=== PATIENT | female | born 1955 | race Caucasian/White ===

== ENCOUNTER 2017-07-04 03:48 | Inpatient (IN) | payer MEDICARE, BC ==
[~2017-07-04 03:48] MED LIST: ACETAMINOPHEN TAB 650MG DOSE (2X325MG) PO; MORPHINE 4 MG/ML 1ML VIAL (J2270) IV
[2017-07-04] MEDS: HEPARIN SOD (PORCINE) 5000 UNITS/ML VIAL SC ×3 (05:10→20:49)
[2017-07-04] MEDS: VANCOMYCIN 1000 MG/20 ML VIAL (J3370) IP (05:10)
[2017-07-04] MEDS: GENTAMICIN SULF INJ 80MG/2ML VIAL (J1580) IP (05:10)
[2017-07-04 06:12] LABS: HEMATOCRIT 29.8 % (36.0-47.0); HEMOGLOBIN 10.1 g/dl (12.0-16.0); MEAN CORPUSCULAR HEMOGLOBIN 30.4 pg (27.0-33.0); MEAN CORPUSCULAR HGB CONC 33.9 g/dl (32.0-36.5); MEAN CORPUSCULAR VOLUME 89.8 fl (80.0-96.0); PLATELET COUNT, AUTOMATED 317 10^3/uL (150-450); RED BLOOD COUNT 3.32 10^6/uL (4.00-5.40); RED CELL DISTRIBUTION WIDTH 13.9 % (11.5-14.5); WHITE BLOOD COUNT 8.6 10^3/uL (4.0-10.0)
[2017-07-04] MEDS: LEVOTHYROXINE 150MCG TABLET (0.15MG) PO (06:15)
[2017-07-04 06:19] LABS: ANION GAP 10 MEQ/L (8-16); BLOOD UREA NITROGEN 31 MG/DL (7-18); CALCIUM LEVEL 7.6 MG/DL (8.8-10.2); CARBON DIOXIDE LEVEL 29 MEQ/L (21-32); CHLORIDE LEVEL 96 MEQ/L (98-107); GLOMERULAR FILTRATION RATE 5.2 (>45); GLUCOSE, FASTING 131 MG/DL (70-100); PHOSPHORUS LEVEL 3.3 MG/DL (2.5-4.9); SODIUM LEVEL 135 MEQ/L (136-145)
[2017-07-04 06:34] LABS: RBC BODY FLUID < 2 10^3/uL (<2); WBC BODY FLUID 3351 /uL (0-10)
[2017-07-04 06:35] LABS: APPEARANCE, BODY FLUID CLOUDY (CLEAR); SOURCE, BODY FLUID PERITONEAL DIALYSATE
[2017-07-04 06:36] LABS: BF DIFF IF INDICATED? YES (NO)
[2017-07-04 06:40] LABS: CREATININE FOR GFR 8.37 MG/DL (0.55-1.30)
[2017-07-04 06:41] LABS: POTASSIUM SERUM 2.8 MEQ/L (3.5-5.1)
[2017-07-04] MEDS: POTASSIUM CHLORIDE 10 MEQ SR TABLET PO (06:52)
[2017-07-04] MEDS: ONDANSETRON 4MG/2ML VIAL (J2405) IV (06:55)
[2017-07-04] MEDS: DOCUSATE SODIUM 100 MG CAP PO ×2 (09:00→21:00)
[2017-07-04] MEDS: CALCITRIOL 0.25 MCG CAP (S0169) PO (20:47)
[2017-07-04] MEDS: CARVedilol 3.125 MG TAB PO (20:48)
[2017-07-04 20:55] LABS: ANION GAP 8 MEQ/L (8-16); BLOOD UREA NITROGEN 32 MG/DL (7-18); CALCIUM LEVEL 7.9 MG/DL (8.8-10.2); CARBON DIOXIDE LEVEL 33 MEQ/L (21-32); CHLORIDE LEVEL 94 MEQ/L (98-107); GLOMERULAR FILTRATION RATE 5.2 (>45); GLUCOSE, FASTING 249 MG/DL (70-100); POTASSIUM SERUM 3.4 MEQ/L (3.5-5.1); SODIUM LEVEL 135 MEQ/L (136-145)
[2017-07-04 21:05] LABS: CREATININE FOR GFR 8.34 MG/DL (0.55-1.30)
[2017-07-05] MEDS: LEVOTHYROXINE 150MCG TABLET (0.15MG) PO (06:26)
[2017-07-05] MEDS: HEPARIN SOD (PORCINE) 5000 UNITS/ML VIAL SC ×3 (06:27→21:15)
[2017-07-05] MEDS: DOCUSATE SODIUM 100 MG CAP PO ×2 (08:09→20:38)
[2017-07-05] MEDS: POTASSIUM CHLORIDE 10 MEQ SR TABLET PO ×3 (09:00→14:22)
[2017-07-05 09:01] LABS: HEMATOCRIT 30.2 % (36.0-47.0); HEMOGLOBIN 9.9 g/dl (12.0-16.0); MEAN CORPUSCULAR HEMOGLOBIN 29.9 pg (27.0-33.0); MEAN CORPUSCULAR HGB CONC 32.8 g/dl (32.0-36.5); MEAN CORPUSCULAR VOLUME 91.2 fl (80.0-96.0); PLATELET COUNT, AUTOMATED 307 10^3/uL (150-450); RED BLOOD COUNT 3.31 10^6/uL (4.00-5.40)
[2017-07-05 09:25] LABS: ALBUMIN 1.8 GM/DL (3.2-5.2); ANION GAP 8 MEQ/L (8-16); BLOOD UREA NITROGEN 34 MG/DL (7-18); CALCIUM LEVEL 7.5 MG/DL (8.8-10.2); CARBON DIOXIDE LEVEL 32 MEQ/L (21-32); CHLORIDE LEVEL 96 MEQ/L (98-107); GLOMERULAR FILTRATION RATE 5.2 (>45); GLUCOSE, FASTING 165 MG/DL (70-100); PHOSPHORUS LEVEL 3.5 MG/DL (2.5-4.9); SODIUM LEVEL 136 MEQ/L (136-145); VANCOMYCIN RANDOM 12.1 UG/ML
[2017-07-05 09:27] LABS: CREATININE FOR GFR 8.39 MG/DL (0.55-1.30)
[2017-07-05 11:39] LABS: BF MONONUCLEAR CELL % 50.5 % (0-0); BF POLYMORPHONUCLEAR CELL % 49.5 % (0-0); RBC BODY FLUID < 2 10^3/uL (<2); SOURCE, BODY FLUID PERITONEAL; WBC BODY FLUID 186 /uL (0-10)
[2017-07-05 11:40] LABS: APPEARANCE, BODY FLUID CLEAR (CLEAR); BF DIFF IF INDICATED? YES (NO); PERITONEAL FL COLOR COLORLESS (COLORLESS)
[2017-07-05] MEDS: HEPARIN 1,000 UNITS/ML 10ML VIAL (FOR RADIOLOGY& DIALYSIS ONLY) XX (18:30)
[2017-07-05] MEDS: LACTOBACILLUS ACIDOPHILUS CAP (BACID) PO (20:38)
[2017-07-05] MEDS: CALCITRIOL 0.25 MCG CAP (S0169) PO (20:39)
[2017-07-05] MEDS: CARVedilol 3.125 MG TAB PO (20:40)
[2017-07-05] MEDS: MUPIROCIN 2% OINT 22 GM TUBE TOP (20:41)
[2017-07-05] MEDS: VANCOMYCIN 1000 MG/20 ML VIAL (J3370) IP (22:42)
[2017-07-06] MEDS: LEVOTHYROXINE 150MCG TABLET (0.15MG) PO (05:44)
[2017-07-06] MEDS: HEPARIN SOD (PORCINE) 5000 UNITS/ML VIAL SC ×3 (05:44→20:13)
[2017-07-06 06:37] LABS: HEMATOCRIT 30.5 % (36.0-47.0); HEMOGLOBIN 9.8 g/dl (12.0-16.0); MEAN CORPUSCULAR HEMOGLOBIN 29.6 pg (27.0-33.0); MEAN CORPUSCULAR HGB CONC 32.1 g/dl (32.0-36.5); MEAN CORPUSCULAR VOLUME 92.1 fl (80.0-96.0); PLATELET COUNT, AUTOMATED 334 10^3/uL (150-450); RED BLOOD COUNT 3.31 10^6/uL (4.00-5.40); WHITE BLOOD COUNT 5.6 10^3/uL (4.0-10.0)
[2017-07-06 06:56] LABS: ALBUMIN 1.7 GM/DL (3.2-5.2); ANION GAP 6 MEQ/L (8-16); BLOOD UREA NITROGEN 30 MG/DL (7-18); CALCIUM LEVEL 8.3 MG/DL (8.8-10.2); CARBON DIOXIDE LEVEL 33 MEQ/L (21-32); CHLORIDE LEVEL 100 MEQ/L (98-107); GLOMERULAR FILTRATION RATE 5.3 (>45); GLUCOSE, FASTING 116 MG/DL (70-100); PHOSPHORUS LEVEL 3.1 MG/DL (2.5-4.9); POTASSIUM SERUM 3.8 MEQ/L (3.5-5.1); SODIUM LEVEL 139 MEQ/L (136-145)
[2017-07-06 07:09] LABS: CREATININE FOR GFR 8.23 MG/DL (0.55-1.30)
[2017-07-06] MEDS: DOCUSATE SODIUM 100 MG CAP PO ×2 (09:00→20:12)
[2017-07-06] MEDS: POTASSIUM CHLORIDE 10 MEQ SR TABLET PO (09:17)
[2017-07-06] MEDS: LACTOBACILLUS ACIDOPHILUS CAP (BACID) PO ×2 (09:17→20:10)
[2017-07-06] MEDS: amLODIPine 5 MG TAB PO (09:20)
[2017-07-06] MEDS: MUPIROCIN 2% OINT 22 GM TUBE TOP ×2 (09:20→20:13)
[2017-07-06 12:32] LABS: BF MONONUCLEAR CELL % 72.8 % (0-0); BF POLYMORPHONUCLEAR CELL % 27.2 % (0-0); RBC BODY FLUID < 2 10^3/uL (<2); WBC BODY FLUID 99 /uL (0-10)
[2017-07-06 12:34] LABS: APPEARANCE, BODY FLUID CLEAR (CLEAR); BF DIFF IF INDICATED? YES (NO); PERITONEAL DIALYSATE FL COLOR COLORLESS (COLORLESS); SOURCE, BODY FLUID PERITONEAL DIALYSATE
[2017-07-06] MEDS: HEPARIN SOD (PORCINE) 5000 UNITS/ML VIAL PD (14:42)
[2017-07-06] MEDS: CALCITRIOL 0.25 MCG CAP (S0169) PO (20:10)
[2017-07-06] MEDS: CARVedilol 3.125 MG TAB PO (20:12)
[2017-07-07] MEDS: LEVOTHYROXINE 150MCG TABLET (0.15MG) PO (06:41)
[2017-07-07] MEDS: HEPARIN SOD (PORCINE) 5000 UNITS/ML VIAL SC (06:42)
[2017-07-07 08:33] LABS: HEMATOCRIT 31.2 % (36.0-47.0); HEMOGLOBIN 9.9 g/dl (12.0-16.0); MEAN CORPUSCULAR HGB CONC 31.7 g/dl (32.0-36.5); MEAN CORPUSCULAR VOLUME 94.5 fl (80.0-96.0); PLATELET COUNT, AUTOMATED 321 10^3/uL (150-450); RED CELL DISTRIBUTION WIDTH 14.1 % (11.5-14.5); WHITE BLOOD COUNT 6.7 10^3/uL (4.0-10.0)
[2017-07-07 08:42] LABS: ALBUMIN 1.9 GM/DL (3.2-5.2); ANION GAP 9 MEQ/L (8-16); BLOOD UREA NITROGEN 33 MG/DL (7-18); CALCIUM LEVEL 8.2 MG/DL (8.8-10.2); CARBON DIOXIDE LEVEL 30 MEQ/L (21-32); CHLORIDE LEVEL 100 MEQ/L (98-107); CREATININE FOR GFR 7.88 MG/DL (0.55-1.30); GLOMERULAR FILTRATION RATE 5.5 (>45); GLUCOSE, FASTING 201 MG/DL (70-100); PHOSPHORUS LEVEL 2.9 MG/DL (2.5-4.9); POTASSIUM SERUM 3.9 MEQ/L (3.5-5.1); SODIUM LEVEL 139 MEQ/L (136-145)
[2017-07-07] MEDS: LACTOBACILLUS ACIDOPHILUS CAP (BACID) PO (08:52)
[2017-07-07] MEDS: POTASSIUM CHLORIDE 10 MEQ SR TABLET PO (08:52)
[2017-07-07] MEDS: DOCUSATE SODIUM 100 MG CAP PO (08:52)
[2017-07-07] MEDS: amLODIPine 5 MG TAB PO (08:53)
[2017-07-07] MEDS: MUPIROCIN 2% OINT 22 GM TUBE TOP (08:54)
== END 2017-07-07 12:25 | disposition home or self-care (01) | DRG 919 ==
LOC: M ICU 03:48 → M MSPAV 07-05 15:46
DX: T85.71XA Infection and inflammatory reaction due to peritoneal dialysis catheter, initial encounter (principal); N18.6 End stage renal disease; K65.9 Peritonitis, unspecified; N25.81 Secondary hyperparathyroidism of renal origin; I12.0 Hypertensive chronic kidney disease with stage 5 chronic kidney disease or end stage renal disease; E11.319 Type 2 diabetes mellitus with unspecified diabetic retinopathy without macular edema; D63.1 Anemia in chronic kidney disease; E89.0 Postprocedural hypothyroidism; I25.10 Atherosclerotic heart disease of native coronary artery without angina pectoris; Z99.2 Dependence on renal dialysis; Z95.828 Presence of other vascular implants and grafts; I25.2 Old myocardial infarction; Z98.41 Cataract extraction status, right eye; Z98.42 Cataract extraction status, left eye; Z88.0 Allergy status to penicillin; Z88.8 Allergy status to other drugs, medicaments and biological substances; Z95.5 Presence of coronary angioplasty implant and graft; Z79.899 Other long term (current) drug therapy; E87.6 Hypokalemia

== ENCOUNTER 2018-08-21 01:24 | Inpatient (IN) | payer MEDICARE, BC ==
[2018-08-20] MEDS: amLODIPine 5 MG TAB PO SCH (21:00)
[2018-08-20] MEDS: POTASSIUM CHLORIDE 10 MEQ SR TABLET PO SCH (21:00)
[2018-08-20] MEDS: CALCITRIOL 0.25 MCG CAP (S0169) PO SCH (21:00)
[2018-08-20] MEDS: ATORVASTATIN 20 MG TAB PO SCH (21:00)
[2018-08-20] MEDS: LISINOPRIL 5 MG TAB PO SCH (21:00)
[~2018-08-21] VITALS: Ht 152.4 cm; Wt 68.4 kg
[2018-08-21] VITALS (8 sets, daily range): BP systolic 95–170; BP diastolic 48–63
[~2018-08-21 01:24] MED LIST changes: -ACETAMINOPHEN TAB 650MG DOSE (2X325MG) PO; +AMLO5TAB6 PO; +CALC1CAP31 PO; +CARV3.12 PO; +GENTAMICIN SULFATE 0.1% OINT 15 GM TOP SCH; +KLOR10TA76 PO; +LEVO150T7 PO; -MORPHINE 4 MG/ML 1ML VIAL (J2270) IV; +MUPI2OI TOP; +VITA50005 PO
[2018-08-21] MEDS ORDERED: GLUCOSE 4 GM CHEW TABLET PO PRN (04:15)
[2018-08-21] MEDS ORDERED: DEXTROSE 50% 50 ML SYRINGE IV PRN (04:15)
[2018-08-21] MEDS ORDERED: GLUCAGON FOR INJ 1 MG VIAL (J1610) SC PRN (04:15)
[2018-08-21] MEDS ORDERED: AMLO5TAB6 PO (05:02)
[2018-08-21] MEDS ORDERED: ATOR1TAB21 PO (05:02)
[2018-08-21] MEDS ORDERED: CARV3.12 PO (05:02)
[2018-08-21] MEDS ORDERED: AURY1TAB PO ×2 (05:02→05:03)
[2018-08-21] MEDS ORDERED: LISI-542 PO (05:02)
[2018-08-21] MEDS ORDERED: FLUC100T PO (05:02)
[2018-08-21] MEDS ORDERED: ROCA0.5C PO (05:02)
[2018-08-21] MEDS ORDERED: POTA1TAB23 PO (05:02)
[2018-08-21] MEDS ORDERED: RENATAB5 PO (05:02)
[2018-08-21] MEDS ORDERED: ACET-683 PO (05:02)
[2018-08-21] MEDS ORDERED: NITR0.4S14 SL (05:02)
[2018-08-21] MEDS ORDERED: GENT0.1C2 TOP (05:02)
[2018-08-21] MEDS ORDERED: LEVO150T7 PO (05:02)
[2018-08-21] MEDS ORDERED: VENTAER INH (05:02)
[2018-08-21] MEDS ORDERED: TORS20TA2 PO (05:02)
[2018-08-21] MEDS ORDERED: VANCOMYCIN 1000 MG/20 ML VIAL (J3370) IP ONE ×2 (06:00→13:00)
--- NOTE | 2018-08-21 06:25 | HPEPDOC ---
General Date of Admission Aug 21, 2018 at 03:30 Chief Complaint The patient is a 62-year-old female admitted with a reason for visit of Peritonitis. Source: Patient History of Present Illness 62 y/o F with h/o ESRD on home peritoneal dialysis went to [facility] ER for c/o abdominal pain, nausea, vomiting and tactile fever for past 2 days; labs showed WBC 15.7, on physical examination there was tenderness in lower abdomen, CT abdomen/pelvis did not show any acute pathology. Pt was given iv morphine 2 mg and iv ceftriaxone due to concern of peritonitis. We were informed by nursing terrazzo supervisor that [facility] ER doctor wants to transfer this pt to our facility for higher level of care and pt's accounts payable technician is also over here. Pt was immediately seen when she arrived to medical floor. Pt was resting comfortably in bed. Pt c/o mild diffuse lower abdominal pain Home Medications Scheduled Amlodipine Besylate (Amlodipine Besylate) 5 Mg Tablet, 5 MG PO DAILY, (Reported) Atorvastatin Calcium (Atorvastatin Calcium) 20 Mg Tablet, 20 MG PO DAILY, (Reported) Calcitriol (Rocaltrol) 0.5 Mcg Capsule, 0.5 MCG PO DAILY, (Reported) Carvedilol (Carvedilol) 3.125 Mg Tablet, 3.125 MG PO BID, (Reported) Ferric Citrate (Auryxia) 210 Mg Tablet, 210 MG PO TID, (Reported) Fluconazole (Fluconazole) 100 Mg Tablet, 100 MG PO DAILY, (Reported) Folic Acid/Vit B Complex and C (Zo-Kamran Tablet) 0.8 Mg Tablet, 1 TAB PO DAILY, (Reported) Gentamicin Sulfate (Gentamicin Sulfate) 30 Gm Cream..g., 1 APLCT TOP DAILY, (Reported) Levothyroxine Sodium (Levothyroxine Sodium) 150 Mcg Tablet, 150 MCG PO QAM, (Reported) Lisinopril (Lisinopril) 5 Mg Tablet, 5 MG PO DAILY, (Reported) Potassium Chloride (Potassium Chloride) 10 Meq Tablet.er, 10 MEQ PO DAILY, (Reported) Torsemide (Torsemide) 20 Mg Tablet, 20 MG PO BID, (Reported) Scheduled PRN Acetaminophen (Acetaminophen) 500 Mg Tablet, 1,000 MG PO Q6H PRN for PAIN, (Reported) Albuterol Sulfate (Ventolin Hfa) 18 Gm Hfa.aer.ad, 2 PUFF INH Q4H PRN for wheezing, (Reported) Nitroglycerin (Nitroglycerin) 0.4 Mg Tab.subl, 0.4 MG SL Q5MP PRN for CHEST PAIN, (Reported) Allergies Coded Allergies: Penicillins (Unverified Allergy, Unknown, 08/21/18) HIVES hydrocodone (Unverified Adverse Reaction, Mild, VOMITING, 08/21/18) egg (Unverified Adverse Reaction, Unknown, VOMITING, 08/21/18) Past Medical History Medical History DM 2, HTN, ESRD on peritoneal dialysis, h/o NV, thyroid cancer s/p surgery, small vessel disease, h/o peritonitis and cellulitis Surgical History Thyroidectomy, cardiac catheterization, triple bypass, b/l cataract Family History reviewed non contributory Social History * Smoker: Denies Alcohol: Denies Drugs: denies A-FIB/CHADSVASC A-FIB History Current/History of A-Fib/PAF?: No Current Oral Anticoagulant The: No Review of Systems Other systems 10 points review of system was performed and it was negative except as per HPI Physical Examination General Exam: Positive: Alert, Cooperative, No Acute Distress Eye Exam: Positive: Conjunctiva & lids normal ENT Exam: Positive: Atraumatic, Mucous membr. moist/pink Neck Exam: Positive: Supple Chest Exam: Positive: Clear to auscultation, Normal air movement Heart Exam: Positive: Rate Normal, Normal S1, Normal S2 Abdomen Exam: Positive: Normal bowel sounds Extremity Exam: Positive: Normal pulses Skin Exam: Positive: Nl turgor and temperature Neuro Exam: Positive: Normal Speech, Strength at 5/5 X4 ext, Cranial Nerves 3- 12 NL Psych Exam: Positive: Mental status NL, Oriented x 3 Other physical findings mild diffuse tenderness lower abdomen around peritoneal dialysis catheter, whitish discharge around peritoneal dialysis catheter b/l lower extremities pitting pedal edema Vital Signs Temp 97, HR 82, RR 16, BP 128/60, SpO2-98% Assessment/Plan 62 y/o F c/o nausea, vomiting, diffuse lower abdominal pain and tactile fever for past few days, At home her Temp was 98.6 Labs and imaging studies reviewed. CT abdomen/pelvis done at outside facility report in chart- showed mild thickening of large and small bowel loops- ? enteritis. WBC 15.7 Peritoneal catheter was changed at [place] 2 weeks ago. Pt was admitted in [place] for peritonitis in 06/2018 Impression- suspected acute peritonitis Problems (1) Peritonitis Status: Acute Problem Text: pt already got iv cetriaxone at outside facility, will give one 2 gm iv cefepime and one dose of intraperitoneal 1 gm vancomycin will f/u peritoneal fluid culture will f/u with nephrology (2) DM2 (diabetes mellitus, type 2) Status: Chronic Problem Text: ISS will f/u HbA1c (3) ESRD (end stage renal disease) Status: Chronic Problem Text: will f/u with nephrology service (4) HTN (hypertension) Status: Chronic Problem Text: home meds (5) CAD (coronary artery disease) Status: Chronic Problem Text: home meds (6) Hypothyroidism Status: Chronic Problem Text: home meds (7) Anemia of chronic disease Status: Chronic Problem Text: stable will f/u repeat labs Plan / VTE VTE Prophylaxis Ordered?: Yes MACARENA BHARDWAJ MD Aug 21, 2018 04:31
[2018-08-21] MEDS ORDERED: NITROGLYCERIN 0.4 MG SUBL TABLET SL PRN (06:30)
[2018-08-21] MEDS ORDERED: ALBUTEROL 90 MCG/ACT 8GM HFA INHALER INH PRN (06:30)
[2018-08-21 06:32] LABS: HEMATOCRIT 27.2 % (36.0-47.0); HEMOGLOBIN 8.7 g/dl (12.0-15.5); MEAN CORPUSCULAR VOLUME 93.8 fl (80.0-96.0); PLATELET COUNT, AUTOMATED 370 10^3/uL (150-450)
[2018-08-21 06:48] LABS: INR 1.1; PROTHROMBIN TIME 14.3 SECONDS (12.1-14.4)
[2018-08-21 07:07] LABS: ALBUMIN 1.2 GM/DL (3.2-5.2); BILIRUBIN,TOTAL 0.2 MG/DL (0.2-1.0); CALCIUM LEVEL 7.7 MG/DL (8.8-10.2); CREATININE FOR GFR 8.13 MG/DL (0.55-1.30); GLOMERULAR FILTRATION RATE 5.3 (>45); POTASSIUM SERUM 3.5 MEQ/L (3.5-5.1)
[2018-08-21 07:21] LABS: HEMOGLOBIN A1c 6.8 %
[2018-08-21] MEDS: HumaLOG INSULIN (NovoLOG) PER UNIT SC SCH ×4 (07:30→22:13)
[2018-08-21] MEDS ORDERED: CEFEPIME HCL 2 GM in D5W MINI-BAG PLUS 50 ML IV ONE (08:00)
[2018-08-21] MEDS: MORPHINE 4 MG/ML 1ML VIAL/SYRINGE (J2270) IV PRN ×2 (08:21→14:38)
[2018-08-21] MEDS: LEVOTHYROXINE 150MCG TABLET (0.15MG) PO SCH (09:18)
[2018-08-21] MEDS: HEPARIN SOD (PORCINE) 5000 UNITS/ML VIAL SC SCH ×3 (10:37→23:36)
[2018-08-21 10:38] LABS: APPEARANCE, BODY FLUID CLEAR (CLEAR); PERITONEAL DIALYSATE FL COLOR COLORLESS (COLORLESS); SOURCE, BODY FLUID PERITONEAL DIALYSATE
[2018-08-21] MEDS: TORSEMIDE 20 MG TAB PO SCH ×2 (10:38→22:28)
[2018-08-21] MEDS: CARVedilol 3.125 MG TAB PO SCH ×2 (10:39→22:30)
--- NOTE | 2018-08-21 11:18 | IPNPDOC ---
Text Note Date of Service The patient was seen on 08/21/18. NOTE SUBJECTIVE: Patient was interviewed and examined in her hospital room. She is awake and alert in no acute distress as long as she remains still. She continues to complain of generalized abdominal pain with motion and palpation. Patient had received morphine with good effect. She reports some nausea and has PRN Zofran. No emesis. She denies any difficulty breathing, SOB or chest pain. OBJECTIVE: VITALS: Please see below. EXAM: GENERAL: Awake, alert and oriented 3, in no acute distress, upright in hospital bed in hospital clothing. HEAD: Normocephalic, atraumatic EENT: PERRLA, EOMI, sclera nonicteric, mucous membranes moist NECK: No lymphadenopathy, no tracheal deviation CARDIAC: Regular rate and rhythm, normal S1 and S2, without murmur PULM: Clear to auscultation bilaterally, good air movement without evidence of wheezes rales or rhonchi ABDOMEN: Tender to palpation in suprapubic, umbilical and epigastric regions. PD catheter noted. Site free of any purulent drainage. Soft and nontender without guarding or distention, no masses, no hepatosplenomegaly EXTREMITIES: 2+ pitting edema noted bilaterally, Able to move equally and freely bilaterally. No weakness. No calf tenderness NEURO: No focal neurologic deficits SKIN: No rashes, No new or evolving skin lesions PSYCH: Mood and affect are appropriate LABORATORY: Please see below. IMAGING: Abdomen CT (08/21/18): Performed at outside facility and located in chart: Mild thickening of large and small bowel loops, question of enteritis. Abdomen CXR (08/21/18): Pending read MICRO: Please see below. ASSESSMENT: 62 y/o F with h/o ESRD on home peritoneal dialysis went to [facility] ER for c/o abdominal pain, nausea, vomiting and tactile fever for past 2 days; labs showed WBC 15.7, on physical examination there was tenderness in lower abdomen, CT abdomen/pelvis did not show any acute pathology. Pt was given iv morphine 2 mg and iv ceftriaxone due to concern of peritonitis. PLAN: Acute Peritonitis: Patient is hemodynamically stable and afebrile. Peritoneal dialysate sent to lab. Intraperitoneal fluid culture pending. Nephrology aware and following patient and we appreciate their recommendations. Patient has received 2 g IV of cefepime and a single intraperitoneal dose of vancomycin 1 g. Diabetes Mellitus, Type II: Hold home medications, ISS, follow HbA1c ESRD: Possible dysfunction of peritoneal dialysis catheter Possible replacement of catheter / Temporary access for HD Chronic, follows with nephrology CAD: Continue home medications Hypothyroidism: Continue home medications Anemia of Chronic Disease: Stable, follow repeat labs DVT PROPHYLAXIS: SubQ heparin VS,Fishbone, I+O VS, Fishbone, I+O Laboratory Tests 08/21/18 05:54 Calcium Level 7.7 L, Aspartate Amino Transf (AST/SGOT) 16, Alanine Aminotransferase (ALT/SGPT) 14, Alkaline Phosphatase 81, Total Bilirubin 0.2, Total Protein 4.0 L, Albumin 1.2 L 08/21/18 05:56 Red Blood Count 2.90 L, Mean Corpuscular Volume 93.8, Mean Corpuscular Hemogl obin 30.0, Mean Corpuscular Hemoglobin Concent 32.0, Red Cell Distribution Width 14.6 H Vital Signs Date Time Temp Pulse Resp B/P (MAP) Pulse Ox O2 Delivery O2 Flow Rate FiO2 08/21/18 10:39 84 150/70 08/21/18 08:31 18 08/21/18 06:00 98.1 99 I&O- Last 24 Hours up to 6 AM 08/21/18 06:00 Intake Total 0 ml Output Total 0 ml Balance 0 ml GME ATTESTATION GME ATTESTATION My faculty preceptor for this patient encounter was physically present during the encounter and was fully available. All aspects of the patient interview, examination, medical decision making process, and medical care plan development were reviewed and approved by the faculty preceptor. The faculty preceptor is aware and concurs with the plan as stated in the body of this note and will attest to such by his/her cosignature. ATTENDING NOTE I, Niurka Amaya, have both independently examined this patient as well as reviewed the documentation. I have discussed in detail with the resident the findings and plan of treatment as documented in the residents documentation. I will continue to follow the patient and offer further guidance to the patients care as necessary during this hospital stay. ANDRIA BEDOLLA DO Aug 21, 2018 11:18 NIURKA AMAYA MD Aug 21, 2018 21:17
[2018-08-21] MEDS ORDERED: FLUCONAZOLE 100 MG TAB PO ONE (12:15)
[2018-08-21] MEDS ORDERED: DARBEPOETIN 100 MCG/0.5 ML *NON-DIALYSIS* SYRINGE (J0881) SC SCH (12:15)
[2018-08-21] MEDS ORDERED: GENTAMICIN SULF INJ 80MG/2ML VIAL (J1580) IP ONE (13:00)
[2018-08-21 13:18] LABS: PERCENT SATURATION 16.2 % (13.2-45.0)
[2018-08-21] MEDS: ONDANSETRON 4MG/2ML VIAL (J2405) IV PRN (14:01)
--- NOTE | 2018-08-21 14:37 | REP ---
KUB, ONE VIEW: HISTORY: Malfunction PD catheter. A small amount of air is present in the intestine. There are no air fluid levels or dilated loops of intestine. There is no pneumoperitoneum. A catheter is present in the mid pelvis. IMPRESSION: Nonspecific bowel gas pattern. Electronically Signed by Jarrod Gore MD 08/21/2018 02:37 P
[2018-08-21] MEDS: MUPIROCIN 2% OINT 22 GM TUBE TOP SCH ×2 (15:20→23:33)
[2018-08-21] MEDS ORDERED: METOCLOPRAMIDE INJ 10MG/2ML VIAL (J2765) IV ONE (15:45)
[2018-08-21] MEDS ORDERED: PERCOCET 5MG/325MG TAB PO PRN ×2 (15:45)
--- NOTE | 2018-08-21 15:48 | CR ---
DATE OF CONSULTATION: 08/21/2018 CONSULTATION REPORT FOR: Dr. Niurka Prince REASON FOR CONSULTATION: Management of end-stage renal disease on peritoneal dialysis and possible peritonitis. CHIEF COMPLAINT: The patient was transferred from [facility] in [place] for abdominal pain and possible peritonitis. HISTORY OF PRESENT ILLNESS: Maddie Olsen is a 62-year-old female with past medical history of end-stage renal disease on peritoneal dialysis, well-known to nephrology service from outpatient peritoneal dialysis center. She reports that she was recently admitted in [place] about two months ago with possible peritonitis. She has no idea what sort of infection she has or what antibiotics were given to her. She came back from [place] about one and a half months ago and she was seen recently in the peritoneal dialysis center. All of her records were reviewed. There is one record available of any positive actonomyces cultures from [place]. She was also recently admitted at [facility] where her peritoneal dialysis catheter extension was placed but catheter was not changed. Her catheter is almost six years old. Yesterday, she presented to [facility] at [place] with abdominal pain for about two days and diarrhea for about three days. She was having low-grade temperatures. She also had nausea and vomiting yesterday, about 3-4 episodes. Over at [facility], she got the CT scan of the abdomen and pelvis done which did not show any acute pathology. She was given IV Rocephin and IV morphine, and because of possible peritonitis and no availability of nephrology service at [facility], the patient was transferred to [facility] for further care. She was admitted overnight under the care of the hospitalist service. Nephrology service was called for further help in the management of this patient. I saw and evaluated the patient today morning at the bedside. The patient reports severe abdominal pain. She is unable to walk from the bedside sofa up to the bed without getting severe pain in the lower abdominal region. She also feels nauseated. She denies any cough. She denies any dysuria or hematuria. The patient was given a dose of IV cefepime overnight by the hospitalist service and no gram-positive coverage has been given so far. PAST MEDICAL HISTORY: 1. End-stage renal disease, on peritoneal dialysis. 2. Hypertension. 3. Diabetes mellitus, type 2 which is diet controlled. 4. History of coronary artery disease and congestive heart failure. 5. History of thyroid cancer, status post thyroidectomy. 6. Recent peritonitis during admission in [place] about two months ago. PAST SURGICAL HISTORY: 1. Status post thyroidectomy. 2. Status post cardiac catheterization. 3. Status post coronary artery bypass grafting. 4. Bilateral cataract surgeries. 5. Left lower quadrant peritoneal dialysis catheter placement. ALLERGIES: The patient is allergic to PENICILLIN, HYDROCODONE, and EGGS. FAMILY HISTORY: No significant family history of end-stage renal disease requiring hemodialysis. SOCIAL HISTORY: The patient denies any illicit drug abuse or alcohol abuse and she lives at home. REVIEW OF SYSTEMS: CONSTITUTIONAL: The patient reports feeling very weak and tired. EYES: She denies any blurry vision or double vision. EARS, NOSE AND THROAT (ENT): She denies any dysphagia, odynophagia, or ear discharge. CARDIOVASCULAR: She denies any chest pain or palpitations. RESPIRATORY: She denies any shortness of breath. GASTROINTESTINAL (GI): She reports nausea, vomiting and diarrhea and pain abdomen. GENITOURINARY: She denies any dysuria or hematuria. HEMATOLOGICAL/ONCOLOGICAL: She denies any easy bleeding or bruising. ENDOCRINE: She reports diabetes mellitus type 2 which is diet controlled and history of thyroidectomy. PSYCHIATRIC: She denies any depression or anxiety. All other review of systems is negative. PHYSICAL EXAMINATION: GENERAL: The patient is awake, alert and oriented times, three, in moderate painful distress, laying in the bed. VITAL SIGNS: Temperature is 98.1 degrees Fahrenheit, blood pressure 150/70, pulse is 84, respiratory rate of 18, saturating 99% on room air. HEAD AND NECK: Extraocular muscles intact. Pupils equally round and reactive to light. Mucous membranes are moist. Neck is supple. There is no jugular venous distention (JVD). CARDIOVASCULAR: S1, S2, 2+ edema of the bilateral lower extremities. RESPIRATORY: Chest is clear to auscultation bilaterally. Bilateral equal air entry. No rales or rhonchi. ABDOMEN: Soft. There is voluntary regarding. There is catheter in the left lower quadrant with discharge of pus from the exit site on milking and she has moderate to severe amount of tenderness on deep palpation in the right lower quadrant and left lower quadrant and there is mild amount of rebound tenderness as well. MUSCULOSKELETAL: No clubbing or cyanosis, 2+ edema of the bilateral lower extremities as mentioned above. CENTRAL NEUROLOGIC SYSTEM (BICYCLE MESSENGER): No focal deficit. Power is 5/5 in all extremities. SKIN: No rashes or ulcers. LABORATORY REVIEW: CBC showed a WBC of 13, hemoglobin 8.7, platelets are 370. INR is 1.1. Peritoneal fluid total WBCs 114 and 72% of them are polymorphonuclear. BMP showed sodium 135, potassium 3.5, chloride 97, bicarbonate 30, BUN 43, creatinine is 8.1, A1c is 6.8, calcium is 7.7, albumin 1.2, iron levels are pending. MICROBIOLOGY: Blood cultures and peritoneal fluid cultures are pending. Gram-stain of the peritoneal dialysis access site shows no organism and few WBCs. IMAGING STUDIES: An abdominal x-ray, KUB was done today morning. Official report is pending but as read by me, the peritoneal dialysis catheter is quelling in the pelvic region. No air-fluid levels were seen CURRENT INPATIENT MEDICATIONS: The patient's medications were all reviewed by me. She was given a dose of cefepime 2 grams IV times one dose yesterday. She is on: - Tylenol as needed - Proventil as needed - amlodipine 5 mg daily - Lipitor 20 mg by mouth daily - calcitriol 0.5 mcg by mouth daily - Coreg 3.125 mg by mouth twice a day - I have given her a dose of Aranesp 100 mcg subcutaneous today. - I have started on fluconazole 200 mg by mouth one time followed by 50 mg by mouth daily. - I have ordered a dose of gentamicin 80 mg intraperitoneally. - She is on topical gentamicin which I have stopped. - She is on heparin subcutaneous. - insulin sliding scale - levothyroxine 150 mcg by mouth daily - lisinopril 5 mg by mouth daily - morphine as needed - I have started the patient on Bactroban at the catheter exit site. - She is on Zofran as needed. - potassium chloride 10 mEq by mouth daily - torsemide 20 mg by mouth twice a day - I have ordered a dose of vancomycin 1 gram intraperitoneal times one dose. ASSESSMENT: A 62-year-old female with end-stage renal disease on peritoneal dialysis, admitted with acute peritonitis. PLAN: 1. Acute peritonitis. The patient has more than 100 white blood cells (WBCs) and 72% of them are polymorphonuclear which is diagnostic for peritonitis secondary to peritoneal dialysis catheter. Peritoneal fluid cultures are pending. I have empirically started the patient on 1 gram of intraperitoneal vancomycin time one dose, gentamicin 80 mg intraperitoneal times one dose. She was already given cefepime IV yesterday. No need of intravenous antibiotics at this point. Further change in the antibiotics will be done once we have the results of the cultures. Since she was recently treated in [place] about two months ago as well, I am going to empirically treat her for a fungal infection as well. If there are any signs of fungal infection then the patient's catheter would need to be removed. 2. End-stage renal disease, on peritoneal dialysis. The patient gets the cycler at home. However, over here, she will get all 2.5% two liter fluid volumes manual exchanges a day. However, with the exchange that I am going to do, the patient will need to dwell that fluid for six hours because we are giving antibiotic in that fluid. 3. Lower extremity edema. The patient has 2+ edema. She reports that she has used a combination of 2.5% and 4.25% for edema yesterday. I am using all 2.5% over here because of peritonitis. Continue home dose of torsemide and potassium chloride. 4. Hypertension with end-stage renal disease. Continue home dose of amlodipine 5 mg by mouth daily, Coreg 3.125 mg by mouth twice a day, lisinopril 5 mg by mouth daily. 5. Iatrogenic hypothyroidism. Continue home dose of levothyroxine 150 mcg by mouth daily. 6. Anemia and end-stage renal disease. Hemoglobin is 8.7 which is suboptimal. I have ordered a dose of Aranesp to be given today. I am going to check the iron levels as well. If the iron levels are low, the patient will be given IV iron as well. 7. Protein-calorie malnutrition. The patient's albumin level is 1.2. It is most likely secondary to a combination of renal failure and acute sickness and inability to take oral diet. Once the patient's diarrhea improves, I will start the patient on Nepro with meals daily. 8. Peritoneal dialysis catheter exit site infection. I have stopped the topical gentamicin and started the patient on topical Bactroban. If we have issues with the catheter flow then I would have a low threshold to have the catheter removed and switch the pt to HD. Thank you for involving me in the care of this patient. I shall be happy to follow the patient along with you tomorrow morning. Plan of care was discussed with the patient's registered nurse (RN) and with the primary medical team, Dr. Niurka Prince. Total critical care time spent in the management of this Pt today was 45 minutes. IR[place]
[2018-08-21 15:51] LABS: AMORPHOUS SEDIMENT SMALL (NEGATIVE); APPEARANCE, URINE TURBID (CLEAR); BACTERIA, URINE AUTO 3+ (NEGATIVE); BILIRUBIN, URINE AUTO NEGATIVE (NEGATIVE); BLOOD, URINE BLOOD 1+ (NEGATIVE); COLOR, URINE AMBER (YELLOW); GLUCOSE, URINE (UA) AUTO 1+ mg/dL (NEGATIVE); KETONE, URINE AUTO NEGATIVE (NEGATIVE); LEUKOCYTE ESTERASE, URINE AUTO 3+ (NEGATIVE); MUCUS, URINE SMALL (NEGATIVE); NITRITE, URINE AUTO NEGATIVE (NEGATIVE); PROTEIN, URINE AUTO 2+ mg/dL (NEGATIVE); RBC, URINE AUTO 47 /HPF (0-3); SPECIFIC GRAVITY URINE AUTO 1.015 (1.002-1.035); SQUAMOUS EPITHELIAL CELL UR AU 26 /HPF (0-6); TRANSITIONAL EPITHELIAL AUTO 19 /HPF; UROBILINOGEN, URINE AUTO 0.2 mg/dL (0.0-2.0); WBC, URINE AUTO TNTC /HPF (0-3)
--- NOTE | 2018-08-21 16:00 | CR.PDOC ---
General Date of Consultation: Aug 21, [address] Rome HPI: 62 y/o F with h/o ESRD on home peritoneal dialysis went to [facility] ER for c/o abdominal pain, nausea, vomiting and tactile fever for past 2 days transferred to [facility] for further mgmt; labs showed WBC 15.7, on physical examination there was tenderness in lower abdomen, CT abdomen/pelvis did not show any acute pathology. Pt was treated for possible peritonitis. Pt reports she has had yellowish drainage around the PD cath site. Vascular surgery consulted re PD catheter. No acute medical complaints today. Denies any Headache, Chest Pain, Shortness of breath, cough, palpitations, N/V/D or changes in bowel or bladder habits. Medical History DM 2, HTN, ESRD on peritoneal dialysis, h/o DC, thyroid cancer s/p surgery, small vessel disease, h/o peritonitis and cellulitis Surgical History Thyroidectomy, cardiac catheterization, triple bypass, b/l cataract SOCHX: Tobacco use: denies ETOH: denies Illicit Drugs: Denies FAMHX: non contributory ROS: As noted in HPI, otherwise 11pt ROS of systems reviewed and unremarkable. PE: GEN: 62yoF, appears stated age. Well-nourished, well developed. No acute distress. Alert and oriented x 3. Pleasant, interactive. HEENT: Normocephalic, atraumatic. Pupils are equal, round, and reactive to light. Sclera are nonicteric. Conjunctiva without injection. Moist mucous membranes. CHEST: Regular rate and rhythm, +S1, +S2 LUNGS: Clear to auscultation bilaterally. No wheezes, rales, or rhonchi. Breathing appears symmetric and easy. ABD: Round, distended, diffuse tenderness with palpation, PD cath site with some surrounding erythema, no drainage noted at this time. +Bowel sounds throughout. SKIN: Rivers, dry, warm. No rashes. NEURO: Alert and oriented x 3. Cranial nerves III-XII are intact. No focal deficits appreciated. UC pending BC pending Abd fluid culture pending. A&P: 62 y/o F with h/o ESRD on home peritoneal dialysis went to [facility] ER for c/o abdominal pain, nausea, vomiting and tactile fever for past 2 days transferred to [facility] for further mgmt; labs showed WBC 15.7, on physical examination there was tenderness in lower abdomen, CT abdomen/pelvis did not show any acute pathology. Pt was treated for possible peritonitis. Vascular surgery consulted re PD catheter. Peritonitis. Mgmt as per primary team. Continue IV antibiotics. Plan per Dr Rome is for PD cath removal and permacath in AM. ESRD. Dialysis Mgmt as per Nephrology. Dm. SSI. HTN. Coreg. DVT prophylaxis. SQ Heparin. Vital Signs/I&O Vital Signs Date Time Temp Pulse Resp B/P (MAP) Pulse Ox O2 Delivery O2 Flow Rate FiO2 08/21/18 14:40 82 16 128/60 (82) 98 2.0 08/21/18 11:45 98.0 I&O- Last 24 Hours up to 6 AM 08/21/18 06:00 Intake Total 0 ml Output Total 0 ml Balance 0 ml Laboratory Data Labs 24H Laboratory Tests 2 08/21/18 05:54: Anion Gap 8, Glomerular Filtration Rate 5.3L, Estimated Mean Plasma Glucose 148H, Hemoglobin A1c 6.8, Blood Urea Nitrogen 43H, Creatinine 8.13*H, Sodium Level 135L, Potassium Level 3.5, Chloride Level 97L, Carbon Dioxide Level 30, Calcium Level 7.7L, Aspartate Amino Transf (AST/SGOT) 16, Alanine Aminotransferase (ALT/SGPT) 14, Alkaline Phosphatase 81, Total Bilirubin 0.2, Total Protein 4.0L, Albumin 1.2L, Albumin/Globulin Ratio 0.43L 08/21/18 05:56: Nucleated Red Blood Cells % (auto) 0.0, Prothrombin Time 14.3, Prothromb Time International Ratio 1.10 08/21/18 09:05: Body Fluid Source PERITONEAL DIALYSATE, Body Fluid WBC (Auto) 114H, Body Fluid RBC (Auto) < 2, Body Fluid Mononuclear Cells % Auto 27.2H, Fluid Polymorphonuclear Cell % Auto 72.8H, Peritoneal Fluid Color COLORLESS, Peritoneal Fluid Appearance CLEAR 08/21/18 11:38: Bedside Glucose (Misc Panel) 106 08/21/18 12:28: Lactic Acid Level 1.1, Iron Level 19L, Total Iron Binding Capacity 117L, Transferrin % Saturation 16.2, Ferritin 760H 08/21/18 15:31: Urine Appearance TURBIDH, Urine Color JEANNETTE, Urine pH 5.0, Urine Specific [place] 1.015, Urine Protein 2+H, Urine Glucose (UA) 1+H, Urine Ketones NEGATIVE, Urine Urobilinogen 0.2, Urine Bilirubin NEGATIVE, Urine Leukocyte Esterase 3+H, Urine Blood 1+H, Urine Nitrite NEGATIVE, Urine WBC (Auto) TNTCH, Urine RBC (Auto) 47H, Urine Hyaline Casts (Auto) 0, Urine Bacteria (Auto) 3+H, Urine Squamous Epithelial Cells 26, Urine Transitional Epithelial Cells 19, Urine Amorphous Sediment SMALLH, Urine Mucus (Auto) SMALL, Urine Sperm (Auto) CBC/BMP Laboratory Tests 08/21/18 05:54 Calcium Level 7.7 L, Aspartate Amino Transf (AST/SGOT) 16, Alanine Aminotra nsferase (ALT/SGPT) 14, Alkaline Phosphatase 81, Total Bilirubin 0.2, Total Protein 4.0 L, Albumin 1.2 L 08/21/18 05:56 Red Blood Count 2.90 L, Mean Corpuscular Volume 93.8, Mean Corpuscular Hemoglobin 30.0, Mean Corpuscular Hemoglobin Concent 32.0, Red Cell Distribution Width 14.6 H Microbiology Microbiology 08/21/18 Blood Culture, Received Pending 08/21/18 Gram Stain - Final, Resulted 08/21/18 Body Fluid Culture, Resulted Pending 08/21/18 Urine Culture, Received Pending 08/21/18 Gram Stain - Final, Resulted 08/21/18 Abscess Culture, Resulted Pending Allergies Coded Allergies: Penicillins (Unverified Allergy, Unknown, 08/21/18) HIVES hydrocodone (Unverified Adverse Reaction, Mild, VOMITING, 08/21/18) egg (Unverified Adverse Reaction, Unknown, VOMITING, 08/21/18) Home Medications Scheduled Amlodipine Besylate (Amlodipine Besylate) 5 Mg Tablet, 5 MG PO DAILY, (Reported) Atorvastatin Calcium (Atorvastatin Calcium) 20 Mg Tablet, 20 MG PO DAILY, (Reported) Calcitriol (Rocaltrol) 0.5 Mcg Capsule, 0.5 MCG PO DAILY, (Reported) Carvedilol (Carvedilol) 3.125 Mg Tablet, 3.125 MG PO BID, (Reported) Ferric Citrate (Auryxia) 210 Mg Tablet, 210 MG PO TID, (Reported) Fluconazole (Fluconazole) 100 Mg Tablet, 100 MG PO DAILY, (Reported) Folic Acid/Vit B Complex and C (Zo-Kamran Tablet) 0.8 Mg Tablet, 1 TAB PO DAILY, (Reported) Gentamicin Sulfate (Gentamicin Sulfate) 30 Gm Cream..g., 1 APLCT TOP DAILY, (Reported) Levothyroxine Sodium (Levothyroxine Sodium) 150 Mcg Tablet, 150 MCG PO QAM, (Reported) Lisinopril (Lisinopril) 5 Mg Tablet, 5 MG PO DAILY, (Reported) Potassium Chloride (Potassium Chloride) 10 Meq Tablet.er, 10 MEQ PO DAILY, (Reported) Torsemide (Torsemide) 20 Mg Tablet, 20 MG PO BID, (Reported) Scheduled PRN Acetaminophen (Acetaminophen) 500 Mg Tablet, 1,000 MG PO Q6H PRN for PAIN, (Reported) Albuterol Sulfate (Ventolin Hfa) 18 Gm Hfa.aer.ad, 2 PUFF INH Q4H PRN for wheezing, (Reported) Nitroglycerin (Nitroglycerin) 0.4 Mg Tab.subl, 0.4 MG SL Q5MP PRN for CHEST PAIN, (Reported) Bita Ortega Aug 21, 2018 16:00
[2018-08-21] MEDS: metroNIDAZOLE 500 MG in APPROPRIATE DILUENT 1 EA IV SCH ×2 (16:16→17:00)
[2018-08-21] MEDS ORDERED: LIDOCAINE 2% MDV 20 ML VIAL As Ordered ONE (16:55)
[2018-08-21] MEDS ORDERED: BUPIVACAINE HCL 0.5% 10 ML VIAL As Ordered ONE ×2 (16:55→19:50)
[2018-08-21] MEDS ORDERED: HEPARIN 1,000 UNITS/ML 10ML VIAL (FOR RADIOLOGY& DIALYSIS ONLY) As Ordered ONE (16:55)
[2018-08-21] MEDS ORDERED: MORPHINE 4 MG/ML 1ML VIAL/SYRINGE (J2270) IV ONE (17:00)
[2018-08-21] MEDS ORDERED: LIDOCAINE 1% MDV 20ML VIAL As Ordered ONE (19:49)
[2018-08-21] MEDS ORDERED: VANCOMYCIN HCL 1,000 MG, VIAL MATE ADAPTER 1 EACH in D5W 250 ML IV ONE (20:00)
[2018-08-21] MEDS ORDERED: MIDAZOLAM INJ 2 MG/2 ML VIAL (J2250) As Ordered ONE (20:21)
[2018-08-21] MEDS ORDERED: fentaNYL 100 MCG/2 ML INJECTION (J3010) As Ordered ONE (20:21)
[2018-08-21] MEDS ORDERED: ONDANSETRON 4MG/2ML VIAL (J2405) As Ordered ONE ×2 (20:21→20:44)
--- NOTE | 2018-08-21 20:33 | PHACANCOPD ---
PHARMACY VANCOMYCIN DOSING Pt Demographics Demographics Patient Age:62 , Weight:66.000 , Gender: female Adjusted Body Weight Date: 08/21/18, Adjusted Body Weight: [66] Kg Events Past 24 Hours Events Past 24 Hours: NO: Dialysis, Diuretic Therapy, Change in CrCl, Fever, Elevation in WBC, Pending Diagnostics, Pending Procedures, Other Vancomycin Vancomycin indication: PERITONITIS Vancomycin Target Ranges: 15-20 mcg/ml Vancomycin Load Y/N: No Load Dose Date Time Vancomycin Load Dose: Date: Time: Vancomycin Dose Date: 08/21/18. Current Vancomycin Dose: [1G IV INTERMITTENT] Intermittent Dosing?: Yes Labs Labs Item Value Date Time White Blood Count 13.0 10^3/uL H 08/21/18 0556 Creatinine 8.13 MG/DL *H 08/21/18 0554 Micro Microbiology 08/21/18 Blood Culture, Received Pending 08/21/18 Gram Stain - Final, Resulted 08/21/18 Body Fluid Culture, Resulted Pending 08/21/18 Urine Culture, Received Pending 08/21/18 Gram Stain - Final, Resulted 08/21/18 Abscess Culture, Resulted Pending Creatinine Clearance Date:08/21/18. Creatinine Clearance: [5.6ML/MIN]. Pending Labs VANCOMYCIN RANDOM 08/22 AM Assessment and Plan Maintaining Current Dose?: No Reason for dose change: No Dose Change Pharmacist Note Pharmacist Note Date: 08/21/18. Pharmacist note: Pt is a 62 year old female being treated for peritonitis goal trough 15-20mcg/ml. Patient was on PD but failed and is being switched to HD. PD failure prevented complete administration of IP 1g vancomycin dose per MD Haji. The patient will receive 1g iv 08/21 @20:00. The patient will be dosed intermittently pending HD. A level is scheduled for 08/22 with am lab draws. We will continue to monitor and adjust the dose as needed. DANIEL VAUGHN PHARMACY Aug 21, 2018 20:33
[2018-08-21] MEDS ORDERED: VANCOMYCIN INTERMITTENT/PULSE DOSING BY CLINICAL PHARMACIST PER DOSING PROTOCOL XX SCH (20:45)
[2018-08-21] MEDS ORDERED: LR 1,000 ML IV SCH (21:00)
[2018-08-21] MEDS ORDERED: ONDANSETRON 4MG/2ML VIAL (J2405) IV PRN (21:00)
[2018-08-21] MEDS ORDERED: NORCO, ANEXSIA 5/325MG TABLET (HYDROcodone/ACETAMINOPHEN) PO PRN (21:00)
[2018-08-21] MEDS ORDERED: fentaNYL 100 MCG/2 ML INJECTION (J3010) IV PRN (21:00)
[2018-08-21] MEDS ORDERED: FLUMAZENIL 0.5 MG/5 ML VIAL As Ordered ONE (21:42)
[2018-08-21] MEDS: amLODIPine 5 MG TAB PO SCH (22:29)
[2018-08-21] MEDS: CALCITRIOL 0.25 MCG CAP (S0169) PO SCH (22:29)
[2018-08-21] MEDS: LISINOPRIL 5 MG TAB PO SCH (22:29)
[2018-08-21] MEDS: ATORVASTATIN 20 MG TAB PO SCH (22:29)
[2018-08-21] MEDS: POTASSIUM CHLORIDE 10 MEQ SR TABLET PO SCH (22:30)
[2018-08-22] VITALS (7 sets, daily range): BP systolic 95–132; BP diastolic 56–65; O2SAT 99
[2018-08-22] MEDS: metroNIDAZOLE 500 MG in APPROPRIATE DILUENT 1 EA IV SCH ×3 (00:22→17:29)
[2018-08-22 06:23] LABS: HEMATOCRIT 28.2 % (36.0-47.0); MEAN CORPUSCULAR HEMOGLOBIN 30.9 pg (27.0-33.0); MEAN CORPUSCULAR HGB CONC 31.9 g/dl (32.0-36.5); MEAN CORPUSCULAR VOLUME 96.9 fl (80.0-96.0); PLATELET COUNT, AUTOMATED 366 10^3/uL (150-450); RED BLOOD COUNT 2.91 10^6/uL (4.00-5.40); WHITE BLOOD COUNT 16.6 10^3/uL (4.0-10.0)
[2018-08-22] MEDS: LEVOTHYROXINE 150MCG TABLET (0.15MG) PO SCH (06:26)
[2018-08-22] MEDS: HumaLOG INSULIN (NovoLOG) PER UNIT SC SCH ×4 (06:26→20:43)
[2018-08-22] MEDS: MUPIROCIN 2% OINT 22 GM TUBE TOP SCH ×2 (06:41→20:43)
[2018-08-22] MEDS: HEPARIN SOD (PORCINE) 5000 UNITS/ML VIAL SC SCH ×2 (06:57→17:29)
[2018-08-22] MEDS: FLUCONAZOLE 50MG TABLET PO SCH (06:58)
[2018-08-22] MEDS: LACTOBACILLUS ACIDOPHILUS CAP (BACID) PO SCH (06:58)
[2018-08-22] MEDS: TORSEMIDE 20 MG TAB PO SCH (06:58)
[2018-08-22] MEDS: CARVedilol 3.125 MG TAB PO SCH ×2 (06:58→20:48)
[2018-08-22 07:00] LABS: ALBUMIN 1.1 GM/DL (3.2-5.2); BILIRUBIN,TOTAL 0.3 MG/DL (0.2-1.0); CALCIUM LEVEL 8.1 MG/DL (8.8-10.2); CREATININE FOR GFR 9.21 MG/DL (0.55-1.30); GLOMERULAR FILTRATION RATE 4.6 (>45); POTASSIUM SERUM 3.7 MEQ/L (3.5-5.1); TOTAL PROTEIN 5.4 GM/DL (6.4-8.2); VANCOMYCIN RANDOM 29.1 UG/ML
[2018-08-22] MEDS ORDERED: VANCOMYCIN HCL 1,000 MG, VIAL MATE ADAPTER 1 EACH in D5W 250 ML IV SCH (08:00)
[2018-08-22] MEDS ORDERED: CEFEPIME HCL 1 GM in D5W MINI-BAG PLUS 50 ML IV SCH (10:00)
--- NOTE | 2018-08-22 10:13 | IPNPDOC ---
Date Seen The patient was seen on 08/22/18. Progress Note Vascular Surgery Dr Rome HPI: 62 y/o F with h/o ESRD on home peritoneal dialysis went to [facility] ER for c/o abdominal pain, nausea, vomiting and tactile fever for past 2 days transferred to [facility] for further mgmt; labs showed WBC 15.7, on physical examination there was tenderness in lower abdomen, CT abdomen/pelvis did not show any acute pathology. Pt was treated for possible peritonitis. Pt reports she has had yellowish drainage around the PD cath site. Vascular surgery consulted re PD catheter. PD cath removed 08/21/18. Permcath placed as per Dr Rome. Pt receiving HD this AM. Denies any fevers, chills, Headache, Chest Pain, Shortness of breath, cough, palpitations. Medical History DM 2, HTN, ESRD on peritoneal dialysis, h/o NH, thyroid cancer s/p surgery, small vessel disease, h/o peritonitis and cellulitis Surgical History Thyroidectomy, cardiac catheterization, triple bypass, b/l cataract PE: GEN: 62yoF, appears stated age. No acute distress. Alert and oriented x 3. currently receiving HD. HEENT: Normocephalic, atraumatic. Conjunctiva without injection. Moist mucous membranes. CHEST: Regular rate and rhythm, +S1, +S2 LUNGS: Breathing appears symmetric and easy. ABD: Round, distended, diffuse tenderness with palpation, PD cath removed. SKIN: No rashes. NEURO: Alert and oriented x 3. No focal deficits appreciated. UC pending BC pending Abd fluid culture pending. A&P: 62 y/o F with h/o ESRD on home peritoneal dialysis went to [facility] ER for c/o abdominal pain, nausea, vomiting and tactile fever for past 2 days transferred to [facility] for further mgmt; labs showed WBC 15.7, on physical examination there was tenderness in lower abdomen, CT abdomen/pelvis did not show any acute pathology. Pt was treated for possible peritonitis. Vascular surgery consulted re PD catheter. Peritonitis. Mgmt as per primary team. Continue IV antibiotics. S/P PD cath removal 08/21/18. Permacath placed as per Dr Rome. Pt currently receiving HD. ESRD. Dialysis Mgmt as per Nephrology. Dm. SSI. HTN. Coreg. DVT prophylaxis. SQ Heparin. A-FIB/CHADSVASC A-FIB History Current/History of A-Fib/PAF?: No VS, I&O, 24H, Fishbone Vital Signs/I&O Vital Signs Date Time Temp Pulse Resp B/P (MAP) Pulse Ox O2 Delivery O2 Flow Rate FiO2 08/22/18 08:00 2.0 08/22/18 06:58 64 132/62 08/22/18 06:00 97.7 18 97 08/22/18 05:08 Nasal Cannula I&O- Last 24 Hours up to 6 AM 08/22/18 06:00 Intake Total 1012 ml Output Total 10 ml Balance 1002 ml Laboratory Data 24H LABS Laboratory Tests 2 08/21/18 11:38: Bedside Glucose (Misc Panel) 106 08/21/18 12:28: Lactic Acid Level 1.1, Iron Level 19L, Total Iron Binding Capacity 117L, Transferrin % Saturation 16.2, Ferritin 760H 08/21/18 15:31: Urine Appearance TURBIDH, Urine Color JEANNETTE, Urine pH 5.0, Urine Specific [place] 1.015, Urine Protein 2+H, Urine Glucose (UA) 1+H, Urine Ketones NEGATIVE, Urine Urobilinogen 0.2, Urine Bilirubin NEGATIVE, Urine Leukocyte Esterase 3+H, Urine Blood 1+H, Urine Nitrite NEGATIVE, Urine WBC (Auto) TNTCH, Urine RBC (Auto) 47H, Urine Hyaline Casts (Auto) 0, Urine Bacteria (Auto) 3+H, Urine Squamous Epithelial Cells 26, Urine Transitional Epithelial Cells 19, Urine Amorphous Sediment SMALLH, Urine Mucus (Auto) SMALL, Urine Sperm (Auto) 08/21/18 15:57: Lactic Acid Level 1.1 08/21/18 22:08: Bedside Glucose (Misc Panel) 93 08/22/18 05:56: Nucleated Red Blood Cells % (auto) 0.0, Anion Gap 10, Glomerular Filtration Rate 4.6L, Blood Urea Nitrogen 50H, Creatinine 9.21*H, Sodium Level 133L, Potassium Level 3.7, Chloride Level 95L, Carbon Dioxide Level 28, Calcium Level 8.1L, Aspartate Amino Transf (AST/SGOT) 20, Alanine Aminotransferase (ALT/SGPT) 13, Alkaline Phosphatase 87, Total Bilirubin 0.3, Total Protein 5.4#L, Albumin 1.1L, Albumin/Globulin Ratio 0.26L, Random Vancomycin Level 29.1 CBC/BMP Laboratory Tests 08/22/18 05:56 Red Blood Count 2.91 L, Mean Corpuscular Volume 96.9 H, Mean Corpuscular Hemoglo bin 30.9, Mean Corpuscular Hemoglobin Concent 31.9 L, Red Cell Distribution Width 14.9 H, Calcium Level 8.1 L, Aspartate Amino Transf (AST/SGOT) 20, Alanine Aminotransferase (ALT/SGPT) 13, Alkaline Phosphatase 87, Total Bilirubin 0.3, Total Protein 5.4 #L, Albumin 1.1 L Microbiology Microbiology 08/21/18 Blood Culture, Received Pending 08/21/18 Gram Stain - Final, Resulted 08/21/18 Body Fluid Culture, Resulted Pending 08/21/18 Urine Culture, Received Pending 08/21/18 Gram Stain - Final, Resulted 08/21/18 Abscess Culture, Resulted Pending Bita Ortega Aug 22, 2018 10:13
[2018-08-22] MEDS ORDERED: HEPARIN 1,000 UNITS/ML 10ML VIAL (FOR RADIOLOGY& DIALYSIS ONLY) XX ONE (11:15)
[2018-08-22] MEDS ORDERED: HEPARIN 1,000 UNITS/ML 10ML VIAL (FOR RADIOLOGY& DIALYSIS ONLY) IV ONE (11:15)
[2018-08-22] MEDS ORDERED: IRON SUCROSE 100MG 5ML VIAL (J1756 PER 1MG) IV SCH (11:15)
[2018-08-22] MEDS: CEFEPIME HCL 1 GM in D5W MINI-BAG PLUS 50 ML IV SCH (13:27)
--- NOTE | 2018-08-22 13:53 | PHACANCOPD ---
PHARMACY VANCOMYCIN DOSING Pt Demographics Demographics Patient Age:62 , Weight:66.000 , Gender: female Adjusted Body Weight Date: 08/21/18, Adjusted Body Weight: [66] Kg Events Past 24 Hours Events Past 24 Hours: YES: Dialysis; NO: Diuretic Therapy, Change in CrCl, Fever, Elevation in WBC, Pending Diagnostics, Pending Procedures, Other Vancomycin Vancomycin indication: PERITONITIS Vancomycin Target Ranges: 15-20 mcg/ml Vancomycin Load Y/N: No Load Dose Date Time Vancomycin Load Dose: Date: Time: Vancomycin Dose Date: 08/21/18. Current Vancomycin Dose: [1G IV INTERMITTENT] Intermittent Dosing?: Yes Labs Labs Item Value Date Time White Blood Count 13.0 10^3/uL H 08/21/18 0556 White Blood Count 16.6 10^3/uL H 08/22/18 0556 Creatinine 9.21 MG/DL *H 08/22/18 0556 Random Vancomycin Level 29.1 UG/ML 08/22/18 0556 Vital Signs Label Value Date Time Patient Temperature 97.2 degrees F 08/22/18 0215 Temperature Source Temporal 08/22/18 0215 Patient Temperature 97.7 degrees F 08/22/18 0600 Temperature Source Temporal 08/22/18 0600 Micro Microbiology 08/21/18 Blood Culture - Preliminary, Resulted No growth after 24 hours . All specim... 08/21/18 Gram Stain - Final, Resulted 08/21/18 Body Fluid Culture, Resulted Pending 08/21/18 Urine Culture, Received Pending 08/21/18 Gram Stain - Final, Resulted 08/21/18 Abscess Culture, Resulted Pending Creatinine Clearance Date:08/21/18. Creatinine Clearance: [5.6ML/MIN]. Pending Labs VANCOMYCIN RANDOM 430 AM Assessment and Plan Maintaining Current Dose?: No Reason for dose change: Trough too high Pharmacist Note Pharmacist Note 08/22: Patient's random this morning was 29.1 so her dose of Vancomycin will be held today. She has had her HD catheter placed and received hemodialysis today with 1500ml removed. We are unsure of her dialysis schedule at this time so we will monitor daily. She is currently afebrile, and her WBC has increased slightly from yesterday. She has peritoneal fluid cultures pending at this time as well. We will continue to monitor and make adjustments as necessary. Date: 08/21/18. Pharmacist note: Pt is a 62 year old female being treated for peritonitis goal trough 15-20mcg/ml. Patient was on PD but failed and is being switched to HD. PD failure prevented complete administration of IP 1g vancomycin dose per MD Haji. The patient will receive 1g iv 08/21 @20:00. The patient will be dosed intermittently pending HD. A level is scheduled for 08/22 with am lab draws. We will continue to monitor and adjust the dose as needed. GREOGRIA LIN PHARMACY Aug 22, 2018 13:53
--- NOTE | 2018-08-22 14:57 | IPNPDOC ---
Text Note Date of Service The patient was seen on 08/22/18. NOTE Subjective: Patient is a 16-year-old female with a PMHx of CAD (Hx of MO), HTN, DLP, DM2, ESRD on PD, Hx of Thyroid CA (s/p surgery), Hx of Peritonitis / Cellulitis who [facility] transfer from [facility] for abdominal pain associated with nausea and vomiting. She was found to be febrile. Patient was transferred here for nephrology consultation. Hospitalist service provided further evaluation and treatment and consulted nephrology. Patient was seen and examined at the bedside. Currently, patient reports that her abdominal pain is significantly better. Denies nausea, vomiting. Denies ulceration or diarrhea. Patient does not express any chest pain, SOB or palpitations. Yesterday patient had her peritoneal dialysis catheter removed and a temporary dialysis access point placed by Dr. Rome. Objective: Vitals (See below) General: Lying in bed, no acute distress, comfortable, AAOx3 HEENT: NC, AT, New dialysis access point CVS: RRR, +S1S2 Lungs: Fair air entry b/l, no evidence of wheezing, rhonchi or rales Abdomen: Soft, nondistended, mild tenderness is still noted at lower quadrants bilaterally; s/p peritoneal dialysis catheter Extremities: 2+ pitting edema, - Calf tenderness Assessment and plan: Abdominal pain / Nausea / Vomiting / Fever - likely 2/2 peritonitis - possibly 2/2 infected dialysis catheter - Patient was transferred from [facility] because of above symptoms - Currently, patient remains hemodynamically stable and afebrile - Leukocytosis remains persistent - Continue fluid analysis is consistent with peritonitis - Blood cultures 08/21: No growth at 24 hours; Peritoneal fluid cultures 08/21: Pending - s/p Peritoneal dialysis catheter removal - c/w Cefepime / Vancomycin / Metronidazole / Fluconazole (Day #2) ESRD - Patient is dialysis dependent - Has had her peritoneal dialysis catheter removed on 08/21/[address] De León - New hemodialysis access point is in placed on 08/21/[address] Rome - Nephrology and vascular surgery on consultation - Patient has received hemodialysis today; will likely require hemodialysis as an outpatient on a regular basis - at least in the interim CAD - Hx of [place] HTN - BP appears well controlled - c/w Amlodipine, Carvedilol and Lisinopril DLP - c/w Atorvastatin DM2 - A1c 6.8 - c/w ISS Hypothyroidism - c/w Levothyroxine Anemia - Hg appears stable - No baseline to compare against - No episodes of bleeding DVT prophylaxis - c/w Heparin Disposition: - Will require outpatient hemodialysis, at least in the interim VS,Fishbone, I+O VS, Fishbone, I+O Laboratory Tests 08/22/18 05:56 Red Blood Count 2.91 L, Mean Corpuscular Volume 96.9 H, Mean Corpuscular Hemoglobin 30.9, Mean Corpuscular Hemoglobin Concent 31.9 L, Red Cell Distribution Width 14.9 H, Calcium Level 8.1 L, Aspartate Amino Transf (AST/SGOT) 20, Alanine Aminotransferase (ALT/SGPT) 13, Alkaline Phosphatase 87, Total Bilirubin 0.3, Total Protein 5.4 #L, Albumin 1.1 L Vital Signs Date Time Temp Pulse Resp B/P (MAP) Pulse Ox O2 Delivery O2 Flow Rate FiO2 08/22/18 14:00 98.5 67 18 109/65 (80) 95 2.0 08/22/18 05:08 Nasal Cannula I&O- Last 24 Hours up to 6 AM 08/22/18 06:00 Intake Total 1012 ml Output Total 10 ml Balance 1002 ml REVA AMAYA MD Aug 22, 2018 14:57
[2018-08-22] MEDS ORDERED: **VANCO AFTER HD** MISC XX SCH (16:00)
--- NOTE | 2018-08-22 17:23 | IPN ---
DATE: 08/22/2018 SUBJECTIVE: The patient was seen and examined the bedside today morning during hemodialysis procedure. She was tolerating the hemodialysis procedure well. Last 24-hour <<0:20>> were noted. The patient was having a lot of pain in the lower abdomen. Her peritoneal dialysis catheter was not working. It was not draining well and there was difficulty in straining the peritoneal fluid as well. The case was discussed with vascular surgery and decision was made to have the infected peritoneal dialysis catheter removed and place the tunneled dialysis catheter and switch the patient to hemodialysis for a few weeks until her peritonitis improves. So patient got the peritoneal dialysis (PD) catheter removed and a tunneled dialysis catheter placed yesterday and she is tolerating the hemodialysis procedure well today. Intraperitoneal antibiotics were stopped. She was started on intravenous (IV) vancomycin, IV cefepime and IV Flagyl. Patient reports that her abdominal pain is significantly better today as compared with yesterday. OBJECTIVE: VITAL SIGNS: Temperature is 97.7 degrees Fahrenheit, blood pressure 132/62, pulse is 64, respiratory rate 18, saturating 97% on nasal cannula at 2 liters. INTAKE AND OUTPUT: Urine output is minimal. Weight in the bed scale is 66 kg. PHYSICAL EXAMINATION: GENERAL: The patient is awake, alert, oriented times three, laying in bed getting hemodialysis done. HEAD AND NECK EXAM: Extraocular muscles intact. Pupils equally round and reactive to light. Mucous membranes are moist. Neck is supple. She has a right internal jugular (IJ) tunneled hemodialysis catheter. CARDIOVASCULAR: S1, S2. Regular rate. No edema of the bilateral lower extremities. RESPIRATORY: Chest is clear to auscultation bilaterally. Bilateral equal air entry. No rales or rhonchi. ABDOMEN: Soft. Left lower quadrant peritoneal dialysis (PD) catheter has been removed. There is a dressing at the exit site. There is very mild amount of tenderness in the right lower quadrant and left lower quadrant, which is significantly better today as compared with yesterday. MUSCULOSKELETAL: No clubbing or cyanosis. Pulses are 2+. CENTRAL NERVOUS SYSTEM (LEGAL RESEARCHER): No focal deficit. Power is 5/5 in all extremities. PSYCHIATRIC: Normal mood and affect. LABORATORY REVIEW: Complete blood count (CBC) showed a WBC of 16.6, hemoglobin is 9, platelets are 366. Basic metabolic panel (BMP) showed sodium 133, potassium 3.7, chloride 95, bicarbonate 28, BUN 50, creatinine is 9.2, albumin 1.1. MICROBIOLOGY: Blood cultures are pending. CURRENT ADMISSION MEDICATIONS: Patient's medications were all reviewed by me. She continues to be on IV cefepime 1 gram daily. She is on Flagyl 500 mg IV every 8 hours. She is on vancomycin 1 gram with hemodialysis. Because of soft blood pressures I have stopped her amlodipine. She continues to be on fluconazole 50 mg by mouth daily. She was on diuretics, torsemide and potassium chloride, which have been stopped now because she has minimal urine output. ASSESSMENT/PLAN 1. Acute peritonitis. The patient had malfunctioning of the PD catheter and she had peritonitis with intractable abdominal pain. Previous records were reviewed. The peritoneal dialysis access site culture was positive for propionibacterium and in the peritoneal fluid dialysate culture there were very few growth of actinomyces. Patient is currently getting IV vancomycin and cefepime along with Flagyl and oral fluconazole. I am going to wait for the final result of the cultures and then antibiotics will be tapered down. Continue the current antibiotics for now. Patient is significantly better after removal of the PD catheter. 2. End-stage renal disease. The patient was on peritoneal dialysis. Because of the recurrent infection and malfunctioning the of the PD catheter, PD catheter has been removed. She is currently on hemodialysis. She will be on hemodialysis for about 3-4 weeks and then she will get a fresh PD catheter and switched back to PD by the end of next month. 3. Lower extremity edema. The patient was on diuretics, which were not working. She has minimal urine output. Now, fluid status is optimized with hemodialysis. Oral diuretics and potassium has been stopped. 4. Hypertension with end-stage renal disease. The patient had soft blood pressures because of peritonitis. I have stopped the amlodipine. Continue the Coreg and lisinopril for now. Further change in the regimen will be done after response to hemodialysis. 5. Anemia in end-stage renal disease. Patient is currently on Aranesp. Her iron levels were low. She has been started on IV Venofer with hemodialysis as well. 6. Protein calorie malnutrition. It is secondary to peritonitis and decreased oral intake. I have started the patient on renal diet and she would also get Nepro cans with lunch every day. 7. Iatrogenic hypothyroidism. Continue current dose of levothyroxine 100 mcg by mouth daily. MTDD
[2018-08-22] MEDS: ATORVASTATIN 20 MG TAB PO SCH (20:48)
[2018-08-22] MEDS: LISINOPRIL 5 MG TAB PO SCH (20:48)
[2018-08-22] MEDS: CALCITRIOL 0.25 MCG CAP (S0169) PO SCH (20:48)
[2018-08-23] MEDS: HEPARIN SOD (PORCINE) 5000 UNITS/ML VIAL SC SCH ×3 (00:05→16:36)
[2018-08-23] MEDS: metroNIDAZOLE 500 MG in APPROPRIATE DILUENT 1 EA IV SCH ×3 (00:06→16:36)
[2018-08-23 06:00] VITALS: BP 115/65
[2018-08-23 07:29] LABS: HEMATOCRIT 29.4 % (36.0-47.0); HEMOGLOBIN 9.2 g/dl (12.0-15.5); MEAN CORPUSCULAR HEMOGLOBIN 30.5 pg (27.0-33.0); MEAN CORPUSCULAR HGB CONC 31.3 g/dl (32.0-36.5); MEAN CORPUSCULAR VOLUME 97.4 fl (80.0-96.0); PLATELET COUNT, AUTOMATED 400 10^3/uL (150-450); RED BLOOD COUNT 3.02 10^6/uL (4.00-5.40); WHITE BLOOD COUNT 15.5 10^3/uL (4.0-10.0)
[2018-08-23] MEDS: HumaLOG INSULIN (NovoLOG) PER UNIT SC SCH ×4 (07:30→21:00)
[2018-08-23 08:00] LABS: ALBUMIN 1.3 GM/DL (3.2-5.2); BILIRUBIN,TOTAL 0.3 MG/DL (0.2-1.0); CALCIUM LEVEL 8.9 MG/DL (8.8-10.2); CREATININE FOR GFR 5.78 MG/DL (0.55-1.30); GLOMERULAR FILTRATION RATE 7.9 (>45); POTASSIUM SERUM 3.4 MEQ/L (3.5-5.1); TOTAL PROTEIN 5.8 GM/DL (6.4-8.2)
[2018-08-23] MEDS: LEVOTHYROXINE 150MCG TABLET (0.15MG) PO SCH (08:18)
[2018-08-23] MEDS: MUPIROCIN 2% OINT 22 GM TUBE TOP SCH ×2 (09:00→20:52)
[2018-08-23] MEDS: LACTOBACILLUS ACIDOPHILUS CAP (BACID) PO SCH (10:00)
[2018-08-23] MEDS ORDERED: POTASSIUM CHLORIDE 10 MEQ SR TABLET PO ONE ×2 (10:00→13:00)
[2018-08-23] MEDS: FLUCONAZOLE 50MG TABLET PO SCH (10:01)
[2018-08-23] MEDS: CARVedilol 3.125 MG TAB PO SCH ×2 (10:04→21:02)
[2018-08-23 10:13] LABS: VANCOMYCIN RANDOM 20.3 UG/ML
--- NOTE | 2018-08-23 12:55 | IPNPDOC ---
Text Note Date of Service The patient was seen on 08/23/18. NOTE Subjective: Patient is a 16-year-old female with a PMHx of CAD (Hx of UT), HTN, DLP, DM2, ESRD on PD, Hx of Thyroid CA (s/p surgery), Hx of Peritonitis / Cellulitis who presented to the [facility] as a transfer from [facility] for abdominal pain associated with nausea and vomiting. She was found to be febrile. Patient was transferred here for nephrology consultation. Hospitalist service provided further evaluation and treatment and consulted nephrology. Patient was seen and examined at the bedside. Currently, she reports that her abdominal pain is doing significantly better. She denies any nausea or vomiting. Has had regular bowel movements. Currently, she reports that she does not make any significant amounts of urine. Denies chest pain, shortness of breath or palpitations Objective: Vitals (See below) General: Lying in bed, no acute distress, comfortable, AAOx3 HEENT: NC, AT, New dialysis access point CVS: RRR, +S1S2 Lungs: Fair air entry b/l, no evidence of wheezing, rhonchi or rales Abdomen: Soft, nondistended, no significant tenderness is appreciated; s/p peritoneal dialysis catheter Extremities: Trace to 1+ pitting edema bilaterally, - Calf tenderness Assessment and plan: Abdominal pain / Nausea / Vomiting / Fever - likely 2/2 peritonitis - possibly 2/2 infected dialysis catheter - Patient was transferred from [facility] because of above sy mptoms - Currently, patient remains hemodynamically stable and afebrile - Leukocytosis remains persistent - Continue fluid analysis is consistent with peritonitis - Blood cultures 08/21: No growth at 48 hours; Peritoneal fluid cultures 08/21: Negative; Urine Cultures 08/21: Pending - s/p Peritoneal dialysis catheter removal - c/w Cefepime / Vancomycin / Metronidazole / Fluconazole (Day #3) ESRD - Patient is dialysis dependent - Has had her peritoneal dialysis catheter removed on 08/21/[address] De León - New hemodialysis access point is in placed on 08/21/[address] Rome - Nephrology and vascular surgery on consultation - Patient has received hemodialysis today; will likely require hemodialysis as an outpatient on a regular basis - at least in the interim - Discussed with nephrology and patient will be scheduled for hemodialysis for at least one month before her peritoneal dialysis Catheter can be replaced CAD - Hx of UT HTN - BP appears well controlled - c/w Amlodipine, Carvedilol and Lisinopril DLP - c/w Atorvastatin DM2 - A1c 6.8 - c/w ISS Hypothyroidism - c/w Levothyroxine Anemia - Hg appears stable - No baseline to compare against - No episodes of bleeding DVT prophylaxis - c/w Heparin Disposition: - Will require outpatient hemodialysis, at least in the interim VS,Fishbone, I+O VS, Fishbone, I+O Laboratory Tests 08/23/18 07:03 Red Blood Count 3.02 L, Mean Corpuscular Volume 97.4 H, Mean Corpuscular Hemoglobin 30.5, Mean Corpuscular Hemoglobin Concent 31.3 L, Red Cell Distribution Width 15.1 H, Calcium Level 8.9, Aspartate Amino Transf (AST/SGOT) 31, Alanine Aminotransferase (ALT/SGPT) 14, Alkaline Phosphatase 96, Total Bilirubin 0.3, Total Protein 5.8 L, Albumin 1.3 L Vital Signs Date Time Temp Pulse Resp B/P (MAP) Pulse Ox O2 Delivery O2 Flow Rate FiO2 08/23/18 10:04 65 126/53 08/23/18 06:00 97.9 18 99 2.0 08/22/18 05:08 Nasal Cannula I&O- Last 24 Hours up to 6 AM 08/23/18 06:00 Intake Total 1210 ml Output Total 1500 ml Balance -290 ml REVA AMAYA MD August 23, 2018 12:55
[2018-08-23] MEDS: CEFEPIME HCL 1 GM in D5W MINI-BAG PLUS 50 ML IV SCH (13:57)
[2018-08-23 14:00] VITALS: BP 125/58
--- NOTE | 2018-08-23 15:37 | IPN ---
DATE: 08/23/2018 SUBJECTIVE: The patient was seen and examined at the bedside today morning. She got the hemodialysis done yesterday. She tolerated the hemodialysis procedure well and 1.5 liters of fluid was removed. She reports that lower extremity edema is improving. Her leukocytosis is also slowly getting better. She reports lower abdominal pain is significantly better. She only has right lower quadrant pain now and she has not requiring pain medications at this point. She denies any nausea or vomiting and she is tolerating the diet. OBJECTIVE: VITAL SIGNS: Temperature is 97.9 degrees Fahrenheit, blood pressure is 115/65, pulse is 61, respiratory of 18, saturating 99% on nasal cannula at two liters. INTAKE AND OUTPUT: There is no urine output recorded. Ultrafiltration with hemodialysis was 1.5 liters. Weight in the bed scale is 65.4 kg. PHYSICAL EXAMINATION: GENERAL: The patient is awake, alert, oriented times three, laying in bed, in no apparent distress. HEAD AND NECK: Extraocular muscles intact. Pupils equally round and reactive to light. Mucous membranes are moist. Neck is supple and she has a right internal jugular (IJ) tunneled hemodialysis catheter. CARDIOVASCULAR: S1, S2, regular rate, 1+ edema of the bilateral lower extremities. RESPIRATORY: Chest is clear to auscultation bilaterally. Bilateral equal air entry. No rales or rhonchi. ABDOMEN: Soft. She has a dressing on the left lower quadrant previous peritoneal dialysis (PD) catheter site and she has a very mild amount of tenderness in the right lower quadrant on deep palpation. MUSCULOSKELETAL: No clubbing or cyanosis. Pulses are 2+. CENTRAL NERVOUS SYSTEM (PRODUCT DEVELOPMENT SCIENTIST): Power is 5/5 in all extremities. She has decreased vision from both eyes and she reports that she is legally blind. LABORATORY REVIEW: CBC showed a WBC 15.5, hemoglobin 9.2, platelets of 400. BMP showed sodium 136, potassium 3.4, chloride 98, bicarbonate 30, BUN 27, creatinine is 5.7, albumin 1.3. A random vancomycin level today is 20.3. CURRENT INPATIENT MEDICATIONS: The patient's medications were all reviewed by me. She continues to be on cefepime 1 gram IV daily, Flagyl 500 mg IV every eight hours, and vancomycin level is still therapeutic. She is also on fluconazole 50 mg by mouth daily. The patient was given a dose of potassium chloride 20 mEq by mouth times one dose. ASSESSMENT AND PLAN: 1. Acute peritonitis. It was secondary to infected peritoneal dialysis (PD) catheter. PD catheter was removed during this hospitalization. She is getting empiric vancomycin, cefepime and Flagyl. I will wait for the culture results for next 24 hours and antibiotics will be tapered down. She is significantly getting better and leukocytosis is still slowly improving. 2. End-stage renal disease. The patient is currently on hemodialysis. She will get hemodialysis for at least one month. She lives about an hour away and she reports that she is legally blind. She will not be able to drive and she would have difficulty driving to [place] and she is considering moving close to her sister in [place] and get hemodialysis there until she can be switched back to peritoneal dialysis. 3. Lower extremity edema. It is secondary to end-stage renal disease. She is not on diuretics. Fluid status will be improved with hemodialysis and fluid removal. 4. Hypertension with end-stage renal disease. Amlodipine was already stopped. Continue current dose of Coreg and lisinopril. 5. Anemia and end-stage renal disease. The patient is getting Aranesp and Venofer. Hemoglobin is slowly improving. No need of Aranesp administration at this time. 6. Hypokalemia. Potassium is low. She was given a dose of potassium chloride 20 mEq by mouth times one dose today morning. 7. Protein calorie malnutrition. She was started on Nepro one can daily with lunch. DISPOSITION: We are waiting for the final culture results of peritoneal fluid and the patient would also need outpatient placement at a dialysis center where she can be easily transported.
[2018-08-23] MEDS: FIBER-CON 625 MG TAB PO SCH (21:01)
[2018-08-23] MEDS: CALCITRIOL 0.25 MCG CAP (S0169) PO SCH (21:01)
[2018-08-23] MEDS: ATORVASTATIN 20 MG TAB PO SCH (21:01)
[2018-08-23] MEDS: LISINOPRIL 5 MG TAB PO SCH (21:02)
[2018-08-23 22:00] VITALS: BP 127/60
[2018-08-24] MEDS: HEPARIN SOD (PORCINE) 5000 UNITS/ML VIAL SC SCH ×4 (00:11→23:41)
[2018-08-24] MEDS: metroNIDAZOLE 500 MG in APPROPRIATE DILUENT 1 EA IV SCH ×2 (00:11→06:01)
[2018-08-24] MEDS: LEVOTHYROXINE 150MCG TABLET (0.15MG) PO SCH (05:11)
[2018-08-24] MEDS: ONDANSETRON 4MG/2ML VIAL (J2405) IV PRN ×3 (05:11→23:16)
[2018-08-24 06:00] VITALS: BP 132/63
[2018-08-24] MEDS: FIBER-CON 625 MG TAB PO SCH ×2 (06:01→22:11)
[2018-08-24] MEDS: MUPIROCIN 2% OINT 22 GM TUBE TOP SCH ×2 (06:01→21:00)
[2018-08-24] MEDS: CARVedilol 3.125 MG TAB PO SCH ×2 (06:01→22:11)
[2018-08-24] MEDS: FLUCONAZOLE 50MG TABLET PO SCH (06:01)
[2018-08-24] MEDS: LACTOBACILLUS ACIDOPHILUS CAP (BACID) PO SCH (06:08)
[2018-08-24 06:09] LABS: HEMATOCRIT 27.5 % (36.0-47.0); HEMOGLOBIN 8.8 g/dl (12.0-15.5); MEAN CORPUSCULAR VOLUME 96.8 fl (80.0-96.0); PLATELET COUNT, AUTOMATED 365 10^3/uL (150-450); RED BLOOD COUNT 2.84 10^6/uL (4.00-5.40); WHITE BLOOD COUNT 13.7 10^3/uL (4.0-10.0)
[2018-08-24 06:38] LABS: ALBUMIN 1.1 GM/DL (3.2-5.2); BILIRUBIN,TOTAL 0.3 MG/DL (0.2-1.0); CALCIUM LEVEL 8.6 MG/DL (8.8-10.2); CREATININE FOR GFR 6.85 MG/DL (0.55-1.30); GLOMERULAR FILTRATION RATE 6.5 (>45); POTASSIUM SERUM 3.6 MEQ/L (3.5-5.1); TOTAL PROTEIN 5.4 GM/DL (6.4-8.2)
[2018-08-24] MEDS: HumaLOG INSULIN (NovoLOG) PER UNIT SC SCH ×4 (07:52→21:00)
[2018-08-24 08:40] LABS: VANCOMYCIN RANDOM 19.4 UG/ML
[2018-08-24] MEDS ORDERED: HEPARIN 1,000 UNITS/ML 10ML VIAL (FOR RADIOLOGY& DIALYSIS ONLY) XX ONE (10:30)
[2018-08-24] MEDS ORDERED: HEPARIN 1,000 UNITS/ML 10ML VIAL (FOR RADIOLOGY& DIALYSIS ONLY) IV ONE (10:30)
--- NOTE | 2018-08-24 10:36 | PHACANCOPD ---
PHARMACY VANCOMYCIN DOSING Pt Demographics Demographics Patient Age:62 , Weight:66.200 , Gender: female Adjusted Body Weight Date: 08/21/18, Adjusted Body Weight: [66] Kg Events Past 24 Hours Events Past 24 Hours: NO: Dialysis, Diuretic Therapy, Change in CrCl, Fever, Elevation in WBC, Pending Diagnostics, Pending Procedures, Other Vancomycin Vancomycin indication: PERITONITIS Vancomycin Target Ranges: 15-20 mcg/ml Vancomycin Load Y/N: No Load Dose Date Time Vancomycin Load Dose: Date: Time: Vancomycin Dose Date: 08/24/18. Current Vancomycin Dose: [750MG AFTER HD] Date: 08/21/18. Current Vancomycin Dose: [1G IV INTERMITTENT] Intermittent Dosing?: Yes Labs Labs Item Value Date Time White Blood Count 16.6 10^3/uL H 08/22/18 0556 White Blood Count 15.5 10^3/uL H 08/23/18 0703 White Blood Count 13.7 10^3/uL H 08/24/18 0534 Creatinine 9.21 MG/DL *H 08/22/18 0556 Creatinine 5.78 MG/DL H 08/23/18 0703 Creatinine 6.85 MG/DL H 08/24/18 0534 Vital Signs Label Value Date Time Patient Temperature 98.8 degrees F 08/24/18 0600 Temperature Source Temporal 08/24/18 0600 Patient Temperature 98.9 degrees F 08/23/18 2200 Temperature Source Temporal 08/23/18 2200 Micro Microbiology 08/21/18 Blood Culture - Preliminary, Resulted No Growth after 48 hours. All Specime... 08/21/18 Gram Stain - Final, Complete 08/21/18 Body Fluid Culture - Final, Complete 08/21/18 Urine Culture, Received Pending 08/21/18 Gram Stain - Final, Complete 08/21/18 Abscess Culture - Final, Complete Creatinine Clearance Date:08/21/18. Creatinine Clearance: [5.6ML/MIN]. Pending Labs VANCOMYCIN RANDOM 4/30 AM Assessment and Plan Maintaining Current Dose?: Yes Reason for dose change: No Dose Change Pharmacist Note Pharmacist Note 08/24: Today is day 4 of empiric treatment of Vancomycin, Cefepime, and metronidazole. Patient's random this morning was 19.4 and she is due for dialysis today. All of her cultures to date are negative, her WBC is slowly trending down, and she is afebrile today. We will start her on Vancomycin 750mg after HD today after dialysis and monitor her random levels. We will continue to monitor and make adjustments as necessary. 08/22: Patient's random this morning was 29.1 so her dose of Vancomycin will be held today. She has had her HD catheter placed and received hemodialysis today with 1500ml removed. We are unsure of her dialysis schedule at this time so we will monitor daily. She is currently afebrile, and her WBC has increased slightly from yesterday. She has peritoneal fluid cultures pending at this time as well. We will continue to monitor and make adjustments as necessary. Date: 08/21/18. Pharmacist note: Pt is a 62 year old female being treated for peritonitis goal trough 15-20mcg/ml. Patient was on PD but failed and is being switched to HD. PD failure prevented complete administration of IP 1g vancomycin dose per MD Haji. The patient will receive 1g iv 08/21 @20:00. The patient will be dosed intermittently pending HD. A level is scheduled for 08/22 with am lab draws. We will continue to monitor and adjust the dose as needed. GREGORIA LIN PHARMACY August 24, 2018 10:35
--- NOTE | 2018-08-24 12:31 | IPN ---
DATE: 08/24/2018 SUBJECTIVE: Patient was seen and examined at the bedside today morning during hemodialysis. She is tolerating the hemodialysis procedure well. Patient reports that she was nauseated last night and she threw up twice. Her leukocytosis is slowly improving. She still reports mild amount of pain in the right lower quadrant of the abdomen. She denies any fevers or chills at this point. OBJECTIVE: VITAL SIGNS: Temperature is 98.8 degrees Fahrenheit, blood pressure 132/63, pulse is 66, respiratory rate of 18, saturating 93% on room air. INTAKE AND OUTPUT: There is no urine output recorded. Weight in the bed scale is 66.2 kg. PHYSICAL EXAMINATION: GENERAL: The patient is awake, alert, oriented times three, laying in bed getting hemodialysis done, no apparent distress. HEAD AND NECK EXAM: Extraocular muscles intact. Pupils equally round and reactive to light. She is legally blind and has poor vision in both eyes. Mucous membranes are moist. Neck is supple. She has a right internal jugular (IJ) tunneled hemodialysis catheter. CARDIOVASCULAR: S1, S2. Regular rate. Trace edema of the bilateral lower extremities. RESPIRATORY: Chest is clear to auscultation bilaterally. Bilateral equal air entry. No rales or rhonchi. ABDOMEN: Soft. She has a dressing at the left quadrant of the abdomen from a previous peritoneal dialysis catheter site and she has a mild amount of tenderness to deep palpation in the right lower quadrant. There is no rebound tenderness. MUSCULOSKELETAL: No clubbing or cyanosis. Pulses are 2+. CENTRAL NERVOUS SYSTEM (ANIMAL RESEARCHER): Power is 5/5 in all extremities. Patient is legally blind. LABORATORY REVIEW: Complete blood count (CBC) showed a WBC 13.7, which is slightly better today as compared with yesterday, hemoglobin is 8.8, platelets are 365. Basic metabolic panel (BMP) showed sodium 134, potassium 3.6, chloride 98, bicarbonate 29, BUN 34, creatinine 6.8, calcium 8.6. Albumin is 1.1. MICROBIOLOGY: Blood cultures and peritoneal fluid cultures are all negative so far. CURRENT INPATIENT MEDICATIONS: Patient's medications were all reviewed by me. She continues to be on intravenous (IV) cefepime, IV Flagyl and vancomycin with hemodialysis and she is also on oral fluconazole. No other change in the medications today as compared with yesterday. ASSESSMENT AND PLAN: 1. Acute peritonitis. The patient is status post removal of peritoneal dialysis (PD) catheter. Pain in abdomen is significantly better, but she still has mild amount of tenderness in the right lower quadrant. She continues to be on empiric vancomycin, cefepime, Flagyl, and oral fluconazole. Cultures are all negative. Outpatient cultures were reviewed from [place] and there was a small growth of actinomyces in the peritoneal cultures and recently peritoneal dialysis access site cultures were positive for propionibacterium. I am going to repeat a CAT scan of the abdomen and pelvis with oral and IV contrast to look for any abscesses in the abdomen and I have also requested infectious disease consult for recommendations to taper down the antibiotics in this patient with culture negative peritonitis. 2. End-stage renal disease. The patient is currently hemodialysis dependent via right internal jugular (IJ) tunneled hemodialysis catheter. She lives far from [place] and she is thinking about going to [place] for a month while she is on hemodialysis. She will be switched back to peritoneal dialysis once acute peritonitis resolved and she would get a new catheter in about 3-4 weeks from now. 3. Lower extremity edema. Edema is improving with hemodialysis. No need of oral diuretics. Fluid will be removed during dialysis today. 4. Anemia in end-stage renal disease. Patient is on Aranesp 100 mcg subcutaneous once a week. She is also getting IV Venofer. If needed, she will be given 1 unit of packed red blood cells transfusion for hemoglobin eight or below. 5. Protein calorie malnutrition. Continue Nepro with lunch. 6. Hypertension with end-stage renal disease. Blood pressures are acceptable. Continue current dose of Coreg 3.125 mg by mouth twice a day and lisinopril 5 mg by mouth daily. Amlodipine was stopped because of soft blood pressures. 7. Secondary hyperparathyroidism. Continue current dose of calcitriol 0.5 mcg by mouth daily. DISPOSITION: Patient is still not stable enough to be discharged from the hospital. She would also need placement at outpatient dialysis center. She is legally blind. She cannot drive herself to the dialysis center. If she gets a spot in [place], she needs transportation arrangement or she will need a spot for the time being in [place], where she can take the bus and go to dialysis center.
--- NOTE | 2018-08-24 12:38 | IPNPDOC ---
Text Note Date of Service The patient was seen on 08/24/18. NOTE Subjective: Patient is a 16-year-old female with a PMHx of CAD (Hx of VT), HTN, DLP, DM2, ESRD on PD, Hx of Thyroid CA (s/p surgery), Hx of Peritonitis / Cellulitis who presented to the [facility] as a transfer from [facility] for abdominal pain associated with nausea and vomiting. She was found to be febrile. Patient was transferred here for nephrology consultation. Hospitalist service provided further evaluation and treatment and consulted nephrology. Patient was seen and examined at the bedside. Currently, she reports that her abdomen is tender on palpation. Reports that her appetite is poor. Again has noted recurrence of her nausea but has not vomited. Has not passed gas, has not had a bowel movement. Denies any chest pain, shortness of breath or palpitations Objective: Vitals (See below) General: Lying in bed, no acute distress, comfortable, AAOx3 HEENT: NC, AT, New dialysis access point CVS: RRR, +S1S2 Lungs: Air entry is fair bilaterally without evidence of rales, rhonchi or wheezing Abdomen: Soft, no significant distention, mild diffuse tenderness, hypoactive bowel sounds; s/p peritoneal dialysis catheter Extremities: Trace to 1+ pitting edema noted. Feet no significant edema at her calfs, - Calf tenderness Assessment and plan: Abdominal pain / Nausea / Vomiting / Fever - likely 2/2 peritonitis - possibly 2/2 infected dialysis catheter - Patient was transferred from [facility] because of above symptoms - Currently, patient remains hemodynamically stable and afebrile - Leukocytosis remains persistent - Continue fluid analysis is consistent with peritonitis - Blood cultures 08/21: No growth at 48 hours; Peritoneal fluid cultures 08/21: Negative; Urine Cultures 08/21: Pending - s/p Peritoneal dialysis catheter removal - c/w Cefepime / Vancomycin / Metronidazole / Fluconazole (Day #4) Possible post-op ileus - Patient has reported inability to pass gas and has not yet had a bowel movement - Physical reveals diffuse tenderness, bowel sounds - Will get CT abdomen / pelvis with PO & IV contrast - Will discuss with vascular surgery - Will keep patient NPO for now ESRD - Patient is dialysis dependent - Has had her peritoneal dialysis catheter removed on 08/21/[address] De León - New hemodialysis access point is in placed on 08/21/[address] Rome - Nephrology and vascular surgery on consultation - Patient has received hemodialysis today; will likely require hemodialysis as an outpatient on a regular basis - at least in the interim - Discussed with nephrology and patient will be scheduled for hemodialysis for at least one month before her peritoneal dialysis Catheter can be replaced CAD - Hx of VT HTN - BP appears well controlled - c/w Amlodipine, Carvedilol and Lisinopril DLP - c/w Atorvastatin DM2 - A1c 6.8 - c/w ISS Hypothyroidism - c/w Levothyroxine Anemia - Hg appears stable - No baseline to compare against - No episodes of bleeding DVT prophylaxis - c/w Heparin Disposition: - Evaluate abdomen with CT imaging VS,Alicia, I+O VS, Alicia, I+O Laboratory Tests 08/24/18 05:34 Red Blood Count 2.84 L, Mean Corpuscular Volume 96.8 H, Mean Corpuscular Hemoglobin 31.0, Mean Corpuscular Hemoglobin Concent 32.0, Red Cell Distribution Width 15.2 H, Calcium Level 8.6 L, Aspartate Amino Transf (AST/SGOT) 27, Alanine Aminotransferase (ALT/SGPT) 14, Alkaline Phosphatase 84, Total Bilirubin 0.3, Total Protein 5.4 L, Albumin 1.1 L Vital Signs Date Time Temp Pulse Resp B/P (MAP) Pulse Ox O2 Delivery O2 Flow Rate FiO2 08/24/18 06:01 66 132/63 08/24/18 06:00 98.8 18 93 08/23/18 08:00 2.0 08/22/18 05:08 Nasal Cannula I&O- Last 24 Hours up to 6 AM 08/24/18 06:00 Intake Total 1080 ml Output Total 50 ml Balance 1030 ml REVA AMAYA MD August 24, 2018 12:38
[2018-08-24] MEDS: CEFEPIME HCL 1 GM in D5W MINI-BAG PLUS 50 ML IV SCH (12:52)
[2018-08-24] MEDS: GASTROGRAFIN SOLUTION 30ML PO SCH ×2 (12:52→13:42)
[2018-08-24] MEDS: VANCOMYCIN HCL 750 MG, VIAL MATE ADAPTER 1 EACH in D5W 250 ML IV SCH (13:42)
[2018-08-24] MEDS: **VANCO AFTER HD** MISC XX SCH (13:43)
[2018-08-24 14:00] VITALS: BP 145/65
[2018-08-24] MEDS ORDERED: ISOVUE-370 76% 100ML VIAL (Q9967) As Ordered ONE (14:58)
[2018-08-24 16:31] LABS: C REACTIVE PROTEIN QUANTITATIV 22.9 MG/DL (0.00-0.30)
--- NOTE | 2018-08-24 17:23 | CR.PDOC ---
General Date of Consultation: August 24, 2018 Referring Provider: MERLINE GENTILE MD Attending Physician: Nancy Mathews MD Consultation REASON FOR CONSULTATION/CHIEF COMPLAINT: Management of peritonitis in patient with peritoneal dialysis HISTORY OF PRESENT ILLNESS: Patient is a 62-year-old white female with a past medical history of end-stage renal disease, on peritoneal dialysis, for the past 6 years. Patient's story began in [place] somewhere between April and June, when she presented to a local hospital with low-grade fever, and abdominal pain. She was admitted under the presumptive diagnosis of peritonitis and started on vancomycin, cultures were also drawn. Patient reports that she stayed for a total of 3-4 days and was discharged with peritoneal vancomycin. Patient does not recall being told that she grew any pathogens in her peritoneal fluid. Records available from that admission reveals positive Actinomyces culture from peritoneal fluid. Patient states that following discharge. She returned to [facility], and then travel to [place] where her vascular surgeon, computer peripheral equipment operator, and post doctoral researcher are located. She presented to [facility] approximately 2 weeks ago with abdominal pain. This time she was admitted for 3- 4 days, peritoneal fluid was cultured. Patient does not recall any culture results being made available to her. We do not currently have the records from her stay at [facility] in [place]. Patient was under the impression that her catheter was replaced at [facility]. However, it was only extended. Records from the hospital stay has been requested. She was discharged after 2 dose of vancomycin with peritoneal vancomycin. Following discharge, Patient stated that approximately 2 weeks later she began to experience abdominal pain with low-grade temperatures and 2 days of diarrhea. She did presented to [facility] [place], and where she was diagnosed with possible peritonitis and started on IV morphine and Rocephin before being transferred to [facility]. On presentation to [facility] patient complained of low-grade fever, chills, nausea and vomiting along with abdominal pain. She was admitted under hospital service with nephrology consult. Peritoneal fluid came back posi tive for peritonitis, she was started on antibiotics through her peritoneal dialysis catheter. However, that became clogged and the catheter had to be removed On July and a permacath was placed. This afternoon. Patient was examined during dialysis. She denied any fevers. Admitted to nausea, had one prior episode of vomitus in the a.m. She has been afebrile since admission. She states that her pain has returned to baseline. She is currently on vancomycin, cefepime, fluconazole, and metronidazole. , Her WBCs has been trending down since admission. Peritoneal fluid has been negative for any growth. . She denied any urinary symptoms. Patient urinates once every 2 days. Infectious disease was consulted for management of antibiotics in peritonitis. ALLERGIES: Please see below. HOME MEDICATIONS: Please see below. PAST MEDICAL HISTORY: 1. End-stage renal disease, on peritoneal dialysis. 2. Hypertension. 3. Diabetes mellitus, type 2 which is diet controlled. 4. History of coronary artery disease and congestive heart failure. 5. History of thyroid cancer, status post thyroidectomy. 6. Recent peritonitis during admission in [place] about two months ago. PAST SURGICAL HISTORY: PAST SURGICAL HISTORY: 1. Status post thyroidectomy. 2. Status post cardiac catheterization. 3. Status post coronary artery bypass grafting. 4. Bilateral cataract surgeries. 5. Left lower quadrant peritoneal dialysis catheter placement. FAMILY HISTORY: Noncontributory SOCIAL HISTORY: Denies alcohol, denies tobacco. Lives at home. REVIEW OF SYSTEMS: CONSTITUTIONAL: Denies fever, denies chills HENNT: No tremor today. Head, no nasal congestion, no sore throat, no difficulty swallowing. No changes in vision CARDIOVASCULAR: No chest pain, no palpitation arrhythmias RESPIRATORY: No shortness of breath, no cough GASTROINTESTINAL (GI): Reported diarrhea prior to presentation, admits nausea and vomiting GENITOURINARY: No order, no dysuria, no hematuria, no urinary frequency HEMATOLOGICAL/ONCOLOGICAL: No bleeding MUSCULOSKELETAL: No weakness PHYSICAL EXAMINATION: VITAL SIGNS: Please see below. HEAD AND NECK: Atraumatic, supple neck, no JVD, no abnormal eye movements CARDIOVASCULAR: S1, S2, 2+ edema of the bilateral lower extremities. Permacath placement. Patient's right upper chest RESPIRATORY: Crackles auscultated in bilateral lung bases ABDOMEN: Soft. Moderate tenderness in all 4 quadrants. . There is no open wound in the left lower quadrant with serosanguineous discharge from catheter removal. Moderate tenderness on patient's right lower quadrant MUSCULOSKELETAL: No clubbing or cyanosis, 2+ edema of the bilateral lower extremities as mentioned above. CENTRAL NEUROLOGIC SYSTEM (TRANSFER ENGINEER): No focal deficit. Power is 5/5 in all extremities. SKIN: No rashes or ulcers. LABORATORY DATA: Please see below. MICROBIOLOGY: Blood cultures and peritoneal fluid cultures negative for bacteria, negative for growth. WBCs is positive criteria for peritonitis in a peritoneal dialysis patient IMAGING: Abdomen X-Ray: Nonspecific bowel gas pattern. Abdomen/Pelvis CT: Pending read ASSESSMENT/PLAN: A 62-year-old female with end-stage renal disease on peritoneal dialysis, admitted with acute peritonitis. Infectious disease consulted for management of antibiotics in peritonitis in a patient with peritoneal dialysis. Peritonitis -Patient was empirically started on vancomycin, cefepime, metronidazole, the following day after admission, fluconazole on day 2 of admission. -The patient had been treated in the past with vancomycin at one week interval with each hospitalization, given the suspicion that a gram-positive organism was perhaps cultured with each hospital stay. Records from [place] indicate Actinomyces, pending records from [facility] -Based on patient's recurrent symptoms, I have a suspicion for Actinomyces peritonitis, which is typically treated with penicillin. Patient's has had negative culture since admission. Laboratory services confirmed that there were no growth so far We'll continue current regimen with exception of metronidazole. We'll continue to de-escalate patient's antibiotics as she improves. We'll send fluid for pathology. We'll also await records from [facility]. -Patient is improving clinically, with a downtrending white count. She states she's feeling better. She says her pain has returned to baseline. She does have increased pain on the right lower quadrant, prompting suspicion for loculated abscess. CT contrast has been ordered, currently pending. Urine culture positive for staph epidermidis -Patient denied any urinary symptoms. No need for antibiotics at this time. Due to patient's lack of frequency in urination, her urine is most likely contaminated with a bacteria. We'll continue to monitor. Vital Signs/I&O Vital Signs Date Time Temp Pulse Resp B/P (MAP) Pulse Ox O2 Delivery O2 Flow Rate FiO2 08/24/18 14:00 97.6 65 18 145/65 (91) 97 08/23/18 08:00 2.0 08/22/18 05:08 Nasal Cannula I&O- Last 24 Hours up to 6 AM 08/24/18 06:00 Intake Total 1080 ml Output Total 50 ml Balance 1030 ml Laboratory Data Labs 24H Laboratory Tests 2 08/23/18 17:23: Bedside Glucose (Misc Panel) 152H 08/23/18 18:03: 08/23/18 20:56: Bedside Glucose (Misc Panel) 150H 08/24/18 05:34: Nucleated Red Blood Cells % (auto) 0.1H, Anion Gap 7L, Glomerular Filtration Rate 6.5L, Blood Urea Nitrogen 34H, Creatinine 6.85H, Sodium Level 134L, Potassium Level 3.6, Chloride Level 98, Carbon Dioxide Level 29, Calcium Level 8.6L, Aspartate Amino Transf (AST/SGOT) 27, Alanine Aminotransferase (ALT/SGPT) 14, Alkaline Phosphatase 84, Total Bilirubin 0.3, Total Protein 5.4L, Albumin 1.1L, C-Reactive Protein, Quantitative 22.90H, Albumin/Globulin Ratio 0.26L, Random Vancomycin Level 19.4 08/24/18 06:26: Bedside Glucose (Misc Panel) 112 08/24/18 12:55: Bedside Glucose (Misc Panel) 96 CBC/BMP Laboratory Tests 08/24/18 05:34 Red Blood Count 2.84 L, Mean Corpuscular Volume 96.8 H, Mean Corpuscular Hemoglobin 31.0, Mean Corpuscular Hemoglobin Concent 32.0, Red Cell Distribution Width 15.2 H, Calcium Level 8.6 L, Aspartate Amino Transf (AST/SGOT) 27, Alanine Aminotransferase (ALT/SGPT) 14, Alkaline Phosphatase 84, Total Bilirubin 0.3, Total Protein 5.4 L, Albumin 1.1 L Microbiology Microbiology 08/21/18 Blood Culture - Preliminary, Resulted No Growth after 72 hours. All specime... 08/21/18 Gram Stain - Final, Complete 08/21/18 Body Fluid Culture - Final, Complete 08/21/18 Urine Culture - Preliminary, Resulted Staphylococcus Epidermidis 08/21/18 Gram Stain - Final, Complete 08/21/18 Abscess Culture - Final, Complete Allergies Coded Allergies: Penicillins (Unverified Allergy, Intermediate, HIVES, 08/22/18) hydrocodone (Unverified Adverse Reaction, Mild, VOMITING, 08/21/18) egg (Unverified Adverse Reaction, Unknown, VOMITING, 08/21/18) Home Medications Scheduled Amlodipine Besylate (Amlodipine Besylate) 5 Mg Tablet, 5 MG PO DAILY, (Reported) Atorvastatin Calcium (Atorvastatin Calcium) 20 Mg Tablet, 20 MG PO DAILY, (Reported) Calcitriol (Rocaltrol) 0.5 Mcg Capsule, 0.5 MCG PO DAILY, (Reported) Carvedilol (Carvedilol) 3.125 Mg Tablet, 3.125 MG PO BID, (Reported) Ferric Citrate (Auryxia) 210 Mg Tablet, 210 MG PO TID, (Reported) Fluconazole (Fluconazole) 100 Mg Tablet, 100 MG PO DAILY, (Reported) Folic Acid/Vit B Complex and C (Zo-Kamran Tablet) 0.8 Mg Tablet, 1 TAB PO DAILY, (Reported) Gentamicin Sulfate (Gentamicin Sulfate) 30 Gm Cream..g., 1 APLCT TOP DAILY, (Reported) Levothyroxine Sodium (Levothyroxine Sodium) 150 Mcg Tablet, 150 MCG PO QAM, (Reported) Lisinopril (Lisinopril) 5 Mg Tablet, 5 MG PO DAILY, (Reported) Potassium Chloride (Potassium Chloride) 10 Meq Tablet.er, 10 MEQ PO DAILY, (Reported) Torsemide (Torsemide) 20 Mg Tablet, 20 MG PO BID, (Reported) Scheduled PRN Acetaminophen (Acetaminophen) 500 Mg Tablet, 1,000 MG PO Q6H PRN for PAIN, ( Reported) Albuterol Sulfate (Ventolin Hfa) 18 Gm Hfa.aer.ad, 2 PUFF INH Q4H PRN for wheezing, (Reported) Nitroglycerin (Nitroglycerin) 0.4 Mg Tab.subl, 0.4 MG SL Q5MP PRN for CHEST PAIN, (Reported) GME ATTESTATION GME ATTESTATION My faculty preceptor for this patient encounter was physically present during the encounter and was fully available. All aspects of the patient interview, examination, medical decision making process, and medical care plan development were reviewed and approved by the faculty preceptor. The faculty preceptor is aware and concurs with the plan as stated in the body of this note and will attest to such by his/her cosignature. AMOS CARDONA DO August 24, 2018 17:23 Nancy Mathews MD August 28, 2018 21:54
--- NOTE | 2018-08-24 18:22 | REP ---
CT ABDOMEN AND PELVIS WITH IV AND ORAL CONTRAST: TECHNIQUE: Axial contrast enhanced images from the lung bases to the pubic symphysis using 100 mL Isovue 370 intravenous contrast material with multiplanar reformations. Visualized lung bases demonstrate mild patchy bibasilar infiltrates. The liver demonstrates no mass. The spleen, adrenals, pancreas are unremarkable. The kidneys are mildly atrophic without hydroureteronephrosis. Atherosclerotic calcifications are seen of the abdominal aorta without aneurysm. I see no adenopathy. Moderate free fluid is seen in the abdomen and pelvis. Patient has been undergoing peritoneal dialysis and had recent removal of peritoneal dialysis catheter. I see no free air. No definite bowel abnormality is seen. No pelvic mass is seen, although there does appear to be an enhancing fibroid in the right side of the uterus 1.8 cm in diameter. Urinary bladder is not distended and not well evaluated. IMPRESSION: Patchy bibasilar infiltrates. Moderate free fluid in the abdomen and pelvis. No abscess collection seen. Mild renal atrophy without hydronephrosis. Electronically Signed by Teja Laboy MD 08/25/2018 12:54 P
[2018-08-24 22:00] VITALS: BP 136/64
[2018-08-24] MEDS: ATORVASTATIN 20 MG TAB PO SCH (22:10)
[2018-08-24] MEDS: CALCITRIOL 0.25 MCG CAP (S0169) PO SCH (22:10)
[2018-08-24] MEDS: LISINOPRIL 5 MG TAB PO SCH (22:11)
[2018-08-24] MEDS: ACETAMINOPHEN TAB 650MG DOSE (2X325MG) PO PRN (23:23)
[2018-08-25 06:00] VITALS: BP 127/54
[2018-08-25] MEDS: HEPARIN SOD (PORCINE) 5000 UNITS/ML VIAL SC SCH ×3 (06:38→23:38)
[2018-08-25] MEDS: LEVOTHYROXINE 150MCG TABLET (0.15MG) PO SCH (06:39)
[2018-08-25] MEDS: FLUCONAZOLE 50MG TABLET PO SCH (06:39)
[2018-08-25] MEDS: FIBER-CON 625 MG TAB PO SCH (06:39)
[2018-08-25] MEDS: LACTOBACILLUS ACIDOPHILUS CAP (BACID) PO SCH (06:39)
[2018-08-25] MEDS: ONDANSETRON 4MG/2ML VIAL (J2405) IV PRN (06:46)
[2018-08-25 07:03] LABS: BILIRUBIN,TOTAL 0.2 MG/DL (0.2-1.0); CALCIUM LEVEL 8.5 MG/DL (8.8-10.2); CREATININE FOR GFR 4.35 MG/DL (0.55-1.30); POTASSIUM SERUM 3.8 MEQ/L (3.5-5.1); TOTAL PROTEIN 5.3 GM/DL (6.4-8.2)
[2018-08-25] MEDS: HumaLOG INSULIN (NovoLOG) PER UNIT SC SCH ×4 (07:10→20:39)
[2018-08-25] MEDS: CARVedilol 3.125 MG TAB PO SCH ×2 (07:14→20:43)
[2018-08-25] MEDS: MUPIROCIN 2% OINT 22 GM TUBE TOP SCH (07:28)
[2018-08-25 09:31] LABS: C REACTIVE PROTEIN QUANTITATIV 15.8 MG/DL (0.00-0.30)
[2018-08-25 09:39] LABS: BASO # 0.1 10^3/uL (0.0-0.2); BASO % 0.9 % (0.0-1.0); EOS # 0.2 10^3/uL (0.0-0.50); EOS % 1.9 % (0.0-3.0); HEMATOCRIT 26.9 % (36.0-47.0); HEMOGLOBIN 8.2 g/dl (12.0-15.5); LYMPH # 0.8 10^3/uL (1.5-4.5); LYMPH % 6.7 % (24.0-44.0); MEAN CORPUSCULAR HEMOGLOBIN 30.6 pg (27.0-33.0); MEAN CORPUSCULAR HGB CONC 30.5 g/dl (32.0-36.5); MEAN CORPUSCULAR VOLUME 100.4 fl (80.0-96.0); MONO # 1.1 10^3/uL (0.0-0.8); NEUTROPHILS % 77.2 % (36.0-66.0); PLATELET COUNT, AUTOMATED 336 10^3/uL (150-450); RED BLOOD COUNT 2.68 10^6/uL (4.00-5.40); WHITE BLOOD COUNT 11.7 10^3/uL (4.0-10.0)
[2018-08-25 10:36] LABS: HEPATITIS B CORE ANTIBODY IGM NEGATIVE (NEGATIVE); HEPATITIS B SURFACE ANTIBODY POSITIVE (POSITIVE); HEPATITIS B SURFACE ANTIGEN NEGATIVE (NEGATIVE)
[2018-08-25] MEDS ORDERED: MIRALAX *UNIT DOSE* 17GM PACKET PO SCH (11:30)
[2018-08-25] MEDS: CEFEPIME HCL 1 GM in D5W MINI-BAG PLUS 50 ML IV SCH (13:29)
[2018-08-25 14:00] VITALS: BP 99/57
--- NOTE | 2018-08-25 15:25 | IPN ---
DATE: 08/25/2018 SUBJECTIVE: Patient was seen and examined at the bedside today morning. She is afebrile, hemodynamically stable. She had got the CAT scan of the abdomen and pelvis done yesterday, which did not show any acute pathology report from fluid in the peritoneal cavity. Patient reports that she is still having abdominal pain and she is nauseated and she reports that she has not had a bowel movement since Tuesday, which is five days now. She is requesting a medication to relieve her constipation. She was also seen by infectious disease. Flagyl was stopped. She continues to be on intravenous (IV) vancomycin, cefepime and oral fluconazole. OBJECTIVE: VITAL SIGNS: Temperature is 97.5 degrees Fahrenheit, blood pressure 127/54, pulse is 60, respiratory rate of 18, saturating 97% on room air. INTAKE AND OUTPUT: There is no urine output recorded. Ultrafiltration with hemodialysis was 1.5 liters yesterday. Weight in the bed scale is 66.3 kg. PHYSICAL EXAMINATION: GENERAL: The patient is awake, alert, oriented times three, laying in bed in no apparent distress. HEAD AND NECK EXAM: Extraocular muscles intact. Pupils equally round and reactive to light. Mucous membranes are moist. Neck is supple. She has a right internal jugular (IJ) tunneled hemodialysis catheter. She has poor vision and she reports that she is legally blind. CARDIOVASCULAR: S1, S2. Regular rate. 1+ edema of the bilateral lower extremities. RESPIRATORY: Chest is clear to auscultation bilaterally. Bilateral equal air entry. No rales or rhonchi. ABDOMEN: Soft. She has a dressing in the left lower quadrant. Abdomen is mildly tender to deep palpation in the right lower quadrant and left lower quadrant. MUSCULOSKELETAL: No clubbing or cyanosis. Pulses are 2+. CENTRAL NERVOUS SYSTEM (LEAD INJECTION MOLD TECHNICIAN): No focal deficit. Power is 5/5 in all extremities. LABORATORY REVIEW: Complete blood count (CBC) showed a WBC of 11.7, hemoglobin is 8.2, platelets are 336. Basic metabolic panel (BMP) showed sodium 136, potassium 3.8, chloride 101, bicarbonate 30, BUN 16, creatinine is 4.3. C-reactive protein is 15.8, which is better today as compared with yesterday. MICROBIOLOGY: Urine culture is growing Staphylococcus epidermidis and Lactococcus garvieae. IMAGING STUDIES: A CAT scan of the abdomen and pelvis was done yesterday which showed patchy bibasilar infiltrates and moderate amount of free fluid in the abdomen. CURRENT INPATIENT MEDICATIONS: Patient's medications were all reviewed by me. Flagyl was stopped yesterday. I have also stopped her FiberCon, because she is already constipated and it is going to make her constipation worse. I have changed her Aranesp to 200 mcg IV with dialysis and she will get a dose tomorrow. I have also given her MiraLAX, to be given at twice a day as needed. Oxycodone has been stopped and I also ordered a soapsuds enema for her ASSESSMENT AND PLAN: 1. Acute peritonitis. Patient continues to be on empiric vancomycin, cefepime and fluconazole. She was seen by infectious disease. The rest of the tapering down of antibiotics is as per infectious disease (ID) recommendations. Patient still has mildly tender abdomen, which I think is most likely secondary to constipation. C-reactive protein (CRP) and white cell count is improving. 2. Constipation. Patient was given opioids for pain. She has not moved her bowels for five days. I have ordered a soapsuds enema and MiraLAX orally. FiberCon has been stopped. 3. End-stage renal disease. Patient is currently dialysis dependent. She was dialyzed yesterday. She got IV contrast late in the evening daily. Be dialyzed core paster tomorrow. 4. Anemia in end-stage renal disease. Patient's hemoglobin is 8.2, which is still suboptimal. I have increased the Aranesp dose to 200 mcg, which will be given tomorrow morning. She is getting IV Venofer with dialysis. If hemoglobin drops to eight or below, then she will be given a packed red blood cells transfusion. 5. Hypertension with end-stage renal disease. Blood pressures are acceptable. Continue current dose of Coreg and lisinopril.
--- NOTE | 2018-08-25 15:51 | IPNPDOC ---
Text Note Date of Service The patient was seen on 08/25/18. NOTE Subjective: Patient was seen and examined at the bedside. Currently, she reports that her abdomen is tender on palpation. She also feels distended. Has not had a bowel movement for 3 to 4 days. Reports that her appetite is poor. Again has noted recurrence of her nausea but has not vomited. Did pass gas, has not had a bowel movement. Denies any chest pain, shortness of breath or palpitations. Objective: Vitals (See below) General: Lying in bed, no acute distress, comfortable, AAOx3 HEENT: NC, AT, New dialysis access point CVS: RRR, +S1S2, no rub, murmur or gallop Lungs: Air entry is fair bilaterally without evidence of rales, rhonchi or wheezing Abdomen: Soft, mild distention, mild diffuse tenderness, hypoactive bowel sounds; s/p peritoneal dialysis catheter Extremities: Trace to 1+ pitting edema noted. Feet no significant edema at her calfs, - Calf tenderness Labs and radiology: reviewed. Assessment and plan: Patient is a 16-year-old female with a PMHx of CAD (Hx of [place]), HTN, DLP, DM2, ESRD on PD, Hx of Thyroid CA (s/p surgery), Hx of Peritonitis / Cellulitis who presented to the [facility] as a transfer from [facility] for abdominal pain associated with nausea and vomiting. She was found to be febrile. Patient was transferred here for nephrology consultation. Pateint was found to have PD peritonitis. Her PD cath was removed and she was switched to HD this admission. PD peritonitis - Patient was transferred from [facility] because of above symptoms - Leukocytosis remains persistent - Continue fluid analysis is consistent with peritonitis - Blood cultures 08/21: No growth till date; Peritoneal fluid cultures 08/21: Negative; Urine Cultures 08/21:staph epidermides and Lactococcus garvieae - s/p Peritoneal dialysis catheter removal - c/w Vancomycin / Fluconazole - ID consulted. Possible post-op ileus - Patient has reported inability to pass gas and has not yet had a bowel movement - Physical reveals diffuse tenderness, bowel sounds - CT abdomen reviewed - Will discuss with vascular surgery - Will keep patient NPO for now ESRD - switched from PD to HD this admission - Has had her peritoneal dialysis catheter removed on 08/21/[address] De León - New hemodialysis access point is in placed on 08/21/[address] Rome - Nephrology and vascular surgery on consultation - Discussed with nephrology and patient will be scheduled for hemodialysis for at least one month before her peritoneal dialysis Catheter can be replaced Bone mineral disease - Due to ESRD - continue calcitriol CAD - Hx of [place] HTN - BP appears to be low normal - c/w Carvedilol only. amlodipine and lisinopril stopped. DLP - c/w Atorvastatin DM2 - A1c 6.8 - c/w ISS Hypothyroidism - c/w Levothyroxine Chronic Anemia and iron deficiency anemia - Hg appears stable - No baseline to compare against - No episodes of bleeding - IV venofer and aranesp DVT prophylaxis - c/w Heparin A-FIB/CHADSVASC A-FIB History Current/History of A-Fib/PAF?: No VS,Fishbone, I+O VS, Fishbone, I+O Laboratory Tests 08/25/18 06:08 Red Blood Count 2.68 L, Mean Corpuscular Volume 100.4 H, Mean Corpuscular Hemoglobin 30.6, Mean Corpuscular Hemoglobin Concent 30.5 L, Red Cell Distribution Width 15.8 H, Neutrophils (%) (Auto) 77.2 H, Lymphocytes (%) (Auto) 6.7 L, Monocytes (%) (Auto) 9.0 H, Eosinophils (%) (Auto) 1.9, Basophils (%) (Auto) 0.9, Neutrophils # (Auto) 9.0 H, Lymphocytes # (Auto) 0.8 L, Monocytes # (Auto) 1.1 H, Eosinophils # (Auto) 0.2, Basophils # (Auto) 0.1, Calcium Level 8.5 L, Aspartate Amino Transf (AST/SGOT) 29, Alanine Aminotransferase (ALT/SGPT) 14, Alkaline Phosphatase 78, Total Bilirubin 0.2, Total Protein 5.3 L, Albumin 1.0 L Vital Signs Date Time Temp Pulse Resp B/P (MAP) Pulse Ox O2 Delivery O2 Flow Rate FiO2 08/25/18 14:00 97.5 56 17 99/57 (71) 100 08/23/18 08:00 2.0 08/22/18 05:08 Nasal Cannula I&O- Last 24 Hours up to 6 AM 5/3/19 06:00 Intake Total 590 ml Output Total 1500 ml Balance -910 ml KEON VASQUEZ MD August 25, 2018 15:51
[2018-08-25] MEDS: **VANCO AFTER HD** MISC XX SCH (16:00)
[2018-08-25] MEDS ORDERED: MIRALAX *UNIT DOSE* 17GM PACKET PO PRN (18:00)
[2018-08-25] MEDS: CALCITRIOL 0.25 MCG CAP (S0169) PO SCH (20:43)
[2018-08-25] MEDS: ATORVASTATIN 20 MG TAB PO SCH (20:43)
[2018-08-25 22:00] VITALS: BP 157/70
[2018-08-26] MEDS: ONDANSETRON 4MG/2ML VIAL (J2405) IV PRN (05:38)
[2018-08-26 06:00] VITALS: BP 164/72
[2018-08-26] MEDS: HumaLOG INSULIN (NovoLOG) PER UNIT SC SCH ×4 (06:00→20:33)
[2018-08-26] MEDS ORDERED: DARBEPOETIN 100 MCG/0.5 ML *DIALYSIS* SYRINGE (J0882) IV SCH (06:00)
[2018-08-26] MEDS: ACETAMINOPHEN TAB 650MG DOSE (2X325MG) PO PRN (06:59)
[2018-08-26 10:00] VITALS: BP 123/59
[2018-08-26] MEDS ORDERED: HEPARIN 1,000 UNITS/ML 10ML VIAL (FOR RADIOLOGY& DIALYSIS ONLY) XX ONE (10:30)
[2018-08-26] MEDS ORDERED: HEPARIN 1,000 UNITS/ML 10ML VIAL (FOR RADIOLOGY& DIALYSIS ONLY) IV ONE (10:30)
[2018-08-26] MEDS: HEPARIN SOD (PORCINE) 5000 UNITS/ML VIAL SC SCH ×3 (10:31→23:27)
[2018-08-26] MEDS: CARVedilol 3.125 MG TAB PO SCH ×2 (11:02→20:38)
[2018-08-26] MEDS: LEVOTHYROXINE 150MCG TABLET (0.15MG) PO SCH (11:02)
[2018-08-26] MEDS: LACTOBACILLUS ACIDOPHILUS CAP (BACID) PO SCH (11:02)
[2018-08-26] MEDS ORDERED: rOPINIRole 0.25 MG TAB(REQUIP) PO ONE (11:30)
--- NOTE | 2018-08-26 13:40 | IPNPDOC ---
Text Note Date of Service The patient was seen on 08/26/18. NOTE Subjective: Patient was seen and examined at the bedside. Currently, she reports that her abdomen is better and pain is less. Reports that her appetite is poor. No nausea or vomiting Did pass gas, has not had a bowel movement. Denies any chest pain, shortness of breath or palpitations. Complaining of restless legs this am. Objective: Vitals (See below) General: Lying in bed, no acute distress, comfortable, AAOx3 HEENT: NC, AT, New dialysis access point CVS: RRR, +S1S2, no rub, murmur or gallop Lungs: Air entry is fair bilaterally without evidence of rales, rhonchi or wheezing Abdomen: Soft, mild distention, mild diffuse tenderness, hypoactive bowel sounds; s/p peritoneal dialysis catheter Extremities: Trace to 1+ pitting edema noted. Feet no significant edema at her calfs, - Calf tenderness Labs and radiology: reviewed. Assessment and plan: Patient is a 16-year-old female with a PMHx of CAD (Hx of [place]), HTN, DLP, DM2, ESRD on PD, Hx of Thyroid CA (s/p surgery), Hx of Peritonitis / Cellulitis who presented to the [facility] as a transfer from [facility] for abdominal pain associated with nausea and vomiting. She was found to be febrile. Patient was transferred here for nephrology consultation. Pateint was found to have PD peritonitis. Her PD cath was removed and she was switched to HD this admission. PD peritonitis Patient was transferred from [facility] because of above symptoms Leukocytosis remains persistent Continue fluid analysis is consistent with peritonitis Blood cultures 08/21: No growth till date; Peritoneal fluid cultures 08/21: Negative; Urine Cultures 08/21:staph epidermides and Lactococcus garvieae s/p Peritoneal dialysis catheter removal c/w Vancomycin / Fluconazole ID consult appreciated. Possible post-op ileus seems to be resolving, passing gas pain and distension less. tolerating diet ESRD switched from PD to HD this admission Has had her peritoneal dialysis catheter removed on 08/21/[address] De León New hemodialysis access point is in placed on 08/21/[address] Rome Nephrology and vascular surgery on consultation Discussed with nephrology and patient will be scheduled for hemodialysis for at least one month before her peritoneal dialysis Catheter can be replaced Patient says she is going to stay with her sisterrupa Odom for the duration that she needs HD as the dialysis centre is very far from her home in [place]. Bone mineral disease Due to ESRD continue calcitriol Restless legs Not on any meds at home will try requip. CAD Hx of [place] HTN BP appears to be low normal c/w Carvedilol only. amlodipine and lisinopril stopped. DLP c/w Atorvastatin DM2 A1c 6.8 c/w ISS Hypothyroidism c/w Levothyroxine Chronic Anemia and iron deficiency anemia Hg appears stable No baseline to compare against No episodes of bleeding IV venofer and aranesp DVT prophylaxis c/w Heparin VS,Fishbone, I+O VS, Fishbone, I+O Vital Signs Date Time Temp Pulse Resp B/P (MAP) Pulse Ox O2 Delivery O2 Flow Rate FiO2 08/26/18 06:00 97.4 57 16 164/72 (102) 99 08/23/18 08:00 2.0 08/22/18 05:08 Nasal Cannula I&O- Last 24 Hours up to 6 AM 08/26/18 06:00 Intake Total 460 ml Output Total 1300 ml Balance -840 ml KEON VASQUEZ MD August 26, 2018 07:50
[2018-08-26 14:00] VITALS: BP 112/53
[2018-08-26] MEDS ORDERED: GOLYTELY SOLN 4000 ML BTL PO ONE (14:00)
[2018-08-26] MEDS: **VANCO AFTER HD** MISC XX SCH (17:14)
[2018-08-26] MEDS: VANCOMYCIN HCL 750 MG, VIAL MATE ADAPTER 1 EACH in D5W 250 ML IV SCH (17:14)
[2018-08-26] MEDS: ATORVASTATIN 20 MG TAB PO SCH (20:39)
[2018-08-26] MEDS: CALCITRIOL 0.25 MCG CAP (S0169) PO SCH (20:39)
[2018-08-26 22:00] VITALS: BP 126/56
[2018-08-27 05:46] LABS: HEMOGLOBIN 8.4 g/dl (12.0-15.5); MEAN CORPUSCULAR HEMOGLOBIN 30.7 pg (27.0-33.0); MEAN CORPUSCULAR HGB CONC 31.1 g/dl (32.0-36.5); MEAN CORPUSCULAR VOLUME 98.5 fl (80.0-96.0); PLATELET COUNT, AUTOMATED 308 10^3/uL (150-450); RED BLOOD COUNT 2.74 10^6/uL (4.00-5.40); WHITE BLOOD COUNT 15.4 10^3/uL (4.0-10.0)
[2018-08-27 06:00] VITALS: BP 112/56
[2018-08-27 06:16] LABS: ALBUMIN 1.1 GM/DL (3.2-5.2); C REACTIVE PROTEIN QUANTITATIV 9.58 MG/DL (0.00-0.30); CALCIUM LEVEL 8.8 MG/DL (8.8-10.2); CREATININE FOR GFR 3.64 MG/DL (0.55-1.30); GLOMERULAR FILTRATION RATE 13.5 (>45); PHOSPHORUS LEVEL 2.1 MG/DL (2.5-4.9); POTASSIUM SERUM 4.2 MEQ/L (3.5-5.1)
[2018-08-27 06:42] LABS: BASOPHILS 1 % (0-4); EOSINOPHILS 2 % (0-5); LYMPHOCYTES 11 % (16-52); METAMYELOCYTES 4 % (0-0); MONOCYTES 5 % (0-8); MYELOCYTES 2 % (0-0); NEUTROPHILS 72 % (35-75); PLATELET ESTIMATE NORMAL (NORMAL)
[2018-08-27 06:43] LABS: ANISOCYTOSIS 1+; POLYCHROMASIA 1+
[2018-08-27] MEDS: LEVOTHYROXINE 150MCG TABLET (0.15MG) PO SCH (08:09)
[2018-08-27] MEDS: HumaLOG INSULIN (NovoLOG) PER UNIT SC SCH ×4 (08:09→20:44)
[2018-08-27] MEDS: LACTOBACILLUS ACIDOPHILUS CAP (BACID) PO SCH (08:09)
[2018-08-27] MEDS: HEPARIN SOD (PORCINE) 5000 UNITS/ML VIAL SC SCH ×3 (08:09→23:54)
[2018-08-27] MEDS: CARVedilol 3.125 MG TAB PO SCH ×2 (08:09→08:42)
[2018-08-27 08:13] VITALS: BP 92/54
[2018-08-27] MEDS: **VANCO AFTER HD** MISC XX SCH (09:08)
--- NOTE | 2018-08-27 10:32 | IPNPDOC ---
Text Note Date of Service The patient was seen on 08/27/18. NOTE Subjective: Patient was seen and examined at the bedside. Currently, she reports that her abdomen is better and pain is less. Reports that her appetite is poor. No nausea or vomiting. Denies any chest pain, shortness of breath or palpitations. Had 2 bowel movements after golytely yesterday Objective: Vitals (See below) General: Lying in bed, no acute distress, comfortable, AAOx3 HEENT: NC, AT, New dialysis access point CVS: RRR, +S1S2, no rub, murmur or gallop Lungs: Air entry is fair bilaterally without evidence of rales, rhonchi or wheezing Abdomen: Soft, mild distention, mild diffuse tenderness, hypoactive bowel sounds; s/p peritoneal dialysis catheter Extremities: Trace to 1+ pitting edema noted. Feet no significant edema at her calfs, - Calf tenderness Labs and radiology: reviewed. Assessment and plan: Patient is a 16-year-old female with a PMHx of CAD (Hx of [place]), HTN, DLP, DM2, ESRD on PD, Hx of Thyroid CA (s/p surgery), Hx of Peritonitis / Cellulitis who presented to the [facility] as a transfer from [facility] for abdominal pain associated with nausea and vomiting. She was found to be febrile. Patient was transferred here for nephrology consultation. Patient was found to have PD peritonitis. Her PD cath was removed and she was switched to HD this admission. PD peritonitis Patient was transferred from [facility] because of above symptoms Leukocytosis remains persistent Continue fluid analysis is consistent with peritonitis Blood cultures 08/21: No growth till date; Peritoneal fluid cultures 08/21: N egative; Urine Cultures 08/21:staph epidermides and Lactococcus garvieae s/p Peritoneal dialysis catheter removal c/w Vancomycin / Fluconazole ID consult appreciated. Possible post-op ileus seems to be resolving, passing gas pain and distension less. tolerating diet ESRD switched from PD to HD this admission Has had her peritoneal dialysis catheter removed on 08/21/[address] De León New hemodialysis access point is in placed on 08/21/[address] Rome Nephrology and vascular surgery on consultation Discussed with nephrology and patient will be scheduled for hemodialysis for at least one month before her peritoneal dialysis Catheter can be replaced Patient says she is going to stay with her sisterrupa Odom for the duration that she needs HD as the dialysis centre is very far from her home in [place]. Bone mineral disease Due to ESRD continue calcitriol Restless legs Not on any meds at home requip helped CAD Hx of [place] HTN BP appears to be lowish today will stop coreg, amlodipine and lisinopril DLP c/w Atorvastatin DM2 A1c 6.8 c/w ISS Hypothyroidism c/w Levothyroxine Chronic Anemia and iron deficiency anemia Hg appears stable No baseline to compare against No episodes of bleeding IV venofer and aranesp DVT prophylaxis c/w Heparin VS,Fishbone, I+O VS, Fishbone, I+O Laboratory Tests 08/27/18 05:28 Red Blood Count 2.74 L, Mean Corpuscular Volume 98.5 H, Mean Corpuscular Hemoglobin 30.7, Mean Corpuscular Hemoglobin Concent 31.1 L, Red Cell Distribution Width 16.2 H, Anion Gap 4 L Vital Signs Date Time Temp Pulse Resp B/P (MAP) Pulse Ox O2 Delivery O2 Flow Rate FiO2 08/27/18 08:42 92/54 08/27/18 06:00 98.3 63 17 95 08/23/18 08:00 2.0 08/22/18 05:08 Nasal Cannula I&O- Last 24 Hours up to 6 AM 08/27/18 06:00 Intake Total 1095 ml Output Total 1200 ml Balance -105 ml KEON VASQUEZ MD August 27, 2018 10:31
[2018-08-27 14:00] VITALS: BP 128/58
--- NOTE | 2018-08-27 14:42 | IPN ---
DATE: 08/26/2018 SUBJECTIVE: The patient was seen and examined at the bedside today morning. She is afebrile, hemodynamically stable. 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 She reported that she started having cramps with more ultrafiltration, only 1 liter of fluid was removed. The patient reports persistent constipation. She got the soapsuds enema yesterday and she is also taking MiraLAX. She only had one bowel movement yesterday and she feels that she still needs more laxative and she reports mild persistent lower abdominal pain. OBJECTIVE: VITAL SIGNS: Temperature is 99 degrees Fahrenheit, blood pressure 112/53, pulse is 62, respiratory rate of 20, saturating 95% on room air. Intake and output: Ultrafiltration with hemodialysis is 1 liter, weight in the bed scale is 66.5 kg and patient reports that she had one bowel movement yesterday. PHYSICAL EXAMINATION: GENERAL: The patient is awake, alert, oriented times three, laying in bed. No apparent distress. HEAD AND NECK EXAM: The patient has very poor vision. Otherwise mucous membranes are moist. Neck is supple. There is no JVD. She has a right IJ tunneled hemodialysis catheter. CARDIOVASCULAR: S1, S2, regular rate. Trace edema bilateral ankles. RESPIRATORY: Chest is clear to auscultation bilaterally. Bilateral equal air entry. No rales or rhonchi. ABDOMEN: Soft. She has a dressing in the left lower quadrant, very mild amount of tenderness to deep palpation in the right lower and left lower quadrant. MUSCULOSKELETAL: No clubbing or cyanosis. Pulses are 2+. SUSTAINABLE DESIGN CONSULTANT: No focal deficit apart from the legal blindness. LABORATORY DATA: CBC is from yesterday and WBC count was 11.7 and BMP was also from yesterday. CURRENT INPATIENT MEDICATIONS: The patient's medications were all reviewed by me. She continues to be on IV vancomycin. IV cefepime has been stopped by infectious disease. I have stopped her MiraLAX and ordered 2 liters of Golytely for constipation. She was also given one dose of Requip 0.25 mg by mouth today morning. ASSESSMENT/PLAN: 1. Acute peritonitis. Cultures are negative so far. The patient was seen by infectious disease. Cefepime and fluconazole was stopped. She continues to be on vancomycin. Patient is symptomatically slowly improving. 2. End-stage renal disease. The patient was switched from peritoneal dialysis to hemodialysis. She is hemodialysis dependent. Latest dialysis was done today morning. She is pending placement at outpatient dialysis center. She lives more than an hour away and she is legally blind so she reports inability to come to [place] for dialysis. She is requesting to be transferred to [place] for about a month while she is on hemodialysis and she plans to come back to [place] when she is switched back to peritoneal dialysis. 3. Constipation. The patient still reports persistent constipation despite getting soapsuds enema and dose of MiraLAX. I have ordered 2 liters of Golytely to be given today. 4. Anemia in end-stage renal disease and iron deficiency. Patient's hemoglobin is still persistently low. She continues to be on IV Venofer. Aranesp dose has been increased. No need of blood transfusion at this point. 5. Hypertension with end-stage renal disease. Continue current dose of Coreg and lisinopril. 6. Restless leg syndrome. The patient was given a dose of Requip by primary team. I believe her restless legs are secondary to anemia and iron deficiency. Continue the IV Venofer. If her symptoms persist despite IV iron and improvement of anemia, then she will be started on regular doses of Requip. DISPOSITION: The patient is pending placement at outpatient dialysis center. She would need to be on hemodialysis for at least a month before she is switched back to peritoneal dialysis.
[2018-08-27] MEDS: CALCITRIOL 0.25 MCG CAP (S0169) PO SCH (20:44)
[2018-08-27] MEDS: ATORVASTATIN 20 MG TAB PO SCH (20:44)
[2018-08-27 22:00] VITALS: BP 111/57
--- NOTE | 2018-08-28 05:12 | IPN ---
DATE OF SERVICE: 08/27/2018 SUBJECTIVE: The patient is seen and examined at the bedside. She reports that she had bowel movements after Golytely yesterday. She did not drink the full 2 liters. Reports her appetite is still poor. Had some oatmeal this morning. No nausea and no vomiting. Has not been out of bed yet today. Blood pressures are soft this morning. VITAL SIGNS: Temperature 98.3, pulse 63, respiratory rate 17, blood pressure systolic 92 to 112 over diastolic 50s, saturating 95% on room air. Intake yesterday was 1 liter. Dialysis yesterday removed 1 liter. Urine output yesterday was 200 mL. Weight on the bed scale today is 67.4 kg. PHYSICAL EXAMINATION: GENERAL: The patient is seen lying in bed in no acute distress, comfortable, awake, alert, and oriented. Jugular veins are not elevated. Neck is supple. There is a tunneled hemodialysis catheter in the right chest wall. CARDIAC: S1, S2. Regular rate and rhythm. RESPIRATORY: Lungs show clear air entry bilaterally. No crackle, rale or wheeze. ABDOMEN: The abdomen is soft. There is some scattered ecchymoses. There are hypoactive bowel sounds. There is a dressing at the site of previous peritoneal dialysis catheter. EXTREMITIES: There is trace edema present in the legs. LABORATORY DATA: White count 15.4, hemoglobin 8.4, platelets 308. Sodium 136, potassium 4.2, bicarbonate 31, phosphorus 2.1, C-reactive protein (CRP) 9.5. INPATIENT MEDICATIONS: Reviewed by myself. I discontinued her lisinopril and I added generous holding parameters to the carvedilol. The remainder of medications are unchanged from prior. PROBLEMS: 1. End-stage renal disease previously on peritoneal dialysis now switched over to hemodialysis due to peritonitis with infected peritoneal dialysis (PD) catheter. She will need arrangement for hemodialysis chair in [place] which case management is working on. Until she is able to transition back to peritoneal dialysis. Her electrolytes are acceptable. Her PermaCath is in good use. 2. Hypertension. Blood pressures are actually borderline soft. I am discontinuing the lisinopril and I have added very generous holding parameters with her low dose carvedilol. 3. Peritonitis with infected peritoneal dialysis catheter. ERP is down trending. Her white count however did bump up today. She is afebrile but her blood pressures are also borderline soft. Her antihypertensives have mostly been discontinued. Infectious diseases is following her. She continues on renally dosed vancomycin. 4. Anemia on end-stage renal disease. Hemoglobin 8.4 today. She continues on Aranesp and Venofer.
[2018-08-28 06:00] VITALS: BP 120/60
[2018-08-28] MEDS: HumaLOG INSULIN (NovoLOG) PER UNIT SC SCH ×4 (07:30→21:00)
[2018-08-28] MEDS: LEVOTHYROXINE 150MCG TABLET (0.15MG) PO SCH (08:01)
[2018-08-28] MEDS: LACTOBACILLUS ACIDOPHILUS CAP (BACID) PO SCH (08:01)
[2018-08-28] MEDS: HEPARIN SOD (PORCINE) 5000 UNITS/ML VIAL SC SCH ×2 (08:02→16:41)
[2018-08-28 10:06] LABS: HEMATOCRIT 31.4 % (36.0-47.0); HEMOGLOBIN 9.7 g/dl (12.0-15.5); MEAN CORPUSCULAR HEMOGLOBIN 31.2 pg (27.0-33.0); MEAN CORPUSCULAR HGB CONC 30.9 g/dl (32.0-36.5); PLATELET COUNT, AUTOMATED 342 10^3/uL (150-450); RED BLOOD COUNT 3.11 10^6/uL (4.00-5.40); WHITE BLOOD COUNT 16.3 10^3/uL (4.0-10.0)
[2018-08-28 10:30] LABS: C REACTIVE PROTEIN QUANTITATIV 8.71 MG/DL (0.00-0.30); CALCIUM LEVEL 9.6 MG/DL (8.8-10.2); CREATININE FOR GFR 5.16 MG/DL (0.55-1.30); POTASSIUM SERUM 4.7 MEQ/L (3.5-5.1)
--- NOTE | 2018-08-28 12:35 | IPN ---
DATE OF SERVICE: 08/28/2018 SUBJECTIVE: Patient is seen and examined this morning at the bedside. She is in poor spirits. Reports she just found out that her father overnight. She is tearful. She otherwise denies any new complaints. Constipation is improving, and she is anxious to be discharged from the hospital. She denies any shortness of breath, has been up and ambulating. She does report leg edema. VITAL SIGNS: Temperature 97.2, pulse 62, respiratory rate 17, blood pressure 120/60, saturating 98% on room air. Intake yesterday was not fully recorded. Weight on the bed scale today is 68.4 kg. GENERAL: Patient is seen sitting at the edge of the bed, legs dangling, in mild emotional distress, but otherwise comfortable, awake, alert, oriented. Jugular veins are not elevated while she is sitting upright. Neck is supple. There is a tunneled hemodialysis catheter in the right chest wall. CARDIAC: S1, S2. Regular rate and rhythm. LUNGS: Show clear air entry bilaterally. No crackle, rale or wheeze. ABDOMEN: The abdomen is soft. There is some scattered ecchymoses. There are bowel sounds. EXTREMITIES: There is 1+ pitting edema present in both legs that extends up to the knees. LABS: White count 16.3, hemoglobin 9.7, platelets 342. Sodium 132, potassium 4.7, CRP 8.7. INPATIENT MEDICATIONS: Reviewed by myself and unchanged from prior. PROBLEMS: 1. End-stage renal disease. Previously on peritoneal dialysis now switched over to hemodialysis due to recurrent peritonitis with an infected peritoneal dialysis catheter. She is being set up for an outpatient hemodialysis [place]. Until this accomplished, we will continue with inpatient hemodialysis. Next treatment will be on Tuesday. She is mildly volume overloaded with peripheral edema, and I would try to take off 2 liters as tolerated by her blood pressure. There is also mild hyponatremia that will improve with dialysis on fluid removal. 2. Peritonitis with infected peritoneal dialysis catheter. Patient's peritoneal dialysis (PD) catheter was removed on this admission. Her C-reactive protein (CRP) is downtrending. She remains afebrile. She continues on renally dosed vancomycin. Her blood pressures have improved. Yesterday were soft. Today she is normotensive, but I am concerned that her white count continues to increase. Defer further management of antimicrobials to infectious disease. 3. Hypertension. Blood pressures are improved as compared to yesterday, and she remains off of all antihypertensives at this time. 4. Anemia of end-stage renal disease. Hemoglobin 9.7 today, and she continues on Aranesp and iron with hemodialysis. DISPOSITION: Pending arrangement of outpatient hemodialysis chair, will also need further recommendations for duration of antibiotics from infectious disease. I think she would benefit from at least a 2 week course, and would also explore further the rise in her white count.
[2018-08-28 14:00] VITALS: BP 156/68
[2018-08-28] MEDS: **VANCO AFTER HD** MISC XX SCH (14:32)
--- NOTE | 2018-08-28 17:26 | IPNPDOC ---
Text Note Date of Service The patient was seen on 08/28/18. NOTE Subjective: Patient was seen and examined at the bedside. Currently, she reports that her abdomen is better and Pain is resolved. No fever or chills, had bowel movements and is passing gas. No nausea or vomiting or diarrhea. Objective: Vitals (See below) General: Lying in bed, no acute distress, comfortable, AAOx3 HEENT: [place], AT, New dialysis access point CVS: RRR, +S1S2, no rub, murmur or gallop Lungs: Air entry is fair bilaterally without evidence of rales, rhonchi or wh eezing Abdomen: Soft, mild distention, mild diffuse tenderness, hypoactive bowel sounds; s/p peritoneal dialysis catheter Extremities: Trace to 1+ pitting edema noted. Feet no significant edema at her calfs, - Calf tenderness Labs and radiology: reviewed. Assessment and plan: Patient is a 16-year-old female with a PMHx of CAD (Hx of [place]), HTN, DLP, DM2, ESRD on PD, Hx of Thyroid CA (s/p surgery), Hx of Peritonitis / Cellulitis who presented to the [facility] as a transfer from [facility] for abdominal pain associated with nausea and vomiting. She was found to be febrile. Patient was transferred here for nephrology consultation. Patient was found to have PD peritonitis. Her PD cath was removed and she was switched to HD this admission. PD peritonitis Patient was transferred from [facility] because of above symptoms Leukocytosis remains persistent Continue fluid analysis is consistent with peritonitis Blood cultures 08/21: No growth till date; Peritoneal fluid cultures 08/21: Negative; Urine Cultures 08/21:staph epidermides and Lactococcus garvieae s/p Peritoneal dialysis catheter removal c/w Vancomycin ID consult appreciated. Possible post-op ileus seems to be resolving, passing gas pain and distension less. tolerating diet ESRD switched from PD to HD this admission Has had her peritoneal dialysis catheter removed on 08/21/[address] De León New hemodialysis access point is in placed on 08/21/[address] Rome Nephrology and vascular surgery on consultation Discussed with nephrology and patient will be scheduled for hemodialysis for at least one month before her peritoneal dialysis Catheter can be replaced Patient says she is going to stay with her sisterrupa Elmo for the duration that she needs HD as the dialysis centre is very far from her home in [place]. Bone mineral disease Due to ESRD continue calcitriol Restless legs Not on any meds at home requip helped CAD Hx of [place] HTN blood pressure now on the rise will restart amlodipine and coreg. DLP c/w Atorvastatin DM2 A1c 6.8 c/w ISS Hypothyroidism c/w Levothyroxine Chronic Anemia and iron deficiency anemia Hg appears stable No baseline to compare against No episodes of bleeding IV venofer and aranesp DVT prophylaxis c/w Heparin A-FIB/CHADSVASC A-FIB History Current/History of A-Fib/PAF?: No VS,Fishbone, I+O VS, Fishbone, I+O Laboratory Tests 08/28/18 09:47 Red Blood Count 3.11 L, Mean Corpuscular Volume 101.0 H, Mean Corpuscular Hemoglobin 31.2, Mean Corpuscular Hemoglobin Concent 30.9 L, Red Cell Distribution Width 17.0 H, Calcium Level 9.6 Vital Signs Date Time Temp Pulse Resp B/P (MAP) Pulse Ox O2 Delivery O2 Flow Rate FiO2 08/28/18 14:00 98.9 69 17 156/68 (97) 98 08/23/18 08:00 2.0 08/22/18 05:08 Nasal Cannula I&O- Last 24 Hours up to 6 AM 08/28/18 06:00 Intake Total 760 ml Balance 760 ml KEON VASQUEZ MD August 28, 2018 17:26
--- NOTE | 2018-08-28 18:04 | IPNPDOC ---
Text Note Date of Service The patient was seen on 08/28/18. NOTE SUBJECTIVE: Patient was examined at bedside this morning. She stated that her abdominal pain was back to baseline. She continues to move her bowels without difficulty. She stated she was ready go home. OBJECTIVE: PHYSICAL EXAMINATION: GENERAL APPEARANCE: Alert no acute distress. SKIN: Warm, well perfused. LUNGS: Clear to auscultation bilaterally. HEART: Normal S1, S2. No murmurs, no rubs, no gallops. Permacath placed on patient's right upper chest ABDOMEN: Soft. No masses. Bowel sounds are present. Healing scar from prior peritoneal dialysis catheter. EXTREMITIES: Moves all extremities equally. No gross deformities. PULSES: 2+ upper and lower extremity . LABORATORY DATA: Please see below. ASSESSMENT AND PLAN: 62-year-old female with end-stage renal disease on peritoneal dialysis, admitted with acute peritonitis possibly caused by Actinomyces from prior cultur es in [place]. Cultures during this hospital stay has been negative. Currently on vancomycin. Patient can be discharged tomorrow with follow-up with nephrology, and PCP. She will need to continue vancomycin for 1 week during dialysis, and will start TX with minocycline, which started today for a total of one month. VS,Fishbone, I+O VS, Fishbone, I+O Laboratory Tests 08/28/18 09:47 Red Blood Count 3.11 L, Mean Corpuscular Volume 101.0 H, Mean Corpuscular Hemoglobin 31.2, Mean Corpuscular Hemoglobin Concent 30.9 L, Red Cell Distribution Width 17.0 H, Calcium Level 9.6 Vital Signs Date Time Temp Pulse Resp B/P (MAP) Pulse Ox O2 Delivery O2 Flow Rate FiO2 08/28/18 14:00 98.9 69 17 156/68 (97) 98 08/23/18 08:00 2.0 08/22/18 05:08 Nasal Cannula I&O- Last 24 Hours up to 6 AM 08/28/18 06:00 Intake Total 760 ml Balance 760 ml GME ATTESTATION GME ATTESTATION My faculty preceptor for this patient encounter was physically present during the encounter and was fully available. All aspects of the patient interview, examination, medical decision making process, and medical care plan development were reviewed and approved by the faculty preceptor. The faculty preceptor is aware and concurs with the plan as stated in the body of this note and will attest to such by his/her cosignature. AMOS CARDONA DO August 28, 2018 18:04 Nancy Mathews MD August 28, 2018 22:03
[2018-08-28] MEDS: CALCITRIOL 0.25 MCG CAP (S0169) PO SCH (21:08)
[2018-08-28] MEDS: ATORVASTATIN 20 MG TAB PO SCH (21:08)
[2018-08-28] MEDS: MINOCYCLINE 50 MG CAP PO SCH (21:08)
[2018-08-28] MEDS: CARVedilol 3.125 MG TAB PO SCH (21:09)
[2018-08-28 22:00] VITALS: BP 160/70
[2018-08-29] MEDS: HEPARIN SOD (PORCINE) 5000 UNITS/ML VIAL SC SCH ×2 (01:10→08:39)
[2018-08-29 06:00] VITALS: BP 154/68
[2018-08-29 06:16] LABS: HEMOGLOBIN 8.7 g/dl (12.0-15.5); MEAN CORPUSCULAR HEMOGLOBIN 29.7 pg (27.0-33.0); PLATELET COUNT, AUTOMATED 310 10^3/uL (150-450); RED BLOOD COUNT 2.93 10^6/uL (4.00-5.40); WHITE BLOOD COUNT 14.7 10^3/uL (4.0-10.0)
[2018-08-29 06:48] LABS: C REACTIVE PROTEIN QUANTITATIV 7.26 MG/DL (0.00-0.30); CALCIUM LEVEL 9.1 MG/DL (8.8-10.2); CREATININE FOR GFR 5.8 MG/DL (0.55-1.30); GLOMERULAR FILTRATION RATE 7.9 (>45); POTASSIUM SERUM 5.1 MEQ/L (3.5-5.1); VANCOMYCIN RANDOM 25.4 UG/ML
[2018-08-29] MEDS: HumaLOG INSULIN (NovoLOG) PER UNIT SC SCH (07:30)
[2018-08-29] MEDS: LEVOTHYROXINE 150MCG TABLET (0.15MG) PO SCH (07:39)
[2018-08-29] MEDS: MINOCYCLINE 50 MG CAP PO SCH (08:38)
[2018-08-29] MEDS: ACETAMINOPHEN TAB 650MG DOSE (2X325MG) PO PRN (08:38)
[2018-08-29] MEDS: LACTOBACILLUS ACIDOPHILUS CAP (BACID) PO SCH (08:38)
[2018-08-29 08:39] VITALS: BP 154/68
[2018-08-29] MEDS: CARVedilol 3.125 MG TAB PO SCH (08:39)
[2018-08-29] MEDS ORDERED: amLODIPine 5 MG TAB PO SCH (09:00)
[2018-08-29] MEDS ORDERED: MINO0.1C PO (09:12)
--- NOTE | 2018-08-29 11:18 | DS.PDOC ---
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 COMPLICATIONS/CHIEF COMPLAINT: Peritonitis. HISTORY OF PRESENT ILLNESS: See History and physical HOSPITAL COURSE: Patient is a 62-year-old female with a PMHx of CAD (Hx of NM), HTN, DLP, DM2, ESRD on PD, Hx of Thyroid CA (s/p surgery), Hx of Peritonitis / Cellulitis who presented to the [facility] as a transfer from [facility] for abdominal pain associated with nausea and vomiting. She was found to be febrile. Patient was transferred here for nephrology consultation. Patient was found to have PD peritonitis. Her PD cath was removed and she was switched to HD this admission. PD peritonitis Due to Actinomyces. PD fluid culture form [place] was positive for this done in May 2018. Culture form here has been negative. Patient was transferred from [facility] because of above symptoms Continue fluid analysis is consistent with peritonitis but cultures negative. Blood cultures 08/21: No growth. Peritoneal fluid cultures 08/21: Negative s/p Peritoneal dialysis catheter removal c/w Vancomycin for 1 week continue with minocycline for 1 months started on 08/28/18 ID consult appreciated. Possible post-op ileus seems to be resolving, passing gas pain and distension almost resolved ESRD switched from PD to HD this admission Has had her peritoneal dialysis catheter removed on 08/21/[address] De León New hemodialysis access point is in placed on 08/21/[address] Rome Nephrology and vascular surgery on consultation Discussed with nephrology and patient will be scheduled for hemodialysis for at least one month before her peritoneal dialysis Catheter can be replaced Bone mineral disease Due to ESRD continue calcitriol Restless legs Not on any meds at home requip helped CAD Hx of NM HTN blood pressure now on the rise will restart amlodipine and coreg and lisinopril, torsemide DLP c/w Atorvastatin DM2 A1c 6.8 c/w home meds. Hypothyroidism c/w Levothyroxine Chronic Anemia and iron deficiency anemia Hg appears stable received venofer and aranesp in hospital DISCHARGE MEDICATIONS: Please see below. ALLERGIES: Please see below. PHYSICAL EXAMINATION ON DISCHARGE: VITAL SIGNS: Please see below. General: Lying in bed, no acute distress, comfortable, AAOx3 HEENT: NC, AT, New dialysis access point CVS: RRR, +S1S2, no rub, murmur or gallop Lungs: Air entry is fair bilaterally without evidence of rales, rhonchi or wheezing Abdomen: Soft, mild distention, no tenderness, normal bowel sounds; s/p peritoneal dialysis catheter Extremities: Trace to 1+ pitting edema noted. Feet no significant edema at her calfs LABORATORY DATA: Please see below. ACTIVITY: [As tolerated]. DIET: renal DISCHARGE PLAN: Home DISPOSITION: . DISCHARGE INSTRUCTIONS: Follow up with PMD in 2 weeks Follow up with digital media buyer in 1 week ITEMS TO FOLLOWUP ON ON OUTPATIENT: 1. CBC in 1 week DISCHARGE CONDITION: [Stable]. TIME SPENT ON DISCHARGE: Greater than 30 minutes. Vital Signs/I&Os Vital Signs Date Time Temp Pulse Resp B/P (MAP) Pulse Ox O2 Delivery O2 Flow Rate FiO2 08/29/18 08:39 64 154/68 08/29/18 06:00 98.4 18 97 08/23/18 08:00 2.0 I&O- Last 24 Hours up to 6 AM 08/29/18 06:00 Intake Total 1140 ml Output Total 0 ml Balance 1140 ml Laboratory Data Labs 24H Laboratory Tests 2 08/28/18 11:19: Bedside Glucose (Misc Panel) 179H 08/28/18 16:25: Bedside Glucose (Misc Panel) 228H 08/28/18 20:46: Bedside Glucose (Misc Panel) 198H 08/29/18 05:41: Nucleated Red Blood Cells % (auto) 1.6H, Anion Gap 7L, Glomerular Filtration Rate 7.9L, Blood Urea Nitrogen 27H, Creatinine 5.80H, Sodium Level 132L, Potassium Level 5.1, Chloride Level 95L, Carbon Dioxide Level 30, Calcium Level 9.1, C-Reactive Protein, Quantitative 7.26H, Random Vancomycin Level 25.4 CBC/BMP Laboratory Tests 08/29/18 05:41 Red Blood Count 2.93 L, Mean Corpuscular Volume 99.0 H, Mean Corpuscular Hemoglobin 29.7, Mean Corpuscular Hemoglobin Concent 30.0 L, Red Cell Distr ibution Width 16.8 H, Calcium Level 9.1 FSBS Laboratory Tests Test 08/28/18 11:19 08/28/18 16:25 08/28/18 20:46 Range/Units Bedside Glucose (Misc Panel) 179 228 198 80-115 MG/DL Microbiology Microbiology 08/21/18 Blood Culture - Final, Complete NO GROWTH AFTER 5 DAYS 08/21/18 Gram Stain - Final, Complete 08/21/18 Body Fluid Culture - Final, Complete 08/21/18 Urine Culture - Final, Complete Staphylococcus Epidermidis Lactococcus Garvieae 08/21/18 Gram Stain - Final, Complete 08/21/18 Abscess Culture - Final, Complete Discharge Medications Scheduled Amlodipine Besylate (Amlodipine Besylate) 5 Mg Tablet, 5 MG PO DAILY, (Reported) Atorvastatin Calcium (Atorvastatin Calcium) 20 Mg Tablet, 20 MG PO DAILY, (Reported) Calcitriol (Rocaltrol) 0.5 Mcg Capsule, 0.5 MCG PO DAILY, (Reported) Carvedilol (Carvedilol) 3.125 Mg Tablet, 3.125 MG PO BID, (Reported) Ferric Citrate (Auryxia) 210 Mg Tablet, 210 MG PO TID, (Reported) Fluconazole (Fluconazole) 100 Mg Tablet, 100 MG PO DAILY, (Reported) Folic Acid/Vit B Complex and C (Zo-Kamran Tablet) 0.8 Mg Tablet, 1 TAB PO DAILY, (Reported) Gentamicin Sulfate (Gentamicin Sulfate) 30 Gm Cream..g., 1 APLCT TOP DAILY, (Reported) Levothyroxine Sodium (Levothyroxine Sodium) 150 Mcg Tablet, 150 MCG PO QAM, (Reported) Lisinopril (Lisinopril) 5 Mg Tablet, 5 MG PO DAILY, (Reported) Minocycline Hcl (Minocin) 50 Mg Capsule, 100 MG PO BID Potassium Chloride (Potassium Chloride) 10 Meq Tablet.er, 10 MEQ PO DAILY, (Reported) Torsemide (Torsemide) 20 Mg Tablet, 20 MG PO BID, (Reported) Scheduled PRN Acetaminophen (Acetaminophen) 500 Mg Tablet, 1,000 MG PO Q6H PRN for PAIN, (Reported) Albuterol Sulfate (Ventolin Hfa) 18 Gm Hfa.aer.ad, 2 PUFF INH Q4H PRN for wheezing, (Reported) Nitroglycerin (Nitroglycerin) 0.4 Mg Tab.subl, 0.4 MG SL Q5MP PRN for CHEST PAIN, (Reported) Allergies Coded Allergies: Penicillins (Unverified Allergy, Intermediate, HIVES, 08/22/18) hydrocodone (Unverified Adverse Reaction, Mild, VOMITING, 08/21/18) egg (Unverified Adverse Reaction, Unknown, VOMITING, 08/21/18) KEON VASQUEZ MD August 29, 2018 11:17
--- NOTE | 2018-08-29 15:57 | IPN ---
DATE OF SERVICE: 08/29/2018 SUBJECTIVE: Patient is seen and examined this morning at the bedside. She has discharge pending. She is set up for an outpatient hemodialysis chair later this afternoon at 2:30. She has had transport arranged. She denies any new complaints or issues. We discussed her discharge antibiotic regimen. There is some ongoing leg edema and she will benefit from dialysis and fluid removal. She denies any abdominal pain or tenderness. Constipation is resolved. Denies any shortness of breath or dyspnea or exertion. Vital signs: Temperature 98.4, pulse 64, respiratory rate 18, blood pressure 154/68, saturating 97% on room air. Intake yesterday was 1220. Weight on the bed scale yesterday was 68.4 kg. Today's weight was not recorded. General: Patient is seen sitting at the edge of the bed, awake, alert, oriented, comfortable, smiling. Extraocular muscles are intact. Tongue is moist. Neck is supple. Jugular veins are not elevated while she is sitting upright. Cardiac: S1, S2. There is tunneled hemodialysis catheter present in the right chest wall with dressing. The lungs are clear to auscultation bilaterally. No crackle, rale or wheeze. Her abdomen is soft and nontender. There are bowel sounds. The extremities show 1+ pitting edema in both legs that extends up to the knees. Neurologic: She is oriented times three. No focal deficits. Psychiatric: Appropriate mood and affect. LABS: White count 14.7, hemoglobin 8.7, platelets 310. Sodium 132, potassium 5.1, BUN 27, CRP 7.2. INPATIENT MEDICATIONS: Reviewed by myself and no change from prior. PROBLEMS: 1. End-stage renal disease, now on hemodialysis due to recurrent peritonitis. Her peritoneal dialysis (PD) catheter was removed. She is arranged for outpatient hemodialysis on a Tuesday, , Tuesday schedule. Transportation has been set up. She is mildly volume overloaded with peripheral edema and she is due for hemodialysis as an outpatient this afternoon. There is also mild hyponatremia that will improve with dialysis and fluid removal. 2. Peritonitis status post PD catheter removal. C-reactive protein (CRP) is downtrending. White count has also now improved as well. She continues on renally dosed vancomycin 750 mg three times a week post dialysis. She will continue this until 09/04/2018. The hemodialysis unit is aware. Noted infectious disease's recommendations for minocycline for 1 month post vancomycin. 3. Anemia of end-stage renal disease. Hemoglobin 8.7. I suspect an element of hemodilution. She will continue with anemia protocol of end-stage renal disease in the outpatient setting with erythropoietin stimulating agent. 4. Hypertension. Blood pressures have improved as compared to prior. Earlier on during the admission, she was hypotensive and her home antihypertensives were held. Now her blood pressure is elevated. She can resume her home antihypertensives upon discharge. DISPOSITION: Patient is stable for discharge from a nephrology point of view with followup in the outpatient hemodialysis unit.
--- NOTE | 2018-08-29 18:56 | IPN ---
DATE: 08/21/2018 Maddie seems to be better today. She states her abdominal pain has improved. No nausea, vomiting but she had diarrhea after she was given MiraLax twice a day for the past 48 hours. She still complains of some bloating and they think she still has not completely emptied even though she is having diarrhea. She would like to use her MiraLax as needed. No cough or shortness of breath. PHYSICAL EXAMINATION: VITAL SIGNS: On physical exam temperature is 97.5, pulse 56, respirations 17, blood pressure 99/57, O2 sat 100% on room air. HEART: Normal S1, S2. No murmurs. LUNGS: Clear. Diminished breath sounds at the bases. ABDOMEN: Mildly tender in the right lower quadrant but no rebound. No hepatosplenomegaly. The left lower quadrant where peritoneal drain was removed is healing well. LABORATORY DATA: White count is 11.7, hemoglobin 8.2, hematocrit 26.9, platelets 336, 77% neutrophils, 7% lymphocytes, 9% monocytes. Sodium 136, potassium 3.8, chloride 101, bicarbonate 30, BUN 16, creatinine 4.35, glucose 77, calcium 8.5, AST 29, ALT 14, alk phos 78, C-reactive protein (CRP) 15.8 down from 22.9. Albumin 1. Vancomycin random level 19.4. SEROLOGY: Hepatitis B surface antigen negative, surface antibody positive, hepatitis B core negative, hepatitis C negative. Urine culture had staph epidermidis and Lactococcus. Blood cultures were negative one set and peritoneal fluid culture was also negative. There is no anaerobic culture that was sent. IMPRESSION: 1. Acute peritonitis from peritoneal dialysis catheter that was removed. We have obtained records from [place] and [facility] in [place]. The culture was only positive for Actinomyces and in [place] the culture was negative. At both times the patient was treated with vancomycin with improvement of her symptoms but not resolution. Our cultures have been negative although there was no anaerobic cultures sent. There is no evidence of gram negative infection or fungal and therefore broad-spectrum antibiotics will be discontinued. 2. Constipation from opioids improving with MiraLAX. Doing better. 3. End-stage renal disease. The patient is currently on hemodialysis and would like to be discharged to [place] and so she could stay with her sister where she could get dialysis as she lives at least an [address] [place] [address] from [place] and that will not be convenient for her while on hemodialysis. PLAN: Discontinue cefepime and Flagyl. Continue with intravenous (IV) vancomycin. We will continue to monitor and then Tuesday hopefully if she continues to improve she could be switched to oral antibiotic which would cover for Actinomyces. The patient has PENICILLIN allergy which would usually be the drug of choice. Further recommendation will depend on her clinical improvement early next week. ADDENDUM 08/27/2018 CT abdomen and pelvis with intravenous (IV) and oral contrast was reviewed by Dr. Josh Laboy and we reviewed the films with him. There are patchy bibasilar infiltrates, more like pleural effusions, a moderate free fluid in the abdomen and pelvis. No abscess collection is seen. Mild renal atrophy without hydronephrosis. If the patient does not show a continued improvement a repeat paracentesis could be done next week for aerobic and anaerobic culture as well as fungal cultures and cytology looking for Actinomyces. If the patient continues to improve then the choices of treatment for actinomycosis in PENICILLIN allergic patient could be minocycline 1 gram per day.
--- NOTE | 2018-08-30 11:07 | REPIR ---
DATE OF PROCEDURE: 08/21/2018 ATTENDING SURGEON: Dr. Diamond Rome ASSISTANTS: Lisa Adames and Fauzia Corrales PREOPERATIVE DIAGNOSES: 1. End-stage renal disease. 2. Infected peritoneal dialysis catheter. POSTOPERATIVE DIAGNOSES: 1. End-stage renal disease. 2. Infected peritoneal dialysis catheter. PROCEDURE: Ultrasound-guided right internal jugular vein cannulation. Fluoroscopic guided right internal jugular vein. Tunneled central venous catheter placement. INDICATION: The patient is a 62-year-old female with end-stage renal disease who requires access for hemodialysis and removal of her peritoneal dialysis catheter which is infected. The patient will undergo placement of a PermCath followed by removal of her peritoneal dialysis catheter. Risks, benefits, and alternative treatment options were discussed with the patient. ANESTHESIA: Local. FLUORO TIME: 0.2 minutes. CONTRAST: None. COMPLICATIONS: None. DRAINS: None. SPECIMENS: None. IMPLANTS: 19 cm tip to cuff BioFlo DuraMax catheter in the right internal jugular vein. PROCEDURE: Patient was taken to the angiography suite, placed supine on the angiography room table, and then prepped and draped in a standard surgical fashion. The right internal jugular vein was cannulated using ultrasound guidance. The catheter was tunneled through a puncture wound in the right chest and then advanced through the introducer sheath in the right internal jugular vein and the tip was positioned in the superior vena cava/right atrial junction. Both ports were aspirated, noted to aspirate easily, and then flushed with heparinized saline. The catheter was secured using #2-0 Prolene. The puncture site in the right neck was closed using #3-0 Monocryl. Steri-Strips and dressings were applied. The patient tolerated the procedure well. All instrument, sponge and needle counts were correct at the end of the case. There were no complications. Dr. Rome was present for and directed the entire case. The patient was transferred to the holding area and subsequently to the OR for removal of her peritoneal dialysis catheter.
--- NOTE | 2018-08-30 12:36 | RO ---
DATE OF PROCEDURE: stated 01/21/2019 ATTENDING SURGEON: Dr. Diamond Rome DIRECTOR PAYER: None. PREOPERATIVE DIAGNOSIS: End-stage renal disease, infected peritoneal dialysis catheter. POSTOPERATIVE DIAGNOSIS: End-stage renal disease, infected peritoneal dialysis catheter. PROCEDURE: Peritoneal dialysis catheter removal. INDICATION: The patient is a 62-year-old female with peritonitis, which has been recurrent, and an infected peritoneal dialysis catheter. The patient will undergo removal of the peroneal dialysis catheter. She has already had a PermCath placed for hemodialysis access. Risks, benefits and alternative treatment options were discussed with the patient. ANESTHESIA: Local monitored anesthesia care (MAC). ESTIMATED BLOOD LOSS: 5 mL. IV FLUIDS: 50 mL. COMPLICATIONS: None. DRAINS: None. SPECIMENS: None. IMPLANTS: None. DESCRIPTION OF PROCEDURE: The patient was taken to the operating room, placed supine on the operating room table and then prepped and draped in a standard surgical fashion. The skin and subcutaneous tissue overlying the catheter and the subcutaneous cuff and peritoneal cuff were anesthetized with 1% lidocaine mixed with 0.5% Marcaine. The subcutaneous cuff and peritoneal cuff were then sharply dissected free through the entry site in the abdomen as there was a very short distance of tunneled peritoneal dialysis catheter, which most likely resulted in the recurrent infections. Once both cuffs were dissected free, the catheter was removed. A dressing was then applied. The patient tolerated the procedure well. All instrument, sponge and needle counts were correct at the end the case. There were no complications. Dr. Rome was present for and directed the entire case. The patient was transferred to the recovery room in awake, alert, extubated and in stable condition.
== END 2018-08-29 12:45 | disposition home or self-care (01) | DRG 981 ==
LOC: M MSPAV 03:30
PROVIDERS: ADMIT Internal Medicine; ATTEND Internal Medicine Nephrology
PROC: 0JH63XZ Insertion of Tunneled Vascular Access Device into Chest Subcutaneous Tissue and Fascia, Percutaneous Approach (ICD-10-PCS; 2018-08-21)
PROC: 02HV33Z Insertion of Infusion Device into Superior Vena Cava, Percutaneous Approach (ICD-10-PCS; 2018-08-21)
PROC: 0WPG03Z Removal of Infusion Device from Peritoneal Cavity, Open Approach (ICD-10-PCS; principal; 2018-08-21 19:00)
DX: T82.7XXA Infection and inflammatory reaction due to other cardiac and vascular devices, implants and grafts, initial encounter (principal); K65.0 Generalized (acute) peritonitis; N18.6 End stage renal disease; E46 Unspecified protein-calorie malnutrition; I13.2 Hypertensive heart and chronic kidney disease with heart failure and with stage 5 chronic kidney disease, or end stage renal disease; N25.81 Secondary hyperparathyroidism of renal origin; K91.89 Other postprocedural complications and disorders of digestive system; I25.10 Atherosclerotic heart disease of native coronary artery without angina pectoris; I25.2 Old myocardial infarction; E11.9 Type 2 diabetes mellitus without complications; D50.9 Iron deficiency anemia, unspecified; E78.5 Hyperlipidemia, unspecified; G25.81 Restless legs syndrome; Z85.850 Personal history of malignant neoplasm of thyroid; E03.2 Hypothyroidism due to medicaments and other exogenous substances; Z79.899 Other long term (current) drug therapy; Z88.0 Allergy status to penicillin; Z88.5 Allergy status to narcotic agent; Z91.012 Allergy to eggs; I50.9 Heart failure, unspecified; D63.1 Anemia in chronic kidney disease; Z95.2 Presence of prosthetic heart valve; E87.6 Hypokalemia; K59.00 Constipation, unspecified; Z99.2 Dependence on renal dialysis; Y83.1 Surgical operation with implant of artificial internal device as the cause of abnormal reaction of the patient, or of later complication, without mention of misadventure at the time of the procedure

== ENCOUNTER 2018-10-24 08:48 | Day surgery (SDC) | payer MEDICARE, BC ==
[~2018-10-24] VITALS: Ht 154.9 cm; Wt 62.6 kg
[~2018-10-24 08:48] MED LIST changes: +ACET-683 PO; +ATOR1TAB21 PO; +AURY1TAB PO; +D5W/0.2% SODIUM CHLORIDE 1,000 ML IV ONE; +FLUC100T PO; +GENT0.1C2 TOP; -GENTAMICIN SULFATE 0.1% OINT 15 GM TOP SCH; +LEVO175T2 PO; +LISI-542 PO; +MINO0.1C PO; +NITR0.4S14 SL; +POTA1TAB23 PO; +RENATAB5 PO; +ROCA0.5C PO; +TORS20TA2 PO; +VENTAER INH
[2018-10-24] MEDS ORDERED: ASPI81TA85 PO (09:59)
[2018-10-24] MEDS ORDERED: BUPIVACAINE HCL 0.5% 30 ML VIAL As Ordered ONE (10:34)
[2018-10-24] MEDS ORDERED: LIDOCAINE 1% SDV INJ 30 ML VIAL As Ordered ONE (10:34)
[2018-10-24] MEDS ORDERED: ROCURONIUM BROMIDE 50 MG/5 ML VIAL As Ordered ONE (12:12)
[2018-10-24] MEDS ORDERED: LIDOCAINE 2% INJ 100 MG/5 ML SDV (FOR ANES.) As Ordered ONE (12:12)
[2018-10-24] MEDS ORDERED: dexameTHASONE 4 MG/ML 1ML VIAL (J1100) As Ordered ONE (12:12)
[2018-10-24] MEDS ORDERED: MIDAZOLAM INJ 2 MG/2 ML VIAL (J2250) As Ordered ONE (12:12)
[2018-10-24] MEDS ORDERED: fentaNYL 100 MCG/2 ML INJECTION (J3010) As Ordered ONE (12:12)
[2018-10-24] MEDS ORDERED: PROPOFOL 200 MG/20 ML VIAL As Ordered ONE (12:12)
[2018-10-24] MEDS ORDERED: ePHEDrine SULFATE 25 MG/5 ML(5MG/ML) SYRINGE As Ordered ONE (12:20)
[2018-10-24] MEDS ORDERED: ONDANSETRON 4MG/2ML VIAL (J2405) As Ordered ONE (12:22)
[2018-10-24] MEDS ORDERED: SUGAMMADEX SODIUM 500 MG/5 ML VIAL (BRIDION) As Ordered ONE (12:24)
[2018-10-24] MEDS ORDERED: METOCLOPRAMIDE INJ 10MG/2ML VIAL (J2765) IV PRN (13:00)
[2018-10-24] MEDS ORDERED: fentaNYL 100 MCG/2 ML INJECTION (J3010) IV PRN (13:00)
[2018-10-24] MEDS ORDERED: oxyCODONE 5MG TAB PO PRN (13:00)
[2018-10-24] MEDS ORDERED: LR 1,000 ML IV SCH (13:00)
[2018-10-24] MEDS ORDERED: PROMETHAZINE INJ 25 MG/ML VIAL (J2550) IV PRN (13:00)
--- NOTE | 2018-10-24 13:03 | ROOPDOC ---
[facility] Report Of Operation Report of Operation DATE OF PROCEDURE: 10/24/2018 PREOPERATIVE DIAGNOSES: End-stage renal disease, infected peritoneal dialysis catheter status post removal. POSTOPERATIVE DIAGNOSES: End-stage renal disease, infected peritoneal dialysis catheter status post removal and intra-abdominal adhesions. PROCEDURE: Laparoscopic peritoneal dialysis catheter placement. Laparoscopic lysis of adhesions with lysis of adhesions from omentum to the anterior abdominal wall and from small bowel to omentum and anterior abdominal wall. SURGEON: Dr. Diamond Rome MD MACHINE III COREMAKER: None ANESTHESIA: General endotracheal. ESTIMATED BLOOD LOSS: 25 mL. HEPARIN: None PROTAMINE: None COMPLICATIONS: None DRAINS: None SPECIMENS: None IMPLANTS: 62 cm curl tail peritoneal dialysis catheter inserted into the peritoneal cavity. FINDINGS: Patient had extensive intra-abdominal adhesions which were lysed and a cavity created in the right lower quadrant which appeared to be adequate for peritoneal dialysis. INDICATION: Patient is a 62-year-old female who had placement of a peroneal dialysis catheter with extrusion of the subcutaneous cuff and subsequent peritonitis which required removal of the peroneal dialysis catheter. The patient underwent placement of a right internal jugular vein tunneled central venous catheter for hemodialysis access and has now cleared her peritonitis and will undergo placement of a peritoneal dialysis catheter laparoscopically. Procedure was described in detail to the patient. Risks, benefits and alternative treatment options were discussed with the patient. Benefits included but were not limited to dialysis through a catheter in the abdomen. Alternative treatment options included but were not limited to no intervention. Risks included but were not limited to infection, bleeding, intra-abdominal organ injury necessitating exploratory laparotomy with repair, possible need for further open surgical intervention, inability to place the peritoneal dialysis catheter secondary to adhesions, failure of peritoneal dialysis catheter to function requiring revision and replacement, failure of peritoneal dialysis catheter to provide adequate dialysis requiring removal of catheter, anesthetic complications, allergic reaction and/or complication from prepping and draping material, possible need for transfusion of blood products, cerebrovascular accident, myocardial infarction, pulmonary embolus, deep venous thrombosis, loss of limb, loss of life, and poor outcome. Patient's questions were answered. Patient voices understanding of the risks, benefits and alternative treatment options. Patient voices acceptance of the risks associated with the procedure and consents to proceed with a laparoscopic peritoneal dialysis catheter insertion. No promises or guarantees were made to the patient regarding the procedure, outcome and/or results. DESCRIPTION OF PROCEDURE: Patient was taken to operating room, placed supine on the operating room table and the patient was prepped and draped in a standard surgical fashion. The surgical timeout was performed by myself and all members in the operating room confirming the correct patient, procedure and laterality A stab incision was made in the left upper quadrant after anesthetizing the overlying skin with 1% lidocaine mixed with 0.5% Marcaine. A 5 mm port was then inserted through the stab incision into the peritoneal cavity with the laparoscope within the port using direct laparoscopic visualization to place the port within the perineal cavity. The abdominal cavity was insufflated with CO2. The laparoscope was inserted through the 5 mm port showing the intra-abdominal cavity to have a small area of patency in the right lower quadrant with a large number of adhesions from the small bowel to the omentum and abdominal wall as well as the omentum to the abdominal wall. Adhesions were taken down sharply and bluntly laparoscopically. The adhesions were present from the small bowel to anterior abdominal wall and omentum as well as from the omentum to the anterior abdominal wall. The 62 cm curl tail catheter was then brought through a puncture wound in the infraumbilical region after anesthetizing the overlying skin with 1% lidocaine mixed with 0.5% Marcaine. The catheter was directed into the pelvis under laparoscopic guidance. The abdomenal cavity was desufflated and 1 L of saline was instilled through the peritoneal dialysis catheter which returned easily on egress. The ports were removed and all puncture wounds were closed using 4-0 Monocryl suture in inverted interrupted fashion. Steri-Strips and dressings were applied. Patient tolerated the procedure well All instrument, sponge and needle counts were correct at the end of the case. There were no complications. Dr. Rome was present for and directed the entire case. Patient was transferred to the recovery room awake, alert, extubated and in stable condition. PLAN: The peritoneal dialysis catheter was placed with a large amount of adhesions noted intra-abdominally which were lysed laparoscopically. The patient may begin using the catheter immediately and has been recommended to start with 1 L insulated its and work up to her normal volume of instill its over a short period of time. Christopher Rome MD Oct 24, 2018 13:03
[2018-10-24 13:15] VITALS: BP 134/62
--- NOTE | 2018-11-02 08:00 | RO ---
DATE OF PROCEDURE: 10/24/2018 PREOPERATIVE DIAGNOSES: End-stage renal disease, infected peritoneal dialysis catheter status post removal. POSTOPERATIVE DIAGNOSES: End-stage renal disease, infected peritoneal dialysis catheter status post removal. PROCEDURE: Laparoscopic abdominal exploration. Laparoscopic lysis of adhesions and laparoscopic peroneal dialysis catheter placement. SURGEON: Dr. Felipe Rome. ENTRY LEVEL MARKETING REPRESENTATIVE: None. DESCRIPTION OF PROCEDURE: The patient was taken the operating room, placed supine on the operative table and prepped and draped in a standard surgical fashion. A 5 mm port was placed left upper quadrant followed by lysis of adhesions in the abdominal cavity and then placement of the peritoneal dialysis catheter laparoscopically. The wounds were closed using #3-0 Monocryl in a inverted interrupted fashion. Steri-Strips and dressings were applied. The patient tolerated the procedure well. All instrument, sponge and needle counts were correct at the end of the case were no complications. Dr. Rome was present for and directed the entire case.
== END 2018-10-24 14:50 | disposition home or self-care (01) ==
LOC: M SDC 08:48
PROVIDERS: ATTEND Surgery Vascular Surgery
DX: N18.6 End stage renal disease (principal); T85.71XA Infection and inflammatory reaction due to peritoneal dialysis catheter, initial encounter; I25.10 Atherosclerotic heart disease of native coronary artery without angina pectoris; I25.2 Old myocardial infarction; I50.32 Chronic diastolic (congestive) heart failure; I13.2 Hypertensive heart and chronic kidney disease with heart failure and with stage 5 chronic kidney disease, or end stage renal disease; E11.22 Type 2 diabetes mellitus with diabetic chronic kidney disease; E78.5 Hyperlipidemia, unspecified; K21.9 Gastro-esophageal reflux disease without esophagitis; H54.8 Legal blindness, as defined in USA; E03.9 Hypothyroidism, unspecified; D64.9 Anemia, unspecified; Z88.0 Allergy status to penicillin; Z88.5 Allergy status to narcotic agent; Z91.012 Allergy to eggs; Z91.048 Other nonmedicinal substance allergy status; Z79.899 Other long term (current) drug therapy; Z85.850 Personal history of malignant neoplasm of thyroid; Z99.2 Dependence on renal dialysis; Z96.1 Presence of intraocular lens; Z98.41 Cataract extraction status, right eye; Z98.42 Cataract extraction status, left eye; Z95.818 Presence of other cardiac implants and grafts
CPT/HCPCS: 36415; 49324; 84132; J1100; J2250; J2405; J3010

== ENCOUNTER 2018-11-12 14:55 | Inpatient (IN) | payer MEDICARE, BC ==
[~2018-11-12] VITALS: Ht 149.9 cm; Wt 62.8 kg
[~2018-11-12 14:55] MED LIST changes: +ASPI81TA85 PO; -D5W/0.2% SODIUM CHLORIDE 1,000 ML IV ONE
[2018-11-12 16:50] VITALS: BP 140/82
[2018-11-12] MEDS ORDERED: MOM 30ML SUSPENSION UDC PO PRN (17:15)
[2018-11-12] MEDS ORDERED: MAALOX 30 ML SUSP *UDC PO PRN (17:15)
[2018-11-12] MEDS ORDERED: ACETAMINOPHEN TAB 650MG DOSE (2X325MG) PO PRN (17:15)
[2018-11-12] MEDS ORDERED: GLUCOSE 4 GM CHEW TABLET PO PRN (18:15)
[2018-11-12] MEDS ORDERED: GLUCAGON FOR INJ 1 MG VIAL (J1610) SC PRN (18:15)
[2018-11-12] MEDS ORDERED: DEXTROSE 50% 50 ML SYRINGE IV PRN (18:15)
[2018-11-12] MEDS ORDERED: FUROSEMIDE 100 MG/10 ML VIAL (J1940) IV ONE (18:30)
--- NOTE | 2018-11-12 22:03 | HPEPDOC ---
General Date of Admission 11/12/18 Date of Service: Nov 12, [address] Rome, Dr Hinkle Chief Complaint The patient is a 62-year-old female admitted with a reason for visit of ESRD, dialysis, fluid overload. Source: Patient Exam Limitations: No limitations Timing/Duration: Week(s) (1) Severity: Severe Associated Symptoms: Cough, Malaise, Shortness of breath History of Present Illness 62 yo female direct admit from [facility] because of fluid overload. Patient was on 2 liter NC when left ED and on arrival to current hospital required 6 liters NC for maintaining sat above 91% Patient had episode of peritonitis in 07/2018 at which time PD was removed. She recovered and had been receiving HD until last tuesday (11/06/18). She had a HD placed by Dr Rome on October 24 and patient began home HD on tuesday11/08/18. States has been using HD daily. Yesterday she noticed increasing SOB but thought it was because of the hot humid muggy weather. Today she states SOB is worse and unable to walk 15 feet because of dyspnea. She states over past week has gained 12 pounds (weight at HD dialysis center 135 #, weight today at home 147#). patient states oliguria , no diarrhea, no constipation, no CP, no fever. has dry cough and orthopnea. States her blood sugars have been well controlled over past week. Home Medications Scheduled Amlodipine Besylate (Amlodipine Besylate) 5 Mg Tablet, 5 MG PO DAILY, (Reported) Aspirin (Aspir 81) 81 Mg Tablet.dr, 81 MG PO DAILY, (Reported) Atorvastatin Calcium (Atorvastatin Calcium) 20 Mg Tablet, 20 MG PO DAILY, (Reported) Carvedilol (Carvedilol) 3.125 Mg Tablet, 3.125 MG PO BID, (Reported) Ferric Citrate (Auryxia) 210 Mg Tablet, 210 MG PO TID, (Reported) Folic Acid/Vit B Complex and C (Zo-Kamran Tablet) 0.8 Mg Tablet, 1 TAB PO DAILY, (Reported) Levothyroxine Sodium (Levothyroxine Sodium) 175 Mcg Tablet, 175 MCG PO DAILY, (Reported) Lisinopril (Lisinopril) 5 Mg Tablet, 5 MG PO DAILY, (Reported) Potassium Chloride (Potassium Chloride) 10 Meq Tablet.er, 10 MEQ PO DAILY, (Reported) Torsemide (Torsemide) 20 Mg Tablet, 20 MG PO BID, (Reported) Scheduled PRN Acetaminophen (Acetaminophen) 500 Mg Tablet, 1,000 MG PO Q6H PRN for PAIN, (Reported) Nitroglycerin (Nitroglycerin) 0.4 Mg Tab.subl, 0.4 MG SL Q5MP PRN for CHEST PAIN, (Reported) Allergies Coded Allergies: Penicillins (Unverified Allergy, Intermediate, HIVES, 08/22/18) latex (Verified Allergy, Unknown, ITCHING, ORIGINALLY LISTED BAND-AID, 10/23/18) hydrocodone (Unverified Adverse Reaction, Mild, VOMITING, 08/21/18) egg (Unverified Adverse Reaction, Unknown, VOMITING, 08/21/18) Past Medical History Medical History ESRD on HD/PD Diabetes - not on long-term insulin HTN CAD with prior [place] Thyroid cancer s/p surgery small vessel disease, peritonitis 07/2017 cellulitis in past Past surgery history: 10/24/18 PD placement HD port thyroidectomy cardiac cath CABGx3 bilateral cataract Family history: mother CAD/IL; father recently of lung cancer Social history: denies tobacco or Etoh use; single A-FIB/CHADSVASC A-FIB History Current/History of A-Fib/PAF?: No Review of Systems Other systems 10 systems reviewed and negative except as per HPI Physical Examination General Exam: Positive: Alert, Cooperative, Mild Distress Eye Exam: Positive: PERRLA, Conjunctiva & lids normal, EOMI ENT Exam: Positive: Atraumatic, Mucous membr. moist/pink, Pharynx Normal Neck Exam: Positive: Supple, JVD, +2 carotid pulse wo bruit Chest Exam: Positive: Clear to auscultation, Normal air movement Heart Exam: Positive: Rate Normal, Regular Rhythm Telemetry: Positive: No significant arrhythmia Abdomen Exam: Positive: Normal bowel sounds, Soft (NT ND) Extremity Exam: Positive: Edema (1+), Normal pulses; Negative: Clubbing, Cyanosis Skin Exam: Positive: Nl turgor and temperature; Negative: Rash, Breakdown Neuro Exam: Positive: Normal Speech, Strength at 5/5 X4 ext, Normal Tone, Sensation Intact Psych Exam: Positive: Mental status NL, Mood NL, Oriented x 3 Other physical findings CXR PA/LAT pending Vital Signs Vital Signs Label Value Date Time Patient Temperature 97.0 degrees F 11/12/18 1650 Temperature Source Temporal 11/12/18 1650 Pulse 66 11/12/18 1650 Respiratory Rate 22 bpm 11/12/18 1650 Blood Pressure Assessment 140/82 (101) 11/12/18 1650 Bedside Pulse Oximetry 93 % 11/12/18 1650 Item Value Date Time Oxygen Flow Rate 5.0 L/min 11/12/18 1650 Laboratory Data Labs 24H labs at [facility]: mag 2.2 troponin negative 0.06 WBC 5.6 Hgb 8.5 Platelet 292 NA 133 K 4.3 Creat 8.4 BUN 48 Assessment/Plan ESRD on HD/PD - nephrology consulted and will see [place]. schedule HD as suspe ct PD may be malfunctioning Acute hypoxic respiratory failure due to fluid overload from ESRD Current oxygen requirement at 6 liters to maintain ox sat at 91% during rest. 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 patient with oliguria, consider changing oral torsemide to bumex. CAD by history - negative troponin Hypothryoid - continue home regimen Code status: FULL DVT prophylaxis: heparin SC Plan / VTE VTE Prophylaxis Ordered?: Yes TORIE VILLAVICENCIO DO Nov 12, 2018 17:35
[2018-11-12] MEDS ORDERED: DARBEPOETIN 100 MCG/0.5 ML *DIALYSIS* SYRINGE (J0882) IV SCH (22:15)
[2018-11-12] MEDS ORDERED: HEPARIN 1,000 UNITS/ML 10ML VIAL (FOR RADIOLOGY& DIALYSIS ONLY) IV ONE (23:15)
[2018-11-12 23:40] VITALS: BP 157/70
[2018-11-12] MEDS: HumaLOG INSULIN (NovoLOG) PER UNIT SC SCH (23:45)
[2018-11-12] MEDS: DOCUSATE SODIUM 100 MG CAP PO SCH (23:45)
[2018-11-13] MEDS: CARVedilol 3.125 MG TAB PO SCH ×3 (00:20→21:28)
[2018-11-13] MEDS: FERROUS GLUCONATE 324 MG TAB PO SCH ×3 (00:20→21:27)
[2018-11-13] MEDS: HEPARIN SOD (PORCINE) 5000 UNITS/ML VIAL SC SCH ×3 (00:21→21:28)
[2018-11-13] MEDS: TORSEMIDE 20 MG TAB PO SCH ×3 (01:32→17:20)
[2018-11-13 03:37] LABS: APPEARANCE, BODY FLUID CLEAR (CLEAR); PERITONEAL DIALYSATE FL COLOR COLORLESS (COLORLESS); SOURCE, BODY FLUID PERITONEAL DIALYSATE
[2018-11-13] MEDS: ACETAMINOPHEN 500 MG TAB PO PRN (04:11)
[2018-11-13 06:00] VITALS: BP 138/63
[2018-11-13] MEDS: LEVOTHYROXINE 75MCG TABLET (0.075MG) PO SCH (06:31)
[2018-11-13] MEDS: LEVOTHYROXINE 100MCG TABLET (0.1MG) PO SCH (06:31)
[2018-11-13] MEDS: HumaLOG INSULIN (NovoLOG) PER UNIT SC SCH ×4 (07:30→20:37)
[2018-11-13 07:34] LABS: BASO # 0.1 10^3/uL (0.0-0.2); BASO % 0.9 % (0.0-1.0); EOS # 0.2 10^3/uL (0.0-0.50); EOS % 3.4 % (0.0-3.0); HEMATOCRIT 27.2 % (36.0-47.0); HEMOGLOBIN 8.3 g/dl (12.0-15.5); LYMPH # 0.8 10^3/uL (1.5-4.5); LYMPH % 14.2 % (24.0-44.0); MEAN CORPUSCULAR HEMOGLOBIN 29.1 pg (27.0-33.0); MEAN CORPUSCULAR HGB CONC 30.5 g/dl (32.0-36.5); MEAN CORPUSCULAR VOLUME 95.4 fl (80.0-96.0); MONO # 0.6 10^3/uL (0.0-0.8); MONO % 10.8 % (0.0-5.0); NEUTROPHILS # 3.7 10^3/uL (1.8-7.7); NEUTROPHILS % 70.3 % (36.0-66.0); PLATELET COUNT, AUTOMATED 267 10^3/uL (150-450); RED BLOOD COUNT 2.85 10^6/uL (4.00-5.40); WHITE BLOOD COUNT 5.3 10^3/uL (4.0-10.0)
[2018-11-13 08:00] LABS: CALCIUM LEVEL 8.5 MG/DL (8.8-10.2); CREATININE FOR GFR 4.73 MG/DL (0.55-1.30); POTASSIUM SERUM 3.5 MEQ/L (3.5-5.1)
[2018-11-13 08:07] LABS: ALBUMIN 2.7 GM/DL (3.2-5.2); CALCIUM LEVEL 8.5 MG/DL (8.8-10.2); CREATININE FOR GFR 4.78 MG/DL (0.55-1.30); GLOMERULAR FILTRATION RATE 9.8 (>45); PERCENT SATURATION 9.7 % (13.2-45.0); PHOSPHORUS LEVEL 3.9 MG/DL (2.5-4.9); POTASSIUM SERUM 3.7 MEQ/L (3.5-5.1)
--- NOTE | 2018-11-13 08:16 | CR ---
DATE OF CONSULTATION: 11/12/2018 REQUESTING PHYSICIAN: Dr. Tawana Villatoro CONSULTING PHYSICIAN: Dr. Haji REASON FOR CONSULTATION: Management of end-stage renal disease and fluid overload. CHIEF COMPLAINT: The patient was transferred to [facility] for shortness of breath and fluid overload. HISTORY OF PRESENT ILLNESS: Maddie Olsen is a 62-year-old female with past medical history of end-stage renal disease. She was on peritoneal dialysis. She was admitted at [facility] on 08/21/2018 with peritonitis. At that time, peritonitis did not respond to intraperitoneal antibiotics and catheter had to be removed. The patient was switched to hemodialysis via right internal jugular (IJ) tunneled hemodialysis catheter. After discharge from the hospital, the patient went to [place] where her sister lives and she was getting hemodialysis over there and last hemodialysis was 6 days ago, this last Tuesday. She already had the peritoneal dialysis catheter placed on 10/24/2018. She started using the PD catheter on Tuesday, 4 days ago. However, she started having a lot of blood in the peritoneal dialysate. She went to the hospital and more manual exchanges were done to clear her PD fluid and clean the hemoperitoneum. She was discharged home on Tuesday and she reports that Tuesday evening she did the peritoneal dialysis and instead of having the ultrafiltration she retained almost 600 mL of fluid. Again, on Tuesday night, she did peritoneal dialysis again at home and she had an ultrafiltration of 60 mL only. Today morning, the patient started feeling short of breath. Because of progressive shortness of breath, she presented to an outside hospital and since they did not have any peritoneal dialysis or hemodialysis expertise available, the patient was transferred to [facility] for further care. Nephrology service was called for further help in the management of this patient. The patient needed my emergent attention. I saw and evaluated the patient at the bedside today in the evening when she arrived on the floor. The patient was visibly short of breath despite wearing nasal cannula. She denies otherwise having fevers, chills, cough, or phlegm. PAST MEDICAL HISTORY: Past medical history of end-stage renal disease. She recently switched from hemodialysis to peritoneal dialysis this past week on Tuesday. Hypertension, diabetes mellitus type 2 - diet controlled, history of coronary artery disease and congestive heart failure, iatrogenic hypothyroidism because of thyroidectomy with history of thyroid cancer, and a recent history of peritonitis in July 2018 status post removal of PD catheter. PAST SURGICAL HISTORY: Status post thyroidectomy, status post cardiac catheterization, history of coronary artery bypass grafting, bilateral cataract surgery, peritoneal dialysis catheter removal in July 2018, peritoneal dialysis catheter placement again in October 2018. ALLERGIES: - PENICILLIN - EGG - HYDROCODONE - LATEX FAMILY HISTORY: No significant family history of end-stage renal disease requiring hemodialysis. SOCIAL HISTORY: The patient lives at home. She denies any smoking, illicit drug abuse or alcohol abuse. REVIEW OF SYSTEMS: Constitutional: The patient feels weak and tired. She denies any fevers or chills. Eyes: She denies any blurry vision or double vision. ENT: She denies any dysphagia or odynophagia. Cardiovascular: She reports progressive shortness of breath and history of congestive heart failure. Respiratory: The patient is visibly short of breath, but she denies any cough or phlegm. GI: She denies any nausea or vomiting. Genitourinary: She reports she makes very little urine. Musculoskeletal: She denies any muscle aches and pains. Hematology/Oncology: She denies any easy bleeding or bruising. Endocrine: She reports history of hypothyroidism because of thyroidectomy. Psychiatric: She denies any depression or anxiety. All other review of systems is negative. PHYSICAL EXAMINATION: General: The patient is awake, alert, oriented times three, sitting up in the bed wearing nasal cannula in moderate respiratory distress. Head and Neck Exam: Extraocular muscles intact. Pupils equally round and reactive to light. Mucous membranes are moist. Neck is supple. There is mildly elevated jugular venous distention (JVD). Cardiovascular: S1 and S2. 1+ edema of the bilateral lower extremities. Respiratory: Decreased breath sounds bilaterally at the bases, inspiratory crackles bilaterally at the bases up to the mid lung zones. Abdomen: Soft, obese. Positive bowel sounds. Left lower quadrant PD catheter exit site is clean. Musculoskeletal: No clubbing or cyanosis. 1+ edema of extremities as mentioned above. Central Nervous System (BRILLIANDEER LOOPER): No focal deficit. Power is 5/5 in all extremities. LAB REVIEW: The patient's labs were not done over here. Labs done in the outside hospital today - CBC showed hemoglobin of 8.5, platelets at 292. BMP showed sodium 133, potassium 4.3, chloride 95, bicarb 25, BUN 48, creatinine 8.4, calcium 8.8, magnesium 2.2, troponin 0.068, albumin 2.9. IMAGING STUDIES: A chest x-ray was done, official report is pending, but as read by me, the patient has pulmonary vascular congestion and evidence of pulmonary edema and congestive heart failure. CURRENT INPATIENT MEDICATIONS: The patient is currently on Tylenol p.r.n., Mylanta p.r.n., amlodipine 5 mg daily, aspirin 81 mg daily, Lipitor 20 mg daily, Coreg 3.125 mg by mouth twice a day, Colace 100 mg by mouth twice a day, milk of magnesia p.r.n. She is also being started on levothyroxine 175 mcg by mouth daily. ASSESSMENT: 62-year-old female with end-stage renal disease recently switched from hemodialysis to peritoneal dialysis, failed peritoneal dialysis as outpatient, admitted at this time with decompensated congestive heart failure and fluid overload. PLAN: 1. End-stage renal disease. The patient recently switched to peritoneal dialysis, but she has not had an effective peritoneal dialysis since when stable four days ago. She is fluid overloaded. I am going to do an emergent hemodialysis and try to remove at least 3-3.5 liters of fluid. I am also going to order the peritoneal dialysis tonight, all 2.5% fluids, and will see how effectively we can do her PD. If there is a problem with the PD catheter, then I would call surgery on board. 2. Acute decompensated congestive heart failure. The patient's ejection fraction is not known. Since the patient is on amlodipine, most likely the patient has diastolic dysfunction. Continue current dose of Coreg and amlodipine. Fluid status will be optimized with dialysis. 3. Hypertension with end-stage renal disease and hypertensive heart disease. Blood pressure is optimal. It will further improve with dialysis. Continue the Coreg and amlodipine. If needed, lisinopril will be started tomorrow morning. 4. Anemia in end-stage renal disease. I am going to check the patient's iron levels tomorrow morning and give the patient's IV Venofer with dialysis as well. I am also going to start the patient on Aranesp with dialysis. Continue home dose of iron pills. 5. Iatrogenic hypothyroidism. The patient is status post thyroidectomy for CA of thyroid. Continue home dose of levothyroxine 175 mcg by mouth daily. Thank you for involving me in the care of this patient. I shall be happy to follow the patient along with you tomorrow morning.
[2018-11-13] MEDS: amLODIPine 5 MG TAB PO SCH (09:00)
[2018-11-13] MEDS: DOCUSATE SODIUM 100 MG CAP PO SCH ×2 (09:00→21:28)
[2018-11-13] MEDS: LISINOPRIL 5 MG TAB PO SCH (09:00)
[2018-11-13] MEDS: ATORVASTATIN 20 MG TAB PO SCH (09:40)
[2018-11-13] MEDS: NEPHRO-VIT TAB (NEPHROCAPS) PO SCH (09:41)
[2018-11-13] MEDS: ASPIRIN 81 MG ENTERIC TAB PO SCH (09:41)
[2018-11-13] MEDS: POTASSIUM CHLORIDE 10 MEQ SR TABLET PO SCH (09:41)
[2018-11-13] MEDS ORDERED: IRON SUCROSE 100MG 5ML VIAL (J1756 PER 1MG) IV SCH (10:15)
--- NOTE | 2018-11-13 10:35 | REP ---
CHEST, TWO VIEWS: Two views of the chest are performed. COMPARISON: 07/10/2014. There is mild cardiomegaly. Diffuse interstitial and mild alveolar infiltrates are present bilaterally. There appears to be a small amount of pleural fluid. This is tracking into the fissures on the lateral view. Multiple sternal wires are present. There is a right central venous catheter with the tip at the atrial caval junction. IMPRESSION: Diffuse interstitial and alveolar infiltrates with suspected small amount of pleural fluid. This may represent diffuse pulmonary edema. There is cardiomegaly. Electronically Signed by Teja Laboy MD 11/14/2018 01:29 P
[2018-11-13] MEDS ORDERED: HEPARIN 1,000 UNITS/ML 10ML VIAL (FOR RADIOLOGY& DIALYSIS ONLY) IV ONE (14:00)
--- NOTE | 2018-11-13 20:39 | IPNPDOC ---
Text Note Date of Service The patient was seen on 11/13/18. NOTE S: patient feels better after HD last night (removed 3 liters) and HD this af ternoon (removed 1.5liter) . She had 4 cycles of PD today. Patient states she thinks there is somthing wrong with the PD because at home she was not getting fluid returned. In hospital, nursing staff are putting in 1500cc to PD and removing 1450cc. She states no CP, no SOB, no N, no V and is back to her baseline. She states she will NOT go for outpatient HD and only wants home PD. O: Vitals as below General: pleasant, NAD AAOx3 HRRR soft M LCTA with slight rales right, none on left Abdomen : obese, Soft NT ND, PD cathetar Left side of abdomen Ext: no edema A/P: 1. End-stage renal disease on HD and PD - management by nephrology. Await information from nephrology to see if Dr Rome needs to be consulted regarding PD function. 2. Acute hypoxic respiratory failure due to fluid overload from ESRD - RESOLVED after 3 liter removed with HD. 3. Hypertension with end-stage renal disease and hypertensive heart disease. - continue amlodipine,coreg, lisinopril and torsemide 4. Anemia in end-stage renal disease. IV Venofer with dialysis Aranesp with dialysis. Continue home dose of iron pills. 5. Iatrogenic hypothyroidism (S/P thyroidectomey for Cancer) - levothyroxine 175 mcg daily. 6. Diabetes - not on mcfp insulin, with hyperglycemia, without hypoglycemia 7. Fluid overload suggestive CHF (unknown type or chronicity) RESOLVED with HD 8. CAD by history - negative troponin Code status: FULL DVT prophylaxis: heparin SC VS,Fishbone, I+O VS, Fishbone, I+O Laboratory Tests 11/13/18 07:16 Red Blood Count 2.85 L, Mean Corpuscular Volume 95.4, Mean Corpuscular Hemoglobin 29.1, Mean Corpuscular Hemoglobin Concent 30.5 L, Red Cell Distribution Width 17.2 H, Neutrophils (%) (Auto) 70.3 H, Lymphocytes (%) (Auto) 14.2 L, Monocytes (%) (Auto) 10.8 H, Eosinophils (%) (Auto) 3.4 H, Basophils (%) (Auto) 0.9, Neutrophils # (Auto) 3.7, Lymphocytes # (Auto) 0.8 L, Monocytes # (Auto) 0.6, Eosinophils # (Auto) 0.2, Basophils # (Auto) 0.1, Anion Gap 7 L, Calcium Level 8.5 L Vital Signs Date Time Temp Pulse Resp B/P (MAP) Pulse Ox O2 Delivery O2 Flow Rate FiO2 11/13/18 09:00 3.0 11/13/18 09:00 62 108/57 11/13/18 06:00 97.8 17 99 I&O- Last 24 Hours up to 6 AM 11/13/18 06:00 Intake Total 1800 ml Output Total 4500 ml Balance -2700 ml TORIE VILLAVICENCIO DO Nov 13, 2018 20:39
[2018-11-13 22:00] VITALS: BP 154/72
[2018-11-14] MEDS ORDERED: FLUTICASONE PROP 0.05% NASAL SPRAY 16 GM (FLONASE) NARES ONE (01:50)
[2018-11-14 06:00] VITALS: BP 136/72
[2018-11-14] MEDS: LEVOTHYROXINE 75MCG TABLET (0.075MG) PO SCH (06:03)
[2018-11-14] MEDS: LEVOTHYROXINE 100MCG TABLET (0.1MG) PO SCH (06:03)
[2018-11-14] MEDS: HumaLOG INSULIN (NovoLOG) PER UNIT SC SCH ×4 (07:30→21:00)
[2018-11-14] MEDS: DOCUSATE SODIUM 100 MG CAP PO SCH ×2 (08:33→21:12)
[2018-11-14] MEDS: LISINOPRIL 5 MG TAB PO SCH (08:33)
[2018-11-14] MEDS: TORSEMIDE 20 MG TAB PO SCH ×2 (08:33→16:02)
[2018-11-14] MEDS: ATORVASTATIN 20 MG TAB PO SCH (08:33)
[2018-11-14] MEDS: CARVedilol 3.125 MG TAB PO SCH ×2 (08:33→21:12)
[2018-11-14] MEDS: NEPHRO-VIT TAB (NEPHROCAPS) PO SCH (08:33)
[2018-11-14] MEDS: POTASSIUM CHLORIDE 10 MEQ SR TABLET PO SCH (08:34)
[2018-11-14] MEDS: ASPIRIN 81 MG ENTERIC TAB PO SCH (08:34)
[2018-11-14] MEDS: FERROUS GLUCONATE 324 MG TAB PO SCH ×2 (08:34→21:12)
[2018-11-14] MEDS: amLODIPine 5 MG TAB PO SCH (08:34)
[2018-11-14] MEDS: FLUTICASONE PROP 0.05% NASAL SPRAY 16 GM (FLONASE) NARES SCH ×2 (08:35→21:13)
[2018-11-14 09:40] LABS: HEMATOCRIT 28.9 % (36.0-47.0); HEMOGLOBIN 8.6 g/dl (12.0-15.5); MEAN CORPUSCULAR HEMOGLOBIN 28.4 pg (27.0-33.0); MEAN CORPUSCULAR HGB CONC 29.8 g/dl (32.0-36.5); MEAN CORPUSCULAR VOLUME 95.4 fl (80.0-96.0); PLATELET COUNT, AUTOMATED 280 10^3/uL (150-450); RED BLOOD COUNT 3.03 10^6/uL (4.00-5.40); WHITE BLOOD COUNT 4.6 10^3/uL (4.0-10.0)
[2018-11-14] MEDS: HEPARIN SOD (PORCINE) 5000 UNITS/ML VIAL SC SCH ×2 (09:49→21:12)
[2018-11-14 10:11] LABS: CALCIUM LEVEL 9.3 MG/DL (8.8-10.2); CREATININE FOR GFR 3.28 MG/DL (0.55-1.30); GLOMERULAR FILTRATION RATE 15.2 (>45); POTASSIUM SERUM 3.2 MEQ/L (3.5-5.1)
--- NOTE | 2018-11-14 13:07 | REP ---
Supine abdomen two views: Comparison is 08/21/2018. There is a peritoneal catheter with the tip coiled in the mid abdomen on the right superimposed over the ascending colon. The bowel gas pattern is normal. There is faintly visible opaque material throughout the colon likely from ingested material. Electronically Signed by Teja Monroy MD 11/14/2018 12:59 P
[2018-11-14 14:00] VITALS: BP 123/57
[2018-11-14] MEDS: LACTULOSE 20 GM/30 ML SYRUP UD PO ONE ×2 (16:02→16:04)
--- NOTE | 2018-11-14 16:27 | IPNPDOC ---
Subjective Date Seen The patient was seen on 11/14/18. Subjective Chief Complaint/HPI Patient seen and examined at bedside. States that she still has a significant amount of fluid on board. However, states that this is improved as well as her shortness of breath. Denies any other acute complaints at this time. Objective Physical Examination General Exam: Positive: Alert, Cooperative, No Acute Distress ENT Exam: Positive: Atraumatic, Mucous membr. moist/pink Chest Exam: Positive: Clear to auscultation, Normal air movement Heart Exam: Positive: Rate Normal, Regular Rhythm, Normal S1, Normal S2 Abdomen Exam: Positive: Soft; Negative: Tenderness Extremity Exam: Positive: Edema (1+); Negative: Tenderness Neuro Exam: Positive: Normal Speech Psych Exam: Positive: Mental status NL, Mood NL, Oriented x 3 Assessment /Plan Plan/VTE VTE Prophylaxis Ordered?: Yes Plan End-stage renal disease on HD and PD Dr Rome consulted for peritoneal catheter management Dialysis management as per nephrology Acute hypoxic respiratory failure due to fluid overload from ESRD Volume optimization via dialysis as per Nephro Hypertension continue amlodipine,coreg, lisinopril and torsemide Anemia in end-stage renal disease. IV Venofer with dialysis Aranesp with dialysis. Continue home dose of iron pills. Iatrogenic hypothyroidism (S/P thyroidectomey for Cancer) Cont levothyroxine 175 mcg daily. Diabetes Insulin sliding scale Hx of CAD On ASA, Statin, Coreg Dyslipidemia Continue statin DVT prophylaxis Heparin SC VS, I&O, 24H, Fishbone Vital Signs/I&O Vital Signs Date Time Temp Pulse Resp B/P (MAP) Pulse Ox O2 Delivery O2 Flow Rate FiO2 11/14/18 14:00 97.7 68 123/57 (79) 76 11/14/18 09:40 3.0 11/14/18 06:00 16 I&O- Last 24 Hours up to 6 AM 11/14/18 06:00 Intake Total 8115 ml Output Total 7500 ml Balance 615 ml Laboratory Data 24H LABS Laboratory Tests 2 11/13/18 17:13: Bedside Glucose (Misc Panel) 89 11/13/18 20:30: Bedside Glucose (Misc Panel) 153H 11/14/18 07:20: Bedside Glucose (Misc Panel) 101 11/14/18 09:19: Nucleated Red Blood Cells % (auto) 0.0, Anion Gap 8, Glomerular Filtration Rate 15.2L, Blood Urea Nitrogen 9#, Creatinine 3.28H, Sodium Level 137, Potassium Level 3.2L, Chloride Level 99, Carbon Dioxide Level 30, Calcium Level 9.3 11/14/18 12:23: Bedside Glucose (Misc Panel) 144H CBC/BMP Laboratory Tests 11/14/18 09:19 Red Blood Count 3.03 L, Mean Corpuscular Volume 95.4, Mean Corpuscular Hemoglobin 28.4, Mean Corpuscular Hemoglobin Concent 29.8 L, Red Cell Distribution Width 17.0 H, Calcium Level 9.3 Microbiology Microbiology 11/13/18 Gram Stain - Final, Resulted 11/13/18 Body Fluid Culture, Resulted Pending ALESIA MADERA MD Nov 14, 2018 16:27
--- NOTE | 2018-11-14 16:35 | IPN ---
DATE: 11/13/2018 SUBJECTIVE: The patient was seen and examined the bedside today morning. She was dialyzed emergently yesterday, and after the fluid removal her breathing is significantly better. She is on room air right now. She was also started back on peritoneal dialysis; however, she is not getting much ultrafiltration done with peritoneal dialysis. She reports that at home she gets 2-liter exchanges. Over here she is getting 1-liter exchanges. Otherwise, she denies any problems with the peritoneal dialysis. OBJECTIVE: Vital signs: Temperature is 97.8 degrees Fahrenheit, blood pressure 138/63, pulse is 65, respiratory of 17, saturating 99% on 3 liters by nasal cannula. Intake and output. Ultrafiltration with hemodialysis was 3 liters yesterday. There is no significant ultrafiltration with peritoneal dialysis overnight. PHYSICAL EXAMINATION: GENERAL: The patient is awake, alert, oriented times three, sitting up in the bed in no apparent distress. HEAD AND NECK: Extraocular muscles intact. Pupils equally round and reactive to light. Mucous membranes are moist. Neck is supple. There is no jugular venous distention (JVD) . CARDIOVASCULAR: S1, S2, regular rate. Trace edema of the bilateral lower extremities. RESPIRATORY: Chest is clear to auscultation bilaterally. Bilateral equal air entry. No rales or rhonchi. ABDOMEN: Soft, obese. Positive bowel sounds. Left upper quadrant peritoneal dialysis (PD) catheter exit site is clean. MUSCULOSKELETAL: No clubbing or cyanosis. Pulses are 2+. CENTRAL NERVOUS SYSTEM: No focal deficit. Power is 5/5 in all extremities. LABORATORY REVIEW: CBC showed WBC 5.3, hemoglobin 8.3, platelets are 267. BMP showed sodium 135, potassium 3.7, chloride 98, bicarbonate 30, BUN 19, creatinine is 4.7. Iron level is 18, TIBC is 185, transferrin saturation is 9.7%, ferritin is 562. CURRENT INPATIENT MEDICATIONS: The patient's medications were all reviewed by me. She was started on Aranesp yesterday. She has also been started on Venofer 100 mg intravenous (IV) with hemodialysis. She is also getting of potassium chloride and torsemide. ASSESSMENT AND PLAN: 1. End-stage renal disease. The patient was getting peritoneal dialysis at home for about 5 days, but it was not working well. The patient was admitted for fluid overload. She has been started on hemodialysis via the tunneled hemodialysis catheter; however, I have changed the PD regimen. She will get five manual exchanges a day, all 2 liters. Three of them will be 2.5% and two of them will be 4.25%. Once I get enough ultrafiltration through the PD regimen, then hemodialysis will be stopped. 2. Acute decompensated congestive heart failure. The patient was fluid overloaded yesterday. Three liters of fluid was removed yesterday. I will remove another 1.5 liters of fluid today with dialysis again and put her on Tuesday, Tuesday, Tuesday schedule. Rest of the fluid management will be done with peritoneal dialysis. The patient is supposed to be on 1.2 liters fluid restriction. Continue current dose of torsemide and potassium chloride. 3. Hypertension with end-stage renal disease. Continue current dose of amlodipine, Coreg, and lisinopril. 4. Anemia secondary to end-stage renal disease and iron deficiency. She has been started on Aranesp and Venofer. No need of blood transfusion at this time. 5. Hypothyroidism. Continue current dose levothyroxine 175 mcg by mouth daily.
[2018-11-14] MEDS ORDERED: POTASSIUM CHLORIDE 10 MEQ SR TABLET PO ONE (17:00)
[2018-11-14 22:00] VITALS: BP 142/70
[2018-11-15] MEDS: LEVOTHYROXINE 100MCG TABLET (0.1MG) PO SCH (05:44)
[2018-11-15] MEDS: LEVOTHYROXINE 75MCG TABLET (0.075MG) PO SCH (05:44)
[2018-11-15 06:00] VITALS: BP 139/70
[2018-11-15] MEDS: HumaLOG INSULIN (NovoLOG) PER UNIT SC SCH ×4 (07:30→21:00)
[2018-11-15] MEDS: POTASSIUM CHLORIDE 10 MEQ SR TABLET PO SCH (08:10)
[2018-11-15] MEDS: ATORVASTATIN 20 MG TAB PO SCH (08:11)
[2018-11-15] MEDS: DOCUSATE SODIUM 100 MG CAP PO SCH ×2 (08:11→20:16)
[2018-11-15] MEDS: TORSEMIDE 20 MG TAB PO SCH ×2 (08:11→16:16)
[2018-11-15] MEDS: NEPHRO-VIT TAB (NEPHROCAPS) PO SCH (08:11)
[2018-11-15] MEDS: amLODIPine 5 MG TAB PO SCH (08:11)
[2018-11-15] MEDS: CARVedilol 3.125 MG TAB PO SCH ×2 (08:11→20:16)
[2018-11-15] MEDS: LISINOPRIL 5 MG TAB PO SCH (08:11)
[2018-11-15] MEDS: FERROUS GLUCONATE 324 MG TAB PO SCH ×2 (08:11→20:16)
[2018-11-15] MEDS: ASPIRIN 81 MG ENTERIC TAB PO SCH (08:12)
[2018-11-15] MEDS: FLUTICASONE PROP 0.05% NASAL SPRAY 16 GM (FLONASE) NARES SCH ×2 (08:12→20:16)
[2018-11-15 08:27] LABS: HEMATOCRIT 29.4 % (36.0-47.0); MEAN CORPUSCULAR HEMOGLOBIN 29.7 pg (27.0-33.0); MEAN CORPUSCULAR HGB CONC 30.6 g/dl (32.0-36.5); PLATELET COUNT, AUTOMATED 267 10^3/uL (150-450); RED BLOOD COUNT 3.03 10^6/uL (4.00-5.40); WHITE BLOOD COUNT 4.7 10^3/uL (4.0-10.0)
[2018-11-15 08:41] LABS: CREATININE FOR GFR 4.24 MG/DL (0.55-1.30); GLOMERULAR FILTRATION RATE 11.3 (>45); POTASSIUM SERUM 3.5 MEQ/L (3.5-5.1)
[2018-11-15] MEDS: HEPARIN SOD (PORCINE) 5000 UNITS/ML VIAL SC SCH ×2 (10:00→20:17)
--- NOTE | 2018-11-15 12:01 | IPN ---
DATE: 11/14/2018 SUBJECTIVE: The patient was seen and examined at the bedside this morning. She is afebrile, hemodynamically stable. She was dialyzed yesterday as well and about 1.5 liters of fluid was removed. She is getting peritoneal dialysis fluid exchanges as well. I was told by the nursing staff that her PD fluid is difficult still and it takes a long time and we are not getting much ultrafiltration, actually 2 liters of fluid was given and 1.7 liters came out. The patient otherwise denies any abdominal pain, and the PD fluid is clear. OBJECTIVE: Vital signs: Temperature is 97.7 degrees Fahrenheit, blood pressure 123/57, pulse is 68, respiratory of 16, saturating 98% on 3 liters. Intake and output: Ultrafiltration with hemodialysis was 1.5 liters and so far we are not getting ultrafiltration from peritoneal dialysis. PHYSICAL EXAMINATION: General: The patient is awake, alert, oriented times three, laying in bed in no apparent distress. Head and neck exam: The patient is legally blind. Otherwise, she can do finger counting. Mucous membranes are moist. Neck is supple. There is no jugular venous distention (JVD). She has a tunneled hemodialysis catheter. Cardiovascular: S1, S2. Regular rate. 1+ edema of the bilateral lower extremities. Respiratory: Chest is clear to auscultation bilaterally. Bilateral equal air entry. No rales or rhonchi. Abdomen: Soft. Positive bowel sounds. Left upper quadrant PD catheter was noted. Musculoskeletal: No clubbing or cyanosis. Pulses are 2+. CENTRAL NERVOUS SYSTEM (SOFTWARE PROGRAM MANAGER): No focal deficit. Power is 5/5 in all extremities. Patient is legally blind. LABORATORY REVIEW: CBC showed WBC of 4.6, hemoglobin 8.6, platelets 280. BMP showed sodium 137, potassium 3.2, chloride 99, bicarbonate 30, BUN 9, creatinine is 3.2. IMAGING STUDIES: Abdominal x-ray was done today, which showed catheter tip is pointing upward in the right sided paracolic region along the ascending colon. CURRENT INPATIENT MEDICATIONS: The patient's medications were all reviewed by me. There is no change in the medications today as compared with yesterday. ASSESSMENT/PLAN: 1. End-stage renal disease. The patient was on peritoneal dialysis but peritoneal dialysis is not effectively working, we are not getting much ultrafiltration through the catheter. The patient's PD catheter is malpositioned. I have requested vascular surgery, Dr. Rome, to evaluate the patient for possible catheter repositioning. 2. Congestive heart failure. The patient's volume status is significantly better. The patient got [id number] ultrafiltration during dialysis. Continue fluid restriction. Continue current dose of Coreg and amlodipine. 3. Hypertension with end-stage renal disease. Continue current dose of lisinopril and amlodipine. 4. Anemia secondary to end-stage renal disease and iron deficiency. The patient has been started on IV Venofer and IV Aranesp with dialysis. 5. Peritoneal dialysis catheter malfunctioning. The patient's peritoneal dialysis catheter is malpositioned and malfunctioning. I have requested vascular surgery to evaluate the patient. 6. Hypokalemia. The patient is getting potassium chloride 10 mEq by mouth daily. I am going to give her an additional dose in the afternoon.
--- NOTE | 2018-11-15 12:31 | IPNPDOC ---
Subjective Date Seen The patient was seen on 11/15/18. Subjective Chief Complaint/HPI Patient seen and examined at the bedside. Denies any acute complaints at this time. Objective Physical Examination General Exam: Positive: Alert, Cooperative, No Acute Distress ENT Exam: Positive: Atraumatic, Mucous membr. moist/pink Chest Exam: Positive: Clear to auscultation, Normal air movement Heart Exam: Positive: Rate Normal, Regular Rhythm, Normal S1, Normal S2 Abdomen Exam: Positive: Soft; Negative: Tenderness Extremity Exam: Positive: Edema (1+); Negative: Tenderness Neuro Exam: Positive: Normal Speech Psych Exam: Positive: Mental status NL, Mood NL, Oriented x 3 Assessment /Plan Plan/VTE VTE Prophylaxis Ordered?: Yes Plan End-stage renal disease on HD and PD Dr Rome consulted for peritoneal catheter management Dialysis management as per nephrology Acute hypoxic respiratory failure due to fluid overload from ESRD Volume optimization via dialysis as per Nephro Hypertension continue amlodipine,coreg, lisinopril and torsemide Anemia in end-stage renal disease. IV Venofer with dialysis Aranesp with dialysis. Continue home dose of iron pills. Iatrogenic hypothyroidism (S/P thyroidectomey for Cancer) Cont levothyroxine 175 mcg daily. Diabetes Insulin sliding scale Hx of CAD On ASA, Statin, Coreg Dyslipidemia Continue statin DVT prophylaxis Heparin SC VS, I&O, 24H, Fishbone Vital Signs/I&O Vital Signs Date Time Temp Pulse Resp B/P (MAP) Pulse Ox O2 Delivery O2 Flow Rate FiO2 11/15/18 08:11 68 142/69 11/15/18 06:00 97.9 17 100 11/14/18 09:40 l I&O- Last 24 Hours up to 6 AM 11/15/18 06:00 Intake Total 22676 ml Output Total 9600 ml Balance 1040 ml Laboratory Data 24H LABS Laboratory Tests 2 11/14/18 17:23: Bedside Glucose (Misc Panel) 205H 11/14/18 20:37: Bedside Glucose (Misc Panel) 78L 11/15/18 07:06: Bedside Glucose (Misc Panel) 93 11/15/18 08:06: Nucleated Red Blood Cells % (auto) 0.4H, Anion Gap 6L, Glomerular Filtration Rate 11.3L, Blood Urea Nitrogen 11, Creatinine 4.24H, Sodium Level 136, Potassium Level 3.5, Chloride Level 99, Carbon Dioxide Level 31, Calcium Level 9.0 11/15/18 12:23: Bedside Glucose (Misc Panel) 114 CBC/BMP Laboratory Tests 11/15/18 08:06 Red Blood Count 3.03 L, Mean Corpuscular Volume 97.0 H, Mean Corpuscular H emoglobin 29.7, Mean Corpuscular Hemoglobin Concent 30.6 L, Red Cell Distribution Width 17.1 H, Calcium Level 9.0 Microbiology Microbiology 11/13/18 Gram Stain - Final, Complete 11/13/18 Body Fluid Culture - Final, Complete ALESIA MADERA MD Nov 15, 2018 12:31
[2018-11-15] MEDS: MUPIROCIN 2% OINT 22 GM TUBE TOP SCH ×2 (12:58→20:17)
[2018-11-15 14:00] VITALS: BP 127/59
--- NOTE | 2018-11-15 15:13 | CR.PDOC ---
General Date of Consultation: Nov 15, [address] Rome. HPI: The patient is a 62-year-old female with history of peritonitis in 07/2018 at which time PD catheter was removed. Peritoneal dialysis catheter was repla pawan by Dr. Rome on 10/24/18 and the patient states she has been doing peritoneal dialysis at home. The patient was admitted with fluid overload. Vascular surgery was consulted regarding peritoneal dialysis catheter malfunction. States she has still had some shortness of breath. Reports a sensation of her abdomen feeling full. Denies any fevers, chills, weakness, fatigue, Headache, Chest Pain, cough, palpitations, abdominal pain, N/V/D or changes in bowel or bladder habits. Medical History ESRD on HD/PD Diabetes - not on group home insulin HTN CAD with prior [facility] Thyroid cancer s/p surgery small vessel disease, peritonitis 07/2017 cellulitis in past Past surgery history: 10/24/18 PD placement HD port thyroidectomy cardiac cath CABGx3 bilateral cataract Family history: mother CAD/[facility]; father recently of lung cancer Social history: denies tobacco or Etoh use; single ROS: As noted in HPI, otherwise 11pt ROS of systems reviewed and unremarkable. PE: GEN: 62 yo F, appears stated age. No acute distress. Alert and oriented x 3. HEENT: Normocephalic, atraumatic. Sclera are nonicteric. Conjunctiva without injection. No facial asymmetry. Moist mucous membranes. CHEST: Regular rate and rhythm, +S1, +S2 LUNGS: Clear to auscultation bilaterally. No wheezes, rales, or rhonchi. Breathing appears symmetric and easy. Patient is speaking in full sentences. ABD: Round, soft, non-tender, mildly distended. +Bowel sounds throughout. PD catheter is noted with no drainage, mild erythema surrounding insertion site. EXT: Pulses 2+ bilaterally dorsalis pedis and radial. No lower extremity edema appreciated. SKIN: [place], dry, warm. Capillary refill <2sec. No rashes. NEURO: Alert and oriented x 3. Cranial nerves III-XII are intact. No focal deficits appreciated. A&P: 1. Status post PD catheter insertion 10/24/[address] Rome. AXR Supine abdomen two views: Comparison is 08/21/2018. There is a peritoneal catheter with the tip coiled in the mid abdomen on the right superimposed over the ascending colon. The bowel gas pattern is normal. There is faintly visible opaque material throughout the colon likely from ingested material. Electronically Signed by Teja Monroy MD 11/14/2018 12:59 P The patient is reviewed by Dr. Rome. Tentative plan as relayed by Dr. Rome 11/15/18 is for PD catheter revision 11/16/18. DVT prophylaxis. SQ Heparin. Vital Signs/I&O Vital Signs Date Time Temp Pulse Resp B/P (MAP) Pulse Ox O2 Delivery O2 Flow Rate FiO2 11/15/18 08:11 68 142/69 11/15/18 06:00 97.9 17 100 11/14/18 09:40 I&O- Last 24 Hours up to 6 AM 11/15/18 06:00 Intake Total 44281 ml Output Total 9600 ml Balance 1040 ml Laboratory Data Labs 24H Laboratory Tests 2 11/14/18 17:23: Bedside Glucose (Misc Panel) 205H 11/14/18 20:37: Bedside Glucose (Misc Panel) 78L 11/15/18 07:06: Bedside Glucose (Misc Panel) 93 11/15/18 08:06: Nucleated Red Blood Cells % (auto) 0.4H, Anion Gap 6L, Glomerular Filtration Rate 11.3L, Blood Urea Nitrogen 11, Creatinine 4.24H, Sodium Level 136, Potassium Level 3.5, Chloride Level 99, Carbon Dioxide Level 31, Calcium Level 9.0 11/15/18 12:23: Bedside Glucose (Misc Panel) 114 CBC/BMP Laboratory Tests 11/15/18 08:06 Red Blood Count 3.03 L, Mean Corpuscular Volume 97.0 H, Mean Corpuscular Hemoglobin 29.7, Mean Corpuscular Hemoglobin Concent 30.6 L, Red Cell Distribution Width 17.1 H, Calcium Level 9.0 Microbiology Microbiology 11/13/18 Gram Stain - Final, Complete 11/13/18 Body Fluid Culture - Final, Complete Allergies Coded Allergies: Penicillins (Unverified Allergy, Intermediate, HIVES, 08/22/18) latex (Verified Allergy, Unknown, ITCHING, ORIGINALLY LISTED BAND-AID, 10/23/18) hydrocodone (Unverified Adverse Reaction, Mild, VOMITING, 08/21/18) egg (Unverified Adverse Reaction, Unknown, VOMITING, 08/21/18) Home Medications Scheduled Amlodipine Besylate (Amlodipine Besylate) 5 Mg Tablet, 5 MG PO DAILY, (Reported) Aspirin (Aspir 81) 81 Mg Tablet.dr, 81 MG PO DAILY, (Reported) Atorvastatin Calcium (Atorvastatin Calcium) 20 Mg Tablet, 20 MG PO DAILY, (Reported) Carvedilol (Carvedilol) 3.125 Mg Tablet, 3.125 MG PO BID, (Reported) Ferric Citrate (Auryxia) 210 Mg Tablet, 210 MG PO TID, (Reported) Folic Acid/Vit B Complex and C (Zo-Kamran Tablet) 0.8 Mg Tablet, 1 TAB PO DAILY, (Reported) Levothyroxine Sodium (Levothyroxine Sodium) 175 Mcg Tablet, 175 MCG PO DAILY, (Reported) Lisinopril (Lisinopril) 5 Mg Tablet, 5 MG PO DAILY, (Reported) Potassium Chloride (Potassium Chloride) 10 Meq Tablet.er, 10 MEQ PO DAILY, (Reported) Torsemide (Torsemide) 20 Mg Tablet, 20 MG PO BID, (Reported) Scheduled PRN Acetaminophen (Acetaminophen) 500 Mg Tablet, 1,000 MG PO Q6H PRN for PAIN, (Reported) Nitroglycerin (Nitroglycerin) 0.4 Mg Tab.subl, 0.4 MG SL Q5MP PRN for CHEST PAIN, (Reported) Bita Ortega Nov 15, 2018 15:13
[2018-11-15 22:00] VITALS: BP 133/65
--- NOTE | 2018-11-15 22:27 | IPN ---
DATE: 11/15/2018 SUBJECTIVE: The patient was seen and examined at the bedside today morning during hemodialysis. The patient got short of breath overnight. She was requiring oxygen via nasal cannula. There is not much ultrafiltration being done with peritoneal dialysis. She actually retains fluid with peritoneal dialysis (PD). Patient's PD catheter is malpositioned along the ascending colon on the right side. The patient also reports mild erythema at the PD catheter exit site. She otherwise denies any active complaints. OBJECTIVE: Vital signs: Temperature is 97.9 degrees Fahrenheit, blood pressure 142/69, pulse is 68, respiratory of 70, saturating 100% on room air. Intake and output: The total output with peritoneal dialysis since overnight is actually -300, which means she retained 300 mL of fluid with peritoneal dialysis exchange overnight. Weight in the bed scale is not available. PHYSICAL EXAMINATION: GENERAL: The patient is awake, alert, oriented times three, sitting up in the bed in mild respiratory distress, wearing nasal cannula, getting hemodialysis done. HEAD AND NECK: Extraocular muscles intact. Pupils equally round and reactive to light. Mucous membranes are moist. Neck is supple. There is mildly elevated jugular venous distention (JVD). CARDIOVASCULAR: S1, S2, regular rate. Edema 1+ of the bilateral lower extremities. RESPIRATORY: Mildly decreased breath sounds at the bases with mild inspiratory crackles bilaterally at the bases, and she is wearing oxygen. ABDOMEN: Soft, obese. Positive bowel sounds. Left upper quadrant peritoneal dialysis catheter exit site was noted. It has mild erythema. MUSCULOSKELETAL: No clubbing or cyanosis. Pulses are 2+. CENTRAL NERVOUS SYSTEM: No focal deficit. Power is 5/5 in all extremities. LABORATORY REVIEW: CBC showed WBC 4.7, hemoglobin is 9, platelets are 167. BMP showed sodium 136, potassium 3.5, chloride 99, bicarbonate 31, BUN 11, creatinine 4.2. CURRENT INPATIENT MEDICATIONS. The patient's medications were all reviewed by me. There is no change in the medications today as compared with yesterday; however, I am going to stop the peritoneal dialysis at this time. ASSESSMENT AND PLAN: 1. End-stage renal disease. The patient has failure of the peritoneal dialysis catheter, difficulty with ultrafiltration. I am going to stop the peritoneal dialysis exchanges. She was always seen by surgical service. They are planning to revise the PD catheter. Continue three times a week hemodialysis. The patient is being dialyzed at this time. Ultrafiltration goal is 3 liters as tolerated by her blood pressure. 2. Acute decompensated congestive heart failure. It is secondary to fluid overload by retention during peritoneal dialysis. Hold further PD exchanges. Continue the hemodialysis at this time. 3. Hypertension with end-stage renal disease. Continue Coreg, lisinopril, and amlodipine. Continue current dose of torsemide as well. 4. Anemia secondary to end-stage renal disease and iron deficiency. Continue Aranesp and Venofer during hemodialysis. 5. PD catheter exit site infection. I am going to start the Bactroban. If the patient does not respond to Bactroban, then she will be started on Keflex.
[2018-11-16] MEDS: LEVOTHYROXINE 100MCG TABLET (0.1MG) PO SCH (05:42)
[2018-11-16] MEDS: LEVOTHYROXINE 75MCG TABLET (0.075MG) PO SCH (05:42)
[2018-11-16 06:00] VITALS: BP 135/63
[2018-11-16 06:19] LABS: HEMOGLOBIN 8.6 g/dl (12.0-15.5); MEAN CORPUSCULAR HEMOGLOBIN 28.5 pg (27.0-33.0); MEAN CORPUSCULAR HGB CONC 29.7 g/dl (32.0-36.5); PLATELET COUNT, AUTOMATED 248 10^3/uL (150-450); RED BLOOD COUNT 3.02 10^6/uL (4.00-5.40); WHITE BLOOD COUNT 5.4 10^3/uL (4.0-10.0)
[2018-11-16 06:41] LABS: CALCIUM LEVEL 9.1 MG/DL (8.8-10.2); CREATININE FOR GFR 3.49 MG/DL (0.55-1.30); GLOMERULAR FILTRATION RATE 14.1 (>45)
[2018-11-16] MEDS: HumaLOG INSULIN (NovoLOG) PER UNIT SC SCH ×4 (07:12→21:00)
[2018-11-16] MEDS: ASPIRIN 81 MG ENTERIC TAB PO SCH (08:16)
[2018-11-16] MEDS: LISINOPRIL 5 MG TAB PO SCH (08:16)
[2018-11-16] MEDS: FERROUS GLUCONATE 324 MG TAB PO SCH ×2 (08:16→21:01)
[2018-11-16] MEDS: ATORVASTATIN 20 MG TAB PO SCH (08:16)
[2018-11-16] MEDS: DOCUSATE SODIUM 100 MG CAP PO SCH ×2 (08:16→21:01)
[2018-11-16] MEDS: TORSEMIDE 20 MG TAB PO SCH ×2 (08:17→17:00)
[2018-11-16] MEDS: MUPIROCIN 2% OINT 22 GM TUBE TOP SCH ×2 (08:17→21:02)
[2018-11-16] MEDS: amLODIPine 5 MG TAB PO SCH (08:17)
[2018-11-16] MEDS: FLUTICASONE PROP 0.05% NASAL SPRAY 16 GM (FLONASE) NARES SCH ×2 (08:17→21:01)
[2018-11-16] MEDS: NEPHRO-VIT TAB (NEPHROCAPS) PO SCH (08:17)
[2018-11-16] MEDS: CARVedilol 3.125 MG TAB PO SCH ×2 (08:17→21:01)
[2018-11-16] MEDS: POTASSIUM CHLORIDE 10 MEQ SR TABLET PO SCH (08:17)
[2018-11-16] MEDS: HEPARIN SOD (PORCINE) 5000 UNITS/ML VIAL SC SCH ×2 (08:18→21:00)
--- NOTE | 2018-11-16 10:29 | IPNPDOC ---
Date Seen The patient was seen on 11/16/18. Progress Note Vascular Surgery. Dr Rome. HPI: The patient is a 62-year-old female with history of peritonitis in 07/2018 at which time PD catheter was removed. Peritoneal dialysis catheter was replaced by Dr. Rome on 10/24/18 and the patient states she has been doing peritoneal dialysis at home. The patient was admitted with fluid overload. Vascular surgery was consulted regarding peritoneal dialysis catheter malfunction. Reports a sensation of her upper Rt abdomen feeling full. Denies any fevers, ch ills, weakness, fatigue, Headache, Chest Pain, cough, palpitations, abdominal pain, N/V/D or changes in bowel or bladder habits. Medical History ESRD on HD/PD Diabetes HTN CAD with prior [place] Thyroid cancer s/p surgery small vessel disease, peritonitis 07/2017 cellulitis in past Past surgery history: 10/24/18 PD placement HD port thyroidectomy cardiac cath CABGx3 bilateral cataract PE: GEN: 62 yo F, appears stated age. No acute distress. Alert and oriented x 3. HEENT: Normocephalic, atraumatic. Sclera are nonicteric. Conjunctiva without injection. No facial asymmetry. Moist mucous membranes. CHEST: Regular rate and rhythm, +S1, +S2 LUNGS: Clear to auscultation bilaterally. No wheezes, rales, or rhonchi. ABD: Round, soft, non-tender, mildly distended. +Bowel sounds throughout. PD catheter is noted with no drainage, mild erythema surrounding insertion site. EXT: Pulses 2+ bilaterally dorsalis pedis and radial. No lower extremity edema appreciated. SKIN: [place], dry, warm. Capillary refill <2sec. No rashes. NEURO: Alert and oriented x 3. Cranial nerves III-XII are intact. No focal deficits appreciated. A&P: 1. Status post PD catheter insertion 10/24/[address] Rome. AXR Supine abdomen two views: Comparison is 08/21/2018. There is a peritoneal catheter with the tip coiled in the mid abdomen on the right superimposed over the ascending colon. The bowel gas pattern is normal. There is faintly visible opaque material throughout the colon likely from ingested material. Electronically Signed by Teja Monroy MD 11/14/2018 12:59 P The patient is reviewed by Dr. Rome. Tentative plan as relayed by Dr. Rome 11/16/18 is for PD catheter revision 11/17/18. VS, I&O, 24H, Fishbone Vital Signs/I&O Vital Signs Date Time Temp Pulse Resp B/P (MAP) Pulse Ox O2 Delivery O2 Flow Rate FiO2 11/16/18 08:16 139/68 11/16/18 06:00 96.9 63 16 95 11/14/18 09:40 I&O- Last 24 Hours up to 6 AM 11/16/18 06:00 Intake Total 2210 ml Output Total 4700 ml Balance -2490 ml Laboratory Data 24H LABS Laboratory Tests 2 11/15/18 12:23: Bedside Glucose (Misc Panel) 114 11/15/18 16:50: Bedside Glucose (Misc Panel) 129H 11/15/18 20:49: Bedside Glucose (Misc Panel) 158H 11/16/18 05:47: Nucleated Red Blood Cells % (auto) 0.0, Anion Gap 6L, Glomerular Filtration Rate 14.1L, Blood Urea Nitrogen 12, Creatinine 3.49H, Sodium Level 138, Potassium Level 4.0, Chloride Level 101, Carbon Dioxide Level 31, Calcium Level 9.1 CBC/BMP Laboratory Tests 11/16/18 05:47 Red Blood Count 3.02 L, Mean Corpuscular Volume 96.0, Mean Corpuscular Hemoglobin 28.5, Mean Corpuscular Hemoglobin Concent 29.7 L, Red Cell Distribution Width 17.3 H, Calcium Level 9.1 Microbiology Microbiology 11/13/18 Gram Stain - Final, Complete 11/13/18 Body Fluid Culture - Final, Complete Bita Ortega Nov 16, 2018 10:29
[2018-11-16 14:00] VITALS: BP 113/54
--- NOTE | 2018-11-16 14:32 | IPNPDOC ---
Subjective Date Seen The patient was seen on 11/16/18. Subjective Chief Complaint/HPI Patient seen and examined at bedside. No acute overnight events noted. She is tentatively scheduled to have peritoneal catheter revised by vascular surgery tomorrow. Objective Physical Examination General Exam: Positive: Alert, Cooperative, No Acute Distress ENT Exam: Positive: Atraumatic, Mucous membr. moist/pink Chest Exam: Positive: Clear to auscultation, Normal air movement Heart Exam: Positive: Rate Normal, Regular Rhythm, Normal S1, Normal S2 Abdomen Exam: Positive: Soft; Negative: Tenderness Extremity Exam: Positive: Edema (1+); Negative: Tenderness Neuro Exam: Positive: Normal Speech Psych Exam: Positive: Mental status NL, Mood NL, Oriented x 3 Assessment /Plan Plan/VTE VTE Prophylaxis Ordered?: Yes Plan End-stage renal disease on HD and PD Dr Rome consulted for peritoneal catheter management--tentatively scheduled to have the catheter revised on 11/17 Dialysis management as per nephrology Acute hypoxic respiratory failure due to fluid overload from ESRD Volume optimization via dialysis as per Nephro Hypertension continue amlodipine,coreg, lisinopril and torsemide Anemia in end-stage renal disease. IV Venofer with dialysis Aranesp with dialysis. Continue home dose of iron pills. Iatrogenic hypothyroidism (S/P thyroidectomey for Cancer) Cont levothyroxine 175 mcg daily. Diabetes Insulin sliding scale Hx of CAD On ASA, Statin, Coreg Dyslipidemia Continue statin DVT prophylaxis Heparin SC VS, I&O, 24H, Fishbone Vital Signs/I&O Vital Signs Date Time Temp Pulse Resp B/P (MAP) Pulse Ox O2 Delivery O2 Flow Rate FiO2 11/16/18 08:16 139/68 11/16/18 06:00 96.9 63 16 95 11/14/18 09:40 I&O- Last 24 Hours up to 6 AM 11/16/18 06:00 Intake Total 2210 ml Output Total 4700 ml Balance -2490 ml Laboratory Data 24H LABS Laboratory Tests 2 11/15/18 16:50: Bedside Glucose (Misc Panel) 129H 11/15/18 20:49: Bedside Glucose (Misc Panel) 158H 11/16/18 05:47: Nucleated Red Blood Cells % (auto) 0.0, Anion Gap 6L, Glomerular Filtration Rate 14.1L, Blood Urea Nitrogen 12, Creatinine 3.49H, Sodium Level 138, Potassium Level 4.0, Chloride Level 101, Carbon Dioxide Level 31, Calcium Level 9.1 11/16/18 11:53: Bedside Glucose (Misc Panel) 94 CBC/BMP Laboratory Tests 11/16/18 05:47 Red Blood Count 3.02 L, Mean Corpuscular Volume 96.0, Mean Corpuscular Hemoglobin 28.5, Mean Corpuscular Hemoglobin Concent 29.7 L, Red Cell Distribution Width 17.3 H, Calcium Level 9.1 Microbiology Microbiology 11/13/18 Gram Stain - Final, Complete 11/13/18 Body Fluid Culture - Final, Complete ALESIA MADERA MD Nov 16, 2018 14:32
--- NOTE | 2018-11-16 16:42 | IPN ---
DATE: 11/16/2018 SUBJECTIVE: Patient was seen and examined at the bedside today morning. She is afebrile, hemodynamically stable. Her peritoneal dialysis (PD) was stopped yesterday. She was dialyzed yesterday; 3 units of fluid was removed. Her shortness of breath is significantly better. She reports that her PD catheter repositioning has been postponed until tomorrow. She otherwise denies any active complaints apart from mild discomfort in the right upper quadrant of abdomen. OBJECTIVE: VITAL SIGNS: Temperature is 96.9 degrees Fahrenheit, blood pressure 139/68, pulse is 63, respiratory rate of 16, saturating 95% on room air. INTAKE AND OUTPUT: There is no urine output recorded. Ultrafiltration with hemodialysis was 3 liters. Weight in the bed scale is not available. PHYSICAL EXAMINATION: GENERAL: Patient is awake, alert, oriented times three, laying in the bed in no apparent distress. HEAD AND NECK EXAM: Patient is legally blind. Mucous membranes are moist. Neck is supple. There is no jugular venous distention (JVD). CARDIOVASCULAR: S1, S2. Regular rate. Trace edema of the bilateral lower extremities. RESPIRATORY: Chest is clear to auscultation bilaterally. Bilateral equal air entry. No rales or rhonchi. ABDOMEN: Soft, obese, positive bowel sounds. She has a left upper quadrant PD catheter. MUSCULOSKELETAL: No clubbing or cyanosis. Pulses are 2+. CENTRAL NERVOUS SYSTEM (MISSILE INSPECTOR PREFLIGHT): No focal deficit. Power is 5/5 in all extremities. LABORATORY REVIEW: Complete blood count (CBC) showed a WBC 5.4, hemoglobin 8.6, platelets of 148. Basic metabolic panel (BMP) showed sodium 138, potassium 4, chloride 101, bicarbonate 31, BUN 12, creatinine is 3.4. MICROBIOLOGY: Peritoneal fluid cultures are negative. CURRENT INPATIENT MEDICATIONS: Patient's medications were all reviewed by me. There is no change in the medications today as compared with yesterday. ASSESSMENT AND PLAN: 1. End-stage renal disease. Peritoneal dialysis has been stopped. Patient is currently hemodialysis dependent via the tunneled dialysis catheter. She was dialyzed yesterday. Next hemodialysis session will be tomorrow. PD catheter is malfunctioning. 2. Malfunctioning of the PD catheter. Patient will have the repositioning/revision of the PD catheter by surgery tomorrow morning. 3. Congestive heart failure. Patient's peritoneal dialysis has been stopped because she was retaining fluid. She got 3 liters of fluid removed with dialysis yesterday. Volume status and shortness of breath is significantly better today. 4. Hypertension with end-stage renal disease and hypertensive heart disease. Continue current dose of Coreg, lisinopril and amlodipine. 5. Anemia secondary to iron deficiency and end-stage renal disease. Patient got a dose of Venofer with dialysis yesterday. Continue current dose of Aranesp. 6. PD catheter exit site infection. Continue current dose of Bactroban topically twice a day.
[2018-11-16 22:00] VITALS: BP 145/71
[2018-11-17] VITALS (12 sets, daily range): BP systolic 95–143; BP diastolic 56–70
[2018-11-17] MEDS: ATORVASTATIN 20 MG TAB PO SCH (06:12)
[2018-11-17] MEDS: CARVedilol 3.125 MG TAB PO SCH ×2 (06:12→21:58)
[2018-11-17] MEDS: LEVOTHYROXINE 100MCG TABLET (0.1MG) PO SCH (06:13)
[2018-11-17] MEDS: NEPHRO-VIT TAB (NEPHROCAPS) PO SCH (06:13)
[2018-11-17] MEDS: POTASSIUM CHLORIDE 10 MEQ SR TABLET PO SCH (06:13)
[2018-11-17] MEDS: TORSEMIDE 20 MG TAB PO SCH ×2 (06:13→18:05)
[2018-11-17] MEDS: DOCUSATE SODIUM 100 MG CAP PO SCH ×2 (06:14→21:58)
[2018-11-17] MEDS: ASPIRIN 81 MG ENTERIC TAB PO SCH (06:14)
[2018-11-17] MEDS: LISINOPRIL 5 MG TAB PO SCH (06:14)
[2018-11-17] MEDS: FERROUS GLUCONATE 324 MG TAB PO SCH ×2 (06:14→21:58)
[2018-11-17] MEDS: amLODIPine 5 MG TAB PO SCH (06:15)
[2018-11-17] MEDS: LEVOTHYROXINE 75MCG TABLET (0.075MG) PO SCH (06:15)
[2018-11-17] MEDS: FLUTICASONE PROP 0.05% NASAL SPRAY 16 GM (FLONASE) NARES SCH ×2 (06:15→21:59)
[2018-11-17 06:54] LABS: HEMATOCRIT 28.3 % (36.0-47.0); HEMOGLOBIN 8.4 g/dl (12.0-15.5); MEAN CORPUSCULAR HEMOGLOBIN 28.6 pg (27.0-33.0); MEAN CORPUSCULAR HGB CONC 29.7 g/dl (32.0-36.5); MEAN CORPUSCULAR VOLUME 96.3 fl (80.0-96.0); PLATELET COUNT, AUTOMATED 245 10^3/uL (150-450); RED BLOOD COUNT 2.94 10^6/uL (4.00-5.40)
[2018-11-17] MEDS: HumaLOG INSULIN (NovoLOG) PER UNIT SC SCH ×4 (07:12→21:00)
[2018-11-17 07:18] LABS: CALCIUM LEVEL 9.4 MG/DL (8.8-10.2); CREATININE FOR GFR 5.5 MG/DL (0.55-1.30); GLOMERULAR FILTRATION RATE 8.4 (>45); POTASSIUM SERUM 4.3 MEQ/L (3.5-5.1)
[2018-11-17] MEDS: HEPARIN SOD (PORCINE) 5000 UNITS/ML VIAL SC SCH ×2 (08:36→21:59)
[2018-11-17] MEDS: MUPIROCIN 2% OINT 22 GM TUBE TOP SCH ×2 (08:36→21:59)
[2018-11-17] MEDS ORDERED: HEPARIN 1,000 UNITS/ML 10ML VIAL (FOR RADIOLOGY& DIALYSIS ONLY) XX ONE (10:00)
[2018-11-17] MEDS ORDERED: HEPARIN 1,000 UNITS/ML 10ML VIAL (FOR RADIOLOGY& DIALYSIS ONLY) IV ONE (10:00)
[2018-11-17] MEDS ORDERED: PROPOFOL 200 MG/20 ML VIAL As Ordered ONE (10:21)
[2018-11-17] MEDS ORDERED: LIDOCAINE 2% INJ 100 MG/5 ML SDV (FOR ANES.) As Ordered ONE (10:21)
[2018-11-17] MEDS ORDERED: ROCURONIUM BROMIDE 50 MG/5 ML VIAL As Ordered ONE (10:21)
[2018-11-17] MEDS ORDERED: fentaNYL 250 MCG/5 ML INJECTION (J3010) As Ordered ONE (10:22)
[2018-11-17] MEDS ORDERED: MIDAZOLAM INJ 2 MG/2 ML VIAL (J2250) As Ordered ONE (10:22)
[2018-11-17] MEDS ORDERED: BUPIVACAINE HCL 0.5% 10 ML VIAL As Ordered ONE ×2 (11:30→12:22)
[2018-11-17] MEDS ORDERED: LIDOCAINE 1% MDV 20ML VIAL As Ordered ONE ×2 (11:30→12:22)
[2018-11-17] MEDS ORDERED: ePHEDrine SULFATE 25 MG/5 ML(5MG/ML) SYRINGE As Ordered ONE (12:16)
[2018-11-17] MEDS ORDERED: KETOROLAC 60 MG/2 ML VIAL (J1885) As Ordered ONE (12:24)
[2018-11-17] MEDS ORDERED: METOCLOPRAMIDE INJ 10MG/2ML VIAL (J2765) As Ordered ONE (12:24)
[2018-11-17] MEDS ORDERED: ONDANSETRON 4MG/2ML VIAL (J2405) As Ordered ONE (12:24)
[2018-11-17] MEDS ORDERED: SUGAMMADEX SODIUM 500 MG/5 ML VIAL (BRIDION) As Ordered ONE (12:30)
[2018-11-17] MEDS ORDERED: ONDANSETRON 4MG/2ML VIAL (J2405) IV PRN (13:30)
[2018-11-17] MEDS ORDERED: fentaNYL 100 MCG/2 ML INJECTION (J3010) IV PRN (13:30)
[2018-11-17] MEDS ORDERED: NS 1,000 ML IV SCH (13:30)
[2018-11-17] MEDS ORDERED: oxyCODONE 5MG TAB PO PRN (13:30)
--- NOTE | 2018-11-17 13:56 | IPNPDOC ---
Subjective Date Seen The patient was seen on 11/17/18. Subjective Chief Complaint/HPI Patient seen and examined at the bedside. No acute overnight events noted. Objective Physical Examination General Exam: Positive: Alert, Cooperative, No Acute Distress ENT Exam: Positive: Atraumatic, Mucous membr. moist/pink Chest Exam: Positive: Clear to auscultation, Normal air movement Heart Exam: Positive: Rate Normal, Regular Rhythm, Normal S1, Normal S2 Abdomen Exam: Positive: Soft; Negative: Tenderness Extremity Exam: Positive: Edema (1+); Negative: Tenderness Neuro Exam: Positive: Normal Speech Psych Exam: Positive: Mental status NL, Mood NL, Oriented x 3 Assessment /Plan Plan/VTE VTE Prophylaxis Ordered?: Yes Plan End-stage renal disease on HD and PD Dr Rome consulted for peritoneal catheter management--tentatively scheduled to have the catheter revised today Dialysis management as per nephrology Acute hypoxic respiratory failure due to fluid overload from ESRD Volume optimization via dialysis as per Nephro Hypertension continue amlodipine,coreg, lisinopril and torsemide Anemia in end-stage renal disease. IV Venofer with dialysis Aranesp with dialysis. Continue home dose of iron pills. Iatrogenic hypothyroidism (S/P thyroidectomey for Cancer) Cont levothyroxine 175 mcg daily. Diabetes Insulin sliding scale Hx of CAD On ASA, Statin, Coreg Dyslipidemia Continue statin DVT prophylaxis Heparin SC Disposition-pending continued clinical improvement, peritoneal dialysis catheter revision by vascular surgery. VS, I&O, 24H, Fishbone Vital Signs/I&O Vital Signs Date Time Temp Pulse Resp B/P (MAP) Pulse Ox O2 Delivery O2 Flow Rate FiO2 11/17/18 13:45 97.2 65 18 143/67 (92) 97 11/17/18 06:00 I&O- Last 24 Hours up to 6 AM 11/17/18 06:00 Intake Total 270 ml Balance 270 ml Laboratory Data 24H LABS Laboratory Tests 2 11/16/18 16:37: Bedside Glucose (Misc Panel) 145H 11/16/18 21:20: Bedside Glucose (Misc Panel) 143H 11/17/18 06:19: Nucleated Red Blood Cells % (auto) 0.0, Anion Gap 8, Glomerular Filtration Rate 8.4L, Blood Urea Nitrogen 22#H, Creatinine 5.50#H, Sodium Level 139, Potassium Level 4.3, Chloride Level 102, Carbon Dioxide Level 29, Calcium Level 9.4 CBC/BMP Laboratory Tests 11/17/18 06:19 Red Blood Count 2.94 L, Mean Corpuscular Volume 96.3 H, Mean Corpuscular Hemoglobin 28.6, Mean Corpuscular Hemoglobin Concent 29.7 L, Red Cell Distribution Width 17.6 H, Calcium Level 9.4 Microbiology Microbiology 11/13/18 Gram Stain - Final, Complete 11/13/18 Body Fluid Culture - Final, Complete ALESIA MADERA MD Nov 17, 2018 13:56
--- NOTE | 2018-11-17 17:02 | IPN ---
DATE: 11/17/2018 SUBJECTIVE: The patient was seen and examined the bedside today morning during the hemodialysis. She is tolerating the hemodialysis procedure well. The patient is also nothing by mouth today for repositioning of the peritoneal dialysis catheter. She denies any active complaints. OBJECTIVE: Vital signs: Temperature is 97.8 degrees Fahrenheit, blood pressure 143/70, pulse is 67, respiratory of 16, saturating 99% on room air. Intake and output: There is no urine output recorded. Weight in the bed scale is not available. PHYSICAL EXAMINATION: GENERAL: The patient is awake, alert, oriented times three, lying in no apparent distress. HEAD AND NECK : Patient is legally blind. Otherwise, mucous membranes are moist. Neck is supple. There is no jugular venous distention (JVD) . Internal jugular (IJ) tunneled dialysis catheter is being used for dialysis. CARDIOVASCULAR: S1, S2, regular rate. Trace edema of the bilateral lower extremities. RESPIRATORY: Chest is clear to auscultation bilaterally. Bilateral equal air entry. No rales or rhonchi. ABDOMEN: Soft, obese. Positive bowel sounds. Left upper quadrant peritoneal dialysis (PD) catheter was noted. MUSCULOSKELETAL: No clubbing or cyanosis. Pulses are 2+. CENTRAL NERVOUS SYSTEM: No focal deficit apart from legal blindness. Power is 5/5 in all extremities. LABORATORY REVIEW: CBC showed WBC of 6, hemoglobin 8.4, platelets of 245. BMP showed sodium 139, potassium 4.3, chloride 102, bicarbonate 29, BUN 22, creatinine is 5.5. CURRENT INPATIENT MEDICATIONS: The patient's medications were all reviewed by me. There is no change in the medications today as compared with yesterday. ASSESSMENT AND PLAN: 1. End-stage renal disease. The patient is currently hemodialysis dependent. She is tolerating the dialysis. PD catheter will be repositioned today. 2. Malfunctioning of the PD catheter. The patient is nothing by mouth right now for repositioning of the PD catheter in the operating room (OR). 3. Congestive heart failure. Volume status is optimal. Ultrafiltration goal will be 2 liters during dialysis today. 4. Hypertension with end-stage renal disease. Continue current dose of Coreg, lisinopril, amlodipine, and loop diuretic. 5. Anemia secondary to end-stage renal disease and iron deficiency. Continue current dose of IV Venofer and Aranesp. 6. PD catheter exit site infection. Continue current dose of Bactroban. edited: 11/22/2018 [id number] MTDD
[2018-11-18 02:00] VITALS: BP 133/60
[2018-11-18] MEDS: LEVOTHYROXINE 75MCG TABLET (0.075MG) PO SCH (05:43)
[2018-11-18] MEDS: LEVOTHYROXINE 100MCG TABLET (0.1MG) PO SCH (05:43)
[2018-11-18 06:00] VITALS: BP 141/63
[2018-11-18 06:38] LABS: HEMATOCRIT 30.5 % (36.0-47.0); MEAN CORPUSCULAR HEMOGLOBIN 29.7 pg (27.0-33.0); MEAN CORPUSCULAR HGB CONC 29.5 g/dl (32.0-36.5); MEAN CORPUSCULAR VOLUME 100.7 fl (80.0-96.0); PLATELET COUNT, AUTOMATED 197 10^3/uL (150-450); RED BLOOD COUNT 3.03 10^6/uL (4.00-5.40); WHITE BLOOD COUNT 7.1 10^3/uL (4.0-10.0)
[2018-11-18 07:05] LABS: CALCIUM LEVEL 9.4 MG/DL (8.8-10.2); CREATININE FOR GFR 3.99 MG/DL (0.55-1.30); GLOMERULAR FILTRATION RATE 12.1 (>45); POTASSIUM SERUM 5.2 MEQ/L (3.5-5.1)
[2018-11-18] MEDS: HumaLOG INSULIN (NovoLOG) PER UNIT SC SCH ×4 (07:30→21:00)
[2018-11-18 08:58] VITALS: BP 134/60
[2018-11-18] MEDS: NEPHRO-VIT TAB (NEPHROCAPS) PO SCH (09:43)
[2018-11-18] MEDS: ATORVASTATIN 20 MG TAB PO SCH (09:43)
[2018-11-18] MEDS: amLODIPine 5 MG TAB PO SCH (09:44)
[2018-11-18] MEDS: FERROUS GLUCONATE 324 MG TAB PO SCH ×2 (09:44→21:40)
[2018-11-18] MEDS: CARVedilol 3.125 MG TAB PO SCH ×2 (09:44→21:39)
[2018-11-18] MEDS: ASPIRIN 81 MG ENTERIC TAB PO SCH (09:45)
[2018-11-18] MEDS: FLUTICASONE PROP 0.05% NASAL SPRAY 16 GM (FLONASE) NARES SCH ×2 (09:45→21:40)
[2018-11-18] MEDS: LISINOPRIL 5 MG TAB PO SCH (09:45)
[2018-11-18] MEDS: MUPIROCIN 2% OINT 22 GM TUBE TOP SCH ×2 (09:46→21:40)
[2018-11-18] MEDS: HEPARIN SOD (PORCINE) 5000 UNITS/ML VIAL SC SCH ×2 (09:47→21:41)
[2018-11-18] MEDS: DOCUSATE SODIUM 100 MG CAP PO SCH ×2 (09:52→21:39)
--- NOTE | 2018-11-18 12:01 | IPNPDOC ---
Subjective Date Seen The patient was seen on 11/18/18. Subjective Chief Complaint/HPI Patient seen and examined at the bedside. She had her peritoneal catheter repositioned by vascular surgery yesterday. Denies any acute complaints at this time. She is continuing to be volume optimized by nephrology via Dialysis. No acute overnight events noted. Objective Physical Examination General Exam: Positive: Alert, Cooperative, No Acute Distress ENT Exam: Positive: Atraumatic, Mucous membr. moist/pink Chest Exam: Positive: Clear to auscultation, Normal air movement Heart Exam: Positive: Rate Normal, Regular Rhythm, Normal S1, Normal S2 Abdomen Exam: Positive: Soft; Negative: Tenderness Extremity Exam: Positive: Edema (1+); Negative: Tenderness Neuro Exam: Positive: Normal Speech Psych Exam: Positive: Mental status NL, Mood NL, Oriented x 3 Assessment /Plan Plan/VTE VTE Prophylaxis Ordered?: Yes Plan End-stage renal disease on HD and PD Dr Rome consulted for peritoneal catheter management-s/p repositioning on 11/17/18 Dialysis management as per nephrology Acute hypoxic respiratory failure due to fluid overload from ESRD Volume optimization via dialysis as per Nephro Hypertension continue amlodipine, coreg, lisinopril and torsemide Anemia in end-stage renal disease. IV Venofer with dialysis Aranesp with dialysis. Continue home dose of iron pills. Iatrogenic hypothyroidism (S/P thyroidectomy for Cancer) Cont levothyroxine 175 mcg daily. Diabetes Insulin sliding scale Hx of CAD On ASA, Statin, Coreg Dyslipidemia Continue statin DVT prophylaxis Heparin SC Disposition-pending continued clinical improvement, volume optimization via di alysis as per Nephro VS, I&O, 24H, Fishbone Vital Signs/I&O Vital Signs Date Time Temp Pulse Resp B/P (MAP) Pulse Ox O2 Delivery O2 Flow Rate FiO2 11/18/18 09:44 67 134/60 11/18/18 08:58 97.4 17 99 11/17/18 06:00 l I&O- Last 24 Hours up to 6 AM 11/18/18 06:00 Intake Total 1150 ml Output Total 2017 ml Balance -867 ml Laboratory Data 24H LABS Laboratory Tests 2 11/17/18 16:30: Bedside Glucose (Misc Panel) 180H 11/18/18 05:49: Nucleated Red Blood Cells % (auto) 0.0, Anion Gap 5L, Glomerular Filtration Rate 12.1L, Blood Urea Nitrogen 18, Creatinine 3.99H, Sodium Level 138, Potassium Level 5.2H, Chloride Level 102, Carbon Dioxide Level 31, Calcium Level 9.4 CBC/BMP Laboratory Tests 11/18/18 05:49 Red Blood Count 3.03 L, Mean Corpuscular Volume 100.7 H, Mean Corpuscular Hemogl obin 29.7, Mean Corpuscular Hemoglobin Concent 29.5 L, Red Cell Distribution Width 18.1 H, Calcium Level 9.4 Microbiology Microbiology 11/13/18 Gram Stain - Final, Complete 11/13/18 Body Fluid Culture - Final, Complete ALESIA MADERA MD Nov 18, 2018 12:01
--- NOTE | 2018-11-18 12:31 | IPN ---
DATE OF VISIT: 11/18/2018 Mrs. Olsen is seen this morning on her bedside. She had her catheter repositioned yesterday for peritoneal dialysis as it was not working very well. She had this catheter placed just recently however had some bleeding and catheter did not function very well. She still has a Perma-Cath in and was dialyzed with hemodialysis yesterday. Dr. Rome ordered her peritoneal catheter to be flushed however it could not be flushed last night due to lack of an extension set. I had called a peritoneal dialysis nurse and she came and did connect the extension set to her catheter this morning. The patient is feeling well and denies any complaints at present. PHYSICAL EXAMINATION: Temperature 97.4 degrees Fahrenheit, heart rate 68 per minute and respiratory rate 17 per minute. Blood pressure 134/60 mmHg and oxygen saturation 99% on room air. He is legally blind. Head is atraumatic and neck is supple and without jugular venous distention (JVD) or thyroid enlargement. Heart sounds are regular and lungs sounds are clear. Abdomen is soft and nontender. Peritoneal catheter is in place. Extremities have no cyanosis or clubbing. On right upper chest she has a Perma-Cath without any signs of infection. Today's labs show WBC count 7.1, hemoglobin 9.0 and hematocrit 30.5. Platelets 197. Sodium 138, potassium 4.2, CO2 31, BUN 18 and creatinine 3.99. PROBLEMS: 1. End-stage renal disease. The patient had hemodialysis yesterday and we will plan to do another hemodialysis on Tuesday. Her peritoneal dialysis catheter was not functioning and has been now repositioned by Dr. Rome just last evening. We will see how it works when we flush it. Once her catheter worked very well then we can consider to switch her to peritoneal dialysis. 2. Hyperkalemia. She has mild hyperkalemia, probably related to end-stage renal disease and potassium supplement. I am going to stop her potassium supplement this morning and her electrolytes will be checked again tomorrow morning. 3. Anemia. At present her anemia is stable and does not need any urgent intervention. She will receive Aranesp with dialysis once a week. 4. Hypertension. Blood pressure seems very well controlled and no changes are being made today.
[2018-11-18 13:27] VITALS: BP 116/56
[2018-11-18 18:00] VITALS: BP 138/63
[2018-11-18 22:00] VITALS: BP 160/74
[2018-11-18] MEDS: HYDROCORTISONE 1% CREAM 30 GM TOP SCH (23:59)
[2018-11-19] MEDS: LEVOTHYROXINE 75MCG TABLET (0.075MG) PO SCH (05:53)
[2018-11-19] MEDS: LEVOTHYROXINE 100MCG TABLET (0.1MG) PO SCH (05:53)
[2018-11-19 06:00] VITALS: BP 152/70
[2018-11-19] MEDS: HumaLOG INSULIN (NovoLOG) PER UNIT SC SCH ×4 (07:30→21:00)
[2018-11-19 07:50] LABS: HEMATOCRIT 27.4 % (36.0-47.0); HEMOGLOBIN 8.2 g/dl (12.0-15.5); MEAN CORPUSCULAR HEMOGLOBIN 29.1 pg (27.0-33.0); MEAN CORPUSCULAR HGB CONC 29.9 g/dl (32.0-36.5); MEAN CORPUSCULAR VOLUME 97.2 fl (80.0-96.0); PLATELET COUNT, AUTOMATED 199 10^3/uL (150-450); RED BLOOD COUNT 2.82 10^6/uL (4.00-5.40); WHITE BLOOD COUNT 7.6 10^3/uL (4.0-10.0)
[2018-11-19 08:02] LABS: ALBUMIN 2.7 GM/DL (3.2-5.2); CALCIUM LEVEL 9.1 MG/DL (8.8-10.2); CREATININE FOR GFR 5.25 MG/DL (0.55-1.30); GLOMERULAR FILTRATION RATE 8.8 (>45); PHOSPHORUS LEVEL 4.5 MG/DL (2.5-4.9)
[2018-11-19] MEDS: NEPHRO-VIT TAB (NEPHROCAPS) PO SCH (09:07)
[2018-11-19] MEDS: DOCUSATE SODIUM 100 MG CAP PO SCH ×2 (09:07→17:14)
[2018-11-19] MEDS: amLODIPine 5 MG TAB PO SCH (09:08)
[2018-11-19] MEDS: ASPIRIN 81 MG ENTERIC TAB PO SCH (09:08)
[2018-11-19] MEDS: FERROUS GLUCONATE 324 MG TAB PO SCH ×2 (09:08→21:44)
[2018-11-19] MEDS: LISINOPRIL 5 MG TAB PO SCH (09:09)
[2018-11-19] MEDS: CARVedilol 3.125 MG TAB PO SCH ×2 (09:09→21:45)
[2018-11-19] MEDS: ATORVASTATIN 20 MG TAB PO SCH (09:09)
[2018-11-19] MEDS: MUPIROCIN 2% OINT 22 GM TUBE TOP SCH ×2 (09:10→21:46)
[2018-11-19] MEDS: HYDROCORTISONE 1% CREAM 30 GM TOP SCH ×2 (09:10→21:46)
[2018-11-19] MEDS: FLUTICASONE PROP 0.05% NASAL SPRAY 16 GM (FLONASE) NARES SCH ×2 (09:11→21:46)
[2018-11-19] MEDS: HEPARIN SOD (PORCINE) 5000 UNITS/ML VIAL SC SCH ×2 (11:28→21:49)
--- NOTE | 2018-11-19 12:49 | IPNPDOC ---
Subjective Date Seen The patient was seen on 11/19/18. Subjective Chief Complaint/HPI Patient seen and examined at the bedside. States that she has been having some itching around the peritoneal dialysis site where the tape is. Otherwise denies any acute complaint at this time. Objective Physical Examination General Exam: Positive: Alert, Cooperative, No Acute Distress ENT Exam: Positive: Atraumatic, Mucous membr. moist/pink Chest Exam: Positive: Clear to auscultation, Normal air movement Heart Exam: Positive: Rate Normal, Regular Rhythm, Normal S1, Normal S2 Abdomen Exam: Positive: Soft; Negative: Tenderness Extremity Exam: Negative: Tenderness Neuro Exam: Positive: Normal Speech Psych Exam: Positive: Mental status NL, Mood NL, Oriented x 3 Assessment /Plan Plan/VTE VTE Prophylaxis Ordered?: Yes Plan End-stage renal disease on HD and PD Dr Rome consulted for peritoneal catheter management-s/p repositioning on 11/17/18 Dialysis management as per nephrology Acute hypoxic respiratory failure due to fluid overload from ESRD Volume optimization via dialysis as per Nephro Hypertension continue amlodipine, coreg, lisinopril and torsemide Anemia in end-stage renal disease. IV Venofer with dialysis Aranesp with dialysis. Continue home dose of iron pills. Iatrogenic hypothyroidism (S/P thyroidectomy for Cancer) Cont levothyroxine 175 mcg daily. Diabetes Insulin sliding scale Hx of CAD On ASA, Statin, Coreg Dyslipidemia Continue statin DVT prophylaxis Heparin SC Disposition-pending continued clinical improvement, volume optimization via dialysis as per Nephro VS, I&O, 24H, [place] Vital Signs/I&O Vital Signs Date Time Temp Pulse Resp B/P (MAP) Pulse Ox O2 Delivery O2 Flow Rate FiO2 11/19/18 09:08 76 152/70 11/19/18 06:00 97.9 20 98 11/17/18 06:00 I&O- Last 24 Hours up to 6 AM 11/19/18 06:00 Intake Total 4280 ml Output Total 3300 ml Balance 980 ml Laboratory Data 24H LABS Laboratory Tests 2 11/19/18 07:22: Nucleated Red Blood Cells % (auto) 0.0, Blood Urea Nitrogen 29#H, Creatinine 5.25H, Sodium Level 137, Potassium Level 5.0, Chloride Level 101, Carbon Dioxide Level 29, Anion Gap 7L, Glomerular Filtration Rate 8.8L, Calcium Level 9.1, Phosphorus Level 4.5, Albumin 2.7L CBC/BMP Laboratory Tests 11/19/18 07:22 Red Blood Count 2.82 L, Mean Corpuscular Volume 97.2 H, Mean Corpuscular Hemoglobin 29.1, Mean Corpuscular Hemoglobin Concent 29.9 L, Red Cell Distribution Width 18.1 H, Anion Gap 7 L Microbiology Microbiology 11/13/18 Gram Stain - Final, Complete 11/13/18 Body Fluid Culture - Final, Complete ALESIA MADERA MD Nov 19, 2018 12:49
[2018-11-19 14:00] VITALS: BP 113/58
[2018-11-19] MEDS ORDERED: HEPARIN SOD (PORCINE) 5000 UNITS/ML VIAL PD ONE (17:00)
[2018-11-19 22:00] VITALS: BP 134/60
[2018-11-20] MEDS: LEVOTHYROXINE 75MCG TABLET (0.075MG) PO SCH (05:09)
[2018-11-20] MEDS: LEVOTHYROXINE 100MCG TABLET (0.1MG) PO SCH (05:09)
[2018-11-20 06:00] VITALS: BP 142/66
[2018-11-20] MEDS: FERROUS GLUCONATE 324 MG TAB PO SCH ×2 (06:11→21:53)
[2018-11-20] MEDS: ASPIRIN 81 MG ENTERIC TAB PO SCH (06:11)
[2018-11-20] MEDS: ATORVASTATIN 20 MG TAB PO SCH (06:11)
[2018-11-20] MEDS: NEPHRO-VIT TAB (NEPHROCAPS) PO SCH (06:11)
[2018-11-20] MEDS: DOCUSATE SODIUM 100 MG CAP PO SCH ×2 (06:11→21:53)
[2018-11-20 06:25] LABS: HEMATOCRIT 28.4 % (36.0-47.0); HEMOGLOBIN 8.4 g/dl (12.0-15.5); MEAN CORPUSCULAR HEMOGLOBIN 28.6 pg (27.0-33.0); MEAN CORPUSCULAR HGB CONC 29.6 g/dl (32.0-36.5); MEAN CORPUSCULAR VOLUME 96.6 fl (80.0-96.0); PLATELET COUNT, AUTOMATED 215 10^3/uL (150-450); RED BLOOD COUNT 2.94 10^6/uL (4.00-5.40); WHITE BLOOD COUNT 6.7 10^3/uL (4.0-10.0)
[2018-11-20 06:51] LABS: CALCIUM LEVEL 9.7 MG/DL (8.8-10.2); CREATININE FOR GFR 6.22 MG/DL (0.55-1.30); GLOMERULAR FILTRATION RATE 7.3 (>45); POTASSIUM SERUM 5.2 MEQ/L (3.5-5.1)
[2018-11-20] MEDS: HumaLOG INSULIN (NovoLOG) PER UNIT SC SCH ×4 (07:30→21:00)
--- NOTE | 2018-11-20 07:53 | IPN ---
DATE: 11/19/2018 Mrs. Olsen is seen this morning on her bedside. She is sitting at the edge of bed at the time of my visit. She had a new peritoneal dialysis catheter placed on Tuesday afternoon and we have been flushing it since yesterday. Dr. Rome has explained to me that she has lot of a lesions, which he lysed and she has been oozing. We are flushing her catheter every 6 hours. Yesterday, she had more blood; however, today it has decreased. The catheter is not draining very well during the last couple of exchanges. The patient denies any abdominal pain or bloating. She has no dyspnea or chest pain. She had hemodialysis on Tuesday, which worked well. PHYSICAL EXAMINATION: She is awake and alert and without any distress. Temperature is 97.9 degrees Fahrenheit, heart rate 76 per minute and respiratory rate 20 per minute. Blood pressure 152/70 mmHg and oxygen saturation 98% on room air. Head is atraumatic. Neck is supple and without jugular venous distention (JVD) or thyroid enlargement. Heart sounds are regular and without a gallop or murmur. Lungs sound clear to auscultation. Abdomen is soft and nontender and bowel sounds are normal. Peritoneal dialysis catheter is intact. Extremities have no cyanosis or clubbing. On right upper chest she has a Perma-Cath, which is also without any signs of infection. Today's labs show sodium 137, potassium 5.0, CO2 29, BUN 29 and creatinine 5.25. Albumin is 2.7. Hemoglobin is 8.0, hematocrit 27.4, WBC 7.6 and platelets 199. PROBLEMS: 1. End-stage renal disease. The patient had hemodialysis on Tuesday. We will do another hemodialysis in the next day and two. There is no emergent need for hemodialysis today. 2. Hyperkalemia. Her potassium level has corrected and no intervention is indicated at this point. 3. Nonfunctioning peritoneal dialysis catheter. The patient had her catheter repositioned and some adhesions were taken down. She is oozing from her peritoneal cavity and we will continue to flush her peritoneal catheter every 6 hours. Her catheter is draining slow today. I have explained to the patient and nursing staff that a good bowel movement is very important for catheter to keep working. We will also put heparin 1000 units in next bag of peritoneal fluid. 4. Anemia. Her anemia is slightly worse compared to yesterday; however, even on the her hemoglobin was 8.4. She does have small amount of blood in the peritoneal fluid. We will continue to monitor and see if she needs transfusion. There is no emergent indication for a transfusion at this point. 5. Hypertension. Blood pressure has been very well controlled and no changes in her blood pressure medications are being made today.
[2018-11-20] MEDS: MUPIROCIN 2% OINT 22 GM TUBE TOP SCH ×2 (09:00→21:55)
[2018-11-20] MEDS: amLODIPine 5 MG TAB PO SCH (09:00)
[2018-11-20] MEDS: CARVedilol 3.125 MG TAB PO SCH ×2 (09:00→21:54)
[2018-11-20] MEDS: HYDROCORTISONE 1% CREAM 30 GM TOP SCH ×2 (09:00→21:55)
[2018-11-20] MEDS: FLUTICASONE PROP 0.05% NASAL SPRAY 16 GM (FLONASE) NARES SCH ×2 (09:00→21:54)
[2018-11-20] MEDS: LISINOPRIL 5 MG TAB PO SCH (09:00)
--- NOTE | 2018-11-20 10:55 | IPNPDOC ---
Subjective Date Seen The patient was seen on 11/20/18. Subjective Chief Complaint/HPI Patient seen and examined at the bedside. No acute overnight events noted. Objective Physical Examination General Exam: Positive: Alert, Cooperative, No Acute Distress ENT Exam: Positive: Atraumatic, Mucous membr. moist/pink Chest Exam: Positive: Clear to auscultation, Normal air movement Heart Exam: Positive: Rate Normal, Regular Rhythm, Normal S1, Normal S2 Abdomen Exam: Positive: Soft; Negative: Tenderness Extremity Exam: Negative: Tenderness Neuro Exam: Positive: Normal Speech Psych Exam: Positive: Mental status NL, Mood NL, Oriented x 3 Assessment /Plan Plan/VTE VTE Prophylaxis Ordered?: Yes Plan End-stage renal disease on HD and PD Dr Rome consulted for peritoneal catheter management-s/p repositioning on 11/17/18 Dialysis management as per nephrology Acute hypoxic respiratory failure due to fluid overload from ESRD Volume optimization via dialysis as per Nephro Hypertension continue amlodipine, coreg, lisinopril and torsemide Anemia in end-stage renal disease. IV Venofer with dialysis Aranesp with dialysis. Continue home dose of iron pills. Iatrogenic hypothyroidism (S/P thyroidectomy for Cancer) Cont levothyroxine 175 mcg daily. Diabetes Insulin sliding scale Hx of CAD On ASA, Statin, Coreg Dyslipidemia Continue statin DVT prophylaxis Heparin SC Disposition-pending continued clinical improvement, volume optimization via dialysis as per Nephro VS, I&O, 24H, [place] Vital Signs/I&O Vital Signs Date Time Temp Pulse Resp B/P (MAP) Pulse Ox O2 Delivery O2 Flow Rate FiO2 11/20/18 06:00 97.7 66 20 142/66 (91) 100 11/17/18 06:00 I&O- Last 24 Hours up to 6 AM 11/20/18 06:00 Intake Total 4720 ml Output Total 3600 ml Balance 1120 ml Laboratory Data 24H LABS Laboratory Tests 2 11/20/18 05:38: Anion Gap 7L, Glomerular Filtration Rate 7.3L, Blood Urea Nitrogen 37H, Cr eatinine 6.22H, Sodium Level 134L, Potassium Level 5.2H, Chloride Level 99, Carbon Dioxide Level 28, Calcium Level 9.7 11/20/18 05:39: Nucleated Red Blood Cells % (auto) 0.0 CBC/BMP Laboratory Tests 11/20/18 05:38 Calcium Level 9.7 11/20/18 05:39 Red Blood Count 2.94 L, Mean Corpuscular Volume 96.6 H, Mean Corpuscular Hemoglobin 28.6, Mean Corpuscular Hemoglobin Concent 29.6 L, Red Cell Distribution Width 18.2 H Microbiology Microbiology 11/13/18 Gram Stain - Final, Complete 11/13/18 Body Fluid Culture - Final, Complete ALESIA MADERA MD Nov 20, 2018 10:55
[2018-11-20] MEDS ORDERED: HEPARIN 1,000 UNITS/ML 10ML VIAL (FOR RADIOLOGY& DIALYSIS ONLY) XX ONE (11:15)
[2018-11-20] MEDS: HEPARIN SOD (PORCINE) 5000 UNITS/ML VIAL SC SCH ×2 (11:50→21:56)
[2018-11-20 14:02] LABS: APPEARANCE, BODY FLUID HAZY (CLEAR); PERITONEAL DIALYSATE FL COLOR COLORLESS (COLORLESS); SOURCE, BODY FLUID PERITONEAL DIALYSATE
--- NOTE | 2018-11-20 14:29 | IPNPDOC ---
Date Seen The patient was seen on 11/20/18. Progress Note Vascular Surgery. Dr Rome. HPI: The patient is a 62-year-old female with history of peritonitis in 07/2018 at which time PD catheter was removed. Peritoneal dialysis catheter was replaced by Dr. Rome on 10/24/18 and the patient states she has been doing peritoneal dialysis at home. Vascular surgery was consulted. The patient is s/p PD cath revision 11/17/18. The pt is in HD this PM. Nursing reports last exchange 1000cc in/950cc out. [place] in color. Medical History ESRD on HD/PD Diabetes HTN CAD with prior [place] Thyroid cancer s/p surgery small vessel disease, peritonitis 07/2017 cellulitis in past Past surgery history: 10/24/18 PD placement HD port thyroidectomy cardiac cath CABGx3 bilateral cataract PE: GEN: 62 yo F, appears stated age. No acute distress. Alert and oriented x 3. HEENT: Normocephalic, atraumatic. Moist mucous membranes. CHEST: Regular rate and rhythm, +S1, +S2 LUNGS: Clear to auscultation bilaterally. ABD: Round, soft, non-tender, mildly distended. PD catheter in place. EXT: No lower extremity edema appreciated. SKIN: [place], dry, warm. No rashes. NEURO: Alert and oriented x 3. No focal deficits appreciated. A&P: 1. Status post PD catheter insertion 10/24/18, revision 11/17/[address] Rome. 1000cc in /950cc out during last exchange. [place] in color. PD fluid culture pending as it was noted to be cloudy. Vascular Surgery will continue to monitor. VS, I&O, 24H, [place] Vital Signs/I&O Vital Signs Date Time Temp Pulse Resp B/P (MAP) Pulse Ox O2 Delivery O2 Flow Rate FiO2 11/20/18 06:00 97.7 66 20 142/66 (91) 100 11/17/18 06:00 I&O- Last 24 Hours up to 6 AM 11/20/18 05:59 Intake Total 4720 ml Output Total 3600 ml Balance 1120 ml Laboratory Data 24H LABS Laboratory Tests 2 11/20/18 05:38: Anion Gap 7L, Glomerular Filtration Rate 7.3L, Blood Urea Nitrogen 37H, Creatinine 6.22H, Sodium Level 134L, Potassium Level 5.2H, Chloride Level 99, Carbon Dioxide Level 28, Calcium Level 9.7 11/20/18 05:39: Nucleated Red Blood Cells % (auto) 0.0 11/20/18 11:59: Bedside Glucose (Misc Panel) 201H 11/20/18 12:02: Body Fluid Source PERITONEAL DIALYSATE, Body Fluid WBC (Auto) 12H, Body Fluid RB C (Auto) 3, Body Fluid Mononuclear Cells % Auto 58.3H, Fluid Polymorphonuclear Cell % Auto 41.7H, Peritoneal Fluid Color COLORLESS, Peritoneal Fluid Appearance HAZY CBC/BMP Laboratory Tests 11/20/18 05:38 Calcium Level 9.7 11/20/18 05:39 Red Blood Count 2.94 L, Mean Corpuscular Volume 96.6 H, Mean Corpuscular Hemoglobin 28.6, Mean Corpuscular Hemoglobin Concent 29.6 L, Red Cell Distribution Width 18.2 H Microbiology Microbiology 11/20/18 Gram Stain, Received Pending 11/20/18 Body Fluid Culture, Received Pending 11/13/18 Gram Stain - Final, Complete 11/13/18 Body Fluid Culture - Final, Complete Bita Ortega Nov 20, 2018 14:29
--- NOTE | 2018-11-20 15:17 | IPN ---
DATE: 11/20/2018 Ms. Olsen is seen this morning on her bedside. She has complained of shortness of breath since last night. She denies any chest pain, fever or chills. Her peritoneal exchanges are being done every six hours with 1000 mL of fluid. She still has pinkish color to the peritoneal fluid. The patient denies any fever or chills. PHYSICAL EXAMINATION: Temperature 97.7 degrees Fahrenheit, heart rate 66 per minute and respiratory rate 20 per minute. Blood pressure 142/66 mmHg and oxygen saturation 100%. Head is atraumatic. Neck is supple and jugular venous distention (JVD) is mildly elevated. She has no oral thrush or ulcers. Right internal jugular vein Perma-Cath is present. Heart sounds are regular. Lungs with slightly diminished breath sounds. Abdomen is soft and nontender and peritoneal dialysis catheter is intact. Bowel sounds are normal. Extremities have no cyanosis or clubbing. Skin has no rash or ulcers. Neurologically, she is awake, alert and oriented times three. LABORATORY DATA: Today's laboratories show WBC count 6.7, hemoglobin 8.4 and hematocrit 28.4. Platelets 215. Sodium 134, potassium 5.2, CO2 28, BUN 37 and creatinine 6.22. Glucose 110 and calcium 9.7. PROBLEMS: 1. End-stage renal disease. The patient has been currently on hemodialysis. We just started shortened peritoneal exchanges since her catheter was readjusted last week. I am going to increase her peritoneal dialysis exchanges to every four hours due to fluid retention with six hourly exchanges. We will continue with only 1000 mL of fluid volume for now. She will also get hemodialysis later this afternoon due to shortness of breath. 2. Hyperkalemia. This is mild and likely to improve with hemodialysis and ongoing peritoneal dialysis. No other intervention is indicated. 3. Shortness of breath. Probably, she is mildly volume overloaded as she has been absorbing fluid from her relatively long peritoneal exchanges. I am cutting down the peritoneal exchange time to every four hours and also we will remove about two liters of fluid with hemodialysis today. 4. Anemia. Her anemia is stable and she will continue to receive Aranesp once a week with dialysis. There is no emergent indication for a transfusion. 5. Hypertension. Blood pressure is very well-controlled and no changes are being made in her antihypertensive medications.
[2018-11-20 16:11] VITALS: BP 116/76
[2018-11-20] MEDS: ACETAMINOPHEN 500 MG TAB PO PRN (18:04)
[2018-11-20 22:00] VITALS: BP 146/69
--- NOTE | 2018-11-20 23:13 | REPVR ---
EXAM: XR Chest, 2 Views EXAM DATE/TIME: 11/20/2018 9:31 PM CLINICAL HISTORY: 62 years old, female; Shortness of breath TECHNIQUE: Imaging protocol: XR of the chest, 2 views. COMPARISON: CR Chest, 2 view PA, Lat 11/12/2018 6:20 PM FINDINGS: Tubes, catheters and devices: Right-sided dialysis catheter with its tip terminating in the right atrium, stable. Lungs: Low lung volumes. Interval improvement in previously seen interstitial and alveolar infiltrates and right base density likely improving edema/infection. Pleural space: Unremarkable. No pleural effusion. No pneumothorax. Heart/Mediastinum: Cardiomegaly. Diaphragm: Elevation of right hemidiaphragm. Bones/joints: Status post sternotomy. Demineralization of the bones. IMPRESSION: Low lung volumes. Interval improvement in previously seen interstitial and alveolar infiltrates and right base density likely improving edema/infection. Electronically signed by: Macy Cueva On 11/20/2018 23:13:05 PM
[2018-11-21 06:00] VITALS: BP 140/62
[2018-11-21 06:27] LABS: HEMATOCRIT 26.7 % (36.0-47.0); HEMOGLOBIN 7.9 g/dl (12.0-15.5); MEAN CORPUSCULAR HEMOGLOBIN 28.4 pg (27.0-33.0); MEAN CORPUSCULAR HGB CONC 29.6 g/dl (32.0-36.5); PLATELET COUNT, AUTOMATED 207 10^3/uL (150-450); RED BLOOD COUNT 2.78 10^6/uL (4.00-5.40); WHITE BLOOD COUNT 5.4 10^3/uL (4.0-10.0)
[2018-11-21] MEDS: LEVOTHYROXINE 75MCG TABLET (0.075MG) PO SCH (06:44)
[2018-11-21] MEDS: LEVOTHYROXINE 100MCG TABLET (0.1MG) PO SCH (06:44)
[2018-11-21 06:53] LABS: CREATININE FOR GFR 4.02 MG/DL (0.55-1.30); POTASSIUM SERUM 4.3 MEQ/L (3.5-5.1)
[2018-11-21] MEDS: HumaLOG INSULIN (NovoLOG) PER UNIT SC SCH ×4 (07:30→21:00)
--- NOTE | 2018-11-21 08:35 | IPNPDOC ---
Date Seen The patient was seen on 11/21/18. Progress Note Vascular Surgery. Dr Rome. HPI: The patient is a 62-year-old female with history of peritonitis in 07/2018 at which time PD catheter was removed. Peritoneal dialysis catheter was replaced by Dr. Rome on 10/24/18 and the patient states she has been doing peritoneal dialysis at home. Vascular surgery was consulted. The patient is s/p PD cath revision 11/17/18. Pt reports last exchange 1000cc in/900cc out. Light pink in color. 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 Medical History ESRD on HD/PD Diabetes HTN CAD with prior [place] Thyroid cancer s/p surgery small vessel disease, peritonitis 07/2017 cellulitis in past Past surgery history: 10/24/18 PD placement HD port thyroidectomy cardiac cath CABGx3 bilateral cataract PE: GEN: 62 yo F, appears stated age. No acute distress. Alert and oriented x 3. HEENT: Normocephalic, atraumatic. Moist mucous membranes. CHEST: Regular rate and rhythm, +S1, +S2 LUNGS: Clear to auscultation bilaterally. ABD: Round, soft, non-tender, mildly distended. PD catheter in place. No erythema or drainage. EXT: No lower extremity edema appreciated. SKIN: [place], dry, warm. No rashes. NEURO: Alert and oriented x 3. No focal deficits appreciated. A&P: 1. Status post PD catheter insertion 10/24/18, revision 11/17/[address] Rome. 1000cc in /900cc out with last exchange. Light pink in color. PD fluid culture pending as it was noted to be cloudy. GS no cells seen. Vascular Surgery will continue to monitor. DVT prophylaxis. SQ Heparin. VS, I&O, 24H, Fishbone Vital Signs/I&O Vital Signs Date Time Temp Pulse Resp B/P (MAP) Pulse Ox O2 Delivery O2 Flow Rate FiO2 11/21/18 06:00 96.8 68 18 140/62 (88) 100 3.0 I&O- Last 24 Hours up to 6 AM 11/21/18 06:00 Intake Total 5360 ml Output Total 7100 ml Balance -1740 ml Laboratory Data 24H LABS Laboratory Tests 2 11/20/18 11:59: Bedside Glucose (Misc Panel) 201H 11/20/18 12:02: Body Fluid Source PERITONEAL DIALYSATE, Body Fluid WBC (Auto) 12H, Body Fluid RBC (Auto) 3, Body Fluid Mononuclear Cells % Auto 58.3H, Fluid Polymorphonuclear Cell % Auto 41.7H, Peritoneal Fluid Color COLORLESS, Peritoneal Fluid Appearance HAZY 11/20/18 17:00: Bedside Glucose (Misc Panel) 71L 11/20/18 21:32: Bedside Glucose (Misc Panel) 172H 11/21/18 05:58: Nucleated Red Blood Cells % (auto) 0.0, Anion Gap 7L, Glomerular Filtration Rate 12.0L, Blood Urea Nitrogen 19H, Creatinine 4.02H, Sodium Level 136, Potassium Level 4.3, Chloride Level 99, Carbon Dioxide Level 30, Calcium Level 9.0 CBC/BMP Laboratory Tests 11/21/18 05:58 Red Blood Count 2.78 L, Mean Corpuscular Volume 96.0, Mean Corpuscular Hemoglobin 28.4, Mean Corpuscular Hemoglobin Concent 29.6 L, Red Cell Distribution Width 17.8 H, Calcium Level 9.0 Microbiology Microbiology 11/20/18 Gram Stain - Final, Resulted 11/20/18 Body Fluid Culture, Resulted Pending 11/13/18 Gram Stain - Final, Complete 11/13/18 Body Fluid Culture - Final, Complete Bita Ortega Nov 21, 2018 08:35
[2018-11-21] MEDS: CARVedilol 3.125 MG TAB PO SCH ×2 (08:40→21:51)
[2018-11-21] MEDS: ASPIRIN 81 MG ENTERIC TAB PO SCH (08:40)
[2018-11-21] MEDS: ATORVASTATIN 20 MG TAB PO SCH (08:40)
[2018-11-21] MEDS: NEPHRO-VIT TAB (NEPHROCAPS) PO SCH (08:40)
[2018-11-21] MEDS: HEPARIN SOD (PORCINE) 5000 UNITS/ML VIAL SC SCH ×2 (08:40→21:52)
[2018-11-21] MEDS: LISINOPRIL 5 MG TAB PO SCH (08:40)
[2018-11-21] MEDS: amLODIPine 5 MG TAB PO SCH (08:40)
[2018-11-21] MEDS: FERROUS GLUCONATE 324 MG TAB PO SCH ×2 (08:40→21:50)
[2018-11-21] MEDS: DOCUSATE SODIUM 100 MG CAP PO SCH ×2 (08:40→21:50)
[2018-11-21] MEDS: HYDROCORTISONE 1% CREAM 30 GM TOP SCH ×2 (08:41→21:53)
[2018-11-21] MEDS: FLUTICASONE PROP 0.05% NASAL SPRAY 16 GM (FLONASE) NARES SCH ×2 (08:41→21:52)
[2018-11-21] MEDS: MUPIROCIN 2% OINT 22 GM TUBE TOP SCH ×2 (08:41→21:53)
[2018-11-21] MEDS ORDERED: ISOVUE-370 76% 100ML VIAL (Q9967) As Ordered ONE (10:21)
[2018-11-21] MEDS ORDERED: HEPARIN 1,000 UNITS/ML 10ML VIAL (FOR RADIOLOGY& DIALYSIS ONLY) IV ONE (11:30)
[2018-11-21] MEDS ORDERED: HEPARIN 1,000 UNITS/ML 10ML VIAL (FOR RADIOLOGY& DIALYSIS ONLY) XX ONE (11:30)
--- NOTE | 2018-11-21 11:34 | REP ---
Clinical: Hypoxemia. Technique: Axial contrast enhanced images from the thoracic inlet to the upper abdomen using pulmonary embolus protocol including multiplanar re-formations. 100 ml Isovue 370 intravenous contrast material administered without complication. Findings: Satisfactory enhancement of the pulmonary vasculature is achieved and no filling defects are identified to suggest pulmonary embolus. Atherosclerotic changes to the thoracic aorta and coronary arteries noted without evidence for aortic aneurysm or dissection. Mild cardiomegaly suggested without pericardial effusion. The lung lombardi demonstrate scattered small to moderate bilateral areas of linear atelectasis. No effusion. No pneumothorax. Tracheobronchial tree is patent. No significant adenopathy. Osseous structures demonstrate age-related changes and evidence for prior sternotomy. Limited upper abdomen demonstrates small amount of right upper quadrant ascites. Impression: 1. No evidence for pulmonary embolus. 2. Moderate scattered bilateral atelectasis. 3. Atherosclerotic disease to the thoracic aorta and coronary arteries along with cardiomegaly. 4. The visualized upper abdomen demonstrates small amount of right upper quadrant ascites. Electronically Signed by Shashi Haney MD 11/21/2018 11:25 A
--- NOTE | 2018-11-21 12:21 | IPNPDOC ---
Text Note Date of Service The patient was seen on 11/21/18. NOTE S: patient states episode of SOB last night. States no CP, no Diaphoresis and no orthopnea. States she is gaining water weight. She is having PD exchanges of 1000 cc every 4 hours and Hemodialysis O: Vitals as below General: pleasant NAD AAOX3, speaking full sentences HRRR LCTA with scant bibas rales Ext no edema CXR images reviewed with patient. cardiomegally, Mild vascular congestion, no effusions no infiltrates and greatly improved compared to admission A/P 1. End-stage renal disease on HD and PD - management by nephrology. PD s/p repositioning on 11/17/18 ; HD today disposition for discharge pending nephrology recommendations. Torsemide s topped on 11/17 - may need to consider restarting medication. 2. Hypertension with end-stage renal disease and hypertensive heart disease. - continue amlodipine,coreg, lisinopril (off diuretic) 3. Anemia in end-stage renal disease. IV Venofer with dialysis Aranesp with dialysis. Continue home dose of iron pills. 4. Iatrogenic hypothyroidism (S/P thyroidectomey for Cancer) - levothyroxine 175 mcg daily. 5. Diabetes - not on rodent exterminator insulin, with hyperglycemia, without hypogly cemia 6. Fluid overload suggestive CHF (unknown type or chronicity) RESOLVED with HD 7. Acute hypoxic respiratory failure due to fluid overload from ESRD - RESOLVED DVT prophylaxis: hep SC Current Medications Medications (Trade) Dose Ordered Sig/Pooja Route PRN Reason Start Time Stop Time Status Last Admin Dose Admin Acetaminophen (Tylenol Tab) 650 mg Q4H PRN PO PAIN OR FEVER 11/12/18 17:15 11/15/18 16:17 Acetaminophen (Tylenol Tab) 1,000 mg Q6H PRN PO PAIN 11/12/18 22:00 11/20/18 18:04 Al Hydrox/Mg Hydrox/Simethicone (Mylanta) 10 ml DAILY PRN PO DYSPEPSIA 11/12/18 17:15 Amlodipine Besylate (Norvasc) 5 mg DAILY PO 11/13/18 09:00 11/21/18 08:40 Aspirin (Ecotrin) 81 mg DAILY PO 11/13/18 09:00 11/21/18 08:40 Atorvastatin Calcium (Lipitor) 20 mg DAILY PO 11/13/18 09:00 11/21/18 08:40 Carvedilol (COReg) 3.125 mg BID PO 11/12/18 21:00 11/21/18 08:40 Darbepoetin Jeffry (Aranesp (Dialysis Use)) 200 mcg HD IV 11/12/18 22:15 Dextrose (Dextrose 50%) 25 ml ASDIRECTED PRN IV SEE LABEL COMMENTS 11/12/18 18:15 Docusate Sodium (Colace) 100 mg BID PO 11/12/18 21:00 11/21/18 08:40 Fentanyl Citrate (Sublimaze) 25 mcg Q5MP PRN IV MODERATE PAIN (PS 4-7) 11/17/18 13:30 11/17/18 14:30 DC Ferrous Gluconate (Fergon) 324 mg BID PO 11/12/18 21:00 11/21/18 08:40 Fluticasone Propionate (Flonase 0.05% Nasal [place]) 1 SPRAY IN EACH NOSTRIL BID NARES 11/14/18 09:00 11/21/18 08:41 Glucagon (Glucagon) 1 mg ASDIRECTED PRN SC SEE LABEL COMMENTS 11/12/18 18:15 Glucose (Glucose) 16 GM ASDIRECTED PRN PO SEE LABEL COMMENTS 11/12/18 18:15 Heparin Sodium (Porcine) (Heparin) 5,000 units Q12H SC 11/12/18 22:00 11/21/18 08:40 Home Med (Med Rec Complete!) ASDIRECTED XX 11/12/18 21:15 11/12/18 21:18 DC Hydrocortisone (Hydrocortisone 1% Cream) 1 dose BID TOP 11/18/18 21:00 11/20/18 21:55 Insulin Human Lispro (HumaLOG INSULIN) SEE PROTOCOL TABLE AC SC 11/13/18 07:30 11/20/18 12:06 Insulin Human Lispro (HumaLOG INSULIN) SEE PROTOCOL TABLE QHS SC 11/12/18 21:00 Iron (Venofer) 100 mg HD IV 11/13/18 10:15 11/22/18 10:16 Levothyroxine Sodium (Synthroid) 75 mcg DAILY@06 PO 11/13/18 06:00 11/21/18 06:44 Levothyroxine Sodium (Synthroid) 100 mcg DAILY@06 PO 11/13/18 06:00 11/21/18 06:44 Lisinopril (Prinivil) 5 mg DAILY PO 11/13/18 09:00 11/21/18 08:40 Magnesium Hydroxide (Milk Of Magnesia) 30 ml DAILY PRN PO CONSTIPATION 11/12/18 17:15 Miscellaneous (Unresolved Clarification Entry) SEE LABEL COMMENTS DAILY XX 11/19/18 09:00 11/19/18 10:48 DC Mupirocin (Bactroban 2% Ointment) apply to catheter exit s... BID TOP 11/15/18 09:00 11/22/18 08:59 11/21/18 08:41 Ondansetron HCl (ZOFRAN INJection) 4 mg Q4HP PRN IV NAUSEA OR VOMITING 11/17/18 13:30 11/17/18 14:30 DC Oxycodone HCl (Roxicodone, Oxyir) 5 mg ASDIRECTED PRN PO MILD/MODERATE PAIN (PS 1-7) 11/17/18 13:30 11/17/18 14:30 DC Potassium Chloride (Micro-K Extencaps) 10 meq DAILY PO 11/13/18 09:00 11/18/18 09:10 DC 11/17/18 06:13 Sodium Chloride 1,000 ml @ 15 mls/hr Q24H IV 11/17/18 13:30 11/17/18 14:30 DC Torsemide (Demadex) 20 mg BID@0900,1700 PO 11/12/18 17:00 11/18/18 09:10 DC 11/17/18 18:05 Vitamin B Complex/ Vit C/Folic Acid (Nephro-Kamran Rx) 1 tab DAILY PO 11/13/18 09:00 11/21/18 08:40 VS,Fishbone, I+O VS, Fishbone, I+O Laboratory Tests 11/21/18 05:58 Red Blood Count 2.78 L, Mean Corpuscular Volume 96.0, Mean Corpuscular Hemoglobin 28.4, Mean Corpuscular Hemoglobin Concent 29.6 L, Red Cell Distribution Width 17.8 H, Calcium Level 9.0 Vital Signs Date Time Temp Pulse Resp B/P (MAP) Pulse Ox O2 Delivery O2 Flow Rate FiO2 11/21/18 09:00 3.0 11/21/18 08:40 140/62 11/21/18 08:40 68 7/30/19 06:00 96.8 18 100 I&O- Last 24 Hours up to 6 AM 11/21/18 06:00 Intake Total 5360 ml Output Total 7100 ml Balance -1740 ml TORIE VILLAVICENCIO DO Nov 21, 2018 12:21
--- NOTE | 2018-11-21 13:31 | IPN ---
DATE: 11/21/2018 Mrs. Olsen is seen this morning on her bedside. She became short of breath yesterday afternoon, even after she had hemodialysis and 2 liters fluid removal. She has been on 3 liters oxygen through the night. We did a chest x-ray yesterday late afternoon, which did not show any acute infiltrate or significant effusion. In fact the x-ray showed improvement in previously seen interstitial and alveolar infiltrates. She reports that she slept only 2 hours through the night and has been short of breath. She is currently using oxygen 3 liters via nasal cannula. She has no fever or chills. She denies any nausea or vomiting. Her peritoneal dialysis was also adjusted yesterday in order to try to help with fluid removal. Now she is getting exchange of peritoneal dialysis every 4 hours with 2.5 liters of fluid. We are still using only 1 liter of volume due to recent procedure on her abdominal wall for catheter repositioning. PHYSICAL EXAMINATION She is awake and alert, sitting at the edge of bed, using oxygen via nasal cannula. Temperature is 96.8 degrees Fahrenheit, heart rate 68 per minute and respiratory rate 20 per minute. Blood pressure 140/62 mmHg and oxygen saturation 100% of 3 liters oxygen. Head is atraumatic. Neck is supple and jugular venous distention (JVD) is more prominent compared with yesterday. Lungs sound mostly clear with few basilar rales. Heart sounds are regular and there is no pericardial friction rub. Abdomen is soft, distended with peritoneal dialysis fluid and peritoneal catheter is intact. Extremities have no cyanosis or clubbing. Neurologically, she is awake, alert and oriented times three. LABORATORIES: Today's labs show WBC count 5.4, hemoglobin 7.9 and hematocrit 26.7. Platelets 207. Sodium 136, potassium 4.3, CO2 30, BUN 19 and creatinine 4.02. Glucose 100 and calcium 9.0. PROBLEMS: 1. Shortness of breath and hypoxemia. I am concerned about possibility of pulmonary embolus. We did a CT angiogram this morning, which did not show any evidence of pulmonary embolus. She had dialysis yesterday and we removed 2.5 liters fluid. I am going to dialyze her again today for ultrafiltration and we will try to remove 3 liters of fluid today. She does have weight gain despite dialysis and fluid removal, which is concerning. She is probably retaining more fluid from peritoneal dialysis than we initially thought. At this point, her peritoneal exchange was just adjusted yesterday. I am going to increase the peritoneal dialysis volume to 1500 mL per day and we will continue with exchanges every 4 hours and see how she does. 2. End-stage renal disease. The patient is very well dialyzed and she underwent hemodialysis yesterday in addition to peritoneal dialysis. We are increasing her peritoneal dialysis volume to 1500 mL for each exchange and we will continue with every 4-hour exchanges for now. Once she goes home then she will resume her cycler dialysis at home. 3. Anemia. Blood in the peritoneal fluid is decreasing and anemia is slightly worse. We will consider to transfuse her if needed but at this time I am just going to watch her as she is volume overloaded and we will recheck her CBC tomorrow and see how she does. 4. Hypertension. Blood pressure is very well controlled on current medications and no changes are being made today.
[2018-11-21 22:00] VITALS: BP 113/55
[2018-11-22 06:00] VITALS: BP 139/65
[2018-11-22 06:23] LABS: HEMATOCRIT 29.9 % (36.0-47.0); HEMOGLOBIN 8.9 g/dl (12.0-15.5); MEAN CORPUSCULAR HEMOGLOBIN 28.8 pg (27.0-33.0); MEAN CORPUSCULAR HGB CONC 29.8 g/dl (32.0-36.5); MEAN CORPUSCULAR VOLUME 96.8 fl (80.0-96.0); PLATELET COUNT, AUTOMATED 220 10^3/uL (150-450); RED BLOOD COUNT 3.09 10^6/uL (4.00-5.40); WHITE BLOOD COUNT 4.7 10^3/uL (4.0-10.0)
[2018-11-22 06:48] LABS: CALCIUM LEVEL 9.6 MG/DL (8.8-10.2); CREATININE FOR GFR 4.94 MG/DL (0.55-1.30); GLOMERULAR FILTRATION RATE 9.5 (>45); POTASSIUM SERUM 4.7 MEQ/L (3.5-5.1)
[2018-11-22] MEDS: LEVOTHYROXINE 100MCG TABLET (0.1MG) PO SCH (06:50)
[2018-11-22] MEDS: LEVOTHYROXINE 75MCG TABLET (0.075MG) PO SCH (06:50)
[2018-11-22] MEDS: HumaLOG INSULIN (NovoLOG) PER UNIT SC SCH ×2 (07:22→11:36)
[2018-11-22] MEDS: HYDROCORTISONE 1% CREAM 30 GM TOP SCH (09:00)
[2018-11-22] MEDS: NEPHRO-VIT TAB (NEPHROCAPS) PO SCH (09:19)
[2018-11-22] MEDS: HEPARIN SOD (PORCINE) 5000 UNITS/ML VIAL SC SCH (09:19)
[2018-11-22 09:20] VITALS: BP 139/65
[2018-11-22] MEDS: CARVedilol 3.125 MG TAB PO SCH (09:20)
[2018-11-22] MEDS: FERROUS GLUCONATE 324 MG TAB PO SCH (09:20)
[2018-11-22] MEDS: ASPIRIN 81 MG ENTERIC TAB PO SCH (09:20)
[2018-11-22] MEDS: FLUTICASONE PROP 0.05% NASAL SPRAY 16 GM (FLONASE) NARES SCH (09:20)
[2018-11-22] MEDS: LISINOPRIL 5 MG TAB PO SCH (09:20)
[2018-11-22] MEDS: amLODIPine 5 MG TAB PO SCH (09:20)
[2018-11-22] MEDS: ATORVASTATIN 20 MG TAB PO SCH (09:20)
[2018-11-22] MEDS: DOCUSATE SODIUM 100 MG CAP PO SCH (09:20)
--- NOTE | 2018-11-22 09:46 | IPNPDOC ---
Date Seen The patient was seen on 11/22/18. Progress Note Vascular Surgery. Dr Rome. HPI: The patient is a 62-year-old female with history of peritonitis in 07/2018 at which time PD catheter was removed. Peritoneal dialysis catheter was replaced by Dr. Rome on 10/24/18 and the patient states she has been doing peritoneal dialysis at home. Vascular surgery was consulted. The patient is s/p PD cath revision 11/17/18. Pt reports last exchange 1500cc in/1600cc out. Pt states almost clear in color. The pt states there has been no pain, abdominal pain. Pt is s/p HD and reports she is feeling better. Medical History ESRD on HD/PD Diabetes HTN CAD with prior [place] Thyroid cancer s/p surgery small vessel disease, peritonitis 07/2017 cellulitis in past Past surgery history: 10/24/18 PD placement HD port thyroidectomy cardiac cath CABGx3 bilateral cataract PE: GEN: 62 yo F, appears stated age. No acute distress. Alert and oriented x 3. HEENT: Normocephalic, atraumatic. Moist mucous membranes. CHEST: Regular rate and rhythm, +S1, +S2 LUNGS: Clear to auscultation bilaterally. ABD: Round, soft, non-tender, mildly distended. PD catheter in place. No erythema or drainage. EXT: No lower extremity edema appreciated. SKIN: Tobias, dry, warm. No rashes. NEURO: Alert and oriented x 3. No focal deficits appreciated. A&P: 1. Status post PD catheter insertion 10/24/18, revision 11/17/[address] Rome. 1500cc in /1600cc out with last exchange. Almost clear in color per pt. PD fluid culture neg 11/13/18 PD fluid culture pending from 11/20/18. GS no cells seen. The pt is reviewed by Dr Rome, PD catheter OK to use. Possibly consider removal of Permcath at later date pending continued progress with PD. Vascular Surgery will sign off for now, reconsult as needed. DVT prophylaxis. SQ Heparin. VS, I&O, 24H, Fishbone Vital Signs/I&O Vital Signs Date Time Temp Pulse Resp B/P (MAP) Pulse Ox O2 Delivery O2 Flow Rate FiO2 11/22/18 09:20 139/65 11/22/18 09:20 71 7/31/19 06:00 97.7 18 97 11/21/18 09:00 3.0 I&O- Last 24 Hours up to 6 AM 11/22/18 05:59 Intake Total 9670 ml Output Total 30193 ml Balance -1830 ml Laboratory Data 24H LABS Laboratory Tests 2 11/21/18 21:03: Bedside Glucose (Misc Panel) 168H 11/22/18 05:49: Nucleated Red Blood Cells % (auto) 0.0, Anion Gap 9, Glomerular Filtration Rate 9.5L, Blood Urea Nitrogen 24H, Creatinine 4.94H, Sodium Level 134L, Potassium Level 4.7, Chloride Level 97L, Carbon Dioxide Level 28, Calcium Level 9.6 CBC/BMP Laboratory Tests 11/22/18 05:49 Red Blood Count 3.09 L, Mean Corpuscular Volume 96.8 H, Mean Corpuscular Hemoglobin 28.8, Mean Corpuscular Hemoglobin Concent 29.8 L, Red Cell Distribution Width 17.4 H, Calcium Level 9.6 Microbiology Microbiology 11/20/18 Gram Stain - Final, Resulted 11/20/18 Body Fluid Culture, Resulted Pending 11/13/18 Gram Stain - Final, Complete 11/13/18 Body Fluid Culture - Final, Complete Bita Ortega Nov 22, 2018 09:46
[2018-11-22] MEDS ORDERED: COLA100C5 PO (11:40)
[2018-11-22] MEDS ORDERED: IRON SUCROSE 100MG 5ML VIAL (J1756 PER 1MG) IV ONE (12:00)
--- NOTE | 2018-11-22 12:10 | IPN ---
DATE OF VISIT: 11/22/2018 Ms. Olsen is seen this morning on her bedside. She is feeling much better now and not requiring oxygen anymore. She underwent hemodialysis yesterday again and 3 liters of fluid was removed, while 2 liters fluid was removed on 11/20/2018. Her weight is down to 62.8 kg today, and her dyspnea has improved. We also adjusted her peritoneal dialysis, which is functioning much better now, and she is not retaining any fluid. She denies any nausea, vomiting, dyspnea or chest pain at present. On physical exam, temperature 97.7 degrees Fahrenheit, heart rate 70 per minute and respiratory rate 18 per minute. Blood pressure 139/65 mmHg and oxygen saturation 97%. She is currently on room air. Her head is atraumatic. Neck is supple and without jugular venous distention (JVD) or thyroid enlargement. Heart sounds regular and lungs clear to auscultation. Abdomen soft and nontender, and peritoneal dialysis catheter is intact. Bowel sounds are normal. Extremities have no cyanosis or clubbing. Today's labs show WBC count 4.7, hemoglobin 8.9 and hematocrit 29.9. Platelets 220. Sodium 134, potassium 4.7, CO2 28, BUN 24 and creatinine 4.94. PROBLEMS: 1. End-stage renal disease. Patient has been on a combination of peritoneal dialysis and hemodialysis due to a repositioning of catheter and bleeding from her abdominal cavity. Her peritoneal dialysis is now functioning much better and we have increased the exchange volume to 1500 per exchange. She is getting peritoneal dialysis every 4 hours and has been slightly negative in volume status. She also had hemodialysis yesterday and 3 liters of fluid was removed with hemodialysis. 2. Anemia with bleeding from peritoneum. Patient had lysis of adhesions, which did cause some oozing of blood. Her peritoneal fluid has cleared significantly. We will continue with peritoneal dialysis for now to prevent further adhesions. Her catheter is functioning much better now. 3. Anemia. She does have anemia of chronic kidney disease and blood loss. She will require intravenous iron, which can be given as an outpatient. At present, her anemia is stable and does not need any urgent intervention. 4. Hypertension. Blood pressure is much better and she will continue with current medications. 5. Shortness of breath. She was volume overloaded and improved with removal of fluid. She had a CT angiogram yesterday, which was unremarkable. DISPOSITION: Patient can be discharged to home today and she will followup in outpatient dialysis clinic.
[2018-11-22] MEDS ORDERED: IRON SUCROSE 200 MG in NS 250 ML IV ONE (14:00)
--- NOTE | 2018-11-23 21:06 | DS.PDOC ---
Discharge Summary General Date of Admission Nov 12, 2018 at 17:15 Date of Discharge 11/22/18 Attending Physician: TORIE VILLAVICENCIO DO Specialist/Consultants Involve: HERNANDO HINKLE DO Specialist/Consultants Involve Dr Tinoco Discharge Summary PROCEDURES PERFORMED DURING STAY: Status post PD catheter insertion 10/24/18, revision 11/17/[address] Tinoco. PD s/p repositioning on 11/17/18 ADMITTING DIAGNOSES: ESRD on HD/PD Acute hypoxic respiratory failure due to fluid overload from ESRD Diabetes - not on long-term insulin, with hyperglycemia, without hypoglycemia HTN Fluid overload suggestive CHF (unknown type or chronicity) - CAD by history - negative troponin Hypothryoid DISCHARGE DIAGNOSES: 1. End-stage renal disease on HD and PD 2. Hypertension with end-stage renal disease and hypertensive heart disease. - 3. Anemia in end-stage renal disease. 4. Iatrogenic hypothyroidism (S/P thyroidectomey for Cancer) 5. Diabetes - not on long-term insulin, with hyperglycemia, without hypoglycemia 6. Fluid overload suggestive CHF (unknown type or chronicity) RESOLVED with HD 7. Acute hypoxic respiratory failure due to fluid overload from ESRD - RESOLVED COMPLICATIONS/CHIEF COMPLAINT: Fluid Overdose. HISTORY OF PRESENT ILLNESS: 62 yo female direct admit from [facility] because of fluid overload. Patient was on 2 liter NC when left ED and on [facility] to current hospital required 6 liters NC for maintaining sat above 91% . Patient had episode of peritonitis in 07/2018 at which time PD was removed. She recovered and had been receiving HD until last tuesday (11/06/18). She had a HD placed by Dr Tinoco on October 24 and patient began home HD on tuesday11/08/18. States has been using HD daily. Yesterday she noticed increasing SOB but thought it was because of the hot humid muggy weather. Today she states SOB is worse and unable to walk 15 feet because of dyspnea. She states over past week has gained 12 pounds (weight at HD dialysis center 135 #, weight today at home 147#). patient states oliguria , no diarrhea, no constipation, no CP, no fever. has dry cough and orthopnea. States her blood sugars have been well controlled over past week. See H&P for details. HOSPITAL COURSE: patient admitted and emergently HD dialysis on admission with improvement in her oxygenation. She continued to be dialysized daily (HD). Dr Tinoco consulted to evaluate PD cathetar. The PD fluid culture neg 11/13/18 and 11/20/18. GS no cells seen. It was determined the PD cathetar was OK to use. Patient underwent exchanges (PD) and dialysis (HD) and continued to improve. Dr Tinoco suggested possibly consider removal of Permcath at later date pending continued progress with PD. patient refusing HD as outpatient. She continued to improve and is being discharged in stable condition with close follow up by nephrology DISCHARGE MEDICATIONS: Please see below. ALLERGIES: Please see below. PHYSICAL EXAMINATION ON DISCHARGE: VITAL SIGNS: Please see below. GENERAL: pleasant, NAD AAOX3 HRRR LCTA Ext: trace ankle edema LABORATORY DATA: Please see below. IMAGING: CXR images reviewed with patient. cardiomegally, Mild vascular congestion, no effusions no infiltrates and greatly improved compared to admission PROGNOSIS: fair ACTIVITY:as tolerated DIET: renal diet DISCHARGE PLAN: discharge home DISCHARGE INSTRUCTIONS: 1. follow up with Dr Hinkle 11/28/18 2. use PD cycler at home with 1500 cc exchange once a day 3. Daily weights and if weight increases 3 pounds over night or 5 pounds in 1 week - call dr Hinkle office DISCHARGE CONDITION: stable TIME SPENT ON DISCHARGE: 45 minutes. Vital Signs/I&Os Vital Signs Date Time Temp Pulse Resp B/P (MAP) Pulse Ox O2 Delivery O2 Flow Rate FiO2 11/22/18 09:20 139/65 11/22/18 09:20 71 11/22/18 06:00 97.7 18 97 11/21/18 09:00 3.0 I&O- Last 24 Hours up to 6 AM 11/22/18 06:00 Intake Total 8670 ml Output Total 03739 ml Balance -1830 ml Laboratory Data Labs 24H Laboratory Tests 2 11/21/18 21:03: Bedside Glucose (Misc Panel) 168H 11/22/18 05:49: Nucleated Red Blood Cells % (auto) 0.0, Anion Gap 9, Glomerular Filtration Rate 9.5L, Blood Urea Nitrogen 24H, Creatinine 4.94H, Sodium Level 134L, Potassium Level 4.7, Chloride Level 97L, Carbon Dioxide Level 28, Calcium Level 9.6 CBC/BMP Laboratory Tests 11/22/18 05:49 Red Blood Count 3.09 L, Mean Corpuscular Volume 96.8 H, Mean Corpuscular Hemoglobin 28.8, Mean Corpuscular Hemoglobin Concent 29.8 L, Red Cell Di stribution Width 17.4 H, Calcium Level 9.6 FSBS Laboratory Tests Test 11/21/18 21:03 Range/Units Bedside Glucose (Misc Panel) 168 80-115 MG/DL Microbiology Microbiology 11/20/18 Gram Stain - Final, Complete 11/20/18 Body Fluid Culture - Final, Complete 11/13/18 Gram Stain - Final, Complete 11/13/18 Body Fluid Culture - Final, Complete Discharge Medications Scheduled Amlodipine Besylate (Amlodipine Besylate) 5 Mg Tablet, 5 MG PO DAILY, (Reported) Aspirin (Aspir 81) 81 Mg Tablet.dr, 81 MG PO DAILY, (Reported) Atorvastatin Calcium (Atorvastatin Calcium) 20 Mg Tablet, 20 MG PO DAILY, (Reported) Carvedilol (Carvedilol) 3.125 Mg Tablet, 3.125 MG PO BID, (Reported) Docusate Sodium (Colace) 100 Mg Capsule, 100 MG PO BID Ferric Citrate (Auryxia) 210 Mg Tablet, 210 MG PO TID, (Reported) Folic Acid/Vit B Complex and C (Zo-Kamran Tablet) 0.8 Mg Tablet, 1 TAB PO DAILY, (Reported) Levothyroxine Sodium (Levothyroxine Sodium) 175 Mcg Tablet, 175 MCG PO DAILY, (Reported) Lisinopril (Lisinopril) 5 Mg Tablet, 5 MG PO DAILY, (Reported) Potassium Chloride (Potassium Chloride) 10 Meq Tablet.er, 10 MEQ PO DAILY, (Reported) Torsemide (Torsemide) 20 Mg Tablet, 20 MG PO BID, (Reported) Scheduled PRN Acetaminophen (Acetaminophen) 500 Mg Tablet, 1,000 MG PO Q6H PRN for PAIN, (Reported) Nitroglycerin (Nitroglycerin) 0.4 Mg Tab.subl, 0.4 MG SL Q5MP PRN for CHEST PAIN, (Reported) Allergies Coded Allergies: Penicillins (Unverified Allergy, Intermediate, HIVES, 08/22/18) latex (Verified Allergy, Unknown, ITCHING, ORIGINALLY LISTED BAND-AID, 10/23/18) hydrocodone (Unverified Adverse Reaction, Mild, VOMITING, 08/21/18) egg (Unverified Adverse Reaction, Unknown, VOMITING, 08/21/18) TORIE VILLAVICENCIO DO Nov 22, 2018 11:34
[2018-11-23] MEDS ORDERED: RENV2TAB PO (23:47)
[2018-11-23] MEDS ORDERED: SYNT150T PO (23:47)
[2018-11-23] MEDS ORDERED: DOCU100T8 PO (23:48)
[2018-11-23] MEDS ORDERED: VITA1CAP25 PO (23:48)
--- NOTE | 2018-12-07 12:12 | RO ---
DATE OF PROCEDURE: 11/17/2018 ATTENDING SURGEON: Dr. Diamond Rome FIELD MARKETER: None. PREOPERATIVE DIAGNOSES: End-stage renal disease, dysfunctional peritoneal dialysis catheter. POSTPROCEDURE DIAGNOSES: End-stage renal disease, dysfunctional peritoneal dialysis catheter. PROCEDURE: Laparoscopic exploration, laparoscopic lysis of adhesions, laparoscopic peritoneal dialysis catheter revision with placement of a suture. INDICATION: The patient is a 62-year-old female with end-stage renal disease who previously had removal of a peritoneal dialysis catheter secondary to infection and underwent replacement of the catheter, which is now dysfunctional. The patient will undergo laparoscopic evaluation with possible replacement and/or removal. ANESTHESIA: General endotracheal. ESTIMATED BLOOD LOSS: 17 mL IV FLUIDS: 300 mL SPECIMENS: Thrombin from within the peritoneal dialysis catheter. PROCEDURE: The patient was taken the operating room, placed supine on the operating room table and prepped and draped in a standard surgical fashion. The abdomen was insufflated through the existing peritoneal dialysis catheter. A 5 mm port was placed in the left upper quadrant. Using direct laparoscopic visualization, the abdominal cavity was evaluated and there were adhesions noted in the pelvis from the small bowel to the abdominal wall, as well as omentum to the abdominal wall encasing the peritoneal dialysis catheter. These adhesions were taken down sharply and bluntly. The catheter was then secured to the intra-abdominal wall using 2-0 Prolene suture and fibrin was stripped from the catheter lumen and removed. The abdomen was desufflated. 1 liter saline was instilled through the catheter, which returned easily on egress. The puncture wounds were closed using 3-0 Monocryl inverted interrupted fashion. Steri-Strips and dressings were applied. The patient tolerated the procedure well. All instrument, sponge and needle counts were correct at the case. There were no complications. Dr. Rome was present for and directed the entire case. The patient was transferred to the recovery room and subsequently to the floor in stable condition.
== END 2018-11-22 14:04 | disposition home or self-care (01) | DRG 907 ==
LOC: M MSPAV 17:15
PROVIDERS: ADMIT Family Medicine; ATTEND Family Medicine
PROC: 3E1M39Z Irrigation of Peritoneal Cavity using Dialysate, Percutaneous Approach (ICD-10-PCS; 2018-11-12)
PROC: 0DNU4ZZ Release Omentum, Percutaneous Endoscopic Approach (ICD-10-PCS; 2018-11-17)
PROC: 0WW Anatomical Regions, General, Revision (ICD-10-PCS; principal; 2018-11-17 11:45)
DX: T85.611A Breakdown (mechanical) of intraperitoneal dialysis catheter, initial encounter (principal); J96.01 Acute respiratory failure with hypoxia; N18.6 End stage renal disease; I13.2 Hypertensive heart and chronic kidney disease with heart failure and with stage 5 chronic kidney disease, or end stage renal disease; E87.70 Fluid overload, unspecified; Z99.2 Dependence on renal dialysis; E11.22 Type 2 diabetes mellitus with diabetic chronic kidney disease; I50.9 Heart failure, unspecified; I25.10 Atherosclerotic heart disease of native coronary artery without angina pectoris; I25.2 Old myocardial infarction; E89.0 Postprocedural hypothyroidism; Z95.1 Presence of aortocoronary bypass graft; Y83.1 Surgical operation with implant of artificial internal device as the cause of abnormal reaction of the patient, or of later complication, without mention of misadventure at the time of the procedure; Z98.41 Cataract extraction status, right eye; Z98.42 Cataract extraction status, left eye; Z85.850 Personal history of malignant neoplasm of thyroid; Z88.0 Allergy status to penicillin; Z91.040 Latex allergy status; Z88.5 Allergy status to narcotic agent; Z91.012 Allergy to eggs; Z79.82 Long term (current) use of aspirin; Z79.899 Other long term (current) drug therapy

== ENCOUNTER 2018-11-23 18:44 | Inpatient (IN) | payer MEDICARE, BC ==
[~2018-11-23] VITALS: Ht 152.4 cm; Wt 60.0 kg
[~2018-11-23 18:44] MED LIST changes: +COLA100C5 PO
[2018-11-23 21:26] VITALS: BP 164/72
[2018-11-23] MEDS: HEPARIN SOD (PORCINE) 5000 UNITS/ML VIAL SC SCH (22:39)
[2018-11-23] MEDS: DOCUSATE SODIUM 100 MG CAP PO SCH (22:39)
[2018-11-23] MEDS ORDERED: RENV2TAB PO (23:47)
[2018-11-23] MEDS ORDERED: SYNT150T PO (23:47)
[2018-11-23] MEDS ORDERED: VITA1CAP25 PO (23:48)
[2018-11-23] MEDS ORDERED: DOCU100T8 PO (23:48)
[2018-11-23] MEDS: CARVedilol 3.125 MG TAB PO SCH (23:58)
--- NOTE | 2018-11-23 23:58 | HPEPDOC ---
General Date of Admission Nov 23, 2018 at 21:03 Date of Service: Nov 23, 2018 Chief Complaint The patient is a 62-year-old female admitted with a reason for visit of Fluid Overload,Esrd. Source: Patient, RN/, Old records Severity: Moderate Associated Symptoms: Shortness of breath History of Present Illness Patient is a 62-year-old female with a PMHx of CAD (Hx of NE), HTN, DLP, DM2, ESRD on PD, Hx of Thyroid CA (s/p surgery), Hx of PD Peritonitis in August 2018 when she was switched to HD through permcath and PD catheter taken out. New PD catheter was placed on 10/24 after peritonitis was treated which she started using from 11/08/18 however was having problems with drainage and retaining fluids and became SOB so was admitted on 11/12/17 was again put on HD and underwent repositioning of PD catheter with Lysis of intra peritoneal adhes ions of 11/17/18 and was discharged yesterday with the PD catheter working well. She used her cycler overnight however did not have any UF infact was negative 380ml. Her Last fill was 1500 in /[address] Hinkle because of SOB and was instructed to do manual exchange with 4.25 % which also did not produce UF 2000 in/1500 out. She continued to feel more SOB as the day progressed so was instructed by Dr Hinkle to come to our ED. She went to [facility] ED and was transferred here for Fluid overload, CHF exacerbation and Unable to dialyze properly at home. Home Medications Scheduled Amlodipine Besylate (Amlodipine Besylate) 5 Mg Tablet, 5 MG PO DAILY, (Reported) Aspirin (Aspir 81) 81 Mg Tablet.dr, 81 MG PO DAILY, (Reported) Atorvastatin Calcium (Atorvastatin Calcium) 20 Mg Tablet, 20 MG PO DAILY, (Reported) Carvedilol (Carvedilol) 3.125 Mg Tablet, 3.125 MG PO BID, (Reported) Cholecalciferol (Vitamin D3) (Vitamin D3) 50,000 Unit Capsule, 50,000 UNIT PO 1XWK, (Reported) Docusate Sodium (Docusate Sodium) 100 Mg Tablet, 100 MG PO BID, (Reported) Ferric Citrate (Auryxia) 210 Mg Tablet, 210 MG PO TID, (Reported) Folic Acid/Vit B Complex and C (Zo-Kamran Tablet) 0.8 Mg Tablet, 1 TAB PO DAILY, (Reported) Levothyroxine Sodium (Synthroid) 150 Mcg Tablet, 150 MCG PO DAILY, (Reported) Lisinopril (Lisinopril) 5 Mg Tablet, 5 MG PO DAILY, (Reported) Potassium Chloride (Potassium Chloride) 10 Meq Tablet.er, 10 MEQ PO DAILY, (Reported) Sevelamer Carbonate (Renvela) 800 Mg Tablet, 800 MG PO DAILY, (Reported) Torsemide (Torsemide) 20 Mg Tablet, 20 MG PO BID, (Reported) Scheduled PRN Acetaminophen (Acetaminophen) 500 Mg Tablet, 1,000 MG PO Q6H PRN for PAIN, (Reported) Nitroglycerin (Nitroglycerin) 0.4 Mg Tab.subl, 0.4 MG SL Q5MP PRN for CHEST PAIN, (Reported) Allergies Coded Allergies: Penicillins (Unverified Allergy, Intermediate, HIVES, 08/22/18) latex (Verified Allergy, Unknown, ITCHING, ORIGINALLY LISTED BAND-AID, 10/23/18) hydrocodone (Unverified Adverse Reaction, Mild, VOMITING, 08/21/18) egg (Unverified Adverse Reaction, Unknown, VOMITING, 08/21/18) Past Medical History Medical History PD peritonitis by Actinomyces in July 2018 ESRD on PD CHF hypertension Diabetes CAD s/p AMI and CABG. Restless legs Hyperlipidemia Chronic anemia. Surgical History 10/24/18 PD placement Permcath on July 2018 thyroidectomy for thyroid cancer cardiac cath CABG bilateral cataract surgery Family History Mother CAD/NE; father recently of lung cancer Social History * Smoker: Denies Alcohol: Denies Drugs: denies A-FIB/CHADSVASC A-FIB History Current/History of A-Fib/PAF?: No Review of Systems Constitutional: Denies: Chills, Fever, Night Sweats Eyes: Denies: Pain, Vision change ENT: Denies: Head Aches, Ear Pain, Dysphagia Skin: Denies: Rash, Lesions, Breakdown Pulmonary: Reports: Dyspnea Cardiovascular: Denies: Chest Pain, Palpitations, Orthopnea, Paroxysmal Noc. Dyspnea, Lt Headedness Gastrointestinal: Denies: Nausea, Vomiting, Abdominal Pain, Diarrhea Genitourinary: Denies: Dysuria, Frequency, Incontinence, Retention Hematologic: Denies: Bruising, Bleeding Excessively Endocrine: Denies: Polydipsia, Polyphagia, Polyuria, Heat Intolerance, Cold Intolerance, Other Endocrine Sx Musculoskeletal: Denies: Neck Pain, Back Pain, Joint Pain, Muscle Pain, Spasms Psych: Reports: Mood Normal; Denies: Depression, Memory Issues Physical Examination General Exam: Positive: Alert, Cooperative, No Acute Distress Eye Exam: Positive: PERRLA, Conjunctiva & lids normal, EOMI; Negative: Sclera icteric ENT Exam: Positive: Atraumatic, Mucous membr. moist/pink, Pharynx Normal, Other ENT (periorbital puffiness) Neck Exam: Positive: Supple, JVD; Negative: thyromegaly Chest Exam: Positive: Normal air movement, Other (few bibasal crackles) Heart Exam: Positive: Rate Normal, Regular Rhythm, Normal S1, Normal S2; Negative: Murmurs, Rubs Abdomen Exam: Positive: Normal bowel sounds, Soft; Negative: Tenderness, Hepatospenomegaly Extremity Exam: Positive: Edema Skin Exam: Positive: Nl turgor and temperature; Negative: Breakdown, Lesion Vital Signs Vital Signs Date Time Temp Pulse Resp B/P (MAP) Pulse Ox O2 Delivery O2 Flow Rate FiO2 11/23/18 21:26 96.9 68 20 164/72 (102) 99 Assessment/Plan Patient is a 62-year-old female with a PMHx of CAD (Hx of NE), HTN, DLP, DM2, ESRD on PD, Hx of Thyroid CA (s/p surgery), Hx of PD Peritonitis in August 2018 when she was [facility] and [facility] catheter taken out. New PD catheter was placed on 10/24 after peritonitis was treated which she started using from 11/08/18 however was having problems with drainage and retaining fluids and became SOB so was admitted on 11/12/17 was again put on HD and underwent repositioning of PD catheter with Lysis of intra peritoneal adhesions of 11/17/18 and was discharged yesterday with the PD catheter working well. She used her cycler overnight however did not have any UF infact was negative 380ml. Her Last fill was 1500 in /[address] Hinkle because of SOB and was instructed to do manual exchange with 4.25 % which also did not produce UF 2000 in/1500 out. She continued to feel more SOB as the day progressed so was instructed by Dr Hinkle to come to our ED. She went to [facility] ED and was transferred here for Fluid overload, CHF exacerbation and Unable to dialyze properly at home Failure of Peritoneal dialysis at home with fluid retention either due to PD catheter not working properly or positional as she is laying down when she is on cycler while she is either standing or sitting when doing manual exchanges here. Xray before showed PD cath was in the proper place. there is question whether the Peritoneal membrane is filtering adequately or not Patient started on exchanges here with 2.5% every 4 hours. CHF exacerbation and fluid overload will get echo continue on fluid management as per Nephrology oxygen supplementation as needed. ESRD with hyperphosphatemia On PD will continue continue sevelemer nephrology on board CAD s/p CABG continue ASA, statin, betablocker Chronic anemia due to ESRD HH 9.0 close to goal management as per nephrology Hypertension continue home meds amlodipine, coreg lisinopril and torsemide on hold bp well controlled. Hypothyroid continue synthroid Hyperlipidemia continue atorvastatin Plan / VTE VTE Prophylaxis Ordered?: Yes KEON VASQUEZ MD Nov 23, 2018 23:58
[2018-11-23 23:59] VITALS: BP 131/63
[2018-11-24 04:00] VITALS: BP 131/63
[2018-11-24 04:45] LABS: BASO # 0.1 10^3/uL (0.0-0.2); BASO % 1.7 % (0.0-1.0); EOS # 0.2 10^3/uL (0.0-0.50); EOS % 4.6 % (0.0-3.0); HEMATOCRIT 27.7 % (36.0-47.0); HEMOGLOBIN 8.3 g/dl (12.0-15.5); LYMPH # 0.9 10^3/uL (1.5-4.5); LYMPH % 20.3 % (24.0-44.0); MEAN CORPUSCULAR HEMOGLOBIN 28.2 pg (27.0-33.0); MEAN CORPUSCULAR VOLUME 94.2 fl (80.0-96.0); MONO # 0.8 10^3/uL (0.0-0.8); MONO % 16.3 % (0.0-5.0); NEUTROPHILS # 2.6 10^3/uL (1.8-7.7); NEUTROPHILS % 56.4 % (36.0-66.0); PLATELET COUNT, AUTOMATED 249 10^3/uL (150-450); RED BLOOD COUNT 2.94 10^6/uL (4.00-5.40); WHITE BLOOD COUNT 4.6 10^3/uL (4.0-10.0)
[2018-11-24 05:06] LABS: ALBUMIN 2.5 GM/DL (3.2-5.2); CALCIUM LEVEL 8.7 MG/DL (8.8-10.2); CALCIUM LEVEL 9.3 MG/DL (8.8-10.2); CREATININE FOR GFR 6.22 MG/DL (0.55-1.30); CREATININE FOR GFR 6.4 MG/DL (0.55-1.30); GLOMERULAR FILTRATION RATE 7.3 (>45); PHOSPHORUS LEVEL 5.2 MG/DL (2.5-4.9); POTASSIUM SERUM 3.8 MEQ/L (3.5-5.1); POTASSIUM SERUM 3.9 MEQ/L (3.5-5.1)
[2018-11-24] MEDS ORDERED: LEVOTHYROXINE 150MCG TABLET (0.15MG) PO SCH (06:00)
[2018-11-24] MEDS ORDERED: LEVOTHYROXINE 100MCG TABLET (0.1MG) PO SCH (06:00)
[2018-11-24] MEDS ORDERED: LEVOTHYROXINE 75MCG TABLET (0.075MG) PO SCH (06:00)
[2018-11-24] MEDS: LEVOTHYROXINE 150MCG TABLET (0.15MG) PO SCH (06:18)
[2018-11-24 08:33] VITALS: BP 159/70
[2018-11-24] MEDS ORDERED: DARBEPOETIN 100 MCG/0.5 ML *DIALYSIS* SYRINGE (J0882) IV SCH (09:30)
[2018-11-24] MEDS ORDERED: IRON SUCROSE 100MG 5ML VIAL (J1756 PER 1MG) IV SCH (09:30)
[2018-11-24] MEDS ORDERED: HEPARIN 1,000 UNITS/ML 10ML VIAL (FOR RADIOLOGY& DIALYSIS ONLY) IV ONE (10:00)
[2018-11-24] MEDS ORDERED: (RENVELA) SEVELAMER **CARBONate** 800 MG TAB PO SCH (12:00)
[2018-11-24 12:52] VITALS: BP 129/64
[2018-11-24] MEDS: HEPARIN SOD (PORCINE) 5000 UNITS/ML VIAL SC SCH ×2 (13:06→20:27)
[2018-11-24] MEDS: ASPIRIN 81 MG CHEW TABLET PO SCH (13:07)
[2018-11-24] MEDS: amLODIPine 5 MG TAB PO SCH (13:08)
[2018-11-24] MEDS: LISINOPRIL 5 MG TAB PO SCH (13:08)
[2018-11-24] MEDS: CARVedilol 3.125 MG TAB PO SCH ×2 (13:09→20:27)
[2018-11-24] MEDS: ATORVASTATIN 20 MG TAB PO SCH (13:09)
[2018-11-24] MEDS: DOCUSATE SODIUM 100 MG CAP PO SCH ×2 (13:10→20:26)
[2018-11-24 16:00] VITALS: BP 130/64
--- NOTE | 2018-11-24 17:46 | IPNPDOC ---
Subjective Date Seen The patient was seen on 11/24/18. Subjective Chief Complaint/HPI 62f with cad, dm, thyroid ca, chf, esrd on pd with multiple complications including bacterial peritonitis, adhesions, and displacement of pd catheter. Pt had BOB last week and was discharged two days ago. However returned complaining of fluid retention, sob and difficulty with the PD. pt had hemodialysis with ultrafiltration and is feeling better a full ROS was performed and negative except as above Objective Physical Examination General Exam: Positive: Alert, Cooperative, No Acute Distress Eye Exam: Positive: PERRLA, Conjunctiva & lids normal, EOMI; Negative: Sclera icteric ENT Exam: Positive: Atraumatic, Mucous membr. moist/pink, Pharynx Normal, Other ENT (periorbital puffiness) Neck Exam: Positive: Supple, JVD; Negative: thyromegaly Chest Exam: Positive: Normal air movement, Other (few bibasal crackles) Heart Exam: Positive: Rate Normal, Regular Rhythm, Normal S1, Normal S2; Negative: Murmurs, Rubs Abdomen Exam: Positive: Normal bowel sounds, Soft; Negative: Tenderness, Hepatospenomegaly Extremity Exam: Positive: Edema Skin Exam: Positive: Nl turgor and temperature; Negative: Breakdown, Lesion Assessment /Plan Assessment 62f p/w difficulty with PD and fluid overload acute diastolic chf and esrd improved with hemodialysis social barriers complicating situation including location of pt's residence and blindness discussed with Dr Victor plan is to keep pt in hospital while adjusting the PD to find a regimen that maintains her volume status DM diabetic diet sliding scale monitor finger sticks adjust as necessary hypothyroid stable continue synthroid Plan/VTE VTE Prophylaxis Ordered?: Yes VS, I&O, 24H, Fishbone Vital Signs/I&O Vital Signs Date Time Temp Pulse Resp B/P (MAP) Pulse Ox O2 Delivery O2 Flow Rate FiO2 11/24/18 13:09 69 129/64 11/24/18 12:52 98.1 18 100 I&O- Last 24 Hours up to 6 AM 11/24/18 05:59 Intake Total 2000 ml Output Total 30 ml Balance 1970 ml Laboratory Data 24H LABS Laboratory Tests 2 11/24/18 04:31: Immature Granulocyte % (Auto) 0.7, White Blood Count 4.6, Red Blood Count 2.94L, Hemoglobin 8.3L, Hematocrit 27.7L, Mean Corpuscular Volume 94.2, Mean Corpuscular Hemoglobin 28.2, Mean Corpuscular Hemoglobin Concent 30.0L, Red Cell Distribution Width 18.7H, Platelet Count 249, Neutrophils (%) (Auto) 56.4, Lymphocytes (%) (Auto) 20.3L, Monocytes (%) (Auto) 16.3H, Eosinophils (%) (Auto) 4.6H, Basophils (%) (Auto) 1.7H, Neutrophils # (Auto) 2.6, Lymphocytes # (Auto) 0.9L, Monocytes # (Auto) 0.8, Eosinophils # (Auto) 0.2, Basophils # (Auto) 0.1, Nucleated Red Blood Cells % (auto) 0.0, Blood Urea Nitrogen 27H, Creatinine 6.40H, Sodium Level 137, Potassium Level 3.9, Chloride Level 98, Carbon Dioxide Level 28, Anion Gap 11, Glomerular Filtration Rate 7.0L, Calcium Level 9.3, Phosphorus Level 5.2H, Albumin 2.5L CBC/BMP Laboratory Tests 11/24/18 04:31 Red Blood Count 2.94 L, Mean Corpuscular Volume 94.2, Mean Corpuscular Hemoglobin 28.2, Mean Corpuscular Hemoglobin Concent 30.0 L, Red Cell Di stribution Width 18.7 H, Neutrophils (%) (Auto) 56.4, Lymphocytes (%) (Auto) 20.3 L, Monocytes (%) (Auto) 16.3 H, Eosinophils (%) (Auto) 4.6 H, Basophils (%) (Auto) 1.7 H, Neutrophils # (Auto) 2.6, Lymphocytes # (Auto) 0.9 L, Monocytes # (Auto) 0.8, Eosinophils # (Auto) 0.2, Basophils # (Auto) 0.1, Anion Gap 11, Calcium Level 9.3 JIN CEJA MD Nov 24, 2018 17:46
[2018-11-24] MEDS: (RENVELA) SEVELAMER **CARBONate** 800 MG TAB PO SCH (18:55)
--- NOTE | 2018-11-24 19:22 | CR ---
DATE OF CONSULTATION: 11/23/2018 REFERRING PHYSICIAN: Gamaliel Carter MD REASON FOR CONSULTATION: Assist in the management of congestive heart failure and end-stage renal disease. HISTORY OF PRESENT ILLNESS Ms Olsen is 62-year-old female who has longstanding end-stage renal disease and has been on maintenance dialysis. Her history is quite complicated. She was on peritoneal dialysis and developed a severe episode of peritonitis due to which her peritoneal catheter was removed in [place] where she was admitted. She has been on hemodialysis for a few months and was living there with her sister. She is legally blind and not able to drive. She lives in [facility] which is quite for from any dialysis unit. It is her desire that she can be switched back to peritoneal dialysis so she can live independently and return to her home. With that intention, she had a peritoneal dialysis catheter replaced recently which did not work very well. Her catheter was found to be dislocated and Dr. Rome repositioned the catheter last week. She also was found to have significant adhesions which were lysed causing some peritoneal bleed. Her dialysis catheter and peritoneal cavity was flushed to prevent further adhesions. She was maintained on intermittent hemodialysis along with peritoneal dialysis which was gradually increased over the last few days. Her peritoneal dialysis was functioning reasonably well and she was discharged to home on Tuesday with the hope that she can maintain her volume with her peritoneal dialysis at home. She did have hemodialysis on Tuesday and 3 liters fluid was removed. She did have peritoneal dialysis with the cycler on Tuesday night. However did not drain much fluid. morning she called our office and notified that she was getting short of breath again. We tried further measures with peritoneal dialysis at home and she could not drain it even with 4.25% fluid due to which she was advised to come back to the emergency room. She was taken to [facility] and from there she has been now transferred to [facility] via ambulance. I have seen her in the evening in PCU. She is not in any acute distress at the time of my arrival though subjectively she feels short of breath. PAST MEDICAL AND SURGICAL HISTORY Significant for 1. Longstanding history of diabetes with diabetic retinopathy and nephropathy. 2. History of coronary artery disease with prior IA. 3. History of hypertension. 4. History of dyslipidemia. 5. End-stage renal disease. 6. History of thyroid cancer, status post thyroidectomy. 7. Diabetic retinopathy, legally blind. 8. Recent history of peritonitis requiring removal of peritoneal dialysis catheter and insertion of a Perma-Cath for hemodialysis. 9. There is history of restless leg syndrome. Past surgical history is significant for peritoneal dialysis catheter placement, Perma-Cath placement, thyroidectomy, cardiac cath, CABG, bilateral cataract surgery. FAMILY HISTORY Significant for coronary artery disease in her mother and lung cancer in father. PERSONAL AND SOCIAL HISTORY The patient denies any smoking, alcohol or drug use. REVIEW OF SYSTEMS She denies any fever or chills. She has been feeling somewhat short of breath today. She did have recurrent congestive heart failure and required intermittent hemodialysis. She is legally blind with diabetic nephropathy. Nose and throat are unremarkable. Cardiovascular system is significant for history of coronary artery disease and congestive heart failure. She denies any chest pain or leg edema. Respiratory system is negative for cough or hemoptysis. GI system is negative for nausea, vomiting or diarrhea. system is negative for dysuria or hematuria. Hematological system is significant for anemia of chronic kidney disease. She also has bleeding from her peritoneal cavity which is slow ooze. Psychosocial system is negative for depression, anxiety. Neurological system is significant for restless legs, but no history of stroke. PHYSICAL EXAMINATION The patient is awake and alert at the time of my visit. Temperature 97.3 degrees Fahrenheit, heart rate 70 per minute and respiratory rate 18 per minute. Blood pressure 130/63 mmHg and oxygen saturation 97% on room air. Head is atraumatic. Neck is supple and JVD mildly elevated. She has no oral thrush or ulcers. Pupils equal and reactive to light and sclera is anicteric. Heart: Sounds are regular and lungs with slightly diminished breath sounds at bases. Abdomen: Soft and nontender. Peritoneal dialysis catheter is intact. Extremities have no cyanosis or clubbing. Neurologically she is awake and at her baseline mentation without a focal deficit. She did not have any new labs done here at [facility]. PROBLEMS: 1. Shortness of breath. She probably has mild hypervolemia due to poor function of her peritoneal dialysis catheter. At this point, she is oxygenating in high 90s even without any oxygen. There is no emergent indication for dialysis. We will plan hemodialysis tomorrow and will resume her peritoneal dialysis tonight. It remains to be seen how her peritoneal dialysis works here in the hospital. 2. End-stage renal disease. The patient has been maintained on hemodialysis for last few months since she had her peritoneal dialysis catheter removed and reinserted. Her new catheter has not worked very well so far. She wishes to return home and return to her peritoneal dialysis for independent living. We are trying to make her peritoneal dialysis catheter work as good as possible. At present she will be dialyzed with hemodialysis tomorrow morning and we will make adjustments in her peritoneal dialysis prescription. 3. Anemia. She has end-stage renal disease and some blood loss from her peritoneal dialysis catheter placement and lysis of adhesions. We will check her CBC tomorrow morning and see if there is any need for a transfusion. We will also give her Aranesp 100 mcg once a week. She will be given Venofer with hemodialysis. 4. Hypertension. Blood pressure has been well-controlled on current antihypertensive medications and we will continue with the same. Thank you for involving me in the care of Ms. Olsen. I will follow her along with you.
[2018-11-24 20:00] VITALS: BP 151/67
--- NOTE | 2018-11-24 20:02 | IPN ---
DATE: 11/24/2018 Ms Diaz is seen this morning on her bedside in hemodialysis. She was admitted last evening. She had only one exchange of peritoneal dialysis through the night. Her peritoneal dialysis has not been working well due to which she has required intermittent hemodialysis. Our plan is to dialyze her today and try to remove about 3 liters of fluid. Then we will work with her peritoneal dialysis prescription and try to make adjustments and see if it can work. She lives alone, she is legally blind and cannot drive. She is about 2 hours from hemodialysis unit due to which she has a strong wish to switch back to peritoneal dialysis so she can live independently and continue with her dialysis treatment at home. Her peritoneal dialysis catheter was adjusted recently and she still has some bleeding due to lysis of adhesions. She denies any nausea or vomiting at present. PHYSICAL EXAMINATION Temperature 97.3 degrees Fahrenheit, heart rate 90 per minute and respiratory rate 18 per minute. Blood pressure 130/64 mmHg and oxygen saturation 94% on room air. Head is atraumatic. She is legally blind. Neck veins are minimally distended. Heart: Sounds are regular and lungs clear to auscultation. Abdomen: Soft and nontender and peritoneal dialysis catheter is intact. Extremities have no cyanosis or clubbing. Neurologically she is awake, alert and at her baseline mentation. This morning's labs show WBC count 4.6, hemoglobin 8.3 and hematocrit 27.7. Platelets 249. Sodium 137, potassium 3.9, CO2 28, BUN 27 and creatinine 6.4. Calcium 8.7 and phosphorus 5.2. PROBLEMS: 1. End-stage renal disease. The patient is being hemodialyzed today. We are going to keep working on her peritoneal dialysis prescription and see if that works. She had an episode of severe peritonitis a few months ago due to which her prior catheter was removed and she had a new catheter placed which has not worked very well. Her catheter was repositioned last week and we have gradually increased the dialysis volume to 2 liters per exchange. Now we are doing exchange every 4 hours and we will see how she does with drainage. If she can achieve adequate negative fluid balance so she can maintain her volume status at home without need for dialysis then she can be discharged to home. In the meantime we will keep working on her prescription and she will continue with intermittent hemodialysis as needed. 2. Anemia. She does have blood loss due to bleeding from her peritoneum following the catheter placement and adhesions lysis. She also has end-stage renal disease. She is going to receive Venofer 100 mg with each hemodialysis and also was given Aranesp 100 mcg yesterday. 3. Hypertension. Her blood pressure is very well controlled and we will continue to monitor with current medications. 4. Shortness of breath and congestive heart failure. Volume status is likely to correct with hemodialysis today and we will continue to monitor closely and perform intermittent hemodialysis in addition to her peritoneal dialysis.
[2018-11-24] MEDS: HumaLOG INSULIN (NovoLOG) PER UNIT SC SCH (21:00)
[2018-11-24 23:59] VITALS: BP 128/58
[2018-11-25] MEDS ORDERED: GLUCAGON FOR INJ 1 MG VIAL (J1610) SC PRN (00:45)
[2018-11-25] MEDS ORDERED: DEXTROSE 50% 50 ML SYRINGE IV PRN (00:45)
[2018-11-25] MEDS ORDERED: GLUCOSE 4 GM CHEW TABLET PO PRN (00:45)
[2018-11-25 04:00] VITALS: BP 160/66
[2018-11-25 06:18] LABS: BASO # 0.1 10^3/uL (0.0-0.2); BASO % 1.3 % (0.0-1.0); EOS # 0.2 10^3/uL (0.0-0.50); EOS % 4.2 % (0.0-3.0); HEMATOCRIT 29.9 % (36.0-47.0); HEMOGLOBIN 8.8 g/dl (12.0-15.5); LYMPH # 0.9 10^3/uL (1.5-4.5); LYMPH % 20.5 % (24.0-44.0); MEAN CORPUSCULAR HEMOGLOBIN 29.3 pg (27.0-33.0); MEAN CORPUSCULAR HGB CONC 29.4 g/dl (32.0-36.5); MEAN CORPUSCULAR VOLUME 99.7 fl (80.0-96.0); MONO % 22.3 % (0.0-5.0); NEUTROPHILS # 2.3 10^3/uL (1.8-7.7); PLATELET COUNT, AUTOMATED 257 10^3/uL (150-450); WHITE BLOOD COUNT 4.5 10^3/uL (4.0-10.0)
[2018-11-25] MEDS: LEVOTHYROXINE 150MCG TABLET (0.15MG) PO SCH (06:25)
[2018-11-25 06:41] LABS: CALCIUM LEVEL 8.9 MG/DL (8.8-10.2); CREATININE FOR GFR 4.03 MG/DL (0.55-1.30); POTASSIUM SERUM 3.8 MEQ/L (3.5-5.1)
[2018-11-25] MEDS: HumaLOG INSULIN (NovoLOG) PER UNIT SC SCH ×4 (07:30→19:51)
[2018-11-25 08:00] VITALS: BP 141/63
[2018-11-25] MEDS: ATORVASTATIN 20 MG TAB PO SCH (08:37)
[2018-11-25] MEDS: DOCUSATE SODIUM 100 MG CAP PO SCH ×2 (08:38→19:51)
[2018-11-25] MEDS: LISINOPRIL 5 MG TAB PO SCH (08:38)
[2018-11-25] MEDS: amLODIPine 5 MG TAB PO SCH (08:38)
[2018-11-25] MEDS: (RENVELA) SEVELAMER **CARBONate** 800 MG TAB PO SCH ×3 (08:38→18:20)
[2018-11-25] MEDS: CARVedilol 3.125 MG TAB PO SCH ×2 (08:38→19:51)
[2018-11-25] MEDS: ASPIRIN 81 MG CHEW TABLET PO SCH (08:38)
[2018-11-25] MEDS: HEPARIN SOD (PORCINE) 5000 UNITS/ML VIAL SC SCH ×2 (08:39→19:50)
[2018-11-25] MEDS ORDERED: OXYMETAZOLINE NASAL SPRAY (AFRIN) ONE (10:15)
--- NOTE | 2018-11-25 10:52 | REP ---
Clinical: Shortness of breath. CHF. Technique: PA and lateral. Comparison: 11/20/2018. Findings: Stable cardiomegaly and evidence of prior sternotomy. Double-lumen dialysis catheter in stable position. Cephalization with indistinct perihilar pulmonary vasculature as well as perihilar and primarily right basilar atelectasis noted. No definite effusion. No pneumothorax. Skeletal structures intact. Impression: Findings suggest mild pulmonary vascular congestion with basilar atelectasis. Electronically Signed by Shashi Haney MD 11/25/2018 10:44 A
[2018-11-25] MEDS: FLUTICASONE PROP 0.05% NASAL SPRAY 16 GM (FLONASE) NARES SCH (11:33)
[2018-11-25] MEDS: CETIRIZINE (ZyrTEC) 10 MG TAB PO SCH (11:33)
[2018-11-25 12:22] VITALS: BP 163/69
--- NOTE | 2018-11-25 16:10 | IPNPDOC ---
Text Note Date of Service The patient was seen on 11/25/18. NOTE S: complains of SOB and unable to take deep breath thru her nose, only her josé th; increased nasal congestion and allergies. Doing PD in room at bedside and states home machine had not been in use for over 3 months (had been living at sisters in [place] where HD clinic was 15 miles away). States home PD wasn't working and she was performing manual exchanges. States currently no CP, mild SOB, no cough, no fever. O: Vitals as below General: speaking in full sentences, NAD, AAOx3 HRRR LCTA no W/R/R Ext: 1+ edema Weight: Item Value Date Time Patient Weight 63.4 kg 11/25/18 0400 Patient Weight 65.2 kg 11/24/18 0400 Patient Weight 61.8 kg 11/23/18 2317 A/P: 1. End-stage renal disease on HD and PD - management by nephrology. Attempting to determine PD regimen that will maintain a negative fluid balance at home. Patient does not live near HD facility and refusing outpatient HD. 2. Fluid overload suggestive acute diastolic CHF - on HD and PD; echo perfo rmed as outpatient within past 6 months (report requested) CXR today with images reviewed and no effusions but increased vascular congestion. no need for emergent HD at this time but will leave to nephrology to manage. patient is anuric and therefore lasix of no benefit. Case management consulted regarding PD machine and readmission due to non functioning home device. Continue with current hospitalization while adjusting the PD to find a regimen that maintains a negative fluid balance. 3. Hypertension with end-stage renal disease and hypertensive heart disease. - continue amlodipine,coreg, lisinopril (off diuretic) 4. Anemia in end-stage renal disease. IV Venofer with dialysis Aranesp with dialysis. Continue home dose of iron pills. 5. Iatrogenic hypothyroidism (S/P thyroidectomey for Cancer) - levothyroxine 175 mcg daily. 6. Diabetes - not on half-way insulin, with hyperglycemia, without hypoglycemia - continue SSI, diabetic diet DVT prophylaxis: Heparin SC Current Medications Medications (Trade) Dose Ordered Sig/Pooja Route PRN Reason Start Time Stop Time Status Last Admin Dose Admin Amlodipine Besylate (Norvasc) 5 mg DAILY PO 11/24/18 09:00 11/25/18 08:38 Aspirin (Aspirin Chewable) 81 mg DAILY PO 11/24/18 09:00 11/25/18 08:38 Atorvastatin Calcium (Lipitor) 20 mg DAILY PO 11/24/18 09:00 11/25/18 08:37 Carvedilol (COReg) 3.125 mg BID PO 11/23/18 21:00 11/25/18 08:38 Cetirizine HCl (ZyrTEC) 10 mg DAILY PO 11/25/18 09:00 11/25/18 11:33 Darbepoetin Jeffry (Aranesp (Dialysis Use)) 100 mcg HD IV 11/24/18 09:30 Dextrose (Dextrose 50%) 25 ml ASDIRECTED PRN IV SEE LABEL COMMENTS 11/25/18 00:45 Docusate Sodium (Colace) 100 mg BID PO 11/23/18 21:00 11/25/18 08:38 Fluticasone Propionate (Flonase 0.05% Nasal Ivel) 2 spray DAILY NARES 11/25/18 09:00 11/25/18 11:33 Glucagon (Glucagon) 1 mg ASDIRECTED PRN SC SEE LABEL COMMENTS 11/25/18 00:45 Glucose (Glucose) 16 GM ASDIRECTED PRN PO SEE LABEL COMMENTS 11/25/18 00:45 Heparin Sodium (Porcine) (Heparin) 5,000 units Q12H SC 11/23/18 21:00 11/25/18 08:39 Home Med (Med Rec Complete!) ASDIRECTED XX 11/24/18 00:00 11/24/18 00:00 DC Insulin Human Lispro (HumaLOG INSULIN) See Protocol Table AC SC 11/25/18 07:30 Insulin Human Lispro (HumaLOG INSULIN) See Protocol Table QHS SC 11/24/18 21:00 Iron (Venofer) 100 mg HD IV 11/24/18 09:30 Levothyroxine Sodium (Synthroid) 75 mcg DAILY@06 PO 11/24/18 06:00 11/24/18 06:00 DC Levothyroxine Sodium (Synthroid) 100 mcg DAILY@06 PO 11/24/18 06:00 11/24/18 06:00 DC Levothyroxine Sodium (Synthroid) 150 mcg DAILY@06 PO 11/24/18 06:00 11/25/18 06:25 Levothyroxine Sodium (Synthroid) 175 mcg DAILY@06 PO 11/24/18 06:00 11/24/18 06:00 DC Lisinopril (Prinivil) 5 mg DAILY PO 11/24/18 09:00 11/25/18 08:38 Sevelamer Carbonate (Renvela) 800 mg DAILY@1200 PO 11/24/18 12:00 11/24/18 13:55 DC 11/24/18 13:07 Sevelamer Carbonate (Renvela) 800 mg WM PO 11/24/18 18:00 11/25/18 12:52 VS,Fishbone, I+O VS, Fishbone, I+O Laboratory Tests 11/25/18 05:54 Red Blood Count 3.00 L, Mean Corpuscular Volume 99.7 H, Mean Corpuscular Hemoglobin 29.3, Mean Corpuscular Hemoglobin Concent 29.4 L, Red Cell Distribution Width 18.9 H, Neutrophils (%) (Auto) 51.0, Lymphocytes (%) (Auto) 20.5 L, Monocytes (%) (Auto) 22.3 H, Eosinophils (%) (Auto) 4.2 H, Basophils (%) (Auto) 1.3 H, Neutrophils # (Auto) 2.3, Lymphocytes # (Auto) 0.9 L, Monocytes # (Auto) 1.0 H, Eosinophils # (Auto) 0.2, Basophils # (Auto) 0.1, Calcium Level 8.9 Vital Signs Date Time Temp Pulse Resp B/P (MAP) Pulse Ox O2 Delivery O2 Flow Rate FiO2 11/25/18 08:38 107 156/74 11/25/18 08:00 98.0 18 99 I&O- Last 24 Hours up to 6 AM 11/25/18 06:00 Intake Total 45295 ml Output Total 97790 ml Balance -3350 ml TORIE VILLAVICENCIO DO Nov 25, 2018 11:46
[2018-11-25 16:29] VITALS: BP 127/68
[2018-11-25 20:00] VITALS: BP 144/67
[2018-11-25] MEDS ORDERED: PANTOPRAZOLE 40MG INJ (PROTONIX) (C9113) IV ONE (23:15)
[2018-11-25] MEDS ORDERED: ACETAMINOPHEN 500 MG TAB PO ONE (23:15)
[2018-11-25] MEDS: ONDANSETRON 4MG/2ML VIAL (J2405) IV PRN (23:36)
[2018-11-25 23:59] VITALS: BP 148/67
[2018-11-26 04:00] VITALS: BP 147/67
[2018-11-26 05:27] LABS: BASO # 0.1 10^3/uL (0.0-0.2); EOS # 0.3 10^3/uL (0.0-0.50); EOS % 4.5 % (0.0-3.0); HEMATOCRIT 30.1 % (36.0-47.0); HEMOGLOBIN 8.9 g/dl (12.0-15.5); LYMPH # 1.3 10^3/uL (1.5-4.5); MEAN CORPUSCULAR HEMOGLOBIN 29.6 pg (27.0-33.0); MEAN CORPUSCULAR HGB CONC 29.6 g/dl (32.0-36.5); MONO # 1.1 10^3/uL (0.0-0.8); MONO % 18.5 % (0.0-5.0); NEUTROPHILS # 3.2 10^3/uL (1.8-7.7); NEUTROPHILS % 53.2 % (36.0-66.0); PLATELET COUNT, AUTOMATED 225 10^3/uL (150-450); RED BLOOD COUNT 3.01 10^6/uL (4.00-5.40)
[2018-11-26] MEDS: LEVOTHYROXINE 150MCG TABLET (0.15MG) PO SCH (05:56)
[2018-11-26 06:04] LABS: CALCIUM LEVEL 8.9 MG/DL (8.8-10.2); CREATININE FOR GFR 5.37 MG/DL (0.55-1.30); GLOMERULAR FILTRATION RATE 8.6 (>45); POTASSIUM SERUM 4.5 MEQ/L (3.5-5.1)
[2018-11-26] MEDS: HumaLOG INSULIN (NovoLOG) PER UNIT SC SCH (07:30)
[2018-11-26 07:44] VITALS: BP 130/61
[2018-11-26] MEDS: (RENVELA) SEVELAMER **CARBONate** 800 MG TAB PO SCH ×3 (08:43→18:29)
[2018-11-26] MEDS: ASPIRIN 81 MG CHEW TABLET PO SCH (08:43)
[2018-11-26] MEDS: CETIRIZINE (ZyrTEC) 10 MG TAB PO SCH (08:44)
[2018-11-26] MEDS: amLODIPine 5 MG TAB PO SCH (08:44)
[2018-11-26] MEDS: DOCUSATE SODIUM 100 MG CAP PO SCH ×2 (08:44→20:09)
[2018-11-26] MEDS: ATORVASTATIN 20 MG TAB PO SCH (08:44)
[2018-11-26] MEDS: CARVedilol 3.125 MG TAB PO SCH ×2 (08:45→20:09)
[2018-11-26] MEDS: LISINOPRIL 5 MG TAB PO SCH (08:45)
[2018-11-26] MEDS: FLUTICASONE PROP 0.05% NASAL SPRAY 16 GM (FLONASE) NARES SCH (08:46)
[2018-11-26] MEDS: HEPARIN SOD (PORCINE) 5000 UNITS/ML VIAL SC SCH ×2 (08:46→20:09)
--- NOTE | 2018-11-26 10:55 | IPNPDOC ---
Text Note Date of Service The patient was seen on 11/26/18. NOTE S: patient had HD performed yesterday and 3 liters removed. no CAPD today. P atient states breathing easier, no SOB, no JIMENEZ and wants to go outside for fresh air. Patient states thyroid medication recently changed in [place] to 175mcg daily and outpatient TSH follow up next month (dosing changed to 150 in system). Patient also refused fingerstick and SSI. She states she is diet controlled. Item Value Date Time Fasting Glucose 83 MG/DL 11/26/18 0455 Fasting Glucose 138 MG/DL H 11/25/18 0554 Fasting Glucose 95 MG/DL 11/24/18 0431 Fasting Glucose 97 MG/DL 11/24/18 0431 O: Vitals as below General: pleasant, NAD AAOX3 HRRR no murmur LCTA no W/R/R Ext: no edema A/P: 1. End-stage renal disease on HD and PD - management by nephrology. per nephrology - hold CAPD today. Patient does not live near HD facility and refusing outpatient HD. 2. Fluid overload suggestive acute diastolic CHF - on HD and PD; echo performed as outpatient within past 6 months (report requested) Case management consulted regarding PD machine and readmission due to non functioning home device. Continue with current hospitalization while adjusting the PD to find a regimen that maintains a negative fluid balance per nephrology recommendations. 3. Hypertension with end-stage renal disease and hypertensive heart disease. - continue amlodipine,coreg, lisinopril (off diuretic as pateint is anuric) 4. Anemia in end-stage renal disease. IV Venofer with dialysis Aranesp with dialysis. Continue home dose of iron pills. 5. Iatrogenic hypothyroidism (S/P thyroidectomey for Cancer) - levothyroxine 175 mcg daily. 6. Diabetes - not on press tender long goods insulin, without hyperglycemia, without hypoglycemia - diabetic diet. patient refusing SSI and ac/HS accuchecks. blood sugars well controlled. will d/c accucheck/SSI but maintain hypoglycemic protocol prn VS,Fishbone, I+O VS, Fishbone, I+O Laboratory Tests 11/26/18 04:55 Red Blood Count 3.01 L, Mean Corpuscular Volume 100.0 H, Mean Corpuscular Hemoglobin 29.6, Mean Corpuscular Hemoglobin Concent 29.6 L, Red Cell Distribution Width 19.0 H, Neutrophils (%) (Auto) 53.2, Lymphocytes (%) (Auto) 22.0 L, Monocytes (%) (Auto) 18.5 H, Eosinophils (%) (Auto) 4.5 H, Basophils (%) (Auto) 1.0, Neutrophils # (Auto) 3.2, Lymphocytes # (Auto) 1.3 L, Monocytes # (Auto) 1.1 H, Eosinophils # (Auto) 0.3, Basophils # (Auto) 0.1, Calcium Level 8.9 Vital Signs Date Time Temp Pulse Resp B/P (MAP) Pulse Ox O2 Delivery O2 Flow Rate FiO2 11/26/18 08:44 67 130/61 11/26/18 07:44 97.6 18 99 I&O- Last 24 Hours up to 6 AM 11/26/18 06:00 Intake Total 2580 ml Output Total 6800 ml Balance -4220 ml TORIE VILLAVICENCIO DO Nov 26, 2018 10:55
--- NOTE | 2018-11-26 11:05 | IPN ---
DATE: 11/25/2018 SUBJECTIVE: The patient was seen and examined the bedside today morning. She was dialyzed yesterday, 3 liters of fluid was removed. PD was done yesterday, I was called by the PD nurses that she was having blood in the peritoneal fluid so rapid exchanges times three were done, peritoneal fluid cleared. However, the patient is not getting much ultrafiltration with every 4 hours peritoneal exchanges, almost the same amount of fluid is coming. When I saw the patient today morning she was huffing and puffing and she reported that she was short of breath, and she got an emergency chest x-ray done as well which showed pulmonary vascular congestion. OBJECTIVE: VITAL SIGNS: Temperature is 98 degrees Fahrenheit, blood pressure 141/63, pulse is 69, respiratory rate of 18, saturating 98% on room air. INTAKE AND OUTPUT: There is no urine output recorded. Peritoneal dialysis intake was 4100 and output was also 4100 as well. Weight on the bed scale is 63.4 kg. PHYSICAL EXAMINATION: GENERAL: The patient is awake, alert, oriented times three, sitting up in the bed in no apparent distress. HEAD AND NECK EXAM: Extraocular muscles intact. Patient is legally blind. She has vision in both eyes. Mucous membranes are moist. Neck is supple. She has a right IJ tunneled hemodialysis catheter. CARDIOVASCULAR: S1, S2, regular rate. Trace edema of the bilateral lower extremities. RESPIRATORY: Decreased breath sounds at the bases, otherwise no active rales or rhonchi. ABDOMEN: Soft. Positive bowel sounds. Left upper quadrant peritoneal dialysis catheter. No tenderness in the abdomen. MUSCULOSKELETAL: No clubbing or cyanosis. Pulses are 2+. RAMP SUPERVISOR: No focal deficit apart from legal blindness. LAB REVIEW: CBC showed a WBC of 4.5, hemoglobin 8.8, platelets are 257. BMP showed sodium 138, potassium 3.8, chloride 99, bicarb 31, BUN 12, creatinine 4. IMAGING: A chest x-ray was done today morning which showed mild primary vascular congestion and bibasilar atelectasis. CURRENT INPATIENT MEDICATIONS: The patient's medications were all reviewed by me. There is no change in the medications today as compared with yesterday. ASSESSMENT/PLAN: 1. End-stage renal disease patient. The patient is on peritoneal dialysis, but she is not getting much ultrafiltration done. This is the second time that she has been admitted with failure of peritoneal dialysis and shortness of breath. She is again short of breath even though she was dialyzed yesterday. I am going to hold the peritoneal dialysis for now. I will do an emergent ultrafiltration and will try to remove 3 liters of fluid. 2. Acute decompensated congestive heart failure. The patient's volume status is decompensated as mentioned above. The patient will get 3 more liters of fluid removed today. No more peritoneal dialysis since I believe it is not working and we are not getting much ultrafiltration. 3. Anemia in end-stage renal disease. Hemoglobin level is still suboptimal. Patient is getting IV Venofer and she is also on Aranesp 100 mcg with hemodialysis. 4. Hypertension with end-stage renal disease and hypertensive heart disease. Blood pressure is optimal. Continue current dose of amlodipine at 5 mg daily, Coreg 3.125 mg p.o. twice a day, and lisinopril 5 mg daily. I have also ordered an echocardiogram in this patient because she is being admitted multiple times with fluid overload. 5. Chronic kidney disease mineral bone disease. Continue current dose of Renvela 800 mg p.o. with meals.
[2018-11-26 11:27] VITALS: BP 149/66
[2018-11-26 15:34] VITALS: BP 113/53
[2018-11-26 20:00] VITALS: BP 115/55
[2018-11-26 23:59] VITALS: BP 128/61
[2018-11-27 04:00] VITALS: BP 142/64
[2018-11-27 04:19] LABS: BASO # 0.1 10^3/uL (0.0-0.2); EOS # 0.3 10^3/uL (0.0-0.50); EOS % 4.8 % (0.0-3.0); HEMATOCRIT 31.9 % (36.0-47.0); HEMOGLOBIN 9.4 g/dl (12.0-15.5); LYMPH # 1.1 10^3/uL (1.5-4.5); LYMPH % 16.5 % (24.0-44.0); MEAN CORPUSCULAR HEMOGLOBIN 29.9 pg (27.0-33.0); MEAN CORPUSCULAR HGB CONC 29.5 g/dl (32.0-36.5); MEAN CORPUSCULAR VOLUME 101.6 fl (80.0-96.0); MONO # 0.9 10^3/uL (0.0-0.8); NEUTROPHILS # 4.2 10^3/uL (1.8-7.7); NEUTROPHILS % 63.5 % (36.0-66.0); PLATELET COUNT, AUTOMATED 239 10^3/uL (150-450); RED BLOOD COUNT 3.14 10^6/uL (4.00-5.40); WHITE BLOOD COUNT 6.7 10^3/uL (4.0-10.0)
[2018-11-27 04:37] LABS: CALCIUM LEVEL 9.1 MG/DL (8.8-10.2); CREATININE FOR GFR 6.32 MG/DL (0.55-1.30); GLOMERULAR FILTRATION RATE 7.1 (>45); POTASSIUM SERUM 4.6 MEQ/L (3.5-5.1)
[2018-11-27] MEDS: LEVOTHYROXINE 100MCG TABLET (0.1MG) PO SCH (05:35)
[2018-11-27] MEDS: LEVOTHYROXINE 75MCG TABLET (0.075MG) PO SCH (05:35)
--- NOTE | 2018-11-27 06:52 | IPN ---
DATE OF VISIT: 11/26/2018 SUBJECTIVE: The patient was seen and examined on the bedside today morning. She was dialyzed emergently yesterday because of shortness of breath. She reports that almost one hour into the dialysis her shortness of breath was significantly better. Peritoneal dialysis was held yesterday. The patient reports that she still wants to try peritoneal dialysis (PD) again today and if that does not work she would switch permanently to hemodialysis. She denies any other active complaints at this time. OBJECTIVE: VITAL SIGNS: Temperature is 98 degrees Fahrenheit, blood pressure 149/66, pulse is 67, respiratory of 18, saturating 98% on room air. Intake and output: Ultrafiltration with hemodialysis was 3 liters yesterday. Weight in the bed scale is 58.3 kilograms (kg). PHYSICAL EXAMINATION: GENERAL: The patient is awake, alert, oriented times three, sitting up in the bed in no apparent distress. HEAD AND NECK EXAM: Extraocular muscles intact. Patient is legally blind with decreased vision. Mucous membranes are moist. NECK: Neck is supple. She has a right internal jugular (IJ) tunneled hemodialysis catheter. CARDOVASCULAR: S1. S2, regular rate. No edema of the bilateral lower extremity. RESPIRATORY: Chest is clear to auscultation bilaterally. Bilateral equal air entry. No rales or rhonchi. ABDOMEN; Soft. Positive bowel sounds. Left upper quadrant peritoneal dialysis (PD) catheter with no tenderness. MUSCULOSKELETAL: No clubbing or cyanosis. Pulses are 2+. CENTRAL NERVOUS SYSTEM (NUTRITION TECHNICIAN): No focal deficit apart from the legal blindness. LABORATORY REVIEW: CBC showed WBC of 6, hemoglobin 8.9, platelets of 225. BMP showed sodium 139, potassium 4.5, chloride 102, bicarb 30, BUN 20, creatinine is 5.3. CURRENT INPATIENT MEDICATIONS: The patient's medications were all reviewed by me. There is no change in the medications today as compared with yesterday except that her levothyroxine has been increased to 175 mcg by mouth daily ASSESSMENT/PLAN: 1. End-stage renal disease. The patient is tolerating the hemodialysis very well. She is having issues with peritoneal dialysis. This is her second admission with failure of peritoneal dialysis. She wants to try it once more. I would order manual exchanges five times day, each exchange volume 2 liters or 2.5%. If the patient gets enough ultrafiltration with this regimen then I will continue the peritoneal dialysis. Otherwise, I am going to have to stop the peritoneal dialysis and have the peritoneal dialysis catheter removed and ask surgical team to get an arteriovenous (AV) fistula placed. The patient was a dialysis patient at [facility] and if she has to switch to hemodialysis she would need to be discharged to [facility]. 2. Congestive heart failure. The patient goes into congestive heart failure with peritoneal dialysis because of retaining fluid. If she retains fluid again the peritoneal dialysis will be stopped. She emergently needed 3 liters of fluid removal yesterday. I would dialyze her again tomorrow according to regular schedule. 3. Anemia and end-stage renal disease. The patient's hemoglobin level is slowly improving. Continue current dose of Venofer and Aranesp with dialysis. 4. Hypertension with end-stage renal disease and hypertensive heart disease. Continue current dose of Coreg, amlodipine and lisinopril. 5. Hypothyroidism. The patient's levothyroxine dose has been changed by primary team today.
[2018-11-27 07:51] VITALS: BP 139/63
[2018-11-27] MEDS: ASPIRIN 81 MG CHEW TABLET PO SCH (08:05)
[2018-11-27] MEDS: (RENVELA) SEVELAMER **CARBONate** 800 MG TAB PO SCH ×3 (08:05→17:08)
[2018-11-27] MEDS: CARVedilol 3.125 MG TAB PO SCH ×2 (08:05→20:07)
[2018-11-27] MEDS: CETIRIZINE (ZyrTEC) 10 MG TAB PO SCH (08:06)
[2018-11-27] MEDS: amLODIPine 5 MG TAB PO SCH (08:06)
[2018-11-27] MEDS: ATORVASTATIN 20 MG TAB PO SCH (08:06)
[2018-11-27] MEDS: LISINOPRIL 5 MG TAB PO SCH (08:06)
[2018-11-27] MEDS: DOCUSATE SODIUM 100 MG CAP PO SCH ×2 (08:06→20:07)
[2018-11-27] MEDS: FLUTICASONE PROP 0.05% NASAL SPRAY 16 GM (FLONASE) NARES SCH (08:07)
[2018-11-27] MEDS: HEPARIN SOD (PORCINE) 5000 UNITS/ML VIAL SC SCH ×2 (08:07→20:08)
[2018-11-27] MEDS ORDERED: SLF 3 ML SYR IV PRN (10:00)
[2018-11-27] MEDS ORDERED: HEPARIN 1,000 UNITS/ML 10ML VIAL (FOR RADIOLOGY& DIALYSIS ONLY) IV ONE (11:15)
[2018-11-27] MEDS ORDERED: HEPARIN 1,000 UNITS/ML 10ML VIAL (FOR RADIOLOGY& DIALYSIS ONLY) XX ONE (11:15)
[2018-11-27] MEDS: SLF 3 ML SYR IV SCH ×2 (12:50→20:08)
[2018-11-27 13:11] VITALS: BP 142/63
--- NOTE | 2018-11-27 14:03 | CR.PDOC ---
General Date of Consultation: Nov 27, [address] Dr Rome. HPI: The patient is a 62-year-old female with history of peritonitis in 07/2018 at which time PD catheter was removed. Peritoneal dialysis catheter was replac ed by Dr. Rome on 10/24/18, s/p PD cath revision 11/17/18 readmitted with non functioning PD cath 11/23/18. Vascular surgery consulted re HD access. Pt reports last exchange 2100cc in/1600cc out. The pt states there has been no pain, abdominal pain. Pt is receiving HD currently. Medical History ESRD on HD/PD Diabetes HTN CAD with prior [place] Thyroid cancer s/p surgery small vessel disease, peritonitis 07/2017 cellulitis in past Past surgery history: 10/24/18 PD placement HD port thyroidectomy cardiac cath CABGx3 bilateral cataract Family history: mother CAD/[place]; father recently of lung cancer Social history: denies tobacco or Etoh use; single ROS: As noted in HPI, otherwise 11pt ROS of systems reviewed and unremarkable. PE: GEN: 62 yo F, appears stated age. No acute distress. Alert and oriented x 3. HEENT: Normocephalic, atraumatic. Moist mucous membranes. CHEST: Regular rate and rhythm, +S1, +S2 LUNGS: Clear to auscultation bilaterally. ABD: Round, soft, non-tender, mildly distended. PD catheter in place. No erythema or drainage. EXT: No lower extremity edema appreciated. SKIN: [place], dry, warm. No rashes. NEURO: Alert and oriented x 3. No focal deficits appreciated. A&P: 1. Status post PD catheter insertion 10/24/18, revision 11/17/[address] Rome. Currently with non functioning PD cath. 2100cc in /1600cc out with last exchange. HD with Permcath currently The pt is reviewed with Dr Rome, possible AVF creation vs PD cath revision. Will obtain vein mapping. DVT prophylaxis. SQ Heparin. Vital Signs/I&O Vital Signs Date Time Temp Pulse Resp B/P (MAP) Pulse Ox O2 Delivery O2 Flow Rate FiO2 11/27/18 13:11 97.2 75 20 142/63 (89) 100 I&O- Last 24 Hours up to 6 AM 11/27/18 06:00 Intake Total 4640 ml Output Total 3350 ml Balance 1290 ml Laboratory Data Labs 24H Laboratory Tests 2 11/27/18 03:45: Immature Granulocyte % (Auto) 1.2, White Blood Count 6.7, Red Blood Count 3.14L, Hemoglobin 9.4L, Hematocrit 31.9L, Mean Corpuscular Volume 101.6H, Mean Corpuscular Hemoglobin 29.9, Mean Corpuscular Hemoglobin Concent 29.5L, Red Cell Distribution Width 19.4H, Platelet Count 239, Neutrophils (%) (Auto) 63.5, Lymphocytes (%) (Auto) 16.5L, Monocytes (%) (Auto) 13.0H, Eosinophils (%) (Auto) 4.8H, Basophils (%) (Auto) 1.0, Neutrophils # (Auto) 4.2, Lymphocytes # (Auto) 1.1L, Monocytes # (Auto) 0.9H, Eosinophils # (Auto) 0.3, Basophils # (Auto) 0.1, Nucleated Red Blood Cells % (auto) 0.3H, Anion Gap 9, Glomerular Filtration Rate 7.1L, Blood Urea Nitrogen 28H, Creatinine 6.32H, Sodium Level 138, Potassium Level 4.6, Chloride Level 100, Carbon Dioxide Level 29, Calcium Level 9.1 CBC/BMP Laboratory Tests 11/27/18 03:45 Red Blood Count 3.14 L, Mean Corpuscular Volume 101.6 H, Mean Corpuscular Hemoglobin 29.9, Mean Corpuscular Hemoglobin Concent 29.5 L, Red Cell Distribution Width 19.4 H, Neutrophils (%) (Auto) 63.5, Lymphocytes (%) (Auto) 16.5 L, Monocytes (%) (Auto) 13.0 H, Eosinophils (%) (Auto) 4.8 H, Basophils (%) (Auto) 1.0, Neutrophils # (Auto) 4.2, Lymphocytes # (Auto) 1.1 L, Monocytes # (Auto) 0.9 H, Eosinophils # (Auto) 0.3, Basophils # (Auto) 0.1, Calcium Level 9.1 Allergies Coded Allergies: Penicillins (Unverified Allergy, Intermediate, HIVES, 08/22/18) latex (Verified Allergy, Unknown, ITCHING, ORIGINALLY LISTED BAND-AID, 10/23/18) hydrocodone (Unverified Adverse Reaction, Mild, VOMITING, 08/21/18) egg (Unverified Adverse Reaction, Unknown, VOMITING, 08/21/18) Home Medications Scheduled Amlodipine Besylate (Amlodipine Besylate) 5 Mg Tablet, 5 MG PO DAILY, (Reported) Aspirin (Aspir 81) 81 Mg Tablet.dr, 81 MG PO DAILY, (Reported) Atorvastatin Calcium (Atorvastatin Calcium) 20 Mg Tablet, 20 MG PO DAILY, (Reported) Carvedilol (Carvedilol) 3.125 Mg Tablet, 3.125 MG PO BID, (Reported) Cholecalciferol (Vitamin D3) (Vitamin D3) 50,000 Unit Capsule, 50,000 UNIT PO 1XWK, (Reported) Docusate Sodium (Docusate Sodium) 100 Mg Tablet, 100 MG PO BID, (Reported) Ferric Citrate (Auryxia) 210 Mg Tablet, 210 MG PO TID, (Reported) Folic Acid/Vit B Complex and C (Zo-Kamran Tablet) 0.8 Mg Tablet, 1 TAB PO DAILY, (Reported) Levothyroxine Sodium (Synthroid) 150 Mcg Tablet, 150 MCG PO DAILY, (Reported) Lisinopril (Lisinopril) 5 Mg Tablet, 5 MG PO DAILY, (Reported) Potassium Chloride (Potassium Chloride) 10 Meq Tablet.er, 10 MEQ PO DAILY, (Reported) Sevelamer Carbonate (Renvela) 800 Mg Tablet, 800 MG PO DAILY for 30 Days, #90 (Reported) Torsemide (Torsemide) 20 Mg Tablet, 20 MG PO BID, (Reported) Scheduled PRN Acetaminophen (Acetaminophen) 500 Mg Tablet, 1,000 MG PO Q6H PRN for PAIN, (Reported) Nitroglycerin (Nitroglycerin) 0.4 Mg Tab.subl, 0.4 MG SL Q5MP PRN for CHEST PA IN, (Reported) Bita Ortega Nov 27, 2018 14:03
[2018-11-27 15:39] VITALS: BP 109/58
--- NOTE | 2018-11-27 18:23 | IPN ---
DATE: 11/27/2018 SUBJECTIVE: The patient was seen and examined at the bedside today morning during hemodialysis procedure. She is tolerating the hemodialysis procedure well. I was called yesterday by the patient's nurse that after doing two exchanges, she was 700 mL negative which means she had retained almost 700 mL. The patient refused to do further peritoneal dialysis so peritoneal dialysis (PD) was stopped yesterday. I had already discussed with the patient that she will need to be switched to hemodialysis if PD fails. I discussed her case with vascular surgery today for placement of arteriovenous (AV) fistula to switch her permanently to hemodialysis. PD catheter needs to be removed. OBJECTIVE: VITAL SIGNS: Temperature is 99.1 degrees Fahrenheit, blood pressure 109/58, pulse is 74, respiratory rate of 19, saturating 98% on room air. INTAKE AND OUTPUT: There is no urine output recorded. Weight in the bed scale is 60.7 kg. PHYSICAL EXAMINATION: GENERAL: The patient is awake, alert, oriented times three, laying in bed, in no apparent distress. HEAD AND NECK: The patient is legally blind. Finger counting in the right eye, very poor vision in the left eye. Neck is supple. There is no jugular venous distention (JVD). She has a right internal jugular (IJ) tunneled hemodialysis catheter. CARDIOVASCULAR: S1, S2, regular rate. No edema of the bilateral lower extremities. RESPIRATORY: Chest is clear to auscultation bilaterally. Bilateral equal air entry. No rales or rhonchi. ABDOMEN: Soft. Positive bowel sounds. Left upper quadrant peritoneal dialysis (PD) catheter was noted. MUSCULOSKELETAL: No clubbing or cyanosis. Pulses are 2+. CENTRAL NERVOUS SYSTEM (OVEN WORKER): No focal deficit apart from legal blindness. LABORATORY REVIEW: CBC showed a WBC of 6.7, hemoglobin 9.4, platelets are 239. BMP showed sodium 138, potassium 4.6, chloride 100, bicarbonate 29, BUN 28, creatinine 6.3. CURRENT INPATIENT MEDICATIONS: The patient's medications were all reviewed by me. No change in the medications today as compared with yesterday. ASSESSMENT AND PLAN: 1. End-stage renal disease. The patient has failed peritoneal dialysis multiple times. I have discussed with vascular surgery. Peritoneal dialysis (PD) catheter needs to be removed. The patient needs placement of arteriovenous (AV) fistula. Continue hemodialysis. Once she has the fistula, she will be discharged back to [facility] where she gets the hemodialysis done. 2. Congestive heart failure. The patient again retained almost 700 mL of fluid with PD. PD has been stopped. About three liters of fluid will be removed during dialysis today. 3. Anemia and end-stage renal disease. Hemoglobin is 9.4 which is improving. Continue current dose of IV iron and Aranesp with dialysis. 4. Hypertension with end-stage renal disease. Continue current dose of lisinopril, amlodipine, and Coreg.
--- NOTE | 2018-11-27 19:33 | IPNPDOC ---
Text Note Date of Service The patient was seen on 11/27/18. NOTE S: patient had HD earlier today. States no SOB , no JIMENEZ. states not doing C APD today because yesterday more fluid in than out. States she is waiting to see Dr Rome to have CAPD cathetar adjusted O: Vitals as below General: pleasant NAD AAOX3 HRRR LCTA no W/R/R Ext no edema A/P: 1. End-stage renal disease on HD and PD - management by nephrology. Patient does not live near HD facility and refusing outpatient HD. Await evaluation of CAPD by Dr Rome 2. Fluid overload suggestive acute diastolic CHF - RESOLVED with first HD on admission; echo performed as outpatient within past 6 months (report requested) Case management consulted regarding PD machine and readmission due to non functioning home device. Continue with current hospitalization while adjusting the PD to find a regimen that maintains a negative fluid balance per nephrology recommendations. 3. Hypertension with end-stage renal disease and hypertensive heart disease. - continue amlodipine,coreg, lisinopril (off diuretic as pateint is anuric) 4. Anemia in end-stage renal disease. IV Venofer with dialysis Aranesp with dialysis. Continue home dose of iron pills. 5. Iatrogenic hypothyroidism (S/P thyroidectomey for Cancer) - levothyroxine 175 mcg daily. 6. Diabetes - not on terminal makeup operator insulin, without hyperglycemia, without hypoglycemia - diabetic diet. patient refusing SSI and ac/HS accuchecks. blood sugars well controlled. will d/c accucheck/SSI but maintain hypoglycemic protocol prn VS,Fishbone, I+O VS, Fishbone, I+O Laboratory Tests 11/27/18 03:45 Red Blood Count 3.14 L, Mean Corpuscular Volume 101.6 H, Mean Corpuscular Hemoglobin 29.9, Mean Corpuscular Hemoglobin Concent 29.5 L, Red Cell Distribution Width 19.4 H, Neutrophils (%) (Auto) 63.5, Lymphocytes (%) (Auto) 16.5 L, Monocytes (%) (Auto) 13.0 H, Eosinophils (%) (Auto) 4.8 H, Basophils (%) (Auto) 1.0, Neutrophils # (Auto) 4.2, Lymphocytes # (Auto) 1.1 L, Monocytes # (Auto) 0.9 H, Eosinophils # (Auto) 0.3, Basophils # (Auto) 0.1, Calcium Level 9.1 Vital Signs Date Time Temp Pulse Resp B/P (MAP) Pulse Ox O2 Delivery O2 Flow Rate FiO2 11/27/18 15:39 99.1 74 19 109/58 (75 98 I&O- Last 24 Hours up to 6 AM 11/27/18 06:00 Intake Total 4640 ml Output Total 3350 ml Balance 1290 ml TORIE VILLAVICENCIO DO Nov 27, 2018 19:33
[2018-11-27 20:00] VITALS: BP 129/61
--- NOTE | 2018-11-27 22:56 | REPVR ---
EXAM: US VESSEL MAP FOR HEMODIALYSIS EXAM DATE/TIME: 11/27/2018 9:55 PM CLINICAL HISTORY: 62 years old, female; Device placement; Patient HX: Heart bypass. Possible lt radial artery was harvested; Additional info: Possible avf creation TECHNIQUE: Imaging protocol: US VESSEL MAP FOR HEMODIALYSIS COMPARISON: No relevant prior studies available. FINDINGS: Other findings: No DVT demonstrated in the right or left arm. All veins in the deep system are clear; Intraluminal thrombus demonstrated in the distal right cephalic vein. No other thrombosis demonstrated. Right right arm: Proximal basilic 3.1 mm, mid basilic 3.6 mm, basilic and antecubital fossa is 2.3 mm, basilic and upper forearm 2.9 mm, basilic mid forearm 2.2 mm, basilic at the wrist 2.1 mm. Proximal cephalic vein 4.3 mm, mid humeral cephalic vein 5.4 mm, cephalic vein in the antecubital fossa 6.1 mm, cephalic vein in the proximal forearm is 4 mm, cephalic vein mid forearm 3.7 mm, cephalic vein at wrist 3.3 mm. Median cubital vein 5.1 mm. Moderate plaque demonstrated in the right radial and ulnar arteries. Axillary artery measures 5.4 mm, brachial artery 4.1 mm, radial artery 1.5 mm, ulnar artery 1.4 mm Peak systolic velocities 56.8 cm/s for the axillary artery, 52.1 cm/s the brachial artery, 29.4 cm/s for the radial artery, and 50.1 cm/s for the ulna artery. Biphasic flow throughout. Left arm: Proximal cephalic vein 3.1 mm, mid humeral cephalic vein 4.7 mm, cephalic vein at antecubital fossa 4.8 mm, cephalic vein proximal forearm 2.8 mm, cephalic vein midforearm 2.8 mm, cephalic vein at the wrist 3.4 mm. Basilic vein in the upper humerus 2.9 mm, mid humerus 3.4 mm, basilic and antecubital fossa 2.8 mm, basilic vein upper forearm 2.3 mm, basilic vein at forearm 2.4 mm, basilic vein at the wrist 2.4 mm. Median cubital vein 2.1 mm. Proximal left radial artery visualized, mid and distal segments are visualized. Axillary artery measures 6.9 mm, brachial artery 4.0 mm, radial artery 1.8 mm, ulnar artery 2.4 mm. Peak systolic velocity for the axillary artery 54.5 cm/s, 64.8 cm/s the brachial artery, 29.5 cm/s for the radial artery, and 56.2 cm/s for the ulnar artery. Biphasic flow throughout. IMPRESSION: Short segment thrombus in the forearm branch of the cephalic vein at the IV site. Moderate atherosclerotic plaque in the right radial and ulnar arteries. Distal and mid left radial artery not visualized. Measurements of vessel size and peak systolic velocities poorly arteries are provided above. Electronically signed by: John Monsivais On 11/27/2018 22:56:14 PM
[2018-11-27 23:59] VITALS: BP 119/58
[2018-11-28 04:00] VITALS: BP 122/60
[2018-11-28 05:20] LABS: BASO # 0.1 10^3/uL (0.0-0.2); BASO % 1.1 % (0.0-1.0); EOS # 0.3 10^3/uL (0.0-0.50); HEMATOCRIT 32.5 % (36.0-47.0); HEMOGLOBIN 9.4 g/dl (12.0-15.5); LYMPH # 1.4 10^3/uL (1.5-4.5); LYMPH % 21.9 % (24.0-44.0); MEAN CORPUSCULAR HEMOGLOBIN 29.7 pg (27.0-33.0); MEAN CORPUSCULAR HGB CONC 28.9 g/dl (32.0-36.5); MEAN CORPUSCULAR VOLUME 102.8 fl (80.0-96.0); MONO # 0.8 10^3/uL (0.0-0.8); MONO % 12.6 % (0.0-5.0); NEUTROPHILS # 3.7 10^3/uL (1.8-7.7); NEUTROPHILS % 59.1 % (36.0-66.0); PLATELET COUNT, AUTOMATED 223 10^3/uL (150-450); RED BLOOD COUNT 3.16 10^6/uL (4.00-5.40); WHITE BLOOD COUNT 6.3 10^3/uL (4.0-10.0)
[2018-11-28] MEDS: LEVOTHYROXINE 100MCG TABLET (0.1MG) PO SCH (05:24)
[2018-11-28] MEDS: LEVOTHYROXINE 75MCG TABLET (0.075MG) PO SCH (05:24)
[2018-11-28] MEDS: SLF 3 ML SYR IV SCH ×3 (05:24→21:30)
[2018-11-28 05:46] LABS: CALCIUM LEVEL 8.9 MG/DL (8.8-10.2); CREATININE FOR GFR 4.66 MG/DL (0.55-1.30); GLOMERULAR FILTRATION RATE 10.1 (>45); POTASSIUM SERUM 4.3 MEQ/L (3.5-5.1)
[2018-11-28 08:00] VITALS: BP 151/67
[2018-11-28] MEDS: FLUTICASONE PROP 0.05% NASAL SPRAY 16 GM (FLONASE) NARES SCH (08:42)
[2018-11-28] MEDS: ASPIRIN 81 MG CHEW TABLET PO SCH (08:43)
[2018-11-28] MEDS: LISINOPRIL 5 MG TAB PO SCH (08:43)
[2018-11-28] MEDS: (RENVELA) SEVELAMER **CARBONate** 800 MG TAB PO SCH ×3 (08:43→17:17)
[2018-11-28] MEDS: HEPARIN SOD (PORCINE) 5000 UNITS/ML VIAL SC SCH ×2 (08:43→21:25)
[2018-11-28] MEDS: amLODIPine 5 MG TAB PO SCH (08:44)
[2018-11-28] MEDS: DOCUSATE SODIUM 100 MG CAP PO SCH ×2 (08:44→21:24)
[2018-11-28] MEDS: ATORVASTATIN 20 MG TAB PO SCH (08:44)
[2018-11-28] MEDS: CETIRIZINE (ZyrTEC) 10 MG TAB PO SCH (08:44)
[2018-11-28] MEDS: CARVedilol 3.125 MG TAB PO SCH ×2 (08:44→21:25)
--- NOTE | 2018-11-28 11:04 | IPNPDOC ---
Subjective Date Seen The patient was seen on 11/28/18. Subjective Chief Complaint/HPI Patient seen and examined at the bedside. No acute overnight events noted. Objective Physical Examination General Exam: Positive: Alert, Cooperative, No Acute Distress ENT Exam: Positive: Atraumatic, Mucous membr. moist/pink Neck Exam: Negative: JVD Chest Exam: Positive: Diminished Heart Exam: Positive: Rate Normal, Regular Rhythm, Normal S1, Normal S2 Abdomen Exam: Positive: Soft; Negative: Tenderness Extremity Exam: Negative: Tenderness Psych Exam: Positive: Oriented x 3 Assessment /Plan Plan/VTE VTE Prophylaxis Ordered?: Yes Plan End-stage renal disease on HD and PD Dr Rome on consult for peritoneal catheter management Dialysis management as per nephrology Acute hypoxic respiratory failure due to fluid overload from ESRD Volume optimization via dialysis as per Nephro Hypertension continue amlodipine, coreg, lisinopril and torsemide Anemia in end-stage renal disease. IV Venofer with dialysis Aranesp with dialysis. Continue home dose of iron pills. Iatrogenic hypothyroidism (S/P thyroidectomy for Cancer) Cont levothyroxine 175 mcg daily. Diabetes Insulin sliding scale Hx of CAD On ASA, Statin, Coreg Dyslipidemia Continue statin DVT prophylaxis Heparin SC Disposition-pending continued clinical improvement, volume optimization via dialysis as per Nephro VS, I&O, 24H, Fishbone Vital Signs/I&O Vital Signs Date Time Temp Pulse Resp B/P (MAP) Pulse Ox O2 Delivery O2 Flow Rate FiO2 11/28/18 08:44 69 151/67 11/28/18 08:00 97.5 18 98 I&O- Last 24 Hours up to 6 AM 11/28/18 06:00 Intake Total 360 ml Output Total 3000 ml Balance -2640 ml Laboratory Data 24H LABS Laboratory Tests 2 11/28/18 04:39: Immature Granulocyte % (Auto) 1.3, White Blood Count 6.3, Red Blood Count 3.16L, Hemoglobin 9.4L, Hematocrit 32.5L, Mean Corpuscular Volume 102.8H, Mean Corpuscular Hemoglobin 29.7, Mean Corpuscular Hemoglobin Concent 28.9L, Red Cell Distribution Width 19.9H, Platelet Count 223, Neutrophils (%) (Auto) 59.1, Lymphocytes (%) (Auto) 21.9L, Monocytes (%) (Auto) 12.6H, Eosinophils (%) (Auto) 4.0H, Basophils (%) (Auto) 1.1H, Neutrophils # (Auto) 3.7, Lymphocytes # (Auto) 1.4L, Monocytes # (Auto) 0.8, Eosinophils # (Auto) 0.3, Basophils # (Auto) 0.1, Nucleated Red Blood Cells % (auto) 0.3H, Anion Gap 5L, Glomerular Filtration Rate 10.1L, Blood Urea Nitrogen 19H, Creatinine 4.66H, Sodium Level 139, Potassium Level 4.3, Chloride Level 103, Carbon Dioxide Level 31, Calcium Level 8.9 CBC/BMP Laboratory Tests 11/28/18 04:39 Red Blood Count 3.16 L, Mean Corpuscular Volume 102.8 H, Mean Corpuscular Hemoglobin 29.7, Mean Corpuscular Hemoglobin Concent 28.9 L, Red Cell Distribution Width 19.9 H, Neutrophils (%) (Auto) 59.1, Lymphocytes (%) (Auto) 21.9 L, Monocytes (%) (Auto) 12.6 H, Eosinophils (%) (Auto) 4.0 H, Basophils (%) (Auto) 1.1 H, Neutrophils # (Auto) 3.7, Lymphocytes # (Auto) 1.4 L, Monocytes # (Auto) 0.8, Eosinophils # (Auto) 0.3, Basophils # (Auto) 0.1, Calcium Level 8.9 ALESIA MADERA MD Nov 28, 2018 11:04
--- NOTE | 2018-11-28 11:10 | IPNPDOC ---
Date Seen The patient was seen on 11/28/18. Progress Note Vascular Surgery. Dr Rome. HPI: The patient is a 62-year-old female with history of peritonitis in 07/2018 at which time PD catheter was removed. Peritoneal dialysis catheter was replaced by Dr. Rome on 10/24/18, s/p PD cath revision 11/17/18 readmitted with non functioning PD cath 11/23/18. Vascular surgery consulted re HD access. The pt states she would still like to try for PD. Pt has received HD and states breathing is comfortable at this time. Medical History ESRD on HD/PD Diabetes HTN CAD with prior [place] Thyroid cancer s/p surgery small vessel disease, peritonitis 07/2017 cellulitis in past Past surgery history: 10/24/18 PD placement HD port thyroidectomy cardiac cath CABGx3 bilateral cataract PE: GEN: 62 yo F, appears stated age. Alert and oriented x 3. HEENT: Normocephalic, atraumatic. Moist mucous membranes. CHEST: Regular rate and rhythm, +S1, +S2 LUNGS: Clear to auscultation bilaterally. ABD: Round, soft, non-tender, mildly distended. PD catheter in place. No erythema or drainage. EXT: No lower extremity edema appreciated. SKIN: [place], dry, warm. No rashes. NEURO: No focal deficits appreciated. A&P: 1. Status post PD catheter insertion 10/24/18, revision 11/17/[address] Rome. Currently with non functioning PD cath. HD as per Nephrology with Permcath currently. The pt is reviewed with Dr Rome, possible AVF creation vs PD cath revision. Vein mapping ordered and pending. Dr Rome plans to discuss further with pt, possibly proceed with PD cath revision 11/30/18. Pt would also be recommended to proceed with AVF creation. DVT prophylaxis. SQ Heparin. VS, I&O, 24H, Fishbone Vital Signs/I&O Vital Signs Date Time Temp Pulse Resp B/P (MAP) Pulse Ox O2 Delivery O2 Flow Rate FiO2 11/28/18 08:44 69 151/67 11/28/18 08:00 97.5 18 98 I&O- Last 24 Hours up to 6 AM 11/28/18 06:00 Intake Total 360 ml Output Total 3000 ml Balance -2640 ml Laboratory Data 24H LABS Laboratory Tests 2 11/28/18 04:39: Immature Granulocyte % (Auto) 1.3, White Blood Count 6.3, Red Blood Count 3.16L, Hemoglobin 9.4L, Hematocrit 32.5L, Mean Corpuscular Volume 102.8H, Mean Corpuscular Hemoglobin 29.7, Mean Corpuscular Hemoglobin Concent 28.9L, Red Cell Distribution Width 19.9H, Platelet Count 223, Neutrophils (%) (Auto) 59.1, Lymphocytes (%) (Auto) 21.9L, Monocytes (%) (Auto) 12.6H, Eosinophils (%) (Auto) 4.0H, Basophils (%) (Auto) 1.1H, Neutrophils # (Auto) 3.7, Lymphocytes # (Auto) 1.4L, Monocytes # (Auto) 0.8, Eosinophils # (Auto) 0.3, Basophils # (Auto) 0.1, Nucleated Red Blood Cells % (auto) 0.3H, Anion Gap 5L, Glomerular Filtration Rate 10.1L, Blood Urea Nitrogen 19H, Creatinine 4.66H, Sodium Level 139, Potassium Level 4.3, Chloride Level 103, Carbon Dioxide Level 31, Calcium Level 8.9 CBC/BMP Laboratory Tests 11/28/18 04:39 Red Blood Count 3.16 L, Mean Corpuscular Volume 102.8 H, Mean Corpuscular Hemoglobin 29.7, Mean Corpuscular Hemoglobin Concent 28.9 L, Red Cell Distribution Width 19.9 H, Neutrophils (%) (Auto) 59.1, Lymphocytes (%) (Auto) 21.9 L, Monocytes (%) (Auto) 12.6 H, Eosinophils (%) (Auto) 4.0 H, Basophils (%) (Auto) 1.1 H, Neutrophils # (Auto) 3.7, Lymphocytes # (Auto) 1.4 L, Monocytes # (Auto) 0.8, Eosinophils # (Auto) 0.3, Basophils # (Auto) 0.1, Calcium Level 8.9 Bita Ortega Nov 28, 2018 11:10
[2018-11-28 16:00] VITALS: BP 138/66
[2018-11-28 18:00] VITALS: BP 143/63
[2018-11-28] MEDS ORDERED: ACETAMINOPHEN 500 MG TAB PO ONE (21:15)
[2018-11-28 22:00] VITALS: BP 122/58
[2018-11-29] MEDS: LEVOTHYROXINE 100MCG TABLET (0.1MG) PO SCH (05:45)
[2018-11-29] MEDS: LEVOTHYROXINE 75MCG TABLET (0.075MG) PO SCH (05:45)
[2018-11-29] MEDS: SLF 3 ML SYR IV SCH ×3 (05:46→20:09)
[2018-11-29 06:00] VITALS: BP 124/56
[2018-11-29 06:16] LABS: BASO # 0.1 10^3/uL (0.0-0.2); BASO % 1.5 % (0.0-1.0); EOS # 0.3 10^3/uL (0.0-0.50); EOS % 4.6 % (0.0-3.0); HEMATOCRIT 31.4 % (36.0-47.0); HEMOGLOBIN 9.1 g/dl (12.0-15.5); LYMPH # 1.6 10^3/uL (1.5-4.5); LYMPH % 26.3 % (24.0-44.0); MEAN CORPUSCULAR HEMOGLOBIN 29.1 pg (27.0-33.0); MEAN CORPUSCULAR VOLUME 100.3 fl (80.0-96.0); MONO # 0.8 10^3/uL (0.0-0.8); MONO % 12.6 % (0.0-5.0); NEUTROPHILS # 3.2 10^3/uL (1.8-7.7); NEUTROPHILS % 54.2 % (36.0-66.0); PLATELET COUNT, AUTOMATED 227 10^3/uL (150-450); RED BLOOD COUNT 3.13 10^6/uL (4.00-5.40); WHITE BLOOD COUNT 5.9 10^3/uL (4.0-10.0)
[2018-11-29 06:43] LABS: CALCIUM LEVEL 9.4 MG/DL (8.8-10.2); CREATININE FOR GFR 6.44 MG/DL (0.55-1.30); POTASSIUM SERUM 4.6 MEQ/L (3.5-5.1)
[2018-11-29] MEDS: HEPARIN SOD (PORCINE) 5000 UNITS/ML VIAL SC SCH ×2 (07:51→20:08)
[2018-11-29] MEDS: DOCUSATE SODIUM 100 MG CAP PO SCH ×2 (07:51→20:08)
[2018-11-29] MEDS: LISINOPRIL 5 MG TAB PO SCH (07:52)
[2018-11-29] MEDS: ATORVASTATIN 20 MG TAB PO SCH (07:52)
[2018-11-29] MEDS: CARVedilol 3.125 MG TAB PO SCH ×2 (07:52→20:08)
[2018-11-29] MEDS: ASPIRIN 81 MG CHEW TABLET PO SCH (07:52)
[2018-11-29] MEDS: CETIRIZINE (ZyrTEC) 10 MG TAB PO SCH (07:52)
[2018-11-29] MEDS: (RENVELA) SEVELAMER **CARBONate** 800 MG TAB PO SCH ×3 (07:52→19:56)
[2018-11-29] MEDS: FLUTICASONE PROP 0.05% NASAL SPRAY 16 GM (FLONASE) NARES SCH (07:53)
[2018-11-29] MEDS: amLODIPine 5 MG TAB PO SCH (07:53)
--- NOTE | 2018-11-29 08:25 | IPN ---
DATE: 11/28/2018 Ms. Olsen is seen this morning on her bedside. She underwent hemodialysis yesterday and 3 liters fluid was removed. She is feeling much better and denies any dyspnea or chest pain. Her peritoneal dialysis has not worked and multiple efforts have failed. The patient understands and we have already requested for an AV fistula and removal of her peritoneal dialysis catheter. She did have severe peritonitis due to which her peritoneal catheter was removed a few months ago. She had a lot of adhesions and did have lysis done during repositioning of her this catheter. However, she has repeatedly failed to maintain her volume status with peritoneal dialysis alone. on room. The patient is legally blind and lives in the [facility] which is too far from any dialysis facility. She has a sister in [place] where she lived for the last few months because of need for hemodialysis and she is likely to move to [facility] now for the same reason. PHYSICAL EXAMINATION Temperature 97 degrees Fahrenheit, heart rate 70 per minute and respiratory rate 18 per minute. Blood pressure 150/67 mmHg and oxygen saturation 98% on room air. She is legally blind. Head is atraumatic. Neck: Supple and without JVD or thyroid enlargement. Heart: Sounds are regular and lungs sound clear to auscultation today. Abdomen is soft and nontender and peritoneal dialysis catheter is intact. Extremities have no cyanosis or clubbing. Neurologically she is awake, alert and at her baseline mentation. Today's labs show WBC count 6.3, hemoglobin 9.4 and hematocrit 32.5. Platelets 223. Sodium 139, potassium 4.3, CO2 31, BUN 19 and creatinine 4.66. PROBLEMS: 1. End-stage renal disease. The patient was admitted now on maintenance hemodialysis and peritoneal dialysis has already been stopped. Dr. Rome has been requested to remove her peritoneal catheter. The patient understands and she is likely to go back to [place], [place] to live with her sister and get her hemodialysis over there. 2. Shortness of breath. It was volume related as she did get volume overloaded. Improved with fluid removal and we will continue to maintain her volume now with hemodialysis. 3. Anemia. Her anemia is stable at present and we she will continue to receive Aranesp and Venofer with hemodialysis. 4. Hypertension. Blood pressure seems very well controlled now and will continue with current antihypertensive meds.
[2018-11-29] MEDS ORDERED: HEPARIN 1,000 UNITS/ML 10ML VIAL (FOR RADIOLOGY& DIALYSIS ONLY) XX ONE (11:45)
[2018-11-29] MEDS ORDERED: HEPARIN 1,000 UNITS/ML 10ML VIAL (FOR RADIOLOGY& DIALYSIS ONLY) IV ONE (11:45)
--- NOTE | 2018-11-29 12:34 | IPNPDOC ---
Date Seen The patient was seen on 11/29/18. Progress Note Vascular Surgery. Dr Rome. HPI: The patient is a 62-year-old female with history of peritonitis in 07/2018 at which time PD catheter was removed. Peritoneal dialysis catheter was replaced by Dr. Rome on 10/24/18, s/p PD cath revision 11/17/18 readmitted with non functioning PD cath 11/23/18. Vascular surgery consulted re HD access. The pt states she would still like to try for PD. She is currently receiving hemodialysis this morning. Medical History ESRD on HD/PD Diabetes HTN CAD with prior [place] Thyroid cancer s/p surgery small vessel disease, peritonitis 07/2017 cellulitis in past Past surgery history: 10/24/18 PD placement HD port thyroidectomy cardiac cath CABGx3 bilateral cataract PE: GEN: 62 yo F, appears stated age. Alert and oriented x 3. HEENT: Normocephalic, atraumatic. Moist mucous membranes. ABD: PD catheter in place. No erythema or drainage. SKIN: [place], dry, warm. No rashes. Vein mapping FINDINGS: Other findings: No DVT demonstrated in the right or left arm. All veins in the deep system are clear; Intraluminal thrombus demonstrated in the distal right cephalic vein. No other thrombosis demonstrated. Right right arm: Proximal basilic 3.1 mm, mid basilic 3.6 mm, basilic and antecubital fossa is 2.3 mm, basilic and upper forearm 2.9 mm, basilic mid forearm 2.2 mm, basilic at the wrist 2.1 mm. Proximal cephalic vein 4.3 mm, mid humeral cephalic vein 5.4 mm, cephalic vein in the antecubital fossa 6.1 mm, cephalic vein in the proximal forearm is 4 mm, cephalic vein mid forearm 3.7 mm, cephalic vein at wrist 3.3 mm. Median cubital vein 5.1 mm. Moderate plaque demonstrated in the right radial and ulnar arteries. Axillary artery measures 5.4 mm, brachial artery 4.1 mm, radial artery 1.5 mm, ulnar artery 1.4 mm Peak systolic velocities 56.8 cm/s for the axillary artery, 52.1 cm/s the brachial artery, 29.4 cm/s for the radial artery, and 50.1 cm/s for the ulna artery. Biphasic flow throughout. Left arm: Proximal cephalic vein 3.1 mm, mid humeral cephalic vein 4.7 mm, cephalic vein at antecubital fossa 4.8 mm, cephalic vein proximal forearm 2.8 mm, cephalic vein midforearm 2.8 mm, cephalic vein at the wrist 3.4 mm. Basilic vein in the upper humerus 2.9 mm, mid humerus 3.4 mm, basilic and antecubital fossa 2.8 mm, basilic vein upper forearm 2.3 mm, basilic vein at forearm 2.4 mm, basilic vein at the wrist 2.4 mm. Median cubital vein 2.1 mm. Proximal left radial artery visualized, mid and distal segments are visualized. Axillary artery measures 6.9 mm, brachial artery 4.0 mm, radial artery 1.8 mm, ulnar artery 2.4 mm. Peak systolic velocity for the axillary artery 54.5 cm/s, 64.8 cm/s the brachial artery, 29.5 cm/s for the radial artery, and 56.2 cm/s for the ulnar artery. Biphasic flow throughout. IMPRESSION: Short segment thrombus in the forearm branch of the cephalic vein at the IV site. Moderate atherosclerotic plaque in the right radial and ulnar arteries. Distal and mid left radial artery not visualized. Measurements of vessel size and peak systolic velocities poorly arteries are provided above. Electronically signed by: John Monsivais On 11/27/2018 22:56:14 PM A&P: 1. Status post PD catheter insertion 10/24/18, revision 11/17/[address] Rome. Currently with non functioning PD cath. HD as per Nephrology with [facility] currently. The pt is reviewed with Dr Rome, possible AVF creation vs PD cath revision. Vein mapping obtained. Dr Rome has reviewed with pt, plan for PD cath revision versus removal 11/29/18. Pt would also be recommended to proceed with AVF creation. DVT prophylaxis. SQ Heparin. VS, I&O, 24H, Fishbone Vital Signs/I&O Vital Signs Date Time Temp Pulse Resp B/P (MAP) Pulse Ox O2 Delivery O2 Flow Rate FiO2 11/29/18 07:53 63 124/56 11/29/18 06:00 97.5 17 98 I&O- Last 24 Hours up to 6 AM 11/29/18 05:59 Intake Total 950 ml Output Total 0 ml Balance 950 ml Laboratory Data 24H LABS Laboratory Tests 2 11/29/18 05:04: Immature Granulocyte % (Auto) 0.8, White Blood Count 5.9, Red Blood Count 3.13L, Hemoglobin 9.1L, Hematocrit 31.4L, Mean Corpuscular Volume 100.3H, Mean C orpuscular Hemoglobin 29.1, Mean Corpuscular Hemoglobin Concent 29.0L, Red Cell Distribution Width 20.4H, Platelet Count 227, Neutrophils (%) (Auto) 54.2, Lymphocytes (%) (Auto) 26.3, Monocytes (%) (Auto) 12.6H, Eosinophils (%) (Auto) 4.6H, Basophils (%) (Auto) 1.5H, Neutrophils # (Auto) 3.2, Lymphocytes # (Auto) 1.6, Monocytes # (Auto) 0.8, Eosinophils # (Auto) 0.3, Basophils # (Auto) 0.1, Nucleated Red Blood Cells % (auto) 0.0, Anion Gap 7L, Glomerular Filtration Rate 7.0L, Blood Urea Nitrogen 36#H, Creatinine 6.44H, Sodium Level 139, Potassium Level 4.6, Chloride Level 103, Carbon Dioxide Level 29, Calcium Level 9.4 CBC/BMP Laboratory Tests 11/29/18 05:04 Red Blood Count 3.13 L, Mean Corpuscular Volume 100.3 H, Mean Corpuscular Hemoglobin 29.1, Mean Corpuscular Hemoglobin Concent 29.0 L, Red Cell Distribution Width 20.4 H, Neutrophils (%) (Auto) 54.2, Lymphocytes (%) (Auto) 26.3, Monocytes (%) (Auto) 12.6 H, Eosinophils (%) (Auto) 4.6 H, Basophils (%) (Auto) 1.5 H, Neutrophils # (Auto) 3.2, Lymphocytes # (Auto) 1.6, Monocytes # (Auto) 0.8, Eosinophils # (Auto) 0.3, Basophils # (Auto) 0.1, Calcium Level 9.4 Bita Ortega Nov 29, 2018 12:34
[2018-11-29 14:00] VITALS: BP 133/63
--- NOTE | 2018-11-29 15:09 | IPNPDOC ---
Subjective Date Seen The patient was seen on 11/29/18. Subjective Chief Complaint/HPI Patient seen and examined at the bedside. No acute overnight events noted. Objective Physical Examination General Exam: Positive: Alert, Cooperative, No Acute Distress ENT Exam: Positive: Atraumatic, Mucous membr. moist/pink Neck Exam: Negative: JVD Chest Exam: Positive: Diminished Heart Exam: Positive: Rate Normal, Regular Rhythm, Normal S1, Normal S2 Abdomen Exam: Positive: Soft; Negative: Tenderness Extremity Exam: Negative: Tenderness Psych Exam: Positive: Oriented x 3 Assessment /Plan Plan/VTE VTE Prophylaxis Ordered?: Yes Plan End-stage renal disease on HD and PD Dr Rome on consult for peritoneal catheter management Dialysis management as per nephrology Hypertension continue amlodipine, coreg, lisinopril and torsemide Anemia in end-stage renal disease. IV Venofer with dialysis Aranesp with dialysis. Continue home dose of iron pills. Iatrogenic hypothyroidism (S/P thyroidectomy for Cancer) Cont levothyroxine 175 mcg daily. Diabetes Insulin sliding scale Hx of CAD On ASA, Statin, Coreg Dyslipidemia Continue statin DVT prophylaxis Heparin SC Disposition-pending continued clinical improvement, volume optimization via dialysis as per Nephro VS, I&O, 24H, Alicia Vital Signs/I&O Vital Signs Date Time Temp Pulse Resp B/P (MAP) Pulse Ox O2 Delivery O2 Flow Rate FiO2 11/29/18 14:00 98.1 65 16 133/63 (86) 99 I&O- Last 24 Hours up to 6 AM 11/29/18 06:00 Intake Total 1000 ml Output Total 0 ml Balance 1000 ml Laboratory Data 24H LABS Laboratory Tests 2 11/29/18 05:04: Immature Granulocyte % (Auto) 0.8, White Blood Count 5.9, Red Blood Count 3.13L, Hemoglobin 9.1L, Hematocrit 31.4L, Mean Corpuscular Volume 100.3H, Mean Corpuscular Hemoglobin 29.1, Mean Corpuscular Hemoglobin Concent 29.0L, Red Cell Distribution Width 20.4H, Platelet Count 227, Neutrophils (%) (Auto) 54.2, Lymphocytes (%) (Auto) 26.3, Monocytes (%) (Auto) 12.6H, Eosinophils (%) (Auto) 4.6H, Basophils (%) (Auto) 1.5H, Neutrophils # (Auto) 3.2, Lymphocytes # (Auto) 1.6, Monocytes # (Auto) 0.8, Eosinophils # (Auto) 0.3, Basophils # (Auto) 0.1, Nucleated Red Blood Cells % (auto) 0.0, Anion Gap 7L, Glomerular Filtration Rate 7.0L, Blood Urea Nitrogen 36#H, Creatinine 6.44H, Sodium Level 139, Potassium Level 4.6, Chloride Level 103, Carbon Dioxide Level 29, Calcium Level 9.4 CBC/BMP Laboratory Tests 11/29/18 05:04 Red Blood Count 3.13 L, Mean Corpuscular Volume 100.3 H, Mean Corpuscular Hem oglobin 29.1, Mean Corpuscular Hemoglobin Concent 29.0 L, Red Cell Distribution Width 20.4 H, Neutrophils (%) (Auto) 54.2, Lymphocytes (%) (Auto) 26.3, Monocytes (%) (Auto) 12.6 H, Eosinophils (%) (Auto) 4.6 H, Basophils (%) (Auto) 1.5 H, Neutrophils # (Auto) 3.2, Lymphocytes # (Auto) 1.6, Monocytes # (Auto) 0.8, Eosinophils # (Auto) 0.3, Basophils # (Auto) 0.1, Calcium Level 9.4 ALESIA MADERA MD Nov 29, 2018 15:09
[2018-11-29] MEDS ORDERED: CISATRACURIUM 2MG/ML 5ML VIAL As Ordered ONE (16:24)
[2018-11-29] MEDS ORDERED: MIDAZOLAM INJ 2 MG/2 ML VIAL (J2250) As Ordered ONE (16:29)
[2018-11-29] MEDS ORDERED: fentaNYL 100 MCG/2 ML INJECTION (J3010) As Ordered ONE (16:30)
[2018-11-29] MEDS ORDERED: dexameTHASONE 4 MG/ML 1ML VIAL (J1100) As Ordered ONE (16:32)
[2018-11-29] MEDS ORDERED: PROPOFOL 200 MG/20 ML VIAL As Ordered ONE (16:32)
[2018-11-29] MEDS ORDERED: ONDANSETRON 4MG/2ML VIAL (J2405) As Ordered ONE (16:32)
[2018-11-29] MEDS ORDERED: BUPIVACAINE HCL 0.25% 10 ML VIAL As Ordered ONE (16:32)
[2018-11-29] MEDS ORDERED: LIDOCAINE 2% INJ 100 MG/5 ML SDV (FOR ANES.) As Ordered ONE (16:32)
[2018-11-29] MEDS ORDERED: LIDOCAINE 2% MDV 20 ML VIAL As Ordered ONE (16:33)
[2018-11-29] MEDS ORDERED: NEOSTIGMINE 10 MG/10 ML VIAL (J2710) As Ordered ONE (17:45)
[2018-11-29] MEDS ORDERED: GLYCOPYRROLATE INJ 0.2 MG/ML 2 ML VIAL As Ordered ONE (17:46)
[2018-11-29] MEDS ORDERED: METOCLOPRAMIDE INJ 10MG/2ML VIAL (J2765) IV PRN (18:45)
[2018-11-29] MEDS ORDERED: fentaNYL 100 MCG/2 ML INJECTION (J3010) IV PRN (18:45)
[2018-11-29] MEDS ORDERED: LR 1,000 ML IV SCH (18:45)
[2018-11-29] MEDS ORDERED: PERCOCET 5MG/325MG TAB PO PRN (18:45)
[2018-11-29] MEDS ORDERED: ONDANSETRON 4MG/2ML VIAL (J2405) IV PRN (18:45)
[2018-11-29 19:00] VITALS: BP 123/57
[2018-11-29 20:00] VITALS: BP 134/59
[2018-11-29 21:00] VITALS: BP 103/49
[2018-11-29 22:00] VITALS: BP 110/48
[2018-11-30 02:00] VITALS: BP 130/61
[2018-11-30] MEDS: LEVOTHYROXINE 100MCG TABLET (0.1MG) PO SCH (05:31)
[2018-11-30] MEDS: LEVOTHYROXINE 75MCG TABLET (0.075MG) PO SCH (05:31)
[2018-11-30] MEDS: SLF 3 ML SYR IV SCH ×3 (05:31→21:21)
[2018-11-30 06:00] VITALS: BP 130/62
[2018-11-30 06:20] LABS: BASO % 0.6 % (0.0-1.0); EOS % 0.2 % (0.0-3.0); HEMATOCRIT 33.1 % (36.0-47.0); HEMOGLOBIN 9.9 g/dl (12.0-15.5); LYMPH # 0.9 10^3/uL (1.5-4.5); LYMPH % 16.7 % (24.0-44.0); MEAN CORPUSCULAR HEMOGLOBIN 29.4 pg (27.0-33.0); MEAN CORPUSCULAR HGB CONC 29.9 g/dl (32.0-36.5); MEAN CORPUSCULAR VOLUME 98.2 fl (80.0-96.0); MONO # 0.3 10^3/uL (0.0-0.8); MONO % 6.5 % (0.0-5.0); NEUTROPHILS # 3.8 10^3/uL (1.8-7.7); NEUTROPHILS % 75.4 % (36.0-66.0); PLATELET COUNT, AUTOMATED 229 10^3/uL (150-450); RED BLOOD COUNT 3.37 10^6/uL (4.00-5.40); WHITE BLOOD COUNT 5.1 10^3/uL (4.0-10.0)
[2018-11-30 06:45] LABS: CALCIUM LEVEL 9.3 MG/DL (8.8-10.2); CREATININE FOR GFR 4.3 MG/DL (0.55-1.30); GLOMERULAR FILTRATION RATE 11.1 (>45); POTASSIUM SERUM 4.6 MEQ/L (3.5-5.1)
[2018-11-30] MEDS: CETIRIZINE (ZyrTEC) 10 MG TAB PO SCH (07:59)
[2018-11-30] MEDS: (RENVELA) SEVELAMER **CARBONate** 800 MG TAB PO SCH ×3 (07:59→17:29)
[2018-11-30] MEDS: amLODIPine 5 MG TAB PO SCH (07:59)
[2018-11-30] MEDS: CARVedilol 3.125 MG TAB PO SCH ×2 (07:59→20:00)
[2018-11-30] MEDS: ATORVASTATIN 20 MG TAB PO SCH (08:00)
[2018-11-30] MEDS: ASPIRIN 81 MG CHEW TABLET PO SCH (08:00)
[2018-11-30] MEDS: FLUTICASONE PROP 0.05% NASAL SPRAY 16 GM (FLONASE) NARES SCH (08:00)
[2018-11-30] MEDS: HEPARIN SOD (PORCINE) 5000 UNITS/ML VIAL SC SCH ×2 (08:00→20:01)
[2018-11-30] MEDS: LISINOPRIL 5 MG TAB PO SCH (08:00)
[2018-11-30] MEDS: DOCUSATE SODIUM 100 MG CAP PO SCH ×2 (08:00→20:00)
[2018-11-30 10:00] VITALS: BP 120/61
--- NOTE | 2018-11-30 10:53 | IPN ---
DATE OF SERVICE: 11/29/2018 SUBJECTIVE: The patient was seen and examined at the bedside today morning during hemodialysis. She is tolerating the hemodialysis procedure well. The patient reports that she is pending a placement of AV fistula and removal of peritoneal dialysis (PD) catheter. She denies any active complaints. OBJECTIVE: Vital signs: Temperature is 98.1 degrees Fahrenheit, blood pressure 133/63, pulse is 65, respiratory rate of 16, saturating 99% on room air. Intake and output: There is no urine output recorded. Weight in the bed scale was 59.6 kg yesterday. PHYSICAL EXAMINATION: General: The patient is awake, alert, oriented times three, laying in bed getting dialysis done. Head and neck examination: The patient is legally blind. Mucous membranes are moist. Neck is supple. She has a right internal jugular (vein) (IJ) tunneled hemodialysis catheter. Cardiovascular: S1, S2, regular rate. No edema of the bilateral lower extremities. Respiratory: Chest is clear to auscultation bilaterally. Bilateral equal air entry. No rales or rhonchi. Abdomen: Soft. Positive bowel sounds and left upper quadrant PD catheter. Musculoskeletal: No clubbing or cyanosis. Pulses are 2+. Central nervous system ([employer]): No focal deficit apart from the legal blindness. LABORATORY REVIEW: Complete blood count (CBC) showed WBC 5.9, hemoglobin 9.1, platelets are 227. Basic metabolic profile (BMP) showed sodium 139, potassium 4.6, chloride 103, bicarbonate 29, BUN 36, creatinine is 6.4. CURRENT INPATIENT MEDICATIONS: The patient's medications were all reviewed by me. There is no change in the medications today as compared with yesterday. ASSESSMENT AND PLAN: 1. End-stage renal disease. The patient is currently on hemodialysis dependent peritoneal dialysis end-stage. Continue hemodialysis. She is going to have the AV fistula placed. PD catheter needs to be removed. The patient is more interested in having the PD catheter revision. However, I do not expect the PD to work, even if she had the catheter changed because this is the second time her catheter has been revised. 2. Anemia in end-stage renal disease. Hemoglobin is still suboptimal. Continue current dose of Aranesp 100 mcg with dialysis and current dose of Venofer 100 mg with dialysis. 3. Congestive heart failure. The patient develops congestive heart failure (CHF) with a trial of peritoneal dialysis. However, with hemodialysis, her volume status is very well optimized. Ultrafiltration goal will be 3 liters with dialysis today. 4. Hypertension with end-stage renal disease. Continue current dose of amlodipine, Coreg, and lisinopril. Blood pressure is optimized.
--- NOTE | 2018-11-30 11:04 | IPNPDOC ---
Date Seen The patient was seen on 11/30/18. Progress Note Vascular Surgery. Dr Rome. HPI: The patient is a 62-year-old female with history of peritonitis in 07/2018 at which time PD catheter was removed. Peritoneal dialysis catheter was replaced by Dr. Rome on 10/24/18, s/p PD cath revision 11/17/18 readmitted with non functioning PD cath 11/23/18. Vascular surgery consulted re HD access. S/P PD cath removal as per Dr Rome 11/29/18. Pt denies abdominal pain. Medical History ESRD on HD/PD Diabetes HTN CAD with prior [place] Thyroid cancer s/p surgery small vessel disease, peritonitis 07/2017 cellulitis in past Past surgery history: 10/24/18 PD placement HD port thyroidectomy cardiac cath CABGx3 bilateral cataract PE: GEN: 62 yo F, appears stated age. Alert and oriented x 3. HEENT: Normocephalic, atraumatic. Moist mucous membranes. ABD: Surgical sites with no erythema, drainage. No TTP. SKIN: [place], dry, warm. No rashes. Vein mapping FINDINGS: Other findings: No DVT demonstrated in the right or left arm. All veins in the deep system are clear; Intraluminal thrombus demonstrated in the distal right cephalic vein. No other thrombosis demonstrated. Right right arm: Proximal basilic 3.1 mm, mid basilic 3.6 mm, basilic and antecubital fossa is 2.3 mm, basilic and upper forearm 2.9 mm, basilic mid forearm 2.2 mm, basilic at the wrist 2.1 mm. Proximal cephalic vein 4.3 mm, mid humeral cephalic vein 5.4 mm, cephalic vein in the antecubital fossa 6.1 mm, cephalic vein in the proximal forearm is 4 mm, cephalic vein mid forearm 3.7 mm, cephalic vein at wrist 3.3 mm. Median cubital vein 5.1 mm. Moderate plaque demonstrated in the right radial and ulnar arteries. Axillary artery measures 5.4 mm, brachial artery 4.1 mm, radial artery 1.5 mm, ulnar artery 1.4 mm Peak systolic velocities 56.8 cm/s for the axillary artery, 52.1 cm/s the brachial artery, 29.4 cm/s for the radial artery, and 50.1 cm/s for the ulna artery. Biphasic flow throughout. Left arm: Proximal cephalic vein 3.1 mm, mid humeral cephalic vein 4.7 mm, cephalic vein at antecubital fossa 4.8 mm, cephalic vein proximal forearm 2.8 mm, cephalic vein midforearm 2.8 mm, cephalic vein at the wrist 3.4 mm. Basilic vein in the upper humerus 2.9 mm, mid humerus 3.4 mm, basilic and antecubital fossa 2.8 mm, basilic vein upper forearm 2.3 mm, basilic vein at forearm 2.4 mm, basilic vein at the wrist 2.4 mm. Median cubital vein 2.1 mm. Proximal left radial artery visualized, mid and distal segments are visualized. Axillary artery measures 6.9 mm, brachial artery 4.0 mm, radial artery 1.8 mm, ulnar artery 2.4 mm. Peak systolic velocity for the axillary artery 54.5 cm/s, 64.8 cm/s the brachial artery, 29.5 cm/s for the radial artery, and 56.2 cm/s for the ulnar artery. Biphasic flow throughout. IMPRESSION: Short segment thrombus in the forearm branch of the cephalic vein at the IV site. Moderate atherosclerotic plaque in the right radial and ulnar arteries. Distal and mid left radial artery not visualized. Measurements of vessel size and peak systolic velocities poorly arteries are provided above. Electronically signed by: Jonh Monsivais On 11/27/2018 22:56:14 PM A&P: 1. Status post PD catheter removal 11/29/18. HD as per [facility]rology with [facility] currently. The pt is reviewed with Dr Rome, plan for AVF creation 12/01/18. Vein mapping obtained. Dr Rome has reviewed with pt. DVT prophylaxis. SQ Heparin. VS, I&O, 24H, Fishbone Vital Signs/I&O Vital Signs Date Time Temp Pulse Resp B/P (MAP) Pulse Ox O2 Delivery O2 Flow Rate FiO2 11/30/18 08:00 130/62 11/30/18 07:59 75 11/30/18 06:00 97.4 18 96 11/29/18 18:42 2 I&O- Last 24 Hours up to 6 AM 11/30/18 05:59 Intake Total 455 ml Output Total 3000 ml Balance -2545 ml Laboratory Data 24H LABS Laboratory Tests 2 11/30/18 05:04: Immature Granulocyte % (Auto) 0.6, White Blood Count 5.1, Red Blood Count 3.37L, Hemoglobin 9.9L, Hematocrit 33.1L, Mean Corpuscular Volume 98.2H, Mean Corpuscular Hemoglobin 29.4, Mean Corpuscular Hemoglobin Concent 29.9L, Red Cell Distribution Width 20.0H, Platelet Count 229, Neutrophils (%) (Auto) 75.4H, Lymphocytes (%) (Auto) 16.7L, Monocytes (%) (Auto) 6.5H, Eosinophils (%) (Auto) 0.2, Basophils (%) (Auto) 0.6, Neutrophils # (Auto) 3.8, Lymphocytes # (Auto) 0.9L, Monocytes # (Auto) 0.3, Eosinophils # (Auto) 0.0, Basophils # (Auto) 0.0, Nucleated Red Blood Cells % (auto) 0.0, Anion Gap 11, Glomerular Filtration Rate 11.1L, Blood Urea Nitrogen 23H, Creatinine 4.30H, Sodium Level 138, Potassium Level 4.6, Chloride Level 99, Carbon Dioxide Level 28, Calcium Level 9.3 CBC/BMP Laboratory Tests 11/30/18 05:04 Red Blood Count 3.37 L, Mean Corpuscular Volume 98.2 H, Mean Corpuscular Hemoglobin 29.4, Mean Corpuscular Hemoglobin Concent 29.9 L, Red Cell Distribution Width 20.0 H, Neutrophils (%) (Auto) 75.4 H, Lymphocytes (%) (Auto) 16.7 L, Monocytes (%) (Auto) 6.5 H, Eosinophils (%) (Auto) 0.2, Basophils (%) (Auto) 0.6, Neutrophils # (Auto) 3.8, Lymphocytes # (Auto) 0.9 L, Monocytes # (Auto) 0.3, Eosinophils # (Auto) 0.0, Basophils # (Auto) 0.0, Calcium Level 9.3 Bita Ortega Nov 30, 2018 11:03
--- NOTE | 2018-11-30 13:17 | IPNPDOC ---
Subjective Date Seen The patient was seen on 11/30/18. Subjective Chief Complaint/HPI Patient seen and examined at the bedside. She had her peritoneal dialysis catheter removed yesterday, and is tentatively scheduled to have AV fistula creation tomorrow with vascular surgery. She denies any acute complaints at this time. Objective Physical Examination General Exam: Positive: Alert, Cooperative, No Acute Distress ENT Exam: Positive: Atraumatic, Mucous membr. moist/pink Neck Exam: Negative: JVD Chest Exam: Positive: Diminished Heart Exam: Positive: Rate Normal, Regular Rhythm, Normal S1, Normal S2 Abdomen Exam: Positive: Soft; Negative: Tenderness Extremity Exam: Negative: Tenderness, Swelling Psych Exam: Positive: Oriented x 3 Assessment /Plan Plan/VTE VTE Prophylaxis Ordered?: Yes Plan End-stage renal disease on HD and PD Vascular surgery has removed her peritoneal dialysis catheter on 11/29/18 She is tentatively scheduled for AV fistula creation on 12/01/18 Dialysis management as per nephrology PFS on board for outpatient dialysis set up Hypertension continue amlodipine, coreg, lisinopril and torsemide Anemia in end-stage renal disease. IV Venofer with dialysis Aranesp with dialysis. Continue home dose of iron pills. Iatrogenic hypothyroidism (S/P thyroidectomy for Cancer) Cont levothyroxine 175 mcg daily. Diabetes Insulin sliding scale Hx of CAD On ASA, Statin, Coreg Dyslipidemia Continue statin DVT prophylaxis Heparin SC Disposition-pending continued clinical improvement, volume optimization via dialysis as per Nephro, PFS on board for outpatient dialysis set up VS, I&O, 24H, Fishbone Vital Signs/I&O Vital Signs Date Time Temp Pulse Resp B/P (MAP) Pulse Ox O2 Delivery O2 Flow Rate FiO2 11/30/18 10:00 99.8 68 18 120/61 (80) 96 11/29/18 18:42 2 I&O- Last 24 Hours up to 6 AM 11/30/18 06:00 Intake Total 405 ml Output Total 3000 ml Balance -2595 ml Laboratory Data 24H LABS Laboratory Tests 2 11/30/18 05:04: Immature Granulocyte % (Auto) 0.6, White Blood Count 5.1, Red Blood Count 3.37L, Hemoglobin 9.9L, Hematocrit 33.1L, Mean Corpuscular Volume 98.2H, Mean Corpuscular Hemoglobin 29.4, Mean Corpuscular Hemoglobin Concent 29.9L, Red Cell Distribution Width 20.0H, Platelet Count 229, Neutrophils (%) (Auto) 75.4H, Lymphocytes (%) (Auto) 16.7L, Monocytes (%) (Auto) 6.5H, Eosinophils (%) (Auto) 0.2, Basophils (%) (Auto) 0.6, Neutrophils # (Auto) 3.8, Lymphocytes # (Auto) 0.9L, Monocytes # (Auto) 0.3, Eosinophils # (Auto) 0.0, Basophils # (Auto) 0.0, Nucleated Red Blood Cells % (auto) 0.0, Anion Gap 11, Glomerular Filtration Rate 11.1L, Blood Urea Nitrogen 23H, Creatinine 4.30H, Sodium Level 138, Potassium Level 4.6, Chloride Level 99, Carbon Dioxide Level 28, Calcium Level 9.3 CBC/BMP Laboratory Tests 11/30/18 05:04 Red Blood Count 3.37 L, Mean Corpuscular Volume 98.2 H, Mean Corpuscular Hemoglobin 29.4, Mean Corpuscular Hemoglobin Concent 29.9 L, Red Cell Distribution Width 20.0 H, Neutrophils (%) (Auto) 75.4 H, Lymphocytes (%) (Auto) 16.7 L, Monocytes (%) (Auto) 6.5 H, Eosinophils (%) (Auto) 0.2, Basophils (%) (Auto) 0.6, Neutrophils # (Auto) 3.8, Lymphocytes # (Auto) 0.9 L, Monocytes # (Auto) 0.3, Eosinophils # (Auto) 0.0, Basophils # (Auto) 0.0, Calcium Level 9.3 ALESIA MADEAR MD Nov 30, 2018 13:17
[2018-11-30 14:00] VITALS: BP 116/60
[2018-11-30 18:00] VITALS: BP 113/57
[2018-11-30 22:00] VITALS: BP 117/59
[2018-12-01 02:00] VITALS: BP 115/60
[2018-12-01 06:00] VITALS: BP 110/65
[2018-12-01] MEDS: LEVOTHYROXINE 100MCG TABLET (0.1MG) PO SCH (06:27)
[2018-12-01] MEDS: SLF 3 ML SYR IV SCH ×3 (06:27→20:49)
[2018-12-01] MEDS: LEVOTHYROXINE 75MCG TABLET (0.075MG) PO SCH (06:27)
[2018-12-01] MEDS: (RENVELA) SEVELAMER **CARBONate** 800 MG TAB PO SCH ×3 (07:35→20:07)
[2018-12-01] MEDS: LISINOPRIL 5 MG TAB PO SCH (07:36)
[2018-12-01] MEDS: amLODIPine 5 MG TAB PO SCH (07:36)
[2018-12-01] MEDS: DOCUSATE SODIUM 100 MG CAP PO SCH ×2 (07:36→20:07)
[2018-12-01] MEDS: ASPIRIN 81 MG CHEW TABLET PO SCH (07:37)
[2018-12-01] MEDS: CETIRIZINE (ZyrTEC) 10 MG TAB PO SCH (07:37)
[2018-12-01] MEDS: CARVedilol 3.125 MG TAB PO SCH ×2 (07:37→20:09)
[2018-12-01] MEDS: HEPARIN SOD (PORCINE) 5000 UNITS/ML VIAL SC SCH ×2 (07:37→20:09)
[2018-12-01] MEDS: ATORVASTATIN 20 MG TAB PO SCH (07:37)
[2018-12-01] MEDS: FLUTICASONE PROP 0.05% NASAL SPRAY 16 GM (FLONASE) NARES SCH (07:38)
--- NOTE | 2018-12-01 10:23 | IPNPDOC ---
Date Seen The patient was seen on 12/01/18. Progress Note Vascular Surgery. Dr Rome. HPI: The patient is a 62-year-old female with history of peritonitis in 07/2018 at which time PD catheter was removed. Peritoneal dialysis catheter was replaced by Dr. Rome on 10/24/18, s/p PD cath revision 11/17/18 readmitted with non functioning PD cath 11/23/18. Vascular surgery consulted re HD access. S/P PD cath removal as per Dr Rome 11/29/18. Plan for AVF creation later today. Medical History ESRD on HD/PD Diabetes HTN CAD with prior [place] Thyroid cancer s/p surgery small vessel disease, peritonitis 07/2017 cellulitis in past Past surgery history: 10/24/18 PD placement HD port thyroidectomy cardiac cath CABGx3 bilateral cataract PE: GEN: 62 yo F, appears stated age. Alert and oriented x 3. HEENT: Normocephalic, atraumatic. Moist mucous membranes. ABD: Surgical sites with no erythema, drainage. No TTP. SKIN: [place], dry, warm. No rashes. Vein mapping FINDINGS: Other findings: No DVT demonstrated in the right or left arm. All veins in the deep system are clear; Intraluminal thrombus demonstrated in the distal right cephalic vein. No other thrombosis demonstrated. Right right arm: Proximal basilic 3.1 mm, mid basilic 3.6 mm, basilic and antecubital fossa is 2.3 mm, basilic and upper forearm 2.9 mm, basilic mid forearm 2.2 mm, basilic at the wrist 2.1 mm. Proximal cephalic vein 4.3 mm, mid humeral cephalic vein 5.4 mm, cephalic vein in the antecubital fossa 6.1 mm, cephalic vein in the proximal forearm is 4 mm, cephalic vein mid forearm 3.7 mm, cephalic vein at wrist 3.3 mm. Median cubital vein 5.1 mm. Moderate plaque demonstrated in the right radial and ulnar arteries. Axillary artery measures 5.4 mm, brachial artery 4.1 mm, radial artery 1.5 mm, ulnar artery 1.4 mm Peak systolic velocities 56.8 cm/s for the axillary artery, 52.1 cm/s the brachial artery, 29.4 cm/s for the radial artery, and 50.1 cm/s for the ulna artery. Biphasic flow throughout. Left arm: Proximal cephalic vein 3.1 mm, mid humeral cephalic vein 4.7 mm, cephalic vein at antecubital fossa 4.8 mm, cephalic vein proximal forearm 2.8 mm, cephalic vein midforearm 2.8 mm, cephalic vein at the wrist 3.4 mm. Basilic vein in the upper humerus 2.9 mm, mid humerus 3.4 mm, basilic and antecubital fossa 2.8 mm, basilic vein upper forearm 2.3 mm, basilic vein at forearm 2.4 mm, basilic vein at the wrist 2.4 mm. Median cubital vein 2.1 mm. Proximal left radial artery visualized, mid and distal segments are visualized. Axillary artery measures 6.9 mm, brachial artery 4.0 mm, radial artery 1.8 mm, ulnar artery 2.4 mm. Peak systolic velocity for the axillary artery 54.5 cm/s, 64.8 cm/s the brachial artery, 29.5 cm/s for the radial artery, and 56.2 cm/s for the ulnar artery. Biphasic flow throughout. IMPRESSION: Short segment thrombus in the forearm branch of the cephalic vein at the IV site. Moderate atherosclerotic plaque in the right radial and ulnar arteries. Distal and mid left radial artery not visualized. Measurements of vessel size and peak systolic velocities poorly arteries are provided above. Electronically signed by: John Monsivais On 11/27/2018 22:56:14 PM A&P: 1. Status post PD catheter removal 11/29/18. HD as per Nephrology with [facility] currently. The pt is reviewed with Dr Rome, plan for AVF creation later today. Vein mapping obtained. DVT prophylaxis. SQ Heparin. VS, I&O, 24H, Fishbone Vital Signs/I&O Vital Signs Date Time Temp Pulse Resp B/P (MAP) Pulse Ox O2 Delivery O2 Flow Rate FiO2 12/01/18 07:36 70 132/64 12/01/18 06:00 98.0 17 99 11/29/18 18:42 2 I&O- Last 24 Hours up to 6 AM 12/01/18 06:00 Intake Total 360 ml Output Total 0 ml Balance 360 ml Laboratory Data 24H LABS Laboratory Tests 2 12/01/18 06:44: Bita Ortega Dec 01, 2018 10:23
[2018-12-01] MEDS ORDERED: HEPARIN 1,000 UNITS/ML 10ML VIAL (FOR RADIOLOGY& DIALYSIS ONLY) IV ONE (11:30)
[2018-12-01 13:41] LABS: HEPATITIS B CORE ANTIBODY IGM NEGATIVE (NEGATIVE); HEPATITIS B SURFACE ANTIBODY POSITIVE (POSITIVE); HEPATITIS B SURFACE ANTIGEN NEGATIVE (NEGATIVE); HEPATITIS C VIRUS ABY INDEX 0.1 INDEX (<0.8)
--- NOTE | 2018-12-01 13:57 | IPNPDOC ---
Subjective Date Seen The patient was seen on 12/01/18. Subjective Chief Complaint/HPI Patient seen and examined at the bedside. No acute overnight events noted. The patient is scheduled for AV fistula creation with vascular surgery today. Objective Physical Examination General Exam: Positive: Alert, Cooperative, No Acute Distress ENT Exam: Positive: Atraumatic, Mucous membr. moist/pink Neck Exam: Negative: JVD Chest Exam: Positive: Diminished Heart Exam: Positive: Rate Normal, Regular Rhythm, Normal S1, Normal S2 Abdomen Exam: Positive: Soft; Negative: Tenderness Extremity Exam: Negative: Tenderness, Swelling Psych Exam: Positive: Oriented x 3 Assessment /Plan Plan/VTE VTE Prophylaxis Ordered?: Yes Plan End-stage renal disease on HD and PD Vascular surgery has removed her peritoneal dialysis catheter on 11/29/18 She is tentatively scheduled for AV fistula creation today Dialysis management as per nephrology PFS on board for outpatient dialysis set up Hypertension continue amlodipine, coreg, lisinopril and torsemide Anemia in end-stage renal disease. IV Venofer with dialysis Aranesp with dialysis. Continue home dose of iron pills. Iatrogenic hypothyroidism (S/P thyroidectomy for Cancer) Cont levothyroxine 175 mcg daily. Diabetes Insulin sliding scale Hx of CAD On ASA, Statin, Coreg Dyslipidemia Continue statin DVT prophylaxis Heparin SC Disposition-pending continued clinical improvement, volume optimization via dialysis as per Nephro, PFS on board for outpatient dialysis set up VS, I&O, 24H, Fishbone Vital Signs/I&O Vital Signs Date Time Temp Pulse Resp B/P (MAP) Pulse Ox O2 Delivery O2 Flow Rate FiO2 12/01/18 07:36 70 132/64 12/01/18 06:00 98.0 17 99 11/29/18 18:42 2 I&O- Last 24 Hours up to 6 AM 12/01/18 06:00 Intake Total 360 ml Output Total 0 ml Balance 360 ml Laboratory Data 24H LABS Laboratory Tests 2 12/01/18 06:44: Hepatitis B Surface Antigen NEGATIVE, Hepatitis B Surface Antibody POSITIVE, Hepatitis B Core IgM Antibody NEGATIVE, Hepatitis C Antibody Index 0.1 ALESIA MADERA MD Dec 01, 2018 13:57
[2018-12-01 14:00] VITALS: BP 125/63
[2018-12-01] MEDS ORDERED: BUPIVACAINE HCL 0.5% 10 ML VIAL As Ordered ONE ×2 (15:37→17:17)
[2018-12-01] MEDS ORDERED: LIDOCAINE 2% MDV 20 ML VIAL As Ordered ONE (15:37)
[2018-12-01] MEDS ORDERED: HEPARIN SOD (PORCINE) 5000 UNITS/ML VIAL As Ordered ONE (15:38)
[2018-12-01] MEDS ORDERED: PROPOFOL 200 MG/20 ML VIAL As Ordered ONE (17:12)
[2018-12-01] MEDS ORDERED: fentaNYL 250 MCG/5 ML INJECTION (J3010) As Ordered ONE (17:12)
[2018-12-01] MEDS ORDERED: MIDAZOLAM INJ 2 MG/2 ML VIAL (J2250) As Ordered ONE (17:12)
[2018-12-01] MEDS ORDERED: ONDANSETRON 4MG/2ML VIAL (J2405) As Ordered ONE (17:12)
[2018-12-01] MEDS ORDERED: LIDOCAINE 2% INJ 100 MG/5 ML SDV (FOR ANES.) As Ordered ONE (17:12)
[2018-12-01] MEDS ORDERED: dexameTHASONE 4 MG/ML 1ML VIAL (J1100) As Ordered ONE (17:12)
[2018-12-01] MEDS ORDERED: KETAMINE HCL 200 MG/20 ML VIAL As Ordered ONE (17:21)
[2018-12-01] MEDS ORDERED: VASOPRESSIN INJ 20 UNITS/ML VIAL As Ordered ONE ×2 (17:35→18:15)
[2018-12-01] MEDS ORDERED: CALCIUM CHLORIDE 10% 1 GM/10 ML SYR As Ordered ONE (18:21)
[2018-12-01] MEDS ORDERED: PHENYLephrine HCL 500 MCG/5 ML (100MCG/ML) SYRINGE (J2370) As Ordered ONE (18:21)
[2018-12-01] MEDS ORDERED: ePHEDrine SULFATE 25 MG/5 ML(5MG/ML) SYRINGE As Ordered ONE (18:21)
[2018-12-01 18:45] VITALS: BP 143/67
[2018-12-01] MEDS ORDERED: ONDANSETRON 4MG/2ML VIAL (J2405) IV PRN (18:45)
[2018-12-01] MEDS ORDERED: fentaNYL 100 MCG/2 ML INJECTION (J3010) IV PRN (18:45)
[2018-12-01] MEDS ORDERED: LR 1,000 ML IV SCH (18:45)
[2018-12-01] MEDS ORDERED: PERCOCET 5MG/325MG TAB PO PRN (18:45)
[2018-12-01 22:00] VITALS: BP 137/63
[2018-12-01] MEDS: ACETAMINOPHEN 500 MG TAB PO PRN (22:25)
--- NOTE | 2018-12-01 23:06 | IPN ---
DATE: 11/30/2018 SUBJECTIVE: The patient was seen and examined at the bedside today morning. She is afebrile, hemodynamically stable. She was dialyzed yesterday. After the dialysis, she was taken to the operating room (OR) for repositioning of the peritoneal dialysis catheter. However, during the examination, it was found that the patient had a lot of adhesions, even her new catheter had adhesions, it was matted with the small intestine. Decision was made to remove the peritoneal dialysis (PD) catheter. Her PD catheter was removed. The patient is pending placement of arteriovenous (AV) fistula now, which is tentatively scheduled for tomorrow. OBJECTIVE: Vital signs: Temperature is 98.1 degrees Fahrenheit. Blood pressure 113/57, pulse is 69, respiratory rate of 20, saturating 96% on room air. Intake and output: Ultrafiltration with hemodialysis was 3 liters yesterday. Weight on the bed scale is not available. PHYSICAL EXAMINATION: General: The patient is awake, alert, oriented times three, sitting up on the sofa, no apparent distress. Head and neck exam: Patient is legally blind, very poor vision. Mucous membranes are moist. Neck is supple. She has a right internal jugular (IJ) tunneled hemodialysis catheter. Cardiovascular: S1, S2, regular rate. No edema of the bilateral lower extremities. Respiratory: Chest is clear to auscultation bilaterally. Bilateral equal air entry. No rales or rhonchi. Abdomen: Soft. Positive bowel sounds. Left upper quadrant PD catheter has been removed. There is no tenderness. Musculoskeletal: No clubbing or cyanosis. Pulses are 2+. Central Nervous System (COMPUTER ENGINEER): No focal deficit apart from legal blindness. LAB REVIEW: CBC showed a WBC of 5.1, hemoglobin 9.9, platelets are 229. BMP showed sodium 138, potassium 4.6, chloride 99, bicarbonate 28, BUN 23, creatinine is 4.3. CURRENT INPATIENT MEDICATIONS: The patient's medications were all reviewed by me. There is no change in the medications today as compared with yesterday. ASSESSMENT/PLAN: 1. End-stage renal disease. The patient is hemodialysis dependent. Peritoneal dialysis catheter has been removed. She is pending placement of AV fistula. 2. Anemia in end-stage renal disease. Hemoglobin is 9.9, which is improving. Continue current dose of Aranesp 100 mcg IV with dialysis and Venofer 100 mg IV with dialysis. 3. Congestive heart failure. Volume status is optimal. She got 3 liters of fluid removed yesterday. 4. Hypertension with end-stage renal disease and hypertensive heart disease. Continue current dose of Coreg, lisinopril and amlodipine. 5. Disposition: The patient would need to be discharged back to her dialysis center in [place] once she gets her AV fistula placed. MTDD
[2018-12-02 02:00] VITALS: BP 141/64
[2018-12-02 06:00] VITALS: BP 139/65
[2018-12-02] MEDS: LEVOTHYROXINE 75MCG TABLET (0.075MG) PO SCH (06:22)
[2018-12-02] MEDS: SLF 3 ML SYR IV SCH ×3 (06:22→21:22)
[2018-12-02] MEDS: LEVOTHYROXINE 100MCG TABLET (0.1MG) PO SCH (06:22)
[2018-12-02] MEDS: (RENVELA) SEVELAMER **CARBONate** 800 MG TAB PO SCH ×3 (09:04→17:36)
[2018-12-02] MEDS: HEPARIN SOD (PORCINE) 5000 UNITS/ML VIAL SC SCH ×2 (09:04→21:22)
[2018-12-02] MEDS: CETIRIZINE (ZyrTEC) 10 MG TAB PO SCH (09:04)
[2018-12-02] MEDS: ASPIRIN 81 MG CHEW TABLET PO SCH (09:04)
[2018-12-02] MEDS: ATORVASTATIN 20 MG TAB PO SCH (09:05)
[2018-12-02] MEDS: FLUTICASONE PROP 0.05% NASAL SPRAY 16 GM (FLONASE) NARES SCH (09:05)
[2018-12-02] MEDS: DOCUSATE SODIUM 100 MG CAP PO SCH ×2 (09:05→21:21)
[2018-12-02] MEDS: LISINOPRIL 5 MG TAB PO SCH (09:07)
[2018-12-02] MEDS: CARVedilol 3.125 MG TAB PO SCH ×2 (09:07→21:22)
[2018-12-02] MEDS: amLODIPine 5 MG TAB PO SCH (09:08)
[2018-12-02 10:00] VITALS: BP 124/54
--- NOTE | 2018-12-02 10:00 | IPN ---
DATE: 12/01/2018 SUBJECTIVE: Patient was seen and examined at the bedside today morning during hemodialysis procedure. She is tolerating the hemodialysis procedure well. She denies any active complaints. Patient is going to have arteriovenous (AV) fistula placed today by vascular surgery. OBJECTIVE: Vital signs: Temperature is 98 degrees Fahrenheit, blood pressure 110/65, pulse is 74, respiratory rate of 70, saturating 99% on room air. Intake and output: There is no urine output recorded. Weight in the bed scale is 60 kg. PHYSICAL EXAM: General: Patient is awake, alert, oriented times three, getting hemodialysis done, no apparent distress. Head and neck exam: Patient is legally blind. Mucous membranes are moist. Neck is supple. She has a right-sided internal jugular (IJ) tunneled hemodialysis catheter, which is being used for dialysis. Cardiovascular: S1, S2, regular rate. No edema of the bilateral lower extremities. Respiratory: Chest is clear to auscultation bilaterally. Bilateral equal air entry. No rales or rhonchi. Abdomen: Soft. Positive bowel sounds. Nontender. No organomegaly. Musculoskeletal: No clubbing or cyanosis. Pulses are 2+. DIRECTOR LEARNING SERVICES: No focal deficit. Power is 5/5 in all extremities. LAB REVIEW: CBC is from yesterday. BMP is from yesterday with a potassium of 4.6. CURRENT INPATIENT MEDICATIONS: The patient's medications were all reviewed by me. There is no change in the medications today as compared with yesterday. ASSESSMENT AND PLAN: 1. End-stage renal disease on hemodialysis. Patient is being dialyzed according to her regular Tuesday, Tuesday, Tuesday schedule. Peritoneal dialysis (PD) catheter has been removed. She is going to get AV fistula placed today by vascular surgery. 2. Anemia in end-stage renal disease. Continue current dose of Venofer and Aranesp/ 3. Congestive heart failure. The patient's volume status is significantly better after stopping peritoneal dialysis. 2.5 liters of fluid will be removed today. 4. Hypertension with end-stage renal disease. Continue Coreg, lisinopril, and amlodipine. DISPOSITION: Patient is to be discharged back to dialysis center in [place] once she gets fistula placed.
--- NOTE | 2018-12-02 13:21 | IPNPDOC ---
Subjective Date Seen The patient was seen on 12/02/18. Subjective Chief Complaint/HPI Patient seen and examined at bedside. No acute overnight events noted. Objective Physical Examination General Exam: Positive: Alert, Cooperative, No Acute Distress ENT Exam: Positive: Atraumatic, Mucous membr. moist/pink Neck Exam: Negative: JVD Chest Exam: Positive: Diminished Heart Exam: Positive: Rate Normal, Regular Rhythm, Normal S1, Normal S2 Abdomen Exam: Positive: Soft; Negative: Tenderness Extremity Exam: Positive: Other (Right upper extremity AVF noted, palpable pulse and audible thrill); Negative: Tenderness, Swelling Psych Exam: Positive: Oriented x 3 Assessment /Plan Plan/VTE VTE Prophylaxis Ordered?: Yes Plan End-stage renal disease on HD and PD Vascular surgery has removed her peritoneal dialysis catheter on 11/29/18 s/p AV fistula creation on 12/01 Dialysis management as per nephrology PFS on board for outpatient dialysis set up Hypertension continue amlodipine, coreg, lisinopril and torsemide Anemia in end-stage renal disease. IV Venofer with dialysis Aranesp with dialysis. Continue home dose of iron pills. Iatrogenic hypothyroidism (S/P thyroidectomy for Cancer) Cont levothyroxine 175 mcg daily. Diabetes Insulin sliding scale Hx of CAD On ASA, Statin, Coreg Dyslipidemia Continue statin DVT prophylaxis Heparin SC Disposition-pending continued clinical improvement, volume optimization via dialysis as per Nephro, PFS on board for outpatient dialysis set up VS, I&O, 24H, Fishbone Vital Signs/I&O Vital Signs Date Time Temp Pulse Resp B/P (MAP) Pulse Ox O2 Delivery O2 Flow Rate FiO2 12/02/18 10:00 97.7 70 18 124/54 (77) 99 11/29/18 18:42 2 I&O- Last 24 Hours up to 6 AM 12/02/18 06:00 Intake Total 1005 ml Output Total 2600 ml Balance -1595 ml ALESIA MADERA MD Dec 02, 2018 13:21
[2018-12-02 14:00] VITALS: BP 141/67
[2018-12-02 22:00] VITALS: BP 134/63
[2018-12-03] MEDS: LEVOTHYROXINE 75MCG TABLET (0.075MG) PO SCH (05:50)
[2018-12-03] MEDS: LEVOTHYROXINE 100MCG TABLET (0.1MG) PO SCH (05:50)
[2018-12-03] MEDS: SLF 3 ML SYR IV SCH ×3 (05:50→21:05)
[2018-12-03 06:00] VITALS: BP 133/59
[2018-12-03 07:52] VITALS: BP 133/63
[2018-12-03] MEDS: LISINOPRIL 5 MG TAB PO SCH (08:27)
[2018-12-03] MEDS: amLODIPine 5 MG TAB PO SCH (08:27)
[2018-12-03] MEDS: (RENVELA) SEVELAMER **CARBONate** 800 MG TAB PO SCH ×3 (08:27→17:14)
[2018-12-03] MEDS: FLUTICASONE PROP 0.05% NASAL SPRAY 16 GM (FLONASE) NARES SCH (08:27)
[2018-12-03] MEDS: ASPIRIN 81 MG CHEW TABLET PO SCH (08:27)
[2018-12-03] MEDS: ATORVASTATIN 20 MG TAB PO SCH (08:27)
[2018-12-03] MEDS: HEPARIN SOD (PORCINE) 5000 UNITS/ML VIAL SC SCH ×2 (08:27→21:02)
[2018-12-03] MEDS: CETIRIZINE (ZyrTEC) 10 MG TAB PO SCH (08:27)
[2018-12-03] MEDS: DOCUSATE SODIUM 100 MG CAP PO SCH ×2 (08:28→21:02)
[2018-12-03] MEDS: CARVedilol 3.125 MG TAB PO SCH ×2 (08:28→21:05)
--- NOTE | 2018-12-03 10:48 | IPN ---
DATE OF VISIT: 12/02/2018 Mrs. Olsen is seen this morning on her bedside. She is sitting in the chair and feels well. She had a left arm arteriovenous (AV) fistula created yesterday. She also had hemodialysis and denies any dyspnea or chest pain. She denies any nausea or vomiting. Patient denies any nausea, vomiting, dyspnea, or chest pain. She is waiting for transfer to [place], [place], where she is going to live with her sister and receive hemodialysis. Unfortunately, her peritoneal dialysis did not work and her peritoneal catheter had already been removed. On physical exam, temperature 97.7 degrees Fahrenheit, heart rate 70 per minute and respiratory rate 18 per minute. Blood pressure 124/54 mmHg and oxygen saturation 99%. Head is atraumatic. Neck is supple and without jugular venous distention (JVD) or thyroid enlargement. She is legally blind due to diabetic retinopathy. Heart sounds are regular and lungs clear to auscultation. Abdomen soft and nontender, and bowel sounds are normal. Extremities have no cyanosis or clubbing. Neurologically, she is at her baseline mentation. The patient did not have any new labs done today. PROBLEMS: 1. End-stage renal disease. Patient had hemodialysis yesterday and her next hemodialysis will be scheduled for Tuesday. She will continue with long-term hemodialysis after discharge. She would like to move to [place], [place], so that she can live with her sister and receive her hemodialysis. She lives in [facility] and it is not practically possible for her to travel to hemodialysis units three times a week. 2. Hypertension. Blood pressure is very well controlled on current antihypertensive meds. 3. Anemia. Anemia is stable and will continue to manage with Aranesp once a week during dialysis. DISPOSITION: Patient is waiting for dialysis slot in [place], [place].
--- NOTE | 2018-12-03 12:07 | IPNPDOC ---
Subjective Date Seen The patient was seen on 12/03/18. Subjective Chief Complaint/HPI Patient seen and examined at the bedside. No acute overnight events noted. Objective Physical Examination General Exam: Positive: Alert, Cooperative, No Acute Distress ENT Exam: Positive: Atraumatic, Mucous membr. moist/pink Neck Exam: Negative: JVD Chest Exam: Positive: Diminished Heart Exam: Positive: Rate Normal, Regular Rhythm, Normal S1, Normal S2 Abdomen Exam: Positive: Soft; Negative: Tenderness Extremity Exam: Positive: Other (Right upper extremity AVF noted, palpable pulse and audible thrill); Negative: Tenderness, Swelling Psych Exam: Positive: Oriented x 3 Assessment /Plan Plan/VTE VTE Prophylaxis Ordered?: Yes Plan End-stage renal disease on HD and PD Vascular surgery has removed her peritoneal dialysis catheter on 11/29/18 s/p AV fistula creation on 12/01 Dialysis management as per nephrology PFS on board for outpatient dialysis set up Hypertension continue amlodipine, coreg, lisinopril and torsemide Anemia in end-stage renal disease. IV Venofer with dialysis Aranesp with dialysis. Continue home dose of iron pills. Iatrogenic hypothyroidism (S/P thyroidectomy for Cancer) Cont levothyroxine 175 mcg daily. Diabetes Insulin sliding scale Hx of CAD On ASA, Statin, Coreg Dyslipidemia Continue statin DVT prophylaxis Heparin SC Disposition-pending continued clinical improvement, volume optimization via dialysis as per Nephro, PFS on board for outpatient dialysis set up VS, I&O, 24H, Fishbone Vital Signs/I&O Vital Signs Date Time Temp Pulse Resp B/P (MAP) Pulse Ox O2 Delivery O2 Flow Rate FiO2 12/03/18 08:28 69 133/63 12/03/18 06:00 98.0 17 97 11/29/18 18:42 2 I&O- Last 24 Hours up to 6 AM 12/03/18 06:00 Intake Total 870 ml Output Total 0 ml Balance 870 ml ALESIA MADERA MD Dec 03, 2018 12:07
[2018-12-03 14:00] VITALS: BP 133/62
[2018-12-03 22:00] VITALS: BP 143/64
[2018-12-04] MEDS: LEVOTHYROXINE 75MCG TABLET (0.075MG) PO SCH (05:28)
[2018-12-04] MEDS: LEVOTHYROXINE 100MCG TABLET (0.1MG) PO SCH (05:28)
[2018-12-04] MEDS: SLF 3 ML SYR IV SCH ×3 (05:28→22:03)
[2018-12-04 06:00] VITALS: BP 121/58
[2018-12-04 06:13] LABS: HEMATOCRIT 35.5 % (36.0-47.0); HEMOGLOBIN 10.6 g/dl (12.0-15.5); MEAN CORPUSCULAR HEMOGLOBIN 29.8 pg (27.0-33.0); MEAN CORPUSCULAR HGB CONC 29.9 g/dl (32.0-36.5); MEAN CORPUSCULAR VOLUME 99.7 fl (80.0-96.0); PLATELET COUNT, AUTOMATED 234 10^3/uL (150-450); RED BLOOD COUNT 3.56 10^6/uL (4.00-5.40); WHITE BLOOD COUNT 5.6 10^3/uL (4.0-10.0)
[2018-12-04] MEDS: LISINOPRIL 5 MG TAB PO SCH (06:24)
[2018-12-04] MEDS: ASPIRIN 81 MG CHEW TABLET PO SCH (06:24)
[2018-12-04] MEDS: CETIRIZINE (ZyrTEC) 10 MG TAB PO SCH (06:25)
[2018-12-04] MEDS: ATORVASTATIN 20 MG TAB PO SCH (06:25)
[2018-12-04] MEDS: amLODIPine 5 MG TAB PO SCH (06:25)
[2018-12-04] MEDS: FLUTICASONE PROP 0.05% NASAL SPRAY 16 GM (FLONASE) NARES SCH (06:26)
[2018-12-04] MEDS: CARVedilol 3.125 MG TAB PO SCH ×2 (06:29→22:02)
[2018-12-04] MEDS: HEPARIN SOD (PORCINE) 5000 UNITS/ML VIAL SC SCH ×2 (06:29→22:01)
[2018-12-04] MEDS: DOCUSATE SODIUM 100 MG CAP PO SCH ×2 (06:29→22:02)
[2018-12-04 06:40] LABS: ALBUMIN 2.9 GM/DL (3.2-5.2); CALCIUM LEVEL 9.5 MG/DL (8.8-10.2); CREATININE FOR GFR 7.65 MG/DL (0.55-1.30); GLOMERULAR FILTRATION RATE 5.7 (>45); PHOSPHORUS LEVEL 5.2 MG/DL (2.5-4.9)
[2018-12-04] MEDS: (RENVELA) SEVELAMER **CARBONate** 800 MG TAB PO SCH ×3 (07:27→17:33)
[2018-12-04] MEDS ORDERED: HEPARIN 1,000 UNITS/ML 10ML VIAL (FOR RADIOLOGY& DIALYSIS ONLY) IV ONE (11:00)
[2018-12-04] MEDS ORDERED: HEPARIN 1,000 UNITS/ML 10ML VIAL (FOR RADIOLOGY& DIALYSIS ONLY) XX ONE (11:00)
--- NOTE | 2018-12-04 12:37 | IPNPDOC ---
Date Seen The patient was seen on 12/04/18. Progress Note Vascular Surgery. Dr Rome. HPI: The patient is a 62-year-old female with history of peritonitis in 07/2018 at which time PD catheter was removed. Peritoneal dialysis catheter was replaced by Dr. Rome on 10/24/18, s/p PD cath revision 11/17/18 readmitted with non functioning PD cath 11/23/18. Vascular surgery consulted re HD access. S/P PD cath removal as per Dr Rome 11/29/18. S/P AVF creation 12/01/18. Pt is receiving HD currently, Permcath Rt chest Medical History ESRD on HD/PD Diabetes HTN CAD with prior [place] Thyroid cancer s/p surgery small vessel disease, peritonitis 07/2017 cellulitis in past Past surgery history: 10/24/18 PD placement HD port thyroidectomy cardiac cath CABGx3 bilateral cataract PE: GEN: 62 yo F, appears stated age. Alert and oriented x 3. HEENT: Normocephalic, atraumatic. Moist mucous membranes. ABD: Surgical sites with no erythema, drainage. No TTP. SKIN: [place], dry, warm. No rashes. AVF RUE with steri strips intact, no drainage, palpable thrill. A&P: 1. Status post PD catheter removal 11/29/18. HD as per Nephrology with Permcath currently. S/P AVF creation 12/01/18. DVT prophylaxis. SQ Heparin. VS, I&O, 24H, Fishbone Vital Signs/I&O Vital Signs Date Time Temp Pulse Resp B/P (MAP) Pulse Ox O2 Delivery O2 Flow Rate FiO2 12/04/18 06:29 68 121/58 12/04/18 06:00 97.8 20 98 11/29/18 18:42 2 I&O- Last 24 Hours up to 6 AM 12/04/18 06:00 Intake Total 1118 ml Output Total 0 ml Balance 1118 ml Laboratory Data 24H LABS Laboratory Tests 2 12/04/18 05:27: Nucleated Red Blood Cells % (auto) 0.0, Blood Urea Nitrogen 46H, Creatinine 7.65H, Sodium Level 132L, Potassium Level 5.0, Chloride Level 97L, Carbon Dioxide Level 27, Anion Gap 8, Glomerular Filtration Rate 5.7L, Calcium Level 9.5, Phosphorus Level 5.2H, Albumin 2.9L CBC/BMP Laboratory Tests 12/04/18 05:27 Red Blood Count 3.56 L, Mean Corpuscular Volume 99.7 H, Mean Corpuscular Hemoglobin 29.8, Mean Corpuscular Hemoglobin Concent 29.9 L, Red Cell Distribution Width 19.1 H, Anion Gap 8 Bita Ortega Dec 04, 2018 12:37
--- NOTE | 2018-12-04 13:49 | IPNPDOC ---
Subjective Date Seen The patient was seen on 12/04/18. Subjective Chief Complaint/HPI Patient seen and examined at the bedside during dialysis. No acute overnight events noted. Objective Physical Examination General Exam: Positive: Alert, Cooperative, No Acute Distress Eye Exam: Negative: Sclera icteric ENT Exam: Positive: Atraumatic, Mucous membr. moist/pink Neck Exam: Negative: thyromegaly Chest Exam: Positive: Clear to auscultation, Normal air movement Heart Exam: Positive: Rate Normal, Normal S1, Normal S2 Abdomen Exam: Positive: Normal bowel sounds, Soft; Negative: Tenderness, Hepatospenomegaly Extremity Exam: Positive: Edema Skin Exam: Positive: Nl turgor and temperature; Negative: Breakdown, Lesion Psych Exam: Positive: Oriented x 3 Assessment /Plan Plan/VTE VTE Prophylaxis Ordered?: Yes Plan End-stage renal disease on HD and PD Vascular surgery has removed her peritoneal dialysis catheter on 11/29/18 s/p AV fistula creation on 12/01 Dialysis management as per nephrology PFS on board for outpatient dialysis set up Hypertension continue amlodipine, coreg, lisinopril and torsemide Anemia in end-stage renal disease. IV Venofer with dialysis Aranesp with dialysis. Continue home dose of iron pills. Iatrogenic hypothyroidism (S/P thyroidectomy for Cancer) Cont levothyroxine 175 mcg daily. Diabetes Insulin sliding scale Hx of CAD On ASA, Statin, Coreg Dyslipidemia Continue statin DVT prophylaxis Heparin SC Disposition-pending continued clinical improvement, volume optimization via di alysis as per Nephro, PFS on board for outpatient dialysis set up VS, I&O, 24H, Fishbone Vital Signs/I&O Vital Signs Date Time Temp Pulse Resp B/P (MAP) Pulse Ox O2 Delivery O2 Flow Rate FiO2 12/04/18 06:29 68 121/58 12/04/18 06:00 97.8 20 98 11/29/18 18:42 2 I&O- Last 24 Hours up to 6 AM 12/04/18 06:00 Intake Total 1118 ml Output Total 0 ml Balance 1118 ml Laboratory Data 24H LABS Laboratory Tests 2 12/04/18 05:27: Nucleated Red Blood Cells % (auto) 0.0, Blood Urea Nitrogen 46H, Creatinine 7.65H, Sodium Level 132L, Potassium Level 5.0, Chloride Level 97L, Carbon Dioxide Level 27, Anion Gap 8, Glomerular Filtration Rate 5.7L, Calcium Level 9.5, Phosphorus Level 5.2H, Albumin 2.9L CBC/BMP Laboratory Tests 12/04/18 05:27 Red Blood Count 3.56 L, Mean Corpuscular Volume 99.7 H, Mean Corpuscular Hemoglobin 29.8, Mean Corpuscular Hemoglobin Concent 29.9 L, Red Cell Distribution Width 19.1 H, Anion Gap 8 ALESIA MADERA MD Dec 04, 2018 13:49
[2018-12-04 14:00] VITALS: BP 118/56
--- NOTE | 2018-12-04 20:30 | IPN ---
DATE: 12/03/2018 Ms. Olsen is seen this morning on her bedside. She is sitting in the chair and feels good. She denies any dyspnea, chest pain, nausea or vomiting. She is in good spirits. PHYSICAL EXAMINATION: She is awake and alert and without any acute distress. She is legally blind from both eyes. Her head is atraumatic. Neck is supple and without JVD or thyroid enlargement. Heart sounds are regular and lungs clear to auscultation. Abdomen soft and benign and bowel sounds are normal. Extremities have no cyanosis or clubbing. Right arm AV fistula has bruit present. Surgical incision is clean and I removed the dressing as the patient had severe itching due to OpSite. Neurologically she is awake and at her baseline mentation. She did not have any new labs. PROBLEMS: 1. End-stage renal disease. The patient is currently on maintenance hemodialysis three times a week. She will be dialyzed again tomorrow morning. 2. Congestive heart failure and shortness of breath. Volume status is well-compensated now with hemodialysis and we will continue to remove 2-3 liters of fluid with each dialysis treatment. 3. Anemia. Her anemia is stable and likely to improve. She did have some blood loss due to peritoneal dialysis catheter placement and lysis of adhesions. She had bleeding from her peritoneal cavity for a few days. However, her peritoneal catheter has been now removed and there is no further blood loss. She is receiving Aranesp and Venofer with dialysis. 4. Hypertension. Blood pressure very well controlled on current antihypertensive medications. No changes are being made today. 5. The patient is waiting for an outpatient dialysis seat in [place] as she will have to move to [place] to live with her sister due to her handicap and inability to travel to area dialysis centers here as she lives too far from dialysis units.
[2018-12-04 22:00] VITALS: BP 126/58
--- NOTE | 2018-12-04 23:17 | IPN ---
DATE: 12/04/2018 Ms. Olsen is seen this morning during hemodialysis. She is feeling well and denies any nausea, vomiting, dyspnea, chest pain, fever or chills. She is currently waiting for an outpatient dialysis seat in [place], [place]. She is going to live there with her sister in order to receive maintenance hemodialysis. Unfortunately, her peritoneal dialysis did not work, and her peritoneal catheter has already been removed. PHYSICAL EXAMINATION: Temperature 97.8 degrees Fahrenheit, heart rate 68 per minute and respiratory rate 20 per minute. Blood pressure 121/58 mmHg and oxygen saturation 98% on room air. Head is atraumatic. Neck is supple and jugular venous distention (JVD) is not elevated. She is legally blind. There is no oral thrush or ulcers. Heart sounds are regular and lungs are clear to auscultation. Abdomen: Soft and nontender. Bowel sounds are normal. Extremities have no cyanosis or clubbing. Neurologically she is awake, alert and oriented times three. Today's labs show WBC count 5.6, hemoglobin 10.6 and hematocrit 35.5. Sodium 132, potassium 5.0, BUN 46 and creatinine 7.65. Calcium 9.5 and phosphorus 5.2. Albumin level is 2.9. PROBLEM #1: End-stage renal disease. The patient is now on maintenance hemodialysis three times a week. She is being dialyzed today and will continue with her hemodialysis until she is ready for outpatient dialysis in [place], [place]. She cannot travel to dialysis facility here due to long distance from [place] where she lives. PROBLEM #2: Hyponatremia. This is new and probably related to noncompliance with fluid restriction. This will be corrected with dialysis and no other intervention will be needed. PROBLEM #3: Hypertension. Blood pressure is very well controlled and no changes in antihypertensives is being made. PROBLEM #4: Anemia. Her anemia has improved and corrected. We will continue with intravenous Venofer as long as she is here in the hospital, and she will also receive Aranesp once a week during dialysis. PROBLEM #5: Disposition. The patient can be discharged as soon as outpatient dialysis arrangements are finalized. From a renal standpoint, she is stable.
[2018-12-05] MEDS: ONDANSETRON 4MG/2ML VIAL (J2405) IV PRN (02:31)
[2018-12-05] MEDS: LEVOTHYROXINE 75MCG TABLET (0.075MG) PO SCH (05:48)
[2018-12-05] MEDS: LEVOTHYROXINE 100MCG TABLET (0.1MG) PO SCH (05:48)
[2018-12-05] MEDS: SLF 3 ML SYR IV SCH ×3 (05:49→21:20)
[2018-12-05 06:00] VITALS: BP 127/59
[2018-12-05] MEDS: (RENVELA) SEVELAMER **CARBONate** 800 MG TAB PO SCH ×3 (08:00→18:42)
--- NOTE | 2018-12-05 08:57 | IPNPDOC ---
Date Seen The patient was seen on 12/05/18. Progress Note Vascular Surgery. Dr Rome. HPI: The patient is a 62-year-old female with history of peritonitis in 07/2018 at which time PD catheter was removed. Peritoneal dialysis catheter was replaced by Dr. Rome on 10/24/18, s/p PD cath revision 11/17/18 readmitted with non functioning PD cath 11/23/18. Vascular surgery consulted re HD access. S/P PD cath removal as per Dr Rome 11/29/18. S/P AVF creation 12/01/18. Pt is receiving HD currently, Permcath Rt chest Medical History ESRD on HD/PD Diabetes HTN CAD with prior NE Thyroid cancer s/p surgery Past surgery history: 10/24/18 PD placement HD port thyroidectomy cardiac cath CABGx3 bilateral cataract PE: GEN: 62 yo F, appears stated age. Alert and oriented x 3. HEENT: Normocephalic, atraumatic. Moist mucous membranes. ABD: Surgical sites with no erythema, drainage. No TTP. SKIN: [place], dry, warm. No rashes. AVF RUE with steri strips intact, no drainage, no erythema, palpable thrill. A&P: 1. Status post PD catheter removal 11/29/[address] Rome. HD as per Nephrology with Permcath currently. 2. S/P AVF creation 12/01/[address] Rome. palpable thrill noted. Appears to be healing with no signs of infection. Plan for fistulogram 2-3 weeks as outpt. DVT prophylaxis. SQ Heparin. VS, I&O, 24H, Fishbone Vital Signs/I&O Vital Signs Date Time Temp Pulse Resp B/P (MAP) Pulse Ox O2 Delivery O2 Flow Rate FiO2 12/05/18 06:00 96.8 71 16 127/59 (81) 97 11/29/18 18:42 2 I&O- Last 24 Hours up to 6 AM 12/05/18 06:00 Intake Total 300 ml Output Total 2000 ml Balance -1700 ml Bita Ortega Dec 05, 2018 08:57
[2018-12-05 10:44] VITALS: BP 124/58
[2018-12-05] MEDS: HEPARIN SOD (PORCINE) 5000 UNITS/ML VIAL SC SCH ×2 (10:50→21:18)
[2018-12-05] MEDS: ATORVASTATIN 20 MG TAB PO SCH (10:50)
[2018-12-05] MEDS: amLODIPine 5 MG TAB PO SCH (10:50)
[2018-12-05] MEDS: DOCUSATE SODIUM 100 MG CAP PO SCH ×2 (10:51→21:18)
[2018-12-05] MEDS: CETIRIZINE (ZyrTEC) 10 MG TAB PO SCH (10:51)
[2018-12-05] MEDS: ASPIRIN 81 MG CHEW TABLET PO SCH (10:51)
[2018-12-05] MEDS: CARVedilol 3.125 MG TAB PO SCH ×2 (10:51→21:20)
[2018-12-05] MEDS: LISINOPRIL 5 MG TAB PO SCH (10:52)
[2018-12-05] MEDS: FLUTICASONE PROP 0.05% NASAL SPRAY 16 GM (FLONASE) NARES SCH (10:52)
[2018-12-05 14:00] VITALS: BP 117/81
--- NOTE | 2018-12-05 14:32 | IPNPDOC ---
Text Note Date of Service The patient was seen on 12/05/18. NOTE S: patient states feels fine and looking forward to discharge soon. States no SOB, no CP, no N, nV O: Vitals as below General:pleasant, NAD AAOx3 HRRR LCTA A/P: 1) End-stage renal disease with failed PD , currently on HD Vascular surgery has removed her peritoneal dialysis catheter on 11/29/18 s/p AV fistula creation on 12/01 Dialysis management as per nephrology PFS on board for outpatient dialysis set up in [place] - once this is available, then patient can be discharged. 2) Hypertension continue amlodipine, coreg, lisinopril and torsemide 3) Anemia in end-stage renal disease. IV Venofer with dialysis Aranesp with dialysis. Continue home dose of iron pills. 4) Iatrogenic hypothyroidism (S/P thyroidectomy for Cancer) Cont levothyroxine 175 mcg daily. 5) Diabetes Insulin sliding scale 6) Hx of CAD On ASA, Statin, Coreg 7) Dyslipidemia Continue statin DVT prophylaxis Heparin SC VS,Fishbone, I+O VS, Fishbone, I+O Vital Signs Date Time Temp Pulse Resp B/P (MAP) Pulse Ox O2 Delivery O2 Flow Rate FiO2 12/05/18 14:00 97.1 72 16 117/81 (93) 99 11/29/18 18:42 2 I&O- Last 24 Hours up to 6 AM 12/05/18 06:00 Intake Total 300 ml Output Total 2000 ml Balance -1700 ml TORIE VILLAVICENCIO DO Dec 05, 2018 14:32
--- NOTE | 2018-12-05 18:10 | IPN ---
DATE: 12/05/2018 Ms. Olsen is seen this morning on her bedside. She is sitting at the edge of the bed and reports feeling frustrated as she has not heard anything about her discharge plans. She has to be transferred to [place] for dialysis. We are waiting for an outpatient dialysis seat. She was dialyzed yesterday. She has no dyspnea, chest pain, nausea or vomiting. PHYSICAL EXAMINATION: Temperature 96.8 degrees Fahrenheit, heart rate 72 per minute and respiratory rate 16 per minute. Blood pressure 124/58 mmHg and oxygen saturation 97% on room air. She is legally blind. Head is atraumatic. Neck is supple and without jugular venous distention (JVD) or thyroid enlargement. Perma-Cath in right internal jugular vein is without any signs of infection. Heart sounds are regular. Lungs are clear to auscultation. Abdomen is soft and nontender. Bowel sounds are normal. Extremities have no cyanosis or clubbing. Right arm surgical incisions for arteriovenous (AV) fistula surgery is clean. Neurologically, she is awake, alert and at her baseline mentation. She did not have any new laboratories done today. Yesterday's laboratories were reviewed. PROBLEMS: 1. End-stage renal disease. The patient is currently on maintenance hemodialysis three times a week. She was dialyzed yesterday and next dialysis will be scheduled either tomorrow or . We are waiting for an outpatient dialysis slot. If she has a dialysis seat in [place] then she can be discharged anytime from a renal standpoint. 2. Hypertension. Blood pressures well-controlled on current antihypertensive medications and no changes are being made today. 3. Anemia. Her anemia has improved and stable. She receives Aranesp and Venofer during dialysis. DISPOSITION: From a renal standpoint, the patient can be discharged as soon as outpatient dialysis arrangements are finalized. She is medically stable for discharge.
[2018-12-05 22:00] VITALS: BP 123/59
[2018-12-06] MEDS: ATORVASTATIN 20 MG TAB PO SCH (05:19)
[2018-12-06] MEDS: CARVedilol 3.125 MG TAB PO SCH (05:19)
[2018-12-06] MEDS: DOCUSATE SODIUM 100 MG CAP PO SCH (05:19)
[2018-12-06 05:20] VITALS: BP 138/72
[2018-12-06] MEDS: LEVOTHYROXINE 75MCG TABLET (0.075MG) PO SCH (05:20)
[2018-12-06] MEDS: LEVOTHYROXINE 100MCG TABLET (0.1MG) PO SCH (05:20)
[2018-12-06] MEDS: ASPIRIN 81 MG CHEW TABLET PO SCH (05:20)
[2018-12-06] MEDS: amLODIPine 5 MG TAB PO SCH (05:20)
[2018-12-06] MEDS: LISINOPRIL 5 MG TAB PO SCH (05:20)
[2018-12-06] MEDS: SLF 3 ML SYR IV SCH (05:21)
[2018-12-06] MEDS: HEPARIN SOD (PORCINE) 5000 UNITS/ML VIAL SC SCH (05:21)
[2018-12-06] MEDS: CETIRIZINE (ZyrTEC) 10 MG TAB PO SCH (05:22)
[2018-12-06] MEDS: FLUTICASONE PROP 0.05% NASAL SPRAY 16 GM (FLONASE) NARES SCH (05:22)
[2018-12-06] MEDS: ACETAMINOPHEN 500 MG TAB PO PRN (05:39)
[2018-12-06 06:00] VITALS: BP 138/72
[2018-12-06] MEDS: (RENVELA) SEVELAMER **CARBONate** 800 MG TAB PO SCH (08:00)
[2018-12-06 08:05] LABS: HEMATOCRIT 34.2 % (36.0-47.0); HEMOGLOBIN 10.1 g/dl (12.0-15.5); MEAN CORPUSCULAR HEMOGLOBIN 29.8 pg (27.0-33.0); MEAN CORPUSCULAR HGB CONC 29.5 g/dl (32.0-36.5); MEAN CORPUSCULAR VOLUME 100.9 fl (80.0-96.0); PLATELET COUNT, AUTOMATED 245 10^3/uL (150-450); RED BLOOD COUNT 3.39 10^6/uL (4.00-5.40); WHITE BLOOD COUNT 5.4 10^3/uL (4.0-10.0)
[2018-12-06 08:25] LABS: ALBUMIN 2.8 GM/DL (3.2-5.2); CALCIUM LEVEL 9.5 MG/DL (8.8-10.2); CREATININE FOR GFR 7.07 MG/DL (0.55-1.30); GLOMERULAR FILTRATION RATE 6.2 (>45); PHOSPHORUS LEVEL 6.1 MG/DL (2.5-4.9); POTASSIUM SERUM 5.5 MEQ/L (3.5-5.1)
[2018-12-06] MEDS ORDERED: SYNT150T PO (12:11)
[2018-12-06] MEDS ORDERED: (RENVELA) SEVELAMER **CARBONate** 800 MG TAB PO SCH (12:30)
[2018-12-06] MEDS ORDERED: HEPARIN 1,000 UNITS/ML 10ML VIAL (FOR RADIOLOGY& DIALYSIS ONLY) IV ONE (14:00)
[2018-12-06] MEDS ORDERED: HEPARIN 1,000 UNITS/ML 10ML VIAL (FOR RADIOLOGY& DIALYSIS ONLY) XX ONE (14:00)
--- NOTE | 2018-12-06 18:30 | DS.PDOC ---
Discharge Summary General Date of Admission Nov 23, 2018 at 21:03 Date of Discharge 12/06/18 Attending Physician: TORIE VILLAVICENCIO DO Specialist/Consultants Involve: RAO LOPEZ MD @ Discharge Summary PROCEDURES PERFORMED DURING STAY: 11/29/18 Removal of PD cathetar 12/01/18 placement of AV fistula ADMITTING DIAGNOSES: Failure of Peritoneal dialysis at home with fluid retention CHF exacerbation and fluid overload ESRD with hyperphosphatemia CAD s/p CABG Chronic anemia due to ESRD Hypertension Hypothyroid Hyperlipidemia DISCHARGE DIAGNOSES: 1) End-stage renal disease with failed PD 2) Essential Hypertension 3) Anemia in end-stage renal disease. 4) Iatrogenic hypothyroidism (S/P thyroidectomy for Cancer) 5) Diabetes - not on prison insulin - diet controlled 6) Hx of CAD 7) Dyslipidemia COMPLICATIONS/CHIEF COMPLAINT: Fluid Overload,Esrd. HISTORY OF PRESENT ILLNESS: Patient is a 62-year-old female with a PMHx of CAD (Hx of NE), HTN, DLP, DM2, ESRD on PD, Hx of Thyroid CA (s/p surgery), Hx of PD Peritonitis in August 2018 when she was switched to HD through permcat and PD catheter taken out. New PD catheter was placed on 10/24 after peritonitis was treated which she st arted using from 11/08/18 however was having problems with drainage and retaining fluids and became SOB so was admitted on 11/12/17 was again put on HD and underwent repositioning of PD catheter with Lysis of intra peritoneal adhesions of 11/17/18 and was discharged yesterday with the PD catheter working well. She used her cycler overnight however did not have any UF infact was negative 380ml. Her Last fill was 1500 in /[address] Lopez because of SOB and was instructed to do manual exchange with 4.25 % which also did not produce UF 2000 in/1500 out. She continued to feel more SOB as the day progressed so was instructed by Dr Lopez to come to our ED. She went to [facility] ED and was transferred here for Fluid overload, CHF exacerbation and Unable to dialyze properly at home . see H&P for details HOSPITAL COURSE: Patient was admitted, PD and HD continued however, PD cathetar non functioning. PD removed on 11/29 and patient ESRD was maintained on HD. AV fistula was surgically placed on 12/01/18. Patient was set up for dialysis in [place] to be closer to facility and her sister. She did not have CHF. Her BP remained well controlled. and anemia was treated with venofer IV, aranesp with dialysis. At discharge, she was continued on iron pills. She is being discharged in stable and improved condition to home. DISCHARGE MEDICATIONS: Please see below. ALLERGIES: Please see below. PHYSICAL EXAMINATION ON DISCHARGE: VITAL SIGNS: Please see below. General:pleasant, NAD AAOx3 HRRR LCTA LABORATORY DATA: Please see below. ACTIVITY: as tolerated DIET: as tolerated, fluid restriction 1200cc DISCHARGE PLAN: discharge home DISCHARGE INSTRUCTIONS: 1. dialysis in [place] Tu,Thur Sat 2. Follow up with nephrology in 1 week 3. follow up with PCP in 1-2 weeks ITEMS TO FOLLOWUP ON ON OUTPATIENT: 1. repeat TSH in 4 weeks thru PCP office DISCHARGE CONDITION: stable TIME SPENT ON DISCHARGE:30 minutes Vital Signs/I&Os Vital Signs Date Time Temp Pulse Resp B/P (MAP) Pulse Ox O2 Delivery O2 Flow Rate FiO2 12/06/18 06:00 96.6 83 19 138/72 (94) 100 I&O- Last 24 Hours up to 6 AM 12/06/18 06:00 Intake Total 1050 ml Balance 1050 ml Laboratory Data Labs 24H Laboratory Tests 2 12/06/18 07:15: Nucleated Red Blood Cells % (auto) 0.0, Blood Urea Nitrogen 43H, Creatinine 7.07H, Sodium Level 138, Potassium Level 5.5H, Chloride Level 101, Carbon Dioxide Level 25, Anion Gap 12, Glomerular Filtration Rate 6.2L, Calcium Level 9.5, Phosphorus Level 6.1H, Albumin 2.8L CBC/BMP Laboratory Tests 12/06/18 07:15 Red Blood Count 3.39 L, Mean Corpuscular Volume 100.9 H, Mean Corpuscular Hemoglobin 29.8, Mean Corpuscular Hemoglobin Concent 29.5 L, Red Cell Distribution Width 18.9 H, Anion Gap 12 Discharge Medications Scheduled Amlodipine Besylate (Amlodipine Besylate) 5 Mg Tablet, 5 MG PO DAILY, (Reported) Aspirin (Aspir 81) 81 Mg Tablet.dr, 81 MG PO DAILY, (Reported) Atorvastatin Calcium (Atorvastatin Calcium) 20 Mg Tablet, 20 MG PO DAILY, (Reported) Carvedilol (Carvedilol) 3.125 Mg Tablet, 3.125 MG PO BID, (Reported) Cholecalciferol (Vitamin D3) (Vitamin D3) 50,000 Unit Capsule, 50,000 UNIT PO 1XWK, (Reported) Docusate Sodium (Docusate Sodium) 100 Mg Tablet, 100 MG PO BID, (Reported) Ferric Citrate (Auryxia) 210 Mg Tablet, 210 MG PO TID, (Reported) Folic Acid/Vit B Complex and C (Zo-Kamran Tablet) 0.8 Mg Tablet, 1 TAB PO DAILY, (Reported) Levothyroxine Sodium (Synthroid) 150 Mcg Tablet, 175 MCG PO DAILY no prescription given - has med at home Lisinopril (Lisinopril) 5 Mg Tablet, 5 MG PO DAILY, (Reported) Sevelamer Carbonate (Renvela) 800 Mg Tablet, 800 MG PO DAILY, (Reported) Scheduled PRN Acetaminophen (Acetaminophen) 500 Mg Tablet, 1,000 MG PO Q6H PRN for PAIN, (Reported) Nitroglycerin (Nitroglycerin) 0.4 Mg Tab.subl, 0.4 MG SL Q5MP PRN for CHEST PAIN, (Reported) Allergies Coded Allergies: Penicillins (Unverified Allergy, Intermediate, HIVES, 08/22/18) latex (Verified Allergy, Unknown, ITCHING, ORIGINALLY LISTED BAND-AID, 10/23/18) hydrocodone (Unverified Adverse Reaction, Mild, VOMITING, 08/21/18) egg (Unverified Adverse Reaction, Unknown, VOMITING, 08/21/18) TORIE VILLAVICENCIO DO Dec 06, 2018 12:13
--- NOTE | 2018-12-07 16:58 | IPN ---
DATE: 12/06/2018 Ms. Olsen is seen on her bedside in dialysis this morning. She was short of breath and had requested early dialysis. Three liters of fluid is being removed, and she is already feeling better. She denies any nausea, vomiting, fever or chills. PHYSICAL EXAMINATION: Temperature 96.6 degrees Fahrenheit, heart rate 82 per minute and respiratory rate 18 per minute. Blood pressure 138/72 mmHg and oxygen saturation 100% on room air. Head is atraumatic. Neck is supple and jugular venous distention (JVD) is not abnormally elevated at present. Internal jugular vein catheter in right side is present without any signs of infection or bleeding. Heart sounds are regular and lungs clear to auscultation. Abdomen: Soft and nontender and bowel sounds are normal. Extremities: Without any cyanosis or clubbing. Neurologically, she is awake, alert and oriented times three. She has a new fistula in her right arm. Today's labs show a WBC count of 5.4, hemoglobin 10.1 and hematocrit 34.2. Sodium 138, potassium 5.5, CO2 of 25, BUN 43 and creatinine 7.07. Calcium 9.5 and phosphorus 6.1. PROBLEM #1: End-stage renal disease. The patient is being dialyzed today and will continue with outpatient hemodialysis after discharge. PROBLEM #2: Shortness of breath. Most likely related to volume overload. She did drink more than her restricted fluid intake of 1500 mL per day. She is volume overloaded and 3 liters fluid is being removed today. This will hopefully help with her dyspnea. PROBLEM #3: Hyperkalemia. Most likely related to dietary noncompliance. The patient is being dialyzed with 2.0 mEq potassium bath, which will correct her hyperkalemia. PROBLEM #4: Hyperphosphatemia. Her Renvela dose is being increased to 1600 mg three times a day. PROBLEM #5: Hypertension. Blood pressure is well controlled on medications and no changes are being made today. PROBLEM #6: Disposition. The patient can be discharged to home as there is already a seat available for her in outpatient dialysis clinic in [place], [place]. I will defer to hospitalist service for making the final phone calls.
--- NOTE | 2018-12-29 19:35 | RO ---
DATE OF PROCEDURE: 11/29/2018 ATTENDING PHYSICIAN: Dr. Felipe Rome POCKET SETTER LOCKSTITCH: None. PREOPERATIVE DIAGNOSIS: End-stage renal disease, dysfunctional peritoneal dialysis catheter, congestive heart failure (CHF). POSTOPERATIVE DIAGNOSIS: End-stage renal disease, dysfunctional peritoneal dialysis catheter, congestive heart failure (CHF). OPERATIVE PROCEDURE Laparoscopic peritoneal dialysis catheter evaluation, laparoscopic lysis of adhesions, laparoscopic peritoneal dialysis catheter removal. INDICATION The patient is a 62-year-old female with end-stage renal disease who initially dialyzed through a peritoneal dialysis catheter which was infected and required removal. The patient underwent placement of a new catheter which has been nonfunctional. The patient will undergo laparoscopic evaluation with possible repair, revision and/or replacement. ANESTHESIA: General endotracheal with local. ESTIMATED BLOOD LOSS: Minimal. IV FLUIDS: COMPLICATIONS: None. DRAINS: None. SPECIMENS: None. IMPLANTS: None. DESCRIPTION OF PROCEDURE The patient was taken to the operating room, placed supine on the operating room table and then prepped and draped in a standard surgical fashion. The abdomen was insufflated through the existing peritoneal dialysis catheter, a 5 mm port was placed in left upper quadrant and the catheter was evaluated with the laparoscopic showing the catheter to be imbedded in adhesions in the pelvis which had previously been taken down. The adhesions were taken down sharply, but due to inflammation and bleeding, the decision was made to remove the catheter and attempt replacement at a later date once the inflammation was less. The catheter was removed after the cuffs were anesthetized with 2% lidocaine mixed with 0.5% Marcaine and then sharply dissected free through the entry sites in the abdominal wall. The catheter was removed and laparoscopy was performed confirming no bleeding or abnormality after which the ports were removed and the port sites closed using interrupted #3-0 Monocryl suture. Dressings were then applied. All instrument, sponge and needle counts were correct at the end the case. There were no complications. Dr. Rome was present for and directed the entire case. The patient was transferred to recovery room and subsequently to the floor in stable condition.
--- NOTE | 2018-12-29 19:43 | RO ---
DATE OF PROCEDURE: 12/01/2018 ATTENDING SURGEON: Dr. Felipe Rome PROBLEM MANAGER: None. PREOPERATIVE DIAGNOSIS: End-stage renal disease, dysfunctional peritoneal dialysis catheter. POSTOPERATIVE DIAGNOSIS: End-stage renal disease, dysfunctional peritoneal dialysis catheter. OPERATIVE PROCEDURE: Right brachiocephalic arteriovenous fistula formation. INDICATION The patient is a 62-year-old female who previously dialyzed through a peritoneal dialysis catheter which became infected and required removal. The catheter was replaced but subsequently was nonfunctional and required removal again. The patient will now undergo creation of an autogenous right arm arteriovenous fistula for hemodialysis access. The patient currently dialyzes through a right internal jugular vein tunneled central venous catheter. ANESTHESIA: Local MAC. ESTIMATED BLOOD LOSS: 15 mL IV FLUIDS: 250 mL HEPARIN: None. COMPLICATIONS: None. COMPLICATIONS: None. SPECIMENS: None. IMPLANTS: None. DESCRIPTION OF PROCEDURE The patient was taken to the operating room, placed supine on the operating room table and then prepped and draped in a standard surgical fashion. The incision was made at the antecubital fossa transversely exposing the cephalic vein and the brachial artery. These were both sharply dissected free and encircled with vessel loops. The cephalic vein was then transected as far distal as possible with the remnant ligated with a #2-0 silk suture. Cephalic vein was dilated with heparinized saline and then anastomosed to the brachial artery in an end-to-side fashion using #6-0 Prolene suture. There was good flow in the brachial artery proximal and distal to the arteriovenous anastomosis as well as into the fistula. Hemostasis was obtained after which the incision was closed using serial Monocryl to approximate the skin in a running subcuticular fashion. Steri-Strips and dressings were applied. The patient tolerated the procedure well. All instrument, sponge and needle counts were correct at the end the case. There were no complications. Dr. Rome was present for directed the entire case. The patient was transferred to the recovery room in stable condition.
== END 2018-12-06 14:25 | disposition home or self-care (01) | DRG 907 ==
LOC: M PCU 21:03 → M MSPAV 11-28 18:16
PROVIDERS: ADMIT Internal Medicine Nephrology; ATTEND Family Medicine
PROC: 5A1D70Z Performance of Urinary Filtration, Intermittent, Less than 6 Hours Per Day (ICD-10-PCS; 2018-11-23)
PROC: 0WPG4YZ Removal of Other Device from Peritoneal Cavity, Percutaneous Endoscopic Approach (ICD-10-PCS; principal; 2018-11-29 09:22)
PROC: 03170ZD Bypass Right Brachial Artery to Upper Arm Vein, Open Approach (ICD-10-PCS; 2018-12-01)
DX: T85.898A Other specified complication of other internal prosthetic devices, implants and grafts, initial encounter (principal); N18.6 End stage renal disease; I50.33 Acute on chronic diastolic (congestive) heart failure; I13.2 Hypertensive heart and chronic kidney disease with heart failure and with stage 5 chronic kidney disease, or end stage renal disease; T85.691A Other mechanical complication of intraperitoneal dialysis catheter, initial encounter; D63.1 Anemia in chronic kidney disease; E11.319 Type 2 diabetes mellitus with unspecified diabetic retinopathy without macular edema; E78.5 Hyperlipidemia, unspecified; I25.10 Atherosclerotic heart disease of native coronary artery without angina pectoris; E03.2 Hypothyroidism due to medicaments and other exogenous substances; I25.2 Old myocardial infarction; Z85.850 Personal history of malignant neoplasm of thyroid; Z99.2 Dependence on renal dialysis; K66.0 Peritoneal adhesions (postprocedural) (postinfection); E83.39 Other disorders of phosphorus metabolism; Z95.1 Presence of aortocoronary bypass graft; Z88.0 Allergy status to penicillin; Z91.040 Latex allergy status; Z88.5 Allergy status to narcotic agent; Z91.012 Allergy to eggs; Z79.82 Long term (current) use of aspirin; Z79.899 Other long term (current) drug therapy; G25.81 Restless legs syndrome; E11.21 Type 2 diabetes mellitus with diabetic nephropathy; H54.8 Legal blindness, as defined in USA; Y83.8 Other surgical procedures as the cause of abnormal reaction of the patient, or of later complication, without mention of misadventure at the time of the procedure